=== PATIENT | female | born 1955 | race Caucasian/White ===

== ENCOUNTER 2023-07-03 07:40 | Outpatient (OUT) | payer MEDICARE, OTHER, SELFPAY ==
[2023-07-03 07:53] LABS: Basophils Absolute Auto 0.1 10^3/uL (0.0-0.1); Basophils Percent Auto 1.6 % (0.2-2.0); Eosinophils Absolute Auto 0.2 10^3/uL (0.0-0.7); Eosinophils Percent Auto 4.7 % (0.9-7.0); Hemoglobin 14.2 g/dL (12.0-16.0); Lymphocytes Absolute Auto 1.2 10^3/uL (1.2-3.8); Lymphocytes Percent Auto 31.1 % (20.5-60.0); Mean Corpuscular Hemoglobin 30.9 pg (26.7-34.0); Mean Corpuscular Volume 93.7 fL (81.0-99.0); Mean Platelet Volume 8.7 fL (9.5-13.5); Monocytes Absolute Auto 0.4 10^3/uL (0.3-0.8); Neutrophils Percent Auto 52.6 % (43.0-75.0); Platelet Count 210 10^3/uL (150-450); Red Blood Count 4.59 10^6/uL (4.20-5.40); Red Cell Distribution Width 12.7 % (11.0-15.0); White Blood Count 3.8 10^3/uL (4.0-11.0)
--- NOTE | 2023-07-03 07:57 | MM_ITS ---
Patient: POLO ALANIS Exam Date: 07/03/2023 : 1955 Gender:F Ordering : DR Doris Adam M.D. Admission #: [id number] Family : Order #: [id number] CLICK HERE TO VIEW EXAM RADIOLOGY REPORT PROCEDURE: MM TOMOSYNTHESIS SCREENING BI COMPARISON: MG MAMM SCREEN DANIELA W CAD, 08/13/2019. MG MAMM DANIELA SCRN W CAD DIG, 08/25/2016. INDICATIONS: Screening Calculator Name NCI Breast Cancer Risk Assessment Tool 5 Year Breast Cancer Risk 1.20% Lifetime Breast Cancer Risk 3.90% Personal Breast Cancer No Personal Ovarian Cancer No Treatments None Family Cancers Father with lung cancer at age ~60. LOCATION: [facility] BREAST COMPOSITION: Scattered areas fibroglandular density. FINDINGS: DIAGNOSTIC CATEGORY 2--BENIGN FINDING: RIGHT BREAST: No significant suspicious finding. Scattered benign-appearing calcifications are present. No significant change has occurred. LEFT BREAST: No significant suspicious finding. Scattered benign-appearing calcifications are present. No significant change has occurred. RECOMMENDATIONS: ROUTINE MAMMOGRAM AND CLINICAL EVALUATION IN 12 MONTHS. PLEASE NOTE: A NORMAL MAMMOGRAM DOES NOT EXCLUDE THE POSSIBILITY OF BREAST CANCER. A CLINICALLY SUSPICIOUS PALPABLE LUMP SHOULD BE BIOPSIED. Dictated by: Frantz Melchor M.D. on 07/03/2023 at 15:03 Approved by: Frantz Melchor M.D. on 07/03/2023 at 15:05
[2023-07-03 08:39] LABS: Free T4 1.11 ng/dL (0.76-1.46)
[2023-07-03 08:41] LABS: Alanine Aminotransferase 36 U/L (14-59); Albumin Globulin Ratio 1.3; Albumin Level 3.8 g/dL (3.4-5.0); Alkaline Phosphatase 61 U/L (46-116); Anion Gap 9.7; Aspartate Amino Transferase 19 U/L (15-37); BUN Creatinine Ratio 17.3; Bilirubin Total 0.6 mg/dL (0.2-1.0); Calcium 8.8 mg/dL (8.5-10.1); Chloride 105 mmol/L (98-107); Chol HDL Ratio 2.2; Cholesterol 140 mg/dL (<=200); Estimated GFR (African America >60 (>=60); Estimated GFR (Non-African Ame >60 (>=60); Glucose 89 mg/dL (74-106); HDL Cholesterol 63 mg/dL (40-60); Potassium 4.7 mmol/L (3.5-5.1); Sodium 141 mmol/L (136-145); Thyroid Stimulating Hormone 0.329 uIU/mL (0.358-3.740); Total Protein 6.8 g/dL (6.4-8.2); Triglycerides 86 mg/dL (<=150); VLDL CHOLESTEROL 17.2 mg/dL
== END 2023-07-03 07:41 | disposition home or self-care (01) ==
LOC: MAMMO 07:40
PROVIDERS: PCP Family Medicine; Visit Provider Family Medicine
DX: Z12.31 Encounter for screening mammogram for malignant neoplasm of breast (principal); E03.9 Hypothyroidism, unspecified; E78.5 Hyperlipidemia, unspecified; Z80.1 Family history of malignant neoplasm of trachea, bronchus and lung
CPT/HCPCS: 36415; 77063; 77067; 80053; 80061; 84439; 84443; 85025

== ENCOUNTER 2023-11-24 06:40 | Outpatient (OUT) | payer MEDICARE, OTHER, SELFPAY ==
[2023-11-24 07:45] LABS: Thyroid Stimulating Hormone 0.111 uIU/mL (0.358-3.740)
[2023-11-24 08:04] LABS: Free T4 1.24 ng/dL (0.76-1.46)
== END 2023-11-24 06:41 | disposition home or self-care (01) ==
LOC: LAB 06:40
PROVIDERS: PCP Family Medicine; Visit Provider Family Medicine
DX: L65.9 Nonscarring hair loss, unspecified (principal); E03.9 Hypothyroidism, unspecified
CPT/HCPCS: 36415; 84439; 84443

== ENCOUNTER 2024-01-05 06:52 | Outpatient (OUT) | payer MEDICARE, OTHER, SELFPAY ==
--- OUTSIDE RECORDS SUMMARY | 2024-01-05 06:56 | XMS_ITS | CCD ---
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 Name Role Phone DORIS WILLIS Primary Care Physician [phone] Doris Willis MISC, DR CABRAL Primary Care Unavailable MISC, DR CABRAL Consulting Unavailable MISC, DR CABRAL Attending Unavailable MISC, DR CABRAL Admitting Unavailable WILLIS, DR DORIS Clements Admitting Unavailable WILLIS, DR DORIS Clements Primary Care Unavailable WILLIS, DR DORIS Clements Consulting Unavailable WILLIS, DR DORIS Clements Attending Unavailable WILLIS, DR DORIS Clements Admitting Unavailable WILLIS, DR DORIS Clements Primary Care Unavailable ZIEBKEITH, DR STEPHANY Woodard Consulting Unavailable WILLIS, DR DORIS Clements Attending Unavailable WILLIS, DR DORIS Clements Consulting Unavailable WILLIS, DR DORIS Clements Primary Care Unavailable HAY ., DR SCHMIDT Consulting Unavailable HAY ., DR SCHMIDT Attending Unavailable HAY ., DR SCHMIDT Admitting Unavailable MISC, DR CABRAL Primary Care Unavailable MISC, DR CABRAL Attending Unavailable MISC, DR CABRAL Admitting Unavailable WILLIS, DR DORIS Clements Attending Unavailable WILLIS, DR DORIS Clements Admitting Unavailable WILLIS, DR DORIS Clements Primary Care Unavailable WILLIS, DR DORIS Clements Consulting Unavailable Kia, MD Doris Clements Primary Care Provider YARIEL Briones Emergency Provider Nehemias Briones Attending Unavailable Nehemias Briones Admitting Unavailable Kia, Doris Clements Primary Care Unavailable Allergies Allergy Classification Reported Allergen(s) Allergy Type Date of Onset Reaction(s) Facility (4 sources) Amoxicillin / Clavulanate Drug Allergy Unknown [facility] Other (6 sources) cefdinir Drug Allergy Unknown [facility] Other (6 sources) gabapentin Drug Allergy Unknown [facility] Other (6 sources) Latex Drug allergy rash [facility] Other (3 sources) Phentermine Drug Allergy Unknown [facility] Other (9 sources) Propranolol Drug Allergy Unknown [facility] Other (6 sources) Simvastatin Drug Allergy Unknown [facility] Other (2 sources) natural latex rubber Drug allergy (disorder) [facility] Repository (3 sources) Adipex-P *ADHD/ANTI-NARC OLEPSY/ANTI-OBE SITY/ANOREX Propensity to adverse reactions Unknown [facility] Other (2 sources) Amoxicillin / Clavulanate Drug Allergy Unknown [facility] Other Medications Current Medications Medication Drug Class(es) Dates Sig (Normalized) Sig (Original) aspirin 81 mg oral tablet (9 sources) Platelet Aggregation Inhibitor, Nonsteroidal Anti-inflammatory Drug Start: 07-13-2016 take 81 mg by mouth once daily Aspirin Active 81 MG PO Daily April 23, 2023 12:00am betamethasone 0.5 mg/ml topical cream (7 sources) Corticosteroid Start: 11-27-2023 Betamethasone Dipropionate Active 1 APPLIC TOPICAL Twice daily November 27, 2023 12:00am FreeTextSi application Externally Twice a day; Note: Source Status: Taking; Provider: Kia George ( ) Betamethasone Di propionate 0.05 % 1 application Externally Twice a day Active cetirizine hydrochloride 10 mg oral tablet (8 sources) Histamine-1 Receptor Antagonist Start: 11-27-2023 take 1 tablet by mouth once daily Cetirizine (Zyrtec) 10 mg tablet Active 1 TAB PO Daily November 27, 2023 12:00am FreeTextSi tablet Orally Once a day; Note: Source Status: Taking; Provider: Kia George ( ) Start: 07-13-2016 take 10 mg by mouth once daily Zyrtec 10 mg, Oral, Daily, Refills(s) 0, Allergy symptoms Start Date: 07/13/16 Status: Ordered ciprofloxacin 250 mg oral tablet (1 source) Quinolone Antimicrobial Start: 12-26-2022 take 1 tablet by mouth every twelve hours Ciprofloxacin HCl 250 MG 1 tablet Orally every 12 hrs for 5 day(s) Dec, Active DULoxetine 30 mg delayed release oral capsule (7 sources) Serotonin and Norepinephrine Reuptake Inhibitor Start: 11-27-2023 take 1 capsule by mouth once daily Duloxetine Active 30 MG PO Daily November 27, 2023 12:00am FreeTextSig: TAKE 1 CAPSULE BY MOUTH EVERY DAY; Note: Source Status: Start; Refills: 3; Qty: 90 Capsule; Provider: Kia George ( ) take 1 capsule by mo [facility] every twenty-four hours Cymbalta 30 MG 1 capsule Orally Once a day Active DULoxetine 60 mg Cap-EC (1 source) Start: 01-11-2022 take 1 capsule by mouth once daily DULoxetine 60 mg Cap-EC 60 mg = 1 cap(s), Oral, Daily, (do not crush or chew), # 90 caplet(s), Refills(s) 3, Pharmacy: [facility]/pharmacy #[id number], 160, cm, 01/11/22 16:30:00 EDT, Height/Length Dosing, 87.1, kg, 01/11/22 16:30:00 EDT, Weight Dosing Start Date: 01/11/22 Status: Ordered Flonase 0.05 mg/inh [place] (1 source) Start: 01-11-2022 take 1 spray(s) nasal route twice daily Flonase 0.05 mg/inh [place] 1 spray(s), Nasal, BID, 16 gram, Refill(s) 0, each nostril Start Date: 01/11/22 Status: Ordered krill oil (6 sources) Krill Oil 350 MG as directed Orally Active levothyroxine sodium 0.1 mg oral tablet (10 sources) l-Thyroxi ne Start: 11-27-2023 take 100 ug by mouth once daily Levothyroxine Active 100 MCG PO Daily November 27, 2023 12:00am Start: 04-23-2023 End: 11-27-2023 take 112 ug by mouth once daily in the morning Levothyroxine Discontinued 112 MCG PO Every morning April 23, 2023 12:00am November 27, 2023 10:03am Start: 11-10-2022 take 1 tablet by [facility] once daily in the morning Synthroid 100 MCG 1 tablet in the morning on an empty stomach Orally Once a day for 90 days Nov, Active Start: 11-10-2022 take 1 tablet by anibal th once daily in the morning Synthroid 112 MCG 1 tablet in the morning on an empty stomach Orally Once a day for 90 days Nov, Active Start: 01-11-2022 levothyroxine 100 mcg (0.1 mg) Tab See Instructions, 1 tab(s) Oral Daily monday-monday, take 1/2 tab on monday, # 30 tab(s), Refills(s) 5, Pharmacy: [facility]/pharmacy #[id number], 160, cm, 01/11/22 16:30:00 EDT, Height/Length Dosing, 87.1, kg, 01/11/22 16:30:00 EDT, Weight Dosing Start Date: 01/11/22 Status: Ordered methylPREDNISolone 4 mg oral tablet (1 source) Corticosteroid Start: 05-04-2023 methylPREDNISolone 4 MG as directed Orally for 6 days Apr, Active MiraLax 17 GM/SCOOP (4 sources) MiraLax 17 GM/SC OOP as directed Orally Active Multivitamins and Minerals (1 source) Start: 07-14-2016 Multivitamins and Minerals See Instructions, Refill(s) 0, Prophylaxis Start Date: 07/14/16 Status: Ordered pantoprazole 40 mg delayed release oral tablet (9 sources) Proton Pump Inhibitor Start: 04-23-2023 take 40 mg by mouth once daily Pantoprazole Active 40 MG PO Daily April 23, 2023 12:00am Start: 07-13-2016 take 40 mg by mouth once daily pantoprazole 40 mg, Oral, Daily, Refills(s) 0, Control of stomach acid Start Date: 07/13/16 Status: Ordered polyethylene glycol 3350 42796 mg powder for oral solution (3 sources) Osmotic Laxative Start: 09-14-2021 MiraLax oral powder for reconstitution 17 gram, Oral, Daily, 527 gram, Refill(s) 0, dissolve in water before taking, [facility]/pharmacy #[id number], 160, cm, 09/14/21 16:09:00 EST, Height/Length Dosing, 85.1, kg, 09/14/21 16:09:00 EST, Weight Dosing Start Date: 09/14/21 Status: Ordered MiraLax 17 GM/SC OOP as directed Orally Active rizatriptan 10 mg oral tablet (11 sources) Serotonin-1b and Serotonin-1d Receptor Agonist Start: 11-27-2023 take 1 tablet by mouth every two hours as needed, then take 2 tablets by mouth once daily as needed Rizatriptan Active 10 MG PO EVERY 2-4 HOURS November 27, 2023 12:00am FreeTextSig: TAKE 1 TABLET BY MOUTH EVERY 2 HOURS NEEDED, MAX 2 TABS PER DAY; Note: Source Status: Taking; Refills: 5; Qty: 10 Tablet; Provider: Kia George ( ) Start: 11-22-2023 End: 11-27-2023 Rizatriptan Discontinued 0 . ROUTE .COMPLEX November 22, 2023 1:52pm November 27, 2023 9:54am TAKE 1 TABLET EVERY 2 HOURS NEEDED. MAX 2 TABLETS PER DAY Start: 07-14-2016 End: 11-22-2023 Rizatriptan Discontinued 10 MG PO As Directed April 23, 2023 12:00am November 22, 2023 1:52pm rosuvastatin calcium 20 mg oral tablet (9 sources) HMG-CoA Reductase Inhibitor Start: 09-14-2021 take 20 mg by mouth once daily Rosuvastatin Active 20 MG PO Daily April 23, 2023 12:00am sulfamethoxazole 800 mg / trimethoprim 160 mg oral tablet (1 source) Dihydrofolate Reductase Inhibitor Antibacterial, Sulfonamide Antimicrobial Start: 03-02-2023 take 1 tablet by mouth every twelve hours Bactrim DS 800-160 MG 1 tablet Orally Twice a day for 10 day(s) Feb, Active Completed/Discontinued Medications Medication Drug Class(es) Dates Sig (Normalized) Sig (Original) docusate sodium 100 mg oral capsule (7 sources) Start: 11-27-2023 End: 11-27-2023 take 1 capsule by mouth once daily as needed Docusate Sodium Discontinued 1 CAP PO Daily November 27, 2023 12:00am November 27, 2023 9:52am FreeTextSi capsule as needed Orally Once a day; Note: Source Status: [id number] MG; Provider: Kia George ( ) take 1 capsule by [facility] every twenty-four hours Colace 100 MG 1 capsule as needed Orally Once a day 50 MG Active doxycycline hyclate 100 mg oral capsule (7 sources) Tetracycline-class Drug Start: 11-27-2023 End: 11-27-2023 take 1 capsule by mouth twice daily Doxycycline Hyclate Discontinued 1 CAP PO Twice daily November 27, 2023 12:00am November 27, 2023 9:52am FreeTextSi capsule Orally Twice a day; Note: Source Status: Not-Taking\PRN; Refills: 0; Provider: Avery Ross Start: 05-29-2019 take 1 capsule by [facility] every twelve hours Doxycycline Hyclate 100 MG 1 capsule Orally Twice a day for 10 day(s) May, Not-Taking [id number] (1 source) Start: 11-27-2023 End: 11-27-2023 Sadgg-[id number]-[id number] Discontinued CAP PO November 27, 2023 12:00am November 27, 2023 9:52am omeprazole 20 mg delayed release oral capsule (7 sources) Proton Pump Inhibitor Start: 11-27-2023 End: 11-27-2023 take 20 mg by mouth once daily Omeprazole Discontinued 20 MG PO Daily November 27, 2023 12:00am November 27, 2023 9:53am Medication Name: Omeprazole; Note: Source Status: Not-Taking\PRN; Provider: Kia George ( ) Omeprazole Not-T aking triamcinolone acetonide 40 mg/ml injectable suspension (5 sources) Corticosteroid Start: 03-02-2023 Kenalog-40 Jun, 60 mg Problems Active Problems Problem Classification Problem Date Documented Date Episodic/Chronic Abdominal pain (5 sources) Lower abdominal pain, unspecified; Translations: [LOWER ABDOMINAL PAIN UNSPECIFIED] Onset: 11-09-2022 Episodic Allergic reactions (12 sources) Eczema; Translations: [Dermatitis, unspecified] Episodic Anxiety disorders (2 sources) Anxiety disorder; Translations: [Anxiety disorder, unspecified] Onset: 01-07-2022 Chronic Diabetes mellitus without complication (7 sources) Hyperglycemia; Translations: [Other abnormal glucose] Onset: 06-28-2022 Episodic Diseases of mouth; excluding dental (6 sources) Sialoadenitis; Translations: [Sialoadenitis, unspecified] Episodic Diseases of white blood cells (11 sources) Decreased blood leukocyte number; Translations: [Other decreased white blood cell count] Onset: 12-21-2022 Chronic Disorders of lipid metabolism (4 sources) Hyperlipidemia; Translations: [Hyperlipidemia, unspecified] Onset: 12-29-2021 09-14-2021 Chronic E Codes: Natural/environment (1 source) Bitten or stung by nonvenomous insect and other nonvenomous arthropods, initial encounter Episodic Esophageal disorders (8 sources) Gastroesophageal reflux disease; Translations: [Gastroesophageal reflux disease without esophagitis] Onset: 12-29-2021 09-14-2021 Chronic Fracture of upper limb (18 sources) Open fracture of middle AND/OR proximal phalanx of finger; Translations: [Displaced fracture of proximal phalanx of other finger, initial encounter for open fracture] Episodic Headache; including migraine (8 sources) Migraine; Translations: [Migraine, unspecified, not intractable, without status migrainosus] Onset: 12-29-2021 09-14-2021 Chronic Inflammation; infection of eye (except that caused by tuberculosis or sexually transmitteddisease) (2 sources) Acute conjunctivitis due to chemical; Translations: [Acute toxic conjunctivitis, unspecified eye] 04-23-2023 Episodic Lymphadenitis (6 sources) Cervical lymphadenopathy; Translations: [Localized enlarged lymph nodes] Episodic Mood disorders (2 sources) Mild recurrent major depression; 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, recurrent, mild] Onset: 01-07-2022 Chronic Other ear and sense organ disorders (6 sources) Bilateral tinnitus; Translations: [Tinnitus, bilateral] Episodic Other inflammatory condition of skin (6 sources) Pruritus of skin; Translations: [Pruritus, unspecified] Episodic Other nervous system disorders (6 sources) Carpal tunnel syndrome of right wrist; Translations: [Carpal tunnel syndrome, right upper limb] Chronic Other non-traumatic joint disorders (6 sources) Shoulder joint pain; Translations: [Pain in right shoulder] Episodic Other nutritional; endocrine; and metabolic disorders (1 source) Obese class I; Translations: [Body mass index (BMI) 34.0-34.9, adult] Onset: 01-11-2022 Chronic Other nutritional; endocrine; and metabolic disorders (1 source) Body mass index 30+ - obesity 01-11-2022 Chronic Other skin disorders (1 source) Loss of hair; Translations: [Nonscarring hair loss, unspecified] 11-23-2023 Episodic Other upper respiratory disease (2 sources) Allergic rhinitis; Translations: [Allergic rhinitis, unspecified] Onset: 01-11-2022 Chronic Other upper respiratory disease (6 sources) Seasonal allergy; Translations: [Other seasonal allergic rhinitis] Chronic Other upper respiratory infections (1 source) Chronic sinusitis, unspecified; Translations: [CHRONIC SINUSITIS UNSPECIFIED] Onset: 08-30-2022 Chronic Other upper respiratory infections (6 sources) Acute pharyngitis; Translations: [Acute pharyngitis, unspecified] Episodic Residual codes; unclassified (6 sources) Tobacco user; Translations: [Tobacco use] Episodic Superficial injury; contusion (1 source) Insect bite (nonvenomous) of right elbow, initial encounter Episodic Thyroid disorders (20 sources) Hypothyroidism; Translations: [Hypothyroidism, unspecified] Onset: 01-07-2022 Chronic Unclassified (1 source) Ocular pain, right eye; Translations: [Ocular pain, right eye] Onset: 04-23-2023 Past or Other Problems Problem Classification Problem Date Documented Da te Episodic/Chronic Menopausal disorders (1 source) Hormone replacement therapy; Translations: [HORMONE REPLACEMENT THERAPY] Onset: 08-30-2022 Episodic Other aftercare (1 source) Other retirement (current) drug therapy; Translations: [OTH SHELTER CURRENT DRUG THERAPY] Onset: 08-30-2022 Episodic Other aftercare (1 source) termite helper (current) use of aspirin; Translations: [FORKLIFT SUPERVISOR CURRENT USE OF ASPIRIN] Onset: 08-30-2022 Episodic Other upper respiratory disease (3 sources) Nasal congestion; Translations: [NASAL CONGESTION] Onset: 08-29-2022 Episodic Results Test Name Value Interpretation Reference Range Facility Laboratory - Chemistry and C hemistry - challengeon 11-24-2023 Free T4 [Mass/Vol] 1.24 ng/dL 0.76-1.46 [facility] TSH Qn 0.111 m[IU]/L 0.358-3.740 [facility] CBC AUTO DIFFon 12-21-2022 BASO # 0.0 103/ul Normal 0.0-0.1 [facility] Comment on above: Performed By: #### C #### [facility] [address] [place] [address] Dr. Aida Monae Basophils/100 WBC (Bld) 0.8 % Normal 0.2-2.0 [facility] Comment on above: Performed By: #### C BC #### [facility] [address] [place] [address] Dr. Aida Monae EO # 0.2 103/ul Normal 0.0-0.7 [facility] Comment on above: Performed By: #### C BC #### [facility] [address] [place] [address] Dr. Aida Monae Eosinophils/100 WBC (Bld) 4.1 % Normal 0.9-7.0 [facility] Comment on above: Performed By: #### C BC #### [facility] [address] [place] [address] Dr. Aida Monae Erythrocyte distribution width (RBC) [Ratio] 13.2 % Normal 11.0-15.0 [facility] Comment on above: Performed By: #### C BC #### [facility] [address] [place] [address] Dr. Aida Monae Hematocrit (Bld) [Volume fraction] 43.5 % Normal 36.0-48.0 [facility] Comment on above: Performed By: #### C BC #### [facility] [address] [place] [address] Dr. Aida Monae Hemoglobin (Bld) [Mass/Vol] 14.7 g/dL Normal 12.0-16.0 [facility] Comment on above: Performed By: #### C BC #### [facility] [address] [place] [address] Dr. Aida Monae IG # 0.02 10e3/ul Normal 0.00-0.03 [facility] Comment on above: Performed By: #### C BC #### [facility] [address] [place] [address] Dr. Aida Monae IG % 0.4 % Normal 0.0-0.5 [facility] Comment on above: Performed By: #### C BC #### [facility] [address] [address] [address] Aida Monae LYMPH # 1.2 103/ul Normal 1.2-3.8 [facility] Comment on above: Performed By: #### C BC #### [facility] [address] [place] [address] Dr. Aida Monae Lymphocytes/100 WBC (Bld) 24.3 % Normal 20.5-60.0 [facility] Comment on above: Performed By: #### C BC #### [facility] [address] [place] [address] Dr. Aida Monae MANUAL DIFF REQ NO Normal [facility] Comment on above: Performed By: #### C BC #### [facility] [address] [place] [address] Dr. Aida Monae MCH (RBC) [Entitic mass] 30.8 pg Normal 26.7-34.0 [facility] Comment on above: Performed By: #### C BC #### [facility] [address] [place] [address] Dr. Aida Monae MCHC (RBC) [Mass/Vol] 33.8 g/dL Normal 29.9-35.2 [facility] Comment on above: Performed By: #### C BC #### [facility] [address] [place] [address] Dr. Aida Monae MCV (RBC) [Entitic vol] 91.2 fL Normal 81.0-99.0 [facility] Comment on above: Performed By: #### C BC #### [facility] [address] [place] [address] Dr. Aida Monae MONO # 0.5 103/ul Normal 0.3-0.8 [facility] Comment on above: Performed By: #### C BC #### [facility] [address] [place] [address] Dr. Aida Monae Monocytes/100 WBC (Bld) 9.2 % Normal 1.7-12.0 [facility] Comment on above: Performed By: #### C BC #### [facility] [address] [address] [address] Aida Monae NEUT # 3.0 103/ul Normal 1.4-6.5 [facility] Comment on above: Performed By: #### C BC #### [facility] [address] [place] [address] Dr. Aida Monae Neutrophils/100 WBC (Bld) 61.2 % Normal 43.0-75.0 [facility] Comment on above: Performed By: #### C BC #### [facility] [address] [place] [address] Dr. Aida Monae Platelet mean volume (Bld) [Entitic vol] 8.9 fL Critically low 9.5-13.5 [facility] Comment on above: Performed By: #### C BC #### [facility] [address] [place] [address] Dr. Aida Monae PLT 259 103/ul Normal 150-450 [facility] Comment on above: Performed By: #### C BC #### [facility] [address] [place] [address] Dr. Aida Monae RBC 4.77 106/ul Normal 4.20-5.40 [facility] Comment on above: Performed By: #### C BC #### [facility] [address] [place] [address] Dr. Aida Monae WBC 4.9 103/ul Normal 4.0-11.0 [facility] Comment on above: Performed By: #### C BC #### [facility] [address] [place] [address] Dr. Aida Monae CBC AUTO DIFFon 11-09-2022 BASO # 0.0 103/ul Normal 0.0-0.1 [facility] Comment on above: Performed By: #### C BC #### [facility] [address] [place] [address] Dr. Aida Monae Basophils/100 WBC (Bld) 0.9 % Normal 0.2-2.0 [facility] Comment on above: Performed By: #### C BC #### [facility] [address] [place] [address] Dr. Aida Monae EO # 0.1 103/ul Normal 0.0-0.7 [facility] Comment on above: Performed By: #### C BC #### [facility] [address] [place] [address] Dr. Aida Monae Eosinophils/100 WBC (Bld) 3.6 % Normal 0.9-7.0 [facility] Comment on above: Performed By: #### C BC #### [facility] [address] [place] [address] Dr. Aida Monae Erythrocyte distribution width (RBC) [Ratio] 13.6 % Normal 11.0-15.0 [facility] Comment on above: Performed By: #### C BC #### [facility] [address] [place] [address] Dr. Aida Monae Hematocrit (Bld) [Volume fraction] 42.6 % Normal 36.0-48.0 [facility] Comment on above: Performed By: #### C BC #### [facility] [address] [place] [address] Dr. Aida Monae Hemoglobin (Bld) [Mass/Vol] 14.5 g/dL Normal 12.0-16.0 [facility] Comment on above: Performed By: #### C BC #### [facility] [address] [place] [address] Dr. Aida Monae IG # 0.01 10e3/ul Normal 0.00-0.03 [facility] Comment on above: Performed By: #### C BC #### [facility] [address] [place] [address] Dr. Aida Monae IG % 0.3 % Normal 0.0-0.5 [facility] Comment on above: Performed By: #### C BC #### [facility] [address] [place] [address] Dr. Aida Monae LYMPH # 1.0 103/ul Critically low 1.2-3.8 [facility] Comment on above: Performed By: #### C BC #### [facility] [address] [place] [address] Dr. Aida Monae Lymphocytes/100 WBC (Bld) 28.6 % Normal 20.5-60.0 [facility] Comment on above: Performed By: #### C BC #### [facility] [address] [place] [address] Dr. Aida Monae MANUAL DIFF REQ NO Normal [facility] Comment on above: Performed By: #### C BC #### [facility] [address] [place] [address] Dr. Aida Monae MCH (RBC) [Entitic mass] 30.2 pg Normal 26.7-34.0 [facility] Comment on above: Performed By: #### C BC #### [facility] [address] [place] [address] Dr. Aida Monae MCHC (RBC) [Mass/Vol] 34.0 g/dL Normal 29.9-35.2 [facility] Comment on above: Performed By: #### C BC #### [facility] [address] [place] [address] Dr. Aida Monae MCV (RBC) [Entitic vol] 88.8 fL Normal 81.0-99.0 [facility] Comment on above: Performed By: #### C BC #### [facility] [address] [place] [address] Dr. Aida Monae MONO # 0.4 103/ul Normal 0.3-0.8 [facility] Comment on above: Performed By: #### C BC #### [facility] [address] [place] [address] Dr. Aida Monae Monocytes/100 WBC (Bld) 11.9 % Normal 1.7-12.0 [facility] Comment on above: Performed By: #### C BC #### [facility] [address] [place] [address] Dr. Aida Monae NEUT # 1.8 103/ul Normal 1.4-6.5 [facility] Comment on above: Performed By: #### C BC #### [facility] [address] [place] [address] Dr. Aida Monae Neutrophils/100 WBC (Bld) 54.7 % Normal 43.0-75.0 [facility] Comment on above: Performed By: #### C BC #### [facility] [address] [place] [address] Dr. Aida Monae Platelet mean volume (Bld) [Entitic vol] 8.6 fL Critically low 9.5-13.5 [facility] Comment on above: Performed By: #### C BC #### [facility] [address] [place] [address] Dr. Aida Monae PLT 167 103/ul Normal 150-450 [facility] Comment on above: Performed By: #### C BC #### [facility] [address] [place] [address] Dr. Aida Monae RBC 4.80 106/ul Normal 4.20-5.40 [facility] Comment on above: Performed By: #### C BC #### [facility] [address] [place] [address] Dr. Aida Monae WBC 3.4 103/ul Critically low 4.0-11.0 [facility] Comment on above: Performed By: #### C BC #### [facility] [address] [place] [address] ABD/PELV W CONon 11-10-19 CT ABD/PELV W CON EXAMINATION: CT ABD/PELV W CON HISTORY: Lower abdominal pain , cramping; symptoms for several months and increasing in severity. COMPARISON: No relevant comparison available. TECHNIQUE: Axial, Coronal, and Sagittal images were obtained without and/or with IV contrast as indicated by examination type. Dose reduction techniques were achieved by using automated exposure control and/or adjustment of mA and/or kV according to patient size and/or use of iterative reconstruction technique. FINDINGS: LUNG BASES: No visible pulmonary or pleural disease. LIVER: No enlargement, atrophy, suspicious density, or significant focal lesion. BILIARY: No dilatation or calcification. PANCREAS: No lesion, fluid collection, or abnormal duct dilatation. SPLEEN: No enlargement or focal lesion. ADRENALS: No mass or enlargement. KIDNEYS: No mass, obstruction, or calcification. BOWEL/MESENTERY: Mild diverticulosis of sigmoid colon without acute inflammatory changes. No visible mass, obstruction, or bowel wall thickening. Normal appendix. AORTA/VASCULAR: No aneurysm or dissection. RETROPERITONEUM: No mass or adenopathy. LYMPH NODES: No adenopathy. URINARY BLADDER: No visible focal wall thickening, lesion, or calculus. PELVIC ORGANS: Hysterectomy. ABDOMINAL WALL: No mass or hernia. BONES: Prominent degenerative endplate sclerosis T10-T11. Grade 1 anterior listhesis of L3 on 4 with prominent posterior disc bulging. Moderate disc height reduction L4-L5 and L5-S1. OTHER: Negative. IMPRESSION: 1.Mild distal colonic diverticulosis, which may contribute to patient's symptoms. No acute diverticulitis. 2.Degenerative disc disease of lumbar spine. Electronically authenticated by: STEPHANY MANZANO Date: 2022-11-09 10:59 Normal [facility] FREE T4on 11-09-2022 Free T4 [Mass/Vol] 1.34 ng/dL Normal 0.76-1.46 [facility] Comment on above: Performed By: #### F T4 #### [facility] [address] [place] [address] Dr. Aida Monae PROF 14(COMP METB)on 023 Albumin [Mass/Vol] 4.0 g/dL Normal 3.4-5.0 [facility] Comment on above: Performed By: #### C BC #### [facility] [address] [place] [address] Dr. Aida Monae Albumin/Globulin [Mass ratio] 1.3 {ratio} Normal [facility] Comment on above: Performed By: #### C BC #### [facility] [address] [place] [address] Dr. Aida Monae ALP [Catalytic activity/Vol] 66 U/L Normal 46-116 [facility] Comment on above: Performed By: #### C BC #### [facility] [address] [place] [address] Dr. Aida Monae ALT [Catalytic activity/Vol] 45 U/L Normal 14-59 [facility] Comment on above: Performed By: #### C BC #### [facility] [address] [place] [address] Dr. Aida Monae Anion gap [Moles/Vol] 10.8 mmol/L Normal Th [facility] Comment on above: Performed By: #### C BC #### [facility] [address] [place] [address] Dr. Aida Monae AST [Catalytic activity/Vol] 30 U/L Normal 15-37 [facility] Comment on above: Performed By: #### C BC #### [facility] [address] [place] [address] Dr. Aida Monae Bilirubin [Mass/Vol] 0.4 mg/dL Normal 0.2-1.0 [facility] Comment on above: Performed By: #### C BC #### [facility] [address] [place] [address] Dr. Aida Monae Calcium [Mass/Vol] 9.4 mg/dL Normal 8.5-10.1 [facility] Comment on above: Performed By: #### C BC #### [facility] [address] [place] [address] Dr. Aida Monae Chloride [Moles/Vol] 108 mmol/L Critically high 98-107 [facility] Comment on above: Performed By: #### C BC #### [facility] [address] [place] [address] Dr. Aida Monae CO2 [Moles/Vol] 31.5 mmol/L Normal 21.0-32.0 [facility] Comment on above: Performed By: #### C BC #### [facility] [address] [place] [address] Dr. Aida Monae Creatinine [Mass/Vol] 0.75 mg/dL Normal 0.55-1.02 [facility] Comment on above: Performed By: #### C BC #### [facility] [address] [place] [address] Dr. Aida Monae EGFR-AF TAIWANESE >60 Normal >=60 [facility] Comment on above: Performed By: #### C BC #### [facility] [address] [place] [address] Dr. Aida Monae EGFR-NON AF TAIWANESE >60 Normal >=60 [facility] Comment on above: Performed By: #### C BC #### [facility] [address] [address] [address] Aida Monae Globulin (S) [Mass/Vol] 3.0 g/dL Normal [facility] Comment on above: Performed By: #### C BC #### [facility] [address] [address] [address] Aida Monae Glucose [Mass/Vol] 108 mg/dL Critically high 74-106 [facility] Comment on above: Performed By: #### C BC #### [facility] [address] [address] [address] Aida Monae Potassium [Moles/Vol] 4.3 mmol/L Normal 3.5-5.1 [facility] Comment on above: Performed By: #### C BC #### [facility] [address] [place] [address] Dr. Aida Monae Protein [Mass/Vol] 7.0 g/dL Normal 6.4-8.2 [facility] Comment on above: Performed By: #### C BC #### [facility] [address] [place] [address] Dr. Aida Monae Sodium [Moles/Vol] 146 mmol/L Critically high 136-145 [facility] Comment on above: Performed By: #### C BC #### [facility] [address] [place] [address] Dr. Aida Monae Urea nitrogen [Mass/Vol] 10.0 mg/dL Normal 7.0-18.0 [facility] Comment on above: Performed By: #### C BC #### [facility] [address] [place] [address] Dr. Aida Monae Urea nitrogen/Creatinine [Mass ratio] 13.3 mg/mg Normal [facility] Comment on above: Performed By: #### C BC #### [facility] [address] [place] [address] Dr. Aida Monae TSHon 11-09-2022 TSH 0.243 uIU/mL Critically low 0.358-3.740 [facility] Comment on above: Performed By: #### T SH #### [facility] [address] [address] [address] Aida Monae FREE T4on 06-23-2022 Free T4 [Mass/Vol] 1.11 ng/dL Normal 0.76-1.46 [facility] Comment on above: Performed By: #### F T4 #### [facility] [address] [address] [address] Aida Monae GLYCOHEMOGLOBIN A1Con 2021 ADA RECOMMENDATION SEE BELOW Normal [facility] Comment on above: Result Comment: ADA RECOMMENDED LIMIT 4.0 - 6.0 ADA THERAPEUTIC TARGET < 7.0 ACTION SUGGESTED > 7.0 Performed By: #### A 1C #### [facility] [address] [address] [address] Aida Monae Glucose [Mass/Vol] 117 mg/dL Normal [facility] Comment on above: Performed By: #### A 1C #### [facility] [address] [address] [address] Aida Monae HbA1c (Bld) [Mass fraction] 5.7 % Normal 4.5-6.2 [facility] Comment on above: Performed By: #### A 1C #### [facility] [address] [address] [address] Aida Monae TSHon 06-23-2022 TSH 9.653 uIU/mL Critically high 0.358-3.740 [facility] Comment on above: Performed By: #### C BC #### [facility] [address] [address] [address] Aida Monae Ambulatory Visit Summaryon 0 01-11-2022 Ambulatory Visit Summary ANISHA ALANIS :1955 Visit Date:01/11/2022 Ambulatory Visit Instructions Your Diagnosis Hypothyroidism Mild recurrent major depression Anxiety Allergic rhinitis Adult BMI 34.0-34.9 kg/sq m Depression Your Care Team Attending Physician - Markos Cruz DO Primary Care Physician - DORIS WILLIS MD This Is Your Medications List duloxetine (DULoxetine 60 mg Cap-EC) fluticasone nasal (Flonase 0.05 mg/inh [place]) levothyroxine (levothyroxine 100 mcg (0.1 mg) Tab) Contact prescribing physician if questions or concerns aspirin cetirizine (Zyrtec) multivitamin with minerals (Multivitamins and Minerals) pantoprazole polyethylene glycol 3350 (MiraLax oral powder for reconstitution) rizatriptan (Maxalt) rosuvastatin (rosuvastatin 20 mg Tab) Procedures Performed Ankle fusion, Colonoscopy, Hysterectomy, Tubal ligation. Discharge Vitals Temperature (Oral) 37.1 ?C Heart Rate (Peripheral) 65 Blood Pressure 140/90 Height 160.0 cm Height 160 cm Weight 87.1 kg Weight 87.1 kg BMI 34.02 What to do next Scheduled Follow-Up Appointments Monday 4:40 PM EDT With: Markos Cruz DO Where: [facility] Primary Care Normal [facility] Family Medicine Office/Clini c Noteon 01-11-2022 Family Medicine Office/Clinic Note Chief Complaint here to check on thyroid level, also having allergies History of Present Illness 66 y/o female here to discuss hypothyroidism and MDD/anxiety CC confirmed with the patient with no changes HYPOTHYROID recent labs reveal TSH is 9.8 (outside labs - done at [facility]) Free T4 was WNL previously on 100mcg but with associated weight loss attributed to that dose being too high, we decreased to 88mcg in Sep weight has increased 4 pounds in the last few months attributes this to being less busy at work reports energy is a little lower MDD/ ANXIETY increased duloxetine from 30mg to 60mg anxiety has improved significantly SEASONAL ALLERGIES worse in recent weeks only using flonase 1 time a day occasional use of sudafed - OTC for congestion Review of Systems 13 point ROS negative except for HPI Physical Exam Vitals & Measurements T: 37.1 ?C(Oral) HR: 65(Peripheral) BP: 140/90 SpO2: 97% HT: 160.0 cm HT: 160 cm WT: 87.1 kg WT: 87.1 kg BMI: 34.02 Constitutional: Vital signs reviewed; Alert and oriented, well nourished, no acute distress Eye: EOMI, normal conjunctiva HENT: Normocephalic, moist oral mucosa, no scleral icterus Bilateral turbinate hypertrophy with purplish discoloration Lungs: Clear to auscultation, non-labored respiration Heart: Normal rate, regular rhythm Musculoskeletal: Normal gait and station; no edema Skin: warm, dry Neurologic: Awake, alert and oriented, speech is normal, dysarthria, no focal deficits Psychiatric: Cooperative, appropriate mood and affect - improved Assessment/Plan 1. Hypothyroidism (E03.9: Hypothyroidism, unspecified) Chronic Sub-optimal control 100mcg seemed to be too much 88mcg is not enough will increase to 100mcg 6 days a week and 50mcg on the day encourage activity to help with weight f/u 2 months Ordered: levothyroxine, See Instructions, 1 tab(s) Oral Daily monday-monday, take 1/2 tab on monday, # 30 tab(s), Refills(s) 5, Pharmacy: [facility]/pharmacy #[id number], 160, cm, 01/11/22 16:30:00 EDT, Height/Length Dosing, 87.1, kg, 01/11/22 16:30:00 EDT, Weight Dosing TSH With T4fr Reflex 2. Mild recurrent major depression (F33.0: Major depressive disorder, recurrent, mild) Chronic Improved on increased dose of duloxetine No changes F/u PRN 3. Anxiety (F41.9: Anxiety disorder, unspecified) Chronic Improved on increased dose of duloxetine No changes F/u PRN Ordered: duloxetine, 60 mg = 1 cap(s), Oral, Daily, (do not crush or chew), # 90 caplet(s), Refills(s) 3, Pharmacy: [facility]/pharmacy #[id number], 160, cm, 01/11/22 16:30:00 EDT, Height/Length Dosing, 87.1, kg, 01/11/22 16:30:00 EDT, Weight Dosing 4. Allergic rhinitis (J30.9: Allergic rhinitis, unspecified) Acute on chronic Symptoms are mild Discussed how this is generally treated with oral antibiotics in the past but that is no longer recommended Discussed how to manage allergies in general Consider PO med like zyrtec, allegry or claritin Consider intranasal flonase For acute symptoms, pseudoephedrine 30mg BID NSAIDs (if appropriate) and tylenol Nasal saline spray can help If no better in 1 week, ok to call for antibiotics Discussed the rationale for ENT referral At this point, we will defer referral F/u PRN Adult BMI 34.0-34.9 kg/sq m (Z68.34: Body mass index [BMI] 34.0-34.9, adult) Depression (F32.A: Depression, unspecified) Ordered: duloxetine, 60 mg = 1 cap(s), Oral, Daily, (do not crush or chew), # 90 caplet(s), Refills(s) 3, Pharmacy: [facility]/pharmacy #[id number], 160, cm, 01/11/22 16:30:00 EDT, Height/Length Dosing, 87.1, kg, 01/11/22 16:30:00 EDT, Weight Dosing duloxetine, 60 mg = 1 cap(s), Oral, Daily, (do not crush or chew), # 30 cap(s), Refills(s) 2, Pharmacy: [facility]/pharmacy #[id number], 160, cm, 10/15/21 15:41:00 EST, Height/Length Dosing, 85, kg, 10/15/21 15:41:00 EST, Weight Dosing if labs look good in 6 weeks and she's doing well, ok to cancel appt and reschedule in 3-6 months if she is struggling with weight loss, I have encouraged her to f/u her sooner Follow-up With When Contact Information Anthony VALENCIA, Markos Alcantar, KAYLA, PED Within 3 months [address], [place] [address] [phone] Additional Instructions: 2 month follow - ok to cancel if no issues and labs look good Patient Education Hypothyroidism Problem List/Past Medical History Ongoing Adult BMI 34.0-34.9 kg/sq m Allergic rhinitis Anxiety Chronic GERD Hyperlipidemia Hypothyroidism Migraines Mild recurrent major depression Historical No qualifying data Procedure/Surgical History Ankle fusion, Colonoscopy, Hysterectomy, Tubal ligation. Medications aspirin, 81 mg, Oral, Daily DULoxetine 60 mg Cap-EC, 60 mg= 1 cap(s), Oral, Daily, 3 refills Flonase 0.05 mg/inh [place], 1 spray(s), Nasal, BID levothyroxine 100 mcg (0.1 mg) Tab, See Instructions, 5 refills Maxalt, 10 mg, Oral, PRN MiraLax oral powder for reconstitution, 17 gm, Oral, Daily Multivitamin (more content not included)... Normal [facility] Comment on above: Result Comment: Elec troerickally Signed By: Markos Cruz DO\Date and Time Signed: 01/11/22 19:08 EDT Patient Educationon 01-12-20 Patient Education Endocrinology Hypothyroidism Hypothyroidism is when the thyroid gland does not make enough of certain hormones (it is underactive). The thyroid gland is a small gland located in the lower front part of the neck, just in front of the windpipe (trachea). This gland makes hormones that help control how the body uses food for energy (metabolism) as well as how the heart and brain function. These hormones also play a role in keeping your bones strong. When the thyroid is underactive, it produces too little of the hormones thyroxine (T4) and triiodothyronine (T3). What are the causes? This condition may be caused by: ? Brooks's disease. This is a disease in which the body's disease-fighting system (immune system) attacks the thyroid gland. This is the most common cause. ? Viral infections. ? . ? Certain medicines. ? defects. ? Past radiation treatments to the head or neck for cancer. ? Past treatment with radioactive iodine. ? Past exposure to radiation in the environment. ? Past surgical removal of part or all of the thyroid. ? Problems with a gland in the center of the brain (pituitary gland). ? Lack of enough iodine in the diet. What increases the risk? You are more likely to develop this condition if: ? You are female. ? You have a family history of thyroid conditions. ? You use a medicine called lithium. ? You take medicines that affect the immune system (immunosuppressants) . What are the signs or symptoms? Symptoms of this condition include: ? Feeling as though you have no energy (lethargy). ? Not being able to tolerate cold. ? Weight gain that is not explained by a change in diet or exercise habits. ? Lack of appetite. ? Dry skin. ? Coarse hair. ? Menstrual irregularity. ? Slowing of thought processes. ? Constipation. ? Sadness or depression. How is this diagnosed? This condition may be diagnosed based on: ? Your symptoms, your medical history, and a physical exam. ? Blood tests. You may also have imaging tests, such as an ultrasound or MRI. How is this treated? This condition is treated with medicine that replaces the thyroid hormones that your body does not make. After you begin treatment, it may take several weeks for symptoms to go away. Follow these instructions at home: ? Take caxp-kdu-odpnmta and prescription medicines only as told by your health care provider. ? If you start taking any new medicines, tell your health care provider. ? Keep all follow-up visits as told by your health care provider. This is important. ? As your condition improves, your dosage of thyroid hormone medicine may change. ? You will need to have blood tests regularly so that your health care provider can monitor your condition. Contact a health care provider if: ? Your symptoms do not get better with treatment. ? You are taking thyroid replacement medicine and you: ? Sweat a lot. ? Have tremors. ? Feel anxious. ? Lose weight rapidly. ? Cannot tolerate heat. ? Have emotional swings. ? Have diarrhea. ? Feel weak. Get help right away if you have: ? Chest pain. ? An irregular heartbeat. ? A rapid heartbeat. ? Difficulty breathing. Summary ? Hypothyroidism is when the thyroid gland does not make enough of certain hormones (it is underactive). ? When the thyroid is underactive, it produces too little of the hormones thyroxine (T4) and triiodothyronine (T3). ? The most common cause is Brooks's disease, a disease in which the body's disease-fighting system (immune system) attacks the thyroid gland. The condition can also be caused by viral infections, medicine, , or past radiation treatment to the head or neck. ? Symptoms may include weight gain, dry skin, constipation, feeling as though you do not have energy, and not being able to tolerate cold. ? This condition is treated with medicine to replace the thyroid hormones that your body does not make. This information is not intended to replace advice given to you by your health care provider. Make sure you discuss any questions you have with your health care provider. Document Released: 08/21/2006 Document Revised: 08/03/2018 Document Reviewed: 08/01/2018 [employer] Patient Education ? 2019 [employer]. [facility] Lab Reportson 01-04-2022 Lab Reports [id number] Normal [facility] CBC AUTO DIFFon 12-28-2021 BASO # 0.1 103/ul Normal 0.0-0.1 [facility] Comment on above: Performed By: #### C BC #### [facility] [address] [place] [address] Dr. Aida Monae Basophils/100 WBC (Bld) 1.0 % Normal 0.2-2.0 [facility] Comment on above: Performed By: #### C BC #### [facility] [address] [place] [address] Dr. Aida Monae EO # 0.3 103/ul Normal 0.0-0.7 [facility] Comment on above: Performed By: #### C BC #### [facility] [address] [place] [address] Dr. Aida Monae Eosinophils/100 WBC (Bld) 6.9 % Normal 0.9-7.0 [facility] Comment on above: Performed By: #### C BC #### [facility] [address] [place] [address] Dr. Aida Monae Erythrocyte distribution width (RBC) [Ratio] 12.8 % Normal 11.0-15.0 [facility] Comment on above: Performed By: #### C BC #### [facility] [address] [place] [address] Dr. Aida Monae Hematocrit (Bld) [Volume fraction] 44.2 % Normal 36.0-48.0 [facility] Comment on above: Performed By: #### C BC #### [facility] [address] [place] [address] Dr. Aida Monae Hemoglobin (Bld) [Mass/Vol] 14.7 g/dL Normal 12.0-16.0 [facility] Comment on above: Performed By: #### C BC #### [facility] [address] [place] [address] Dr. Aida Monae IG # 0.01 10e3/ul Normal 0.00-0.03 [facility] Comment on above: Performed By: #### C BC #### [facility] [address] [place] [address] Dr. Aida Monae IG % 0.2 % Normal 0.0-0.5 [facility] Comment on above: Performed By: #### C BC #### [facility] [address] [place] [address] Dr. Aida Monae LYMPH # 1.3 103/ul Normal 1.2-3.8 [facility] Comment on above: Performed By: #### C BC #### [facility] [address] [place] [address] Dr. Aida Monae Lymphocytes/100 WBC (Bld) 27.0 % Normal 20.5-60.0 [facility] Comment on above: Performed By: #### C BC #### [facility] [address] [place] [address] Dr. Aida Monae MANUAL DIFF REQ NO Normal [facility] Comment on above: Performed By: #### C BC #### [facility] [address] [place] [address] Dr. Aida Monae MCH (RBC) [Entitic mass] 30.7 pg Normal 26.7-34.0 [facility] Comment on above: Performed By: #### C BC #### [facility] [address] [place] [address] Dr. Aida Monae MCHC (RBC) [Mass/Vol] 33.3 g/dL Normal 29.9-35.2 [facility] Comment on above: Performed By: #### C BC #### [facility] [address] [place] [address] Dr. Aida Monae MCV (RBC) [Entitic vol] 92.3 fL Normal 81.0-99.0 [facility] Comment on above: Performed By: #### C BC #### [facility] [address] [place] [address] Dr. Aida Monae MONO # 0.4 103/ul Normal 0.3-0.8 [facility] Comment on above: Performed By: #### C BC #### [facility] [address] [place] [address] Dr. Aida Monae Monocytes/100 WBC (Bld) 9.2 % Normal 1.7-12.0 [facility] Comment on above: Performed By: #### C BC #### [facility] [address] [place] [address] Dr. Aida Monae NEUT # 2.7 103/ul Normal 1.4-6.5 [facility] Comment on above: Performed By: #### C BC #### [facility] [address] [place] [address] Dr. Adia Monae Neutrophils/100 WBC (Bld) 55.7 % Normal 43.0-75.0 [facility] Comment on above: Performed By: #### C BC #### [facility] [address] [place] [address] Dr. Aida Monae Platelet mean volume (Bld) [Entitic vol] 8.8 fL Critically low 9.5-13.5 [facility] Comment on above: Performed By: #### C BC #### [facility] [address] [place] [address] Dr. Aida Monae PLT 247 103/ul Normal 150-450 [facility] Comment on above: Performed By: #### C BC #### [facility] [address] [place] [address] Dr. Aida Monae RBC 4.79 106/ul Normal 4.20-5.40 [facility] Comment on above: Performed By: #### C BC #### [facility] [address] [place] [address] Dr. Aida Monae WBC 4.8 103/ul Normal 4.0-11.0 [facility] Comment on above: Performed By: #### C BC #### [facility] Laboratory [address] [place] [address] Dr. Aida Monae FREE T4on 12-28-2021 Free T4 [Mass/Vol] 1.04 ng/dL Normal 0.76-1.46 [facility] Comment on above: Performed By: #### C BC #### [facility] [address] [place] [address] Dr. Aida Monae LIPID PROFILEon 12-28-2021 CHOL-HDL RATIO NORM SEE BELOW Normal [facility] Comment on above: Result Comment: 3.3 - 4.4 LOW RISK 4.4 - 7.1 AVERAGE RISK 7.1 - 11.0 MODERATE RISK >11.0 HIGH RISK Performed By: #### C MP, TSH, LIPID #### [facility] [address] [address] [address] Aida Monae Cholesterol [Mass/Vol] 126 mg/dL Normal <=200 [facility] Comment on above: Performed By: #### C MP, TSH, LIPID #### [facility] [address] [address] [address] Aida Monae Cholesterol in HDL [Mass/Vol] 47 mg/dL Normal 40-60 [facility] Comment on above: Performed By: #### C MP, TSH, LIPID #### [facility] [address] [place] [address] Dr. Aida Monae Cholesterol in LDL [Mass/Vol] 46.8 mg/dL Normal [facility] Comment on above: Performed By: #### C MP, TSH, LIPID #### [facility] [address] [address] [address] Aida Monae Cholesterol.total/Clari sterol in HDL [Mass ratio] 2.7 {ratio} Normal [facility] Comment on above: Performed By: #### C MP, TSH, LIPID #### [facility] [address] [place] [address] Dr. Aida Monae HDL NORMAL > or = 60 mg/dl - LOW CARDIOVASCULAR RISK <40 mg/dl - HIGH CARDIOVASCULAR RISK Normal [facility] Comment on above: Performed By: #### C MP, TSH, LIPID #### [facility] [address] [place] [address] Dr. Aida Monae LDL CALC NORMAL SEE BELOW Normal [facility] Comment on above: Result Comment: <100 mg/dl OPTIMAL 100 - 129 mg/dl NEAR OR ABOVE OPTIMAL 130 - 159 mg/dl BORDERLINE HIGH 160 - 189 mg/dl HIGH >190 mg/dl VERY HIGH Performed By: #### C MP, TSH, LIPID #### [facility] [address] [address] [address] Aida Monae Triglyceride [Mass/Vol] 161 mg/dL Critically high <=150 [facility] Comment on above: Performed By: #### C MP, TSH, LIPID #### [facility] [address] [address] [address] Aida Monae VLDL CALC 32.2 mg/dL Normal [facility] Comment on above: Performed By: #### C MP, TSH, LIPID #### [facility] [address] [address] [address] Aida Monae PROF 14(COMP METB)on 022 Albumin [Mass/Vol] 3.8 g/dL Normal 3.4-5.0 [facility] Comment on above: Performed By: #### C MP, TSH, LIPID #### [facility] [address] [place] [address] Dr. Aida Monae Albumin/Globulin [Mass ratio] 1.3 {ratio} Normal [facility] Comment on above: Performed By: #### C MP, TSH, LIPID #### [facility] [address] [place] [address] Dr. Aida Monae ALP [Catalytic activity/Vol] 63 U/L Normal 46-116 [facility] Comment on above: Performed By: #### C MP, TSH, LIPID #### [facility] [address] [place] [address] Dr. Aida Monae ALT [Catalytic activity/Vol] 26 U/L Normal 14-59 [facility] Comment on above: Performed By: #### C MP, TSH, LIPID #### [facility] [address] [address] [address] Aida Monae Anion gap [Moles/Vol] 12.9 mmol/L Normal [facility] Comment on above: Performed By: #### C MP, TSH, LIPID #### [facility] [address] [place] [address] Dr. Aida Monae AST [Catalytic activity/Vol] 18 U/L Normal 15-37 [facility] Comment on above: Performed By: #### C MP, TSH, LIPID #### [facility] [address] [address] [address] Aida Monae Bilirubin [Mass/Vol] 0.3 mg/dL Normal 0.2-1.0 [facility] Comment on above: Performed By: #### C MP, TSH, LIPID #### [facility] [address] [place] [address] Dr. Aida Monae Calcium [Mass/Vol] 8.4 mg/dL Critically low 8.5-10.1 Th [facility] Comment on above: Performed By: #### C MP, TSH, LIPID #### [facility] [address] [place] [address] Dr. Aida Monae Chloride [Moles/Vol] 104 mmol/L Normal 98-107 [facility] Comment on above: Performed By: #### C MP, TSH, LIPID #### [facility] [address] [place] [address] Dr. Aida Monae CO2 [Moles/Vol] 29.4 mmol/L Normal 21.0-32.0 [facility] Comment on above: Performed By: #### C MP, TSH, LIPID #### [facility] [address] [place] [address] Dr. Aida Monae Creatinine [Mass/Vol] 0.81 mg/dL Normal 0.55-1.02 [facility] Comment on above: Performed By: #### C MP, TSH, LIPID #### [facility] [address] [place] [address] Dr. Aida Monae EGFR-AF TAIWANESE >60 Normal >=60 [facility] Comment on above: Performed By: #### C MP, TSH, LIPID #### [facility] [address] [place] [address] Dr. Aida Monae EGFR-NON AF TAIWANESE >60 Normal >=60 [facility] Comment on above: Performed By: #### C MP, TSH, LIPID #### [facility] [address] [place] [address] Dr. Aida Monae Globulin (S) [Mass/Vol] 3.0 g/dL [facility] Comment on above: Performed By: #### C MP, TSH, LIPID #### [facility] [address] [address] [address] Aida Monae Glucose [Mass/Vol] 124 mg/dL Critically high 74-106 [facility] Comment on above: Performed By: #### C MP, TSH, LIPID #### [facility] [address] [place] [address] Dr. Aida Monae Potassium [Moles/Vol] 4.3 mmol/L Normal 3.5-5.1 [facility] Comment on above: Performed By: #### C MP, TSH, LIPID #### [facility] [address] [place] [address] Dr. Aida Monae Protein [Mass/Vol] 6.8 g/dL Normal 6.1-8.2 [facility] Comment on above: Performed By: #### C MP, TSH, LIPID #### [facility] [address] [place] [address] Dr. Aida Monae Sodium [Moles/Vol] 142 mmol/L Normal 136-145 [facility] Comment on above: Performed By: #### C MP, TSH, LIPID #### [facility] [address] [place] [address] Dr. Aida Monae Urea nitrogen [Mass/Vol] 11.0 mg/dL Normal 7.0-18.0 [facility] Comment on above: Performed By: #### C MP, TSH, LIPID #### [facility] [address] [place] [address] Dr. Aida Monae Urea nitrogen/Creatinine [Mass ratio] 13.6 mg/mg Normal [facility] Comment on above: Performed By: #### C MP, TSH, LIPID #### [facility] [address] [place] [address] Dr. Aida Monae TSHon 12-28-2021 TSH 9.863 uIU/mL Critically high 0.470-4.680 [facility] Comment on above: Performed By: #### C MP, TSH, LIPID #### [facility] [address] [place], [place] [address] Dr. Aida Monae TSH RANGE SEE BELOW Normal [facility] Comment on above: Result Comment: <0.3 4 UIU/ml HYPERTHYROID 0.34-5.60 UIU/ml EUTHYROID >5.60 UIU/ml HYPOTHYROID Performed By: #### C MP, TSH, LIPID #### [facility] [address] [place], [place] [address] Dr. Aida Monae Ambulatory Visit Summaryon 0 10-15-2021 Ambulatory Visit Summary ANISHA ALANIS :1955 Visit Date:10/15/2021 Ambulatory Visit Instructions Your Diagnosis Anxiety Migraines Allergic rhinitis Adult BMI 33.0-33.9 kg/sq m Depression Your Care Team Attending Physician - Markos Cruz DO Primary Care Physician - DORIS WILLIS MD This Is Your Medications List duloxetine (DULoxetine 60 mg Cap-EC) Contact prescribing physician if questions or concerns aspirin cetirizine (Zyrtec) levothyroxine (levothyroxine 88 mcg (0.088 mg) oral capsule) multivitamin with minerals (Multivitamins and Minerals) pantoprazole polyethylene glycol 3350 (MiraLax oral powder for reconstitution) rizatriptan (Maxalt) rosuvastatin (rosuvastatin 20 mg Tab) Procedures Performed Ankle fusion, Colonoscopy, Hysterectomy, Tubal ligation. Discharge Vitals Temperature (Oral) 37.1 ?C Heart Rate (Peripheral) 66 Blood Pressure 130/90 Height 160 cm Height 160.0 cm Weight 85 kg Weight 85.0 kg BMI 33.2 What to do next Scheduled Follow-Up Appointments Monday 3:40 PM EDT With: Markos Cruz DO Where: [facility] Primary Care Normal [facility] Family Medicine Office/Clini c Noteon 10-15-2021 Family Medicine Office/Clinic Note Chief Complaint 1 month F/U stomach and bowel issues History of Present Illness 1 month f/u since her last appt, we adjusted her levothyroxine from 100mcg to 88mcg I always feel like I have no energy CONSTIPATION - was taking miralax everyday previously has decreased to every other day and that's helped HAIRLOSS - since her last appt, has started taking collagen and she perceives a benefit ECZEMA - uses betamethasone on her skin has an area on her scalp on zyrtec everyday ANXIETY - we discussed increasing her duloxetine after her last appt MIGRAINES - ran out of her migraine medication (she's had at least 12 migraines) Hospital Anxiety and Depression Score 14 questions 7 for anxiety ? max score of 21 7 for depression ? max score of 21 0-7 = ?normal? 8-10 = ?borderline? 11+ = significant Total for A = 9; 1 + 1 + 1 + 2 + 1 + 3 + 0 Total for D = 7; 1 + 0 + 0 + 2 + 2 + 1 + 1 1. (A) I feel tense or wound up ? score: 1 a. Most of the time - 3 b. A lot of the time - 2 c. Time to time - 1 d. Not at all - 0 2. (D) I still enjoy the things I used to enjoy? score: 1 a. Definitely as much - 0 b. Not quite so much - 1 c. Only a little - 2 d. Not at all - 3 3. (A) I get sort of frightened feeling like something awful is about to happen? score: 1 a. Very definitely and quite badly ? 3 b. Yes, but not too badly - 2 c. A little, but it doesn?t worry me - 1 d. Not at all ? 0 4. (D) I can laugh and see the funny side of things? score: 0 a. As much as I always could - 0 b. Not quite so much now - 1 c. Definitely not so much now - 2 d. Not at all - 3 5. (A) Worrying thoughts go through my mind? score: 1 a. A great deal of time - 3 b. A lot of the time - 2 c. From time to time but not too often - 1 d. Only occasionally - 0 6. (D) I feel cheerful? score: 0 a. Not at all - 3 b. Not often - 2 c. Sometimes - 1 d. Most of the time - 0 7. (A) I can sit at ease and feel relaxed? score: 2 a. Definitely - 0 b. Usually - 1 c. Not often - 2 d. Not at all - 3 8. (D) I feel as though I am slowed down? score: 2 a. Nearly all of the time - 3 b. Very often - 2 c. Sometimes - 1 d. Not at all - 0 9. (A) I get a sort of frightened feeling like ?butterflies in the stomach? ? score: 1 a. Not at all - 0 b. Occasionally - 1 c. Quite often - 2 d. Very often - 3 10. (D) I have lost interest in my appearance? score: 2 a. Definitely - 3 b. I don?t take as much care as I should - 2 c. I may not take quite as much care - 1 d. I take just as much care as ever - 0 11. (A) I feel restless as if I have to be on the move? score: 3 a. Very much indeed - 3 b. Quite a lot - 2 c. Not very much - 1 d. Not at all - 0 12. (D) I look forward with enjoyment to things? score: 1 a. As much as I ever did - 0 b. Rather less than I used to - 1 c. Definitely less than I used to - 2 d. Hardly at all - 3 13. (A) I get sudden feelings of panic? score: 0 a. Very often indeed - 3 b. Quite often - 2 c. Not very often - 1 d. Not at all ? 0 14. (D) I can enjoy a good book or radio or TV program? score: 1 a. Often ? 0 b. Sometimes - 1 c. Not often - 2 d. Very seldom - 3 Review of Systems PHQ Score Initial Depression Screen Score: 0 13 point ROS negative except for HPI Physical Exam Vitals & Measurements T: 37.1 ?C(Oral) HR: 66(Peripheral) BP: 130/90 SpO2: 97% HT: 160 cm HT: 160.0 cm WT: 85 kg WT: 85.0 kg BMI: 33.2 Constitutional: Vital signs reviewed; Alert and oriented, well nourished, no acute distress Eye: EOMI, normal conjunctiva HENT: Normocephalic, moist oral mucosa, no scleral icterus Lungs: Clear to auscultation, non-labored respiration Heart: Normal rate, regular rhythm Musculoskeletal: Normal gait and station; no cyanosis, clubbing or edema Skin: warm, dry Neurologic: Awake, alert and oriented, speech is normal, dysarthria, no focal deficits Psychiatric: Cooperative, appropriate mood and affect - slightly reserved, pleasant Assessment/Plan 1. Anxiety (F41.9: Anxiety disorder, unspecified) Perhaps a little improved on the lower dose of levothyroxine room for improvement HADS reveals more lean towards anxiety However, given her chronic intermittent neck pain and associated migraines, I feel that increasing duloxetine from 30mg to 60mg is a good option Discussed that rationale in depth If she doesn't tolerate, ok to resume 30mg If there's still room for improvement at 1-2 weeks, ok to call to request hydroxyzine as discussed f/u 1 month 2. Migraines (G43.909: Migraine, unspecified, not intractable, without status migrainosus) Chronic Sub-optimal control Given the above, will manage with duloxetine Goal is to be down to 1-2 headaches per week by her next appt f/u 1 month 3. Allergic rhinitis (J30.9: Allergic rhinitis, unspecified) chronic sub-optimal control with PO med only discussed how flonase helps with the sym (more content not included)... Normal [facility] Comment on above: Result Comment: Elec tronically Signed By: Markos Cruz DO\.dorothy\Date and Time Signed: 10/15/21 17:00 EST Patient Educationon 10-15-19 Patient Education Mental and Behavioral Health Generalized Anxiety Disorder, Pediatric Generalized anxiety disorder (SHERRON) is a mental health disorder. Children with this condition constantly worry about everyday events. Unlike normal anxiety, worry related to SHERRON is not triggered by a specific event. These worries also do not fade or get better with time. The condition can affect the child's school performance and his or her ability to participate in some activities. Children with SHERRON may take studying or practicing to an extreme. SHERRON can vary from mild to severe. Children with severe SHERRON can have intense waves of anxiety with physical symptoms (panic attacks). SHERRON affects children and teens, and it often begins in childhood. What are the causes? The exact cause of SHERRON is not known. What increases the risk? This condition is more likely to develop in: ? Girls. ? Children who have a family history of anxiety disorders. ? Children who are shy. ? Children who experience very stressful life events, such as the of a parent. ? Children who have a very stressful family environment. What are the signs or symptoms? Children with SHERRON often worry excessively about many things in their lives, such as their health and family. They may also be overly concerned about: ? Academic performance. ? Doing well in sports. ? Being on time. ? Natural disasters. ? Friendships. Physical symptoms of SHERRON include: ? Fatigue. ? Muscle tension or having muscle twitches. ? Trembling or feeling shaky. ? Being easily startled. ? Heart pounding or racing. ? Feeling out of breath or not being able to take a deep breath. ? Having trouble falling asleep or staying asleep. ? Sweating. ? Nausea, diarrhea, or irritable bowel syndrome (IBS). ? Headaches. ? Trouble concentrating or remembering facts. ? Restlessness. ? Irritability. How is this diagnosed? Your child's health care provider can diagnose SHERRON based on your child's symptoms and medical history. Your child will also have a physical exam. The health care provider will ask specific questions about your child's symptoms, including how severe they are, when they started, and if they come and go. Your child?s health care provider may refer your child to a mental health specialist for further evaluation. To be diagnosed with SHERRON, children must have anxiety that: ? Is out of their control. ? Affects several different aspects of their life, such as school, sports, and relationships. ? Causes distress that makes them unable to take part in normal activities. ? Includes at least one physical symptom of SHERRON, such as fatigue, trouble concentrating, restlessness, irritability, muscle tension, or sleep problems. Before your child's health care provider can confirm a diagnosis of SHERRON, these symptoms must be present in your child more days than they are not, and they must last for six months or longer. How is this treated? Treatment may include: ? Medicine. Antidepressant medicine is usually prescribed for long-term daily control. Antianxiety medicines may be added in severe cases, especially when panic attacks occur. ? Talk therapy (psychotherapy). Certain types of talk therapy can be helpful in treating SHERRON by providing support, education, and guidance. Options include: ? Cognitive behavioral therapy (CBT). Children learn coping skills and techniques to ease their anxiety. Children learn to identify unrealistic or negative thoughts and behaviors and to replace them with positive ones. ? Acceptance and commitment therapy (ACT). This treatment teaches children how to be mindful as a way to cope with unwanted thoughts and feelings. ? Biofeedback. This process trains children to manage their body's response (physiological response) through breathing techniques and relaxation methods. Children work with a therapist while machines are used to monitor their physical symptoms. ? Stress management techniques. These include yoga, meditation, and exercise. A mental health specialist can help determine which treatment is best for your child. Some children see improvement with one type of therapy. However, other children require a combination of therapies. Follow these instructions at home: Stress management ? Have your child practice any stress management or self-calming techniques as taught by your child?s health care provider. ? Anticipate stressful situations and allow extra time to manage them. ? Try to maintain a normal routine. ? Stay calm when your child becomes anxious. General instructions ? Listen to your child?s feelings and acknowledge his or her anxiety. ? Try to be a role model for coping with anxiety in a healthy way. This can help your child learn to do the same. ? Recognize your child?s accomplishments, even if they are small. ? Do not punish your child for setbacks or for not making progress. ? Keep all follow-up visits as told by your child?s health (more content not included)... Normal [facility] Lab Reportson 09-28-2021 Lab Reports [id number] #1.00CD:127 Normal [facility] Formson 09-15-2021 Forms [id number] #1.00CD:127 Normal [facility] Family Medicine Office/Clini c Noteon 09-14-2021 Family Medicine Office/Clinic Note Chief Complaint hair loss, bowel issues, wants thyroid checked History of Present Illness 66 y/o female here to establish care last pcp was Dr. Willis in [place] daughter in law is Tiana Piedra; recommended me CHRONIC CONSTIPATION/ VARIABLE BMs miralax daily has had constipation forever bladder suspension included the bowel - I don't know why he did that If I don't take the miralax, I get constipated has lost weight as a result - 16 pounds reports that everytime I eat, I have to make a bowel movement this has gotten worse over the last 6 months depends on what she eats nuts are a no-no strawberries corn ANXIETY duloxetine 30mg for more than 5 years it's effective HYPOTHYROIDISM on levothyroxine 100mcg dose has fluctuated over the years has been on 75 to 100 to 125 has lost 16 pounds in the last few months most she weighed in the last year was 200 187 pounds today GERD on pantoprazole 40mg for the last year was on an OTC med prior to that HLD on rosuvastatin 20mg previously on zocor MIGRAINES Rizatriptan for abortive takes triptan - it's effective in her worst month, might have 16 days with migraines in her best month, might have 7 days with migraines more than 5 years has not seen a neurologist for migraines worse with weather changes ALLERGIES zyrtec 10mg everyday of the year itchy eyes and nose - better when she takes this medication BLADDER ISSUES Dr Yeager in [place] performed a bladder suspension approx 2 years ago in [place] BRITTLE NAILS have always been brittle lately they've been worse HAIR LOSS my beautician reports significant hairloss and the texture has changed last TSH was at least a couple of years no hx of CA last mammogram 2 years ago - [facility] [place] [facility] no hx of NE no hx of CVA no hx of DM Review of Systems PHQ Score Initial Depression Screen Score: 0 negative aside from what's stated above Physical Exam Vitals & Measurements T: 36.9 ?C(Oral) HR: 68(Peripheral) BP: 130/100 SpO2: 99% HT: 160.0 cm HT: 160 cm WT: 85.1 kg WT: 85.1 kg BMI: 33.24 General: alert, no acute distress Skin: warm, dry Head: no trauma, normocephalic Neck: Trachea midline, no adenopathy Eye: normal conjunctiva, sclera clear ENMT: oral mucosa moist, yes Cardiovascular: regular rate and rhythm, normal Respiratory: respirations non labored Chest wall: no deformity. Gastrointestinal: soft, non distended, no tenderness Back: No tenderness Extremities: no edema, no wound Neurological: awake, alert, oriented, speechnormal Psychiatric: cooperative, affect appropriate for age Assessment/Plan 1. Hyperlipidemia (E78.5: Hyperlipidemia, unspecified) Chronic Asymptomatic on rosuvastatin Would like to review labs F/u 1 month Ordered: CBC w/ Auto Diff Comprehensive Metabolic Panel Lipid Panel TSH With T4fr Reflex 2. Hypothyroidism (E03.9: Hypothyroidism, unspecified) Chronic Unknown control Given weight, hairloss and nail concerns, will order TSH today Discussed the rationale for changing medication dose vs re-checking TSH prior to next appt F/u 1 month Ordered: CBC w/ Auto Diff Comprehensive Metabolic Panel Lipid Panel TSH With T4fr Reflex 3. Migraines (G43.909: Migraine, unspecified, not intractable, without status migrainosus) Chronic Sub-optimal control with her best month having 7 episodes Consider preventive medication at f/u Discussed how that pertains to her bowel situation Ordered: CBC w/ Auto Diff Comprehensive Metabolic Panel Lipid Panel TSH With T4fr Reflex 4. Anxiety (F41.9: Anxiety disorder, unspecified) Chronic Stable on duloxetine On a lower dose Given her above symptoms, may benefit from a dose change F/u 1 month 5. Chronic GERD (K21.9: Gastro-esophageal reflux disease without esophagitis) Chronic Asymptomatic - controlled on pantoprazole No plan to stop PPI I do wonder if chronic miralax is causing problems with excessive BMs Differential is IBS Consider amitriptyline which would help with migraines and IBS like symptoms Will discuss at f/u Ordered: CBC w/ Auto Diff 6. Allergic rhinitis (J30.9: Allergic rhinitis, unspecified) Chronic Sub-optimal control of symptoms with daily zyrtec No prior benefit from flonase Consider other intra-nasal sprays at f/u F/u 1 month Orders: polyethylene glycol 3350, 17 gram, Oral, Daily, 527 gram, Refill(s) 0, dissolve in water before taking, [facility]/pharmacy #[id number], 160, cm, 09/14/21 16:09:00 EST, Height/Length Dosing, 85.1, kg, 09/14/21 16:09:00 EST, Weight Dosing rosuvastatin, 20 mg = 1 tab(s), Oral, Daily, # 90 tab(s), Refills(s) 3, Pharmacy: [facility]/pharmacy #[id number], 160, cm, 09/14/21 16:09:00 EST, Height/Length Dosing, 85.1, kg, 09/14/21 16:09:00 EST, Weight Dosing 7. Chronic constipation Chronic Sub-optimal control It seems like she's having more BMs than she should be; perhaps related (more content not included)... Normal [facility] Comment on above: Result Comment: Elec tronically Signed By: Markos Cruz DO.dorothy\Date and Time Signed: 09/14/21 17:08 EST Patient Educationon 09-14-19 Patient Education Endocrinology Hypothyroidism Hypothyroidism is when the thyroid gland does not make enough of certain hormones (it is underactive). The thyroid gland is a small gland located in the lower front part of the neck, just in front of the windpipe (trachea). This gland makes hormones that help control how the body uses food for energy (metabolism) as well as how the heart and brain function. These hormones also play a role in keeping your bones strong. When the thyroid is underactive, it produces too little of the hormones thyroxine (T4) and triiodothyronine (T3). What are the causes? This condition may be caused by: ? Brooks's disease. This is a disease in which the body's disease-fighting system (immune system) attacks the thyroid gland. This is the most common cause. ? Viral infections. ? . ? Certain medicines. ? defects. ? Past radiation treatments to the head or neck for cancer. ? Past treatment with radioactive iodine. ? Past exposure to radiation in the environment. ? Past surgical removal of part or all of the thyroid. ? Problems with a gland in the center of the brain (pituitary gland). ? Lack of enough iodine in the diet. What increases the risk? You are more likely to develop this condition if: ? You are female. ? You have a family history of thyroid conditions. ? You use a medicine called lithium. ? You take medicines that affect the immune system (immunosuppressants) . What are the signs or symptoms? Symptoms of this condition include: ? Feeling as though you have no energy (lethargy). ? Not being able to tolerate cold. ? Weight gain that is not explained by a change in diet or exercise habits. ? Lack of appetite. ? Dry skin. ? Coarse hair. ? Menstrual irregularity. ? Slowing of thought processes. ? Constipation. ? Sadness or depression. How is this diagnosed? This condition may be diagnosed based on: ? Your symptoms, your medical history, and a physical exam. ? Blood tests. You may also have imaging tests, such as an ultrasound or MRI. How is this treated? This condition is treated with medicine that replaces the thyroid hormones that your body does not make. After you begin treatment, it may take several weeks for symptoms to go away. Follow these instructions at home: ? Take iuhd-dzc-cjywpjt and prescription medicines only as told by your health care provider. ? If you start taking any new medicines, tell your health care provider. ? Keep all follow-up visits as told by your health care provider. This is important. ? As your condition improves, your dosage of thyroid hormone medicine may change. ? You will need to have blood tests regularly so that your health care provider can monitor your condition. Contact a health care provider if: ? Your symptoms do not get better with treatment. ? You are taking thyroid replacement medicine and you: ? Sweat a lot. ? Have tremors. ? Feel anxious. ? Lose weight rapidly. ? Cannot tolerate heat. ? Have emotional swings. ? Have diarrhea. ? Feel weak. Get help right away if you have: ? Chest pain. ? An irregular heartbeat. ? A rapid heartbeat. ? Difficulty breathing. Summary ? Hypothyroidism is when the thyroid gland does not make enough of certain hormones (it is underactive). ? When the thyroid is underactive, it produces too little of the hormones thyroxine (T4) and triiodothyronine (T3). ? The most common cause is Brooks's disease, a disease in which the body's disease-fighting system (immune system) attacks the thyroid gland. The condition can also be caused by viral infections, medicine, , or past radiation treatment to the head or neck. ? Symptoms may include weight gain, dry skin, constipation, feeling as though you do not have energy, and not being able to tolerate cold. ? This condition is treated with medicine to replace the thyroid hormones that your body does not make. This information is not intended to replace advice given to you by your health care provider. Make sure you discuss any questions you have with your health care provider. Document Released: 08/21/2006 Document Revised: 08/03/2018 Document Reviewed: 08/01/2018 Elsevier Patient Education ? 2019 [employer] Normal [facility] Dermatopathologyon 0 Dermatopathology [facility] Dermatopathology Laboratory [address] [place] [id number] DERMATOPATHOLOGY REPORT Name:ANISHA ALANIS. Rec #. [id number] Location: [facility] Date of Procedure: 01/28/2020 Race: Date Received: 01/30/2020 /Sex: 1955 (Age: 64) / F Date Reported: 02/04/2020 Other: Submitting Physician:KRISSY PRESTON MD FINAL DIAGNOSIS SKIN, R ARM, 4MM PUNCH BIOPSY: FOCAL SPONGIOSIS, SEE NOTE. Note: Microscopic examination reveals a specimen that extends into the subcutaneous fat. There is focal spongiosis with a mild superficial perivascular lymphocytic infiltrate. Multiple step sections were performed. These findings could be seen in an eczematous dermatitis. The differential diagnosis includes atopic dermatitis, nummular dermatitis, allergic contact dermatitis, id reaction, and eczematous drug reaction. Electronically Signed Out by AXEL OSBORNE M.D. Electronically Signed Out By AXEL OSBORNE MD/[facility] By the signature on this report, the individual or group listed as making the Final Interpretation/Diagn osis certifies that they have reviewed this case. Clinical History: Drug eruption, Hypersensitivity Reaction, Papular Eczema. Punch Biopsy. 4 mm. Specimens Submitted As: A: SKIN, R ARM Gross Description: Received in formalin is a merritt, cylindrical piece of skin measuring [id number]. The specimen is inked and embedded in toto. dcp/01/30/2020 Normal [facility] Comment on above: Performed By: #### D #### Dermatopathology Vital Signs Date Time Vital Sign Value Performing Clinician Facility 11-27-2023 09:45-0400 Body height 157.48 cm [facility] 11-27-2023 09:45-0400 Body mass index (BMI) [Ratio] 32.3 kg/m2 [facility] 11-27-2023 09:45-0400 Body weight 80.28 kg [facility] 11-27-2023 09:45-0400 Diastolic blood pressure 92 mm[Hg] [facility] 11-27-2023 09:45-0400 Heart rate 69 /min [facility] 11-27-2023 09:45-0400 Systolic blood pressure 148 mm[Hg] [facility] 05-04-2023 14:15-0400 Body height 157.48 cm Doris Willis Other [facility] Other 05-04-2023 14:15-0400 Body mass index (BMI) [Ratio] 32.59 kg/m2 Doris Willis Other [facility] Other 05-04-2023 14:15-0400 Body weight 80.83 kg Doris Willis Other [facility] Other 05-04-2023 14:15-0400 Diastolic blood pressure 84 mm[Hg] Doris Willis Other [facility] Other 05-04-2023 14:15-0400 Systolic blood pressure 141 mm[Hg] Doris Willis Other [facility] Other 04-23-2023 14:01-0400 Body height 157.48 cm MD Doris Willis Work Phone: [facility] 04-23-2023 14:01-0400 Body temperature 99.2 [degF] MD Doris Willis Work Phone: [facility] 04-23-2023 14:01-0400 Body weight 79.3 kg MD Doris Willis Work Phone: [facility] 04-23-2023 14:01-0400 Diastolic blood pressure 96 mm[Hg] MD Doris Willis Work Phone: [facility] 04-23-2023 14:01-0400 Heart rate 85 /min MD Doris Willis Work Phone: [facility] 04-23-2023 14:01-0400 Respiratory rate 18 /min MD Doris Willis Work Phone: [facility] 04-23-2023 14:01-0400 SaO2% (BldA) [Mass fraction] 97 % MD Doris Willis Work Phone: [facility] 04-23-2023 14:01-0400 Systolic blood pressure 153 mm[Hg] MD Doris Willis Work Phone: [facility] 11-03-2022 15:00-0500 Body height 160.02 cm Doris Willis Other [facility] Other 11-03-2022 15:00-0500 Body mass index (BMI) [Ratio] 31.7 kg/m2 Doris Willis Other [facility] Other 11-03-2022 15:00-0500 Body weight 81.19 kg Doris Willis Other [facility] Other 11-03-2022 15:00-0500 Diastolic blood pressure 84 mm[Hg] Doris Willis Other [facility] Other 11-03-2022 15:00-0500 SaO2% (BldA) [Mass fraction] 97 % Doris Willis Other [facility] Other 11-03-2022 15:00-0500 Systolic blood pressure 142 mm[Hg] Doris Willis Other [facility] Other 01-11-2022 16:24-0400 Blood Pressure [facility] 01-11-2022 16:24-0400 Body temperature 98.78 [degF] [facility] 01-11-2022 16:24-0400 Diastolic blood pressure 90 mm[Hg] [facility] 01-11-2022 16:24-0400 Heart rate 65 /min [facility] 01-11-2022 16:24-0400 SaO2% (BldA) [Mass fraction] 97 % [facility] 01-11-2022 16:24-0400 Systolic blood pressure 140 mm[Hg] [facility] Encounters Encounter Date Encounter Type Care Provider Facility Start: 11-27-2023 End: 11-27-2023 ambulatory [facility] Work Phone: Start: 11-27-2023 End: 11-27-2023 Patient encounter procedure [facility] Physician [facility] Work Phone: Start: 11-24-2023 Non-patient / Non-visit [facility] Work Phone: Start: 07-10-2023 End: 07-10-2023 ambulatory Doris Willis Other [facility] Other Start: 07-10-2023 Telephone encounter Doris Willis [facility] Start: 07-03-2023 End: 07-03-2023 ambulatory Doris Willis Other [facility] Other Start: 07-03-2023 Telephone encounter Doris Willis [facility] Start: 05-04-2023 End: 05-04-2023 ambulatory Doris Willis Other [facility] Other Start: 05-04-2023 Office outpatient vi sit 15 minutes Doris Willis [facility] Start: 04-23-2023 End: 04-23-2023 Emergency department patient visit Nehemias Briones Facility:[facility] Start: 04-23-2023 End: 04-23-2023 Emergency department patient visit MD Doris Willis Work Phone: [facility] Work Phone: Start: 01-03-2023 End: 01-03-2023 ambulatory Doris Willis Other [facility] Other Start: 01-03-2023 Telephone encounter Doris Willis [facility] Start: 12-21-2022 End: 12-22-[address] DORIS WILLIS Facility:[facility] Start: 11-10-2022 End: 11-10-2022 ambulatory Doris Willis Other [facility] Other Start: 11-10-2022 Telephone encounter Doris Willis [facility] Start: 11-09-2022 End: 11-10-[address] DORIS WILLIS Facility:[facility] Start: 11-03-2022 End: 11-03-2022 ambulatory Doris Willis Other [facility] Other Start: 11-03-2022 Office outpatient vi sit 15 minutes Doris Willis [facility] Start: 08-29-2022 End: 08-29-[address] DORIS WILLIS Facility:[facility] Start: 06-23-2022 End: 06-24-[address] DORIS WILLIS Facility:[facility] Start: 04-04-[address] DOCTOR CHRISTIANSON Facility :[facility] Start: 01-11-2022 End: 01-11-2022 Patient encounter procedure Markos Cruz [facility] Start: 12-28-2021 End: 12-29-[address] DOCTOR CHRISTIANSON Facility:[facility] Procedures Date Procedure Procedure Detail Performing Clinician Arthrodesis of ankle Markos Cruz Colonoscopy Markos Cruz Hysterectomy Markos Cruz Ligation of fallopian tube R lexidaniel Cruz Plan of Treatment Date Care Activity Detail Author Patient Education Conjunctivitis (Noninfectious Pinkeye) (DC) [facility] Work Phone: Patient referral [facility] Work Phone: [facility] Immunizations Immunization Date Immunization Notes Care Provider Fa cility 06-21-2023 influenza virus vaccine, unspecified formulation [facility] 06-21-2023 influenza, high dose seasonal, preservative-free Doris Willis Other [facility] Other 07-03-2022 influenza virus vaccine, split virus (incl. purified surface antigen) Doris Willis Other [facility] Other 07-03-2022 influenza virus vaccine, unspecified formulation [facility] 11-28-[address] [facility] 11-28-2021 zoster vaccine, live Doris Willis Other [facility] 08-29-[address] [facility] 08-29-[address] [facility] 08-29-2021 zoster vaccine, live Doris Willis Other [facility] 06-26-2021 influenza virus vaccine, split virus (incl. purified surface antigen) Doris Willis Other [facility] Other 06-26-2021 influenza virus vaccine, unspecified formulation [facility] 06-26-2021 SARS-CoV-2 (COVID-19 ) mRNA BNT-162b2 vax [facility] 12-22-2020 SARS-CoV-2 (COVID-19 ) mRNA BNT-162b2 vax [facility] 11-29-2020 SARS-CoV-2 (COVID-19 ) mRNA BNT-162b2 vax [facility] 06-09-2020 influenza virus vaccine, split virus (incl. purified surface antigen) Doris Willis Other [facility] Other 06-09-2020 influenza virus vaccine, unspecified formulation [facility] 06-04-2020 influenza virus vaccine, unspecified formulation [facility] 06-20-2019 influenza virus vaccine, unspecified formulation [facility] 06-18-2013 diphtheria, tetanus toxoids and acellular pertussis vaccine, unspecified formulation Doris Willis Other [facility] Payers Date Payer Category Payer Medicare [id number] [id number] [id number] 1961 Self-pay 1961 Unknown [id number] 1955 Unknown [id number] [id number] 1955 Unknown [id number] 2.16.84 [id number] 1955 Unknown [id number] 2.16.84 [id number] 1955 Unknown [id number] 2.16.84 [id number] 1955 Unknown [id number] 2.16.84 [id number] 1955 Unknown [id number] 2.16.84 [id number] Unknown [id number] 2.16.8 [id number] Social History Date Type Detail Facility Start: 01-11-2022 End: 08-01-2023 Tobacco smoking status Ex-smoker (finding) [facility] Tobacco smoking status Never [facility] Sex Assigned At Female [facility] Start: 1955 Sex Assigned At Female [facility] Clinical Notes 01-11-2022 to 07-10-2023 Note Date & Type Note Facility 07-10-2023 Evaluation note Encounter Date Diagnosis Assessment Notes Jul, Hypothyroidism (ICD-10 - E03.9) [facility] Other 10-30-2023 Evaluation note* Encounter Date Diagnosis Assessment Notes Treatment Notes Treatment Clinical Notes Jun, Hypothyroidism (ICD-10 - E03.9) [facility] Other 08-31-2023 Evaluation note* Encounter Date Diagnosis Assessment Notes Treatment Notes Treatment Clinical Notes Apr, Insect bite (nonvenomous) of right elbow, initial encounter (ICD-10 - S50.361A) Prominent reaction to insect bite. No s/s infection. Very hot and red. Try cold compresses and ibuprofen for discomfort. Apr, Bitten or stung by nonvenomous insect and other nonvenomous arthropods, initial encounter (ICD-10 - W57.XXXA) [facility] Other 05-02-2023 Evaluation note* Encounter Date Diagnosis Assessment Notes Treatment Notes Treatment Clinical Notes January, Acquired hypothyroidism (ICD-10 - E03.9) [facility] Other 03-09-2023 Evaluation note* Encounter Date Diagnosis Assessment Notes Treatment Notes Treatment Clinical Notes Nov, Acquired hypothyroidism (ICD-10 - E03.9) Nov, Other decreased whit e blood cell (WBC) count (ICD-10 - D72.818) [facility] Other 03-02-2023 Evaluation note* Encounter Date Diagnosis Assessment Notes Treatment Notes Treatment Clinical Notes Nov, Lower abdominal pain (ICD-10 - R10.30) Prior to referral, etc, will start w labs and imaging. 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 Will recheck labs to ensure she is on the right dose. [facility] Other 05-10-2022 Hospital Discharge instructions Patient Education 01/11/2022 17:28:20 Hypothyroidism Hypothyroidism Hypothyroidism is when the thyroid gland does not make enough of certain hormones (it is underactive). The thyroid gland is a small gland located in the lower front part of the neck, just in front ofthe windpipe (trachea). This gland makes hormones that help control how the body uses food for energy (metabolism) as well as how the heart and brain function. These hormones also play a role in keeping your bones strong. When the thyroid is underactive, it produces too little of the hormones thyroxine (T4) and triiodothyronine (T3). What are the causes? This condition may be caused by: Brooks's disease. This is a disease in which the body's disease-fighting system (immune system) attacks the thyroid gland. This is the most common cause. Viral infections. . Certain medicines. defects. Past radiation treatments to the head or neck for cancer. Past treatment with radioactive iodine. Past exposure to radiation in the environment. Past surgical removal of part or all of the thyroid. Problems with a gland in the center of the brain (pituitary gland). Lack of enough iodine in the diet. What increases the risk? You are more likely to develop this condition if: You are female. You have a family history of thyroid conditions. You use a medicine called lithium. You take medicines that affect the immune system (immunosuppressants). What are the signs or symptoms? Symptoms of this condition include: Feeling as though you have no energy (lethargy). Not being able to tolerate cold. Weight gain that is not explained by a change in diet or exercise habits. Lack of appetite. Dry skin. Coarse hair. Menstrual irregularity. Slowing of thought processes. Constipation. Sadness or depression. How is this diagnosed? This condition may be diagnosed based on: Your symptoms, your medical history, and a physical exam. Blood tests. You may also have imaging tests, such as an ultrasound or MRI. How is this treated? This condition is treated with medicine that replaces the thyroid hormones that your body does not make. After you begin treatment, it may take several weeks for symptoms to go away. Follow these instructions at home: Take ebkw-xfi-jdsxmxt and prescription medicines only as told by your health care provider. If you start taking any new medicines, tell your health care provider. Keep all follow-up visits as told by your health care provider. This is important. ?As your condition improves, your dosage of thyroid hormone medicine may change. ?You will need to have blood tests regularly so that your health care provider can monitor your condition. Contact a health care provider if: Your symptoms do not get better with treatment. You are taking thyroid replacement medicine and you: ?Sweat a lot. ?Have tremors. ?Feel anxious. ?Lose weight rapidly. ?Cannot tolerate heat. ?Have emotional swings. ?Have diarrhea. ?Feel weak. Get help right away if you have: Chest pain. An irregular heartbeat. A rapid heartbeat. Difficulty breathing. Summary Hypothyroidism is when the thyroid gland does not make enough of certain hormones (it is underactive). When the thyroid is underactive, it produces too little of the hormones thyroxine (T4) and triiodothyronine (T3). The most common cause is Brooks's disease, a disease in which the body's disease-fighting system(immune system) attacks the thyroid gland. The condition can also be caused by viral infections, medicine, , or past radiation treatment to the head or neck. Symptoms may include weight gain, dry skin, constipation, feeling as though you do not have energy,and not being able to tolerate cold. This condition is treated with medicine to replace the thyroid hormones that your body does not make. This information is not intended to replace advice given to you by your health care provider. Make sure you discuss any questions you have with your health care provider. Document Released: 08/21/2006 Document Revised: 08/03/2018 Document Reviewed: 08/01/2018 [employer] Patient Education 2020 [employer] Follow Up Care 01/05/2022 08:53:39 With:Markos Cruz DO, FAM, PED Address: [address], [place] [address] [phone] When:3 months Comments:2 month follow - ok to cancel if no issues and labs look good [facility] Primary [facility] Evaluation + Plan note Future Appointments Appointment Date:04/05/2022 04:40:00 PM Scheduled Provider:Markos Cruz DO Location:[facility] Appointment Type:FM Open Diagnostic Tests Pending * TSH With T4fr Reflex 01/11/22 Future Scheduled Tests Laboratory* TSH With T4fr Reflex 09/14/21 * CBC w/ Auto Diff 09/14/21 * Comprehensive Metabolic Panel 09/14/21 * Lipid Panel 09/14/21 [facility] Evaluation noteNo assessment information available [facility] Work Phone: History general Narrative - Reported* Type Description Date Medical History Tobacco use Medical History Acquired autoimmune hypothyroidi sm Medical History Urticaria, acute Medical History Migraine syndrome Medical History Acute pharyngitis, unspecified Medical History Acute pain of right shoulder Medical History Elevated glucose Medical History Displaced fracture o f proximal phalanx of other finger, initial encounter for closed fracture Medical History Displaced fracture o f proximal phalanx of other finger, initial encounter for open fracture Medical History Displaced fracture o f proximal phalanx of unspecified finger, initial encounter for closed fracture Medical History Hypothyroidism Medical History Tinnitus, bilateral Medical History Pruritus due to inflammation Medical History Cervical lymphadenopathy Medical History Seasonal allergies Medical History Eczema Medical History Parotiditis Medical History Gastro-esophageal reflux disease without esophagitis Surgical History C section Surgical History hysterectomy 1995 Surgical History ankle surgery Surgical History VAGINAL VAULT PROLAP SE REPAIR, BLADDER SLING- DR. YEAGER 02/2020 Surgical History LEFT FOOT SURGERY Surgical History RIGHT HAND SURGERY- DR. JESUS 0 12/2020 Hospitalization History see above [facility] Other Hospital course Narrative No data available for this section [facility] Summary Purpose Family History Relationship Condition Age at Onset Recorded Date/T rebecca father Heart disease Unknown Unknown Hypertension Unknown Diabetes mellitus Unknown family member Unknown Not Specified Unknown Malignant neoplasm Unknown Heart disease Unknown Advance Directives Advance Directive Response Recorded Date/ Time Advance Directives No April 23, 2023 1:14pm Chief Complaint and Reason for Visit Chief Complaint r eye blurry Chief Complaint REVIEW RESULTS Additional Source Comments INFORMATION SOURCE (unrecogn ized section and content) DATE CREATED AUTHOR 02/04/2020 [facility] DATE CREATED AUTHOR AUTHOR'S ORGANIZ ATION 04/02/2022 [facility] DATE CREATED AUTHOR AUTHOR'S ORGANIZ ATION 12/25/2022 [facility] DATE CREATED AUTHOR AUTHOR'S ORGANIZ ATION 05/04/2023 [facility] REASON FOR VISIT (unrecogniz ed section and content) STILL HAVING STOMACH ISSUESt est resultsmessageBug [employer] Care Teams (unrecognized sec tion and content) Team Status: Active Member Role Status Dates Doris Willis MD Primary Care Provider Active Team Status: Active Member Role Status Dates Doris Willis MD Primary Care Provide r, Attending Provider Active Start: November 24, 2023 Team Status: Inactive Member Role Status Dates Doris Willis MD Primary Care Provide r, Attending Provider Active Start: November 27, 2023 End: November 27, 2023 Team Status: Active Member Role Status Dates Doris Willis MD Primary Care Provider Active Team Status: Inactive Member Role Status Dates Doris Willis MD Primary Care Provider Active Nehemias Briones APRN Emergency Provider Active Team Status: Active Member Role Status Dates Doris Willis MD Primary Care Provide r, Attending Provider Active Start: November 24, 2023 Team Status: Inactive Member Role Status Dates Doris Willis MD Primary Care Provide r, Attending Provider Active Start: November 27, 2023 End: November 27, 2023 Goals (unrecognized section and content) Goals may be documented in a n alternate section FOR RECORDS PERTAINING TO PATIENTS WHO ARE OR HAVE BEEN ENROLLED IN A CHEMICAL DEPENDENCY/SUBSTANCEABUSE PROGRAM, SOME INFORMATION MAY BE OMITTED. This clinical summary was aggregated from multiple sources. Caution should be exercised in using it in the provision of clinical care. This summary normalizes information from multiple sources, and as a consequence, information in this document may materially change the coding, format and clinical context of patient data. In addition, data may be omitted in some cases. CLINICAL DECISIONS SHOULD BE BASED ON THE PRIMARY CLINICAL RECORDS. [facility] [employer] [facility] provides no warranty or guarantee of the accuracy or completeness of information in this document.
[2024-01-05 07:45] LABS: Thyroid Stimulating Hormone 1.488 uIU/mL (0.358-3.740)
[2024-01-05 08:30] LABS: Free T4 0.98 ng/dL (0.76-1.46)
== END 2024-01-05 06:53 | disposition home or self-care (01) ==
LOC: LAB 06:53
PROVIDERS: PCP Family Medicine; Visit Provider Family Medicine
DX: E03.9 Hypothyroidism, unspecified (principal)
CPT/HCPCS: 36415; 84439; 84443

== ENCOUNTER 2024-05-24 06:45 | Outpatient (OUT) | payer MEDICARE, OTHER, SELFPAY ==
--- OUTSIDE RECORDS SUMMARY | 2024-05-24 06:48 | XMS_ITS | CCD ---
Author Organization [facility] Care Team Providers Care Manager Estate Name Role Phone DORIS WILLIS Primary Care Physician Doris Willis MISC, DR CABRAL Primary Care Unavailable MISC, DR CABRAL Consulting Unavailable MISC, DR CABRAL Attending Unavailable MISC, DR CABRAL Admitting Unavailable WILLIS, DR DORIS Clements Admitting Unavailable WILLIS, DR DORIS Clements Primary Care Unavailable WILLIS, DR DORIS Clements Consulting Unavailable WILLIS, DR DORIS Clements Attending Unavailable WILLIS, DR DORIS Clements Admitting Unavailable WILLIS, DR DORIS Clements Primary Care Unavailable ZIEBER, DR STEPHANY Woodard Consulting Unavailable WILLIS, DR [...] Primary Care Provider YARIEL Briones Emergency Provider [phone] Nehemias Briones Attending Unavailable Nehemias Briones Admitting Unavailable Kia, Doris Clements Primary Care Unavailable Allergies Allergy Classification Reported Allergen(s) Allergy Type Date of Onset Reaction(s) Facility (4 sources) Amoxicillin / Clavulanate Drug Allergy Unknown [facility] Other (6 sources) cefdinir Drug Allergy Unknown [facility] Other (6 sources) gabapentin Drug Allergy Unknown [facility] Other (6 sources) Latex Drug allergy rash [facility] Other (3 sources) Phentermine Drug Allergy Unknown [facility] Other (9 sources) Propranolol Drug Allergy Unknown [facility] Other (6 sources) Simvastatin Drug Allergy Unknown [facility] Other (2 sources) natural latex rubber Drug allergy (disorder) [facility] Repository (3 sources) Adipex-P *ADHD/ANTI-NARC OLEPSY/ANTI-OBE SITY/ANOREX Propensity to adverse reactions Unknown [facility] Other (2 sources) Amoxicillin / Clavulanate Drug Allergy Unknown [facility] Other Medications Current Medications Medication Drug Class(es) Dates Sig (Normalized) Sig (Original) aspirin 81 mg oral tablet (10 sources) Platelet Aggregation Inhibitor, Nonsteroidal Anti-inflammatory Drug Start: 07-13-2016 take 81 mg by mouth once daily Aspirin Active 81 MG PO Daily April 23, 2023 12:00am betamethasone 0.5 mg/ml topical cream (8 sources) Corticosteroid Start: 11-27-2023 Betamethasone Dipropionate Active 1 APPLIC TOPICAL Twice daily November 27, 2023 12:00am [employer] application Externally Twice a day; Note: Source Status: Taking; Provider: Kia George ( ) Betamethasone Di propionate 0.05 % 1 application Externally Twice a day Active cetirizine hydrochloride 10 mg oral tablet (9 sources) Histamine-1 Receptor Antagonist Start: 11-27-2023 take [...] DULoxetine 30 mg delayed release oral capsule (8 sources) Serotonin and Norepinephrine Reuptake Inhibitor Start: 11-27-2023 take 1 capsule by mouth once daily Duloxetine Active 30 MG PO Daily November 27, 2023 12:00am FreeTextSig: TAKE 1 CAPSULE BY MOUTH EVERY DAY; Note: Source Status: Start; Refills: 3; Qty: 90 Capsule; Provider: Kia George ( ) take 1 capsule by mo [facility] every twenty-four hours Cymbalta 30 MG 1 capsule Orally Once a day Active DULoxetine 60 mg Cap-EC (1 source) Start: 01-11-2022 take 1 capsule by mouth once daily DULoxetine 60 mg Cap-EC 60 mg = 1 cap(s), Oral, Daily, (do not crush or chew), # 90 caplet(s), Refills(s) 3, Pharmacy: [facility]/pharmacy #[id number], 160, cm, 01/11/22 16:30:00 EDT, Height/Length Dosing, 87.1, kg, 01/11/22 16:30:00 EDT, Weight Dosing Start Date: 01/11/22 Status: Ordered Flonase 0.05 mg/inh Gordon (1 source) Start: 01-11-2022 take 1 spray(s) nasal route twice daily Flonase 0.05 mg/inh Gordon 1 spray(s), Nasal, BID, 16 gram, Refill(s) 0, each nostril Start Date: 01/11/22 Status: Ordered krill oil (6 sources) Krill Oil 350 MG as directed Orally Active levothyroxine sodium 0.125 mg oral tablet (13 sources) l-Thyroxi ne Start: 02-23-2024 take 1 tablet by mouth once daily Levothyroxine Active 0 .ROUTE .COMPLEX 90 February 23, 2024 8:30am TAKE 1 TABLET BY MOUTH EVERY DAY Start: 11-27-2023 End: 02-23-2024 take 100 ug by mouth once daily Levothyroxine Disconti nued 100 MCG PO Daily November 27, 2023 12:00am February 23, 2024 8:30am Start: 04-23-2023 End: 11-27-2023 take 112 ug by mouth once daily in the morning Levothyroxine Discontinued 112 MCG PO Every morning April 23, 2023 12:00am November 27, 2023 10:03am Start: 11-10-2022 take 1 tablet by anibal th once daily in the morning Synthroid 100 [...] monday, # 30 tab(s), Refills(s) 5, Pharmacy: [facility]/pharmacy #[id number], 160, cm, 01/11/22 16:30:00 EDT, Height/Length [...] pantoprazole 40 mg delayed release oral tablet (10 sources) Proton Pump Inhibitor Start: 04-23-2023 take 40 mg by mouth once daily Pantoprazole Active 40 MG PO Daily April 23, 2023 12:00am Start: 07-13-2016 take 40 mg by mouth once daily pantoprazole 40 mg, Oral, Daily, Refills(s) 0, Control of stomach acid Start Date: 07/13/16 Status: Ordered polyethylene glycol 3350 58233 mg powder for oral solution (3 sources) Osmotic Laxative Start: 09-14-2021 MiraLax oral powder for reconstitution 17 gram, Oral, Daily, 527 gram, Refill(s) 0, dissolve in water before taking, [facility]/pharmacy #[id number], 160, cm, 09/14/21 16:09:00 EST, Height/Length Dosing, 85.1, kg, 09/14/21 16:09:00 EST, Weight Dosing Start Date: 09/14/21 Status: Ordered MiraLax 17 GM/SC OOP as directed Orally Active rizatriptan 10 mg oral tablet (15 sources) Serotonin-1b and Serotonin-1d Receptor Agonist Start: 02-23-2024 take 1 tablet by mouth every two hours as needed, then take 2 tablets by mouth once daily as needed Rizatriptan Active 0 .ROUTE .COMPLEX February 23, 2024 8:30am TAKE 1 TABLET BY MOUTH EVERY 2 HOURS NEEDED *MAX 2 TABLETS PER DAY* Start: 11-27-2023 End: 02-23-2024 take 1 tablet by mouth every two hours as needed, then take 2 tablets by mouth once daily as needed Rizatriptan Discontinued 10 MG PO EVERY 2-4 HOURS November 27, 2023 12:00am February 23, 2024 8:30am FreeTextSig: TAKE 1 TABLET BY MOUTH EVERY [...] 1:52pm rosuvastatin calcium 20 mg oral tablet (10 sources) HMG-CoA Reductase Inhibitor Start: 09-14-2021 take 20 mg by mouth once daily Rosuvastatin Active 20 MG PO Daily April 23, 2023 12:00am sulfamethoxazole 800 mg / trimethoprim 160 mg oral tablet (1 source) Dihydrofolate Reductase Inhibitor Antibacterial, Sulfonamide Antimicrobial Start: 03-02-2023 take 1 tablet by mouth every twelve hours Bactrim DS 800-160 MG 1 tablet Orally Twice a day for 10 day(s) 29 Jona, 2023 Active Completed/Discontinued Medications Medication Drug Class(es) Dates Sig (Normalized) Sig (Original) docusate sodium 100 mg oral capsule (8 sources) Start: 11-27-2023 End: 11-27-2023 take 1 capsule by mouth once daily as needed Docusate Sodium Discontinued 1 CAP PO Daily November 27, 2023 12:00am November 27, 2023 9:52am FreeTextSi capsule as needed Orally Once a day; Note: Source Status: [id number] MG; Provider: Kia George ( ) take 1 capsule by [facility] every twenty-four hours Colace 100 MG 1 capsule as needed Orally Once a day 50 MG Active doxycycline hyclate 100 mg oral capsule (8 sources) Tetracycline-class Drug Start: 11-27-2023 End: 11-27-2023 take 1 capsule by mouth twice daily Doxycycline Hyclate Discontinued 1 CAP PO Twice daily November 27, 2023 12:00am November 27, 2023 9:52am FreeTextSi capsule Orally Twice a day; Note: Source Status: Not-Taking\PRN; Refills: 0; Provider: Avery Ross Start: 05-29-2019 take 1 capsule by [facility] every twelve hours Doxycycline Hyclate 100 MG 1 capsule Orally Twice a day for 10 day(s) May, Not-Taking Ggqfm-Sxfmz-0-Iaw-Ggb-Kiqpkz (2 sources) Start: 11-27-2023 End: 11-27-2023 Qaeik-Sasap-0-Cpn-Hox-Fdrweg Discontinued CAP PO November 27, 2023 12:00am November 27, 2023 9:52am omeprazole 20 mg delayed release oral capsule (8 sources) Proton Pump Inhibitor Start: 11-27-2023 End: [...] Problem Date Documented Date Episodic/Chronic Abdominal pain (7 sources) Lower abdominal pain, unspecified; Translations: [Right upper quadrant pain] Onset: 11-09-2022 Episodic Allergic reactions (12 sources) [...] nonvenomous arthropods, initial encounter Episodic Esophageal disorders (10 sources) Gastroesophageal reflux disease; Translations: [Gastroesophageal reflux [...] that caused by tuberculosis or sexually transmitteddisease) (3 sources) Acute conjunctivitis due to chemical; Translations: [...] - obesity 01-11-2022 Chronic Other skin disorders (2 sources) Loss of hair; Translations: [Nonscarring hair loss, [...] 08-30-2022 Episodic Other aftercare (1 source) Other termite helper (current) drug therapy; Translations: [OTH TAR AND AMMONIA PUMP OPERATOR CURRENT DRUG THERAPY] Onset: 08-30-2022 Episodic Other aftercare (1 source) long-term (current) use of aspirin; Translations: [CORRECTION CURRENT USE OF ASPIRIN] Onset: 08-30-2022 Episodic Other upper respiratory disease (3 sources) Nasal congestion; Translations: [NASAL CONGESTION] Onset: 08-29-2022 Episodic Results Test Name Value Interpretation Reference Range Facility Laboratory - Chemistry and C hemistry - challengeon 11-24-2023 Free T4 [Mass/Vol] 1.24 ng/dL 0.76-1.46 [facility] TSH Qn 0.111 m[IU]/L 0.358-3.740 [facility] CBC AUTO DIFFon 12-21-2022 BASO # 0.0 103/ul Normal 0.0-0.1 [facility] Comment on above: Performed By: #### C BC #### [facility] [address] [address] [address] Aida Monae Basophils/100 WBC (Bld) 0.8 % Normal 0.2-2.0 [facility] Comment on above: Performed By: #### C BC #### [facility] [address] [address] [address] Aida Monae EO # 0.2 103/ul Normal 0.0-0.7 [facility] Comment on above: Performed By: #### C BC #### [facility] [address] [address] [address] Aida Monae Eosinophils/100 WBC (Bld) 4.1 % Normal 0.9-7.0 [facility] Comment on above: Performed By: #### C BC #### [facility] [address] [address] [address] Aida Monae Erythrocyte distribution width (RBC) [Ratio] 13.2 % Normal 11.0-15.0 [facility] Comment on above: Performed By: #### C BC #### [facility] [address] [address] [address] Aida Monae Hematocrit (Bld) [Volume fraction] 43.5 % Normal 36.0-48.0 [facility] Comment on above: Performed By: #### C BC #### [facility] [address] [place] [address] Dr. Aida Monae Hemoglobin (Bld) [Mass/Vol] 14.7 g/dL Normal 12.0-16.0 [facility] Comment on above: Performed By: #### C BC #### [facility] [address] [place] [address] Dr. Aida Monae IG # 0.02 10e3/ul Normal 0.00-0.03 [facility] Comment on above: Performed By: #### C BC #### [facility] [address] [place] [address] Dr. Aida Monae IG % 0.4 % Normal 0.0-0.5 [facility] Comment on above: Performed By: #### C BC #### [facility] [address] [place] [address] Dr. Aida Monae LYMPH # 1.2 103/ul Normal 1.2-3.8 [facility] Comment on above: Performed By: #### C BC #### [facility] [address] [place] [address] Dr. Aida Monae Lymphocytes/100 WBC (Bld) 24.3 % Normal 20.5-60.0 [facility] Comment on above: Performed By: #### C BC #### [facility] [address] [place] [address] Dr. Aida Monae MANUAL DIFF REQ NO Normal [facility] Comment on above: Performed By: #### C BC #### [facility] [address] [place] [address] Dr. Aida Monae MCH (RBC) [Entitic mass] 30.8 pg Normal 26.7-34.0 [facility] Comment on above: Performed By: #### C BC #### [facility] [address] [place] [address] Dr. Aida Monae MCHC (RBC) [Mass/Vol] 33.8 g/dL Normal 29.9-35.2 [facility] Comment on above: Performed By: #### C BC #### [facility] [address] [place] [address] Dr. Aida Monae MCV (RBC) [Entitic vol] 91.2 fL Normal 81.0-99.0 [facility] Comment on above: Performed By: #### C BC #### [facility] [address] [place] [address] Dr. Aida Monae MONO # 0.5 103/ul Normal 0.3-0.8 [facility] Comment on above: Performed By: #### C BC #### [facility] [address] [place] [address] Dr. Aida Monae Monocytes/100 WBC (Bld) 9.2 % Normal 1.7-12.0 [facility] Comment on above: Performed By: #### C BC #### [facility] [address] [place] [address] Dr. Aida Monae NEUT # 3.0 103/ul Normal 1.4-6.5 [facility] Comment on above: Performed By: #### C BC #### [facility] [address] [place] [address] Dr. Aida Monae Neutrophils/100 WBC (Bld) 61.2 % Normal 43.0-75.0 [facility] Comment on above: Performed By: #### C BC #### [facility] [address] [place] [address] Dr. Aida Monae Platelet mean volume (Bld) [Entitic vol] 8.9 fL Critically low 9.5-13.5 [facility] Comment on above: Performed By: #### C BC #### [facility] [address] [place] [address] Dr. Aida Monae PLT 259 103/ul Normal 150-450 [facility] Comment on above: Performed By: #### C BC #### [facility] [address] [place] [address] Dr. Aida Monae RBC 4.77 106/ul Normal 4.20-5.40 [facility] Comment on above: Performed By: #### C BC #### [facility] [address] [place] [address] Dr. Aida Monae WBC 4.9 103/ul Normal 4.0-11.0 [facility] Comment on above: Performed By: #### C BC #### [facility] [address] [place] [address] Dr. Aida Monae CBC AUTO DIFFon 11-09-2022 BASO # 0.0 103/ul Normal 0.0-0.1 [facility] Comment on above: Performed By: #### C BC #### [facility] [address] [address] [address] Aida Monae Basophils/100 WBC (Bld) 0.9 % Normal 0.2-2.0 [facility] Comment on above: Performed By: #### C BC #### [facility] [address] [address] [address] Aida Monae EO # 0.1 103/ul Normal 0.0-0.7 [facility] Comment on above: Performed By: #### C BC #### [facility] [address] [address] [address] Aida Monae Eosinophils/100 WBC (Bld) 3.6 % Normal 0.9-7.0 [facility] Comment on above: Performed By: #### C BC #### [facility] [address] [place] [address] Dr. Aida Monae Erythrocyte distribution width (RBC) [Ratio] 13.6 % Normal 11.0-15.0 [facility] Comment on above: Performed By: #### C BC #### [facility] [address] [place] [address] Dr. Aida Monae Hematocrit (Bld) [Volume fraction] 42.6 % Normal 36.0-48.0 [facility] Comment on above: Performed By: #### C BC #### [facility] [address] [place] [address] Dr. Aida Monae Hemoglobin (Bld) [Mass/Vol] 14.5 g/dL Normal 12.0-16.0 [facility] Comment on above: Performed By: #### C BC #### [facility] [address] [address] [address] Aida Monae IG # 0.01 10e3/ul Normal 0.00-0.03 [facility] Comment on above: Performed By: #### C BC #### [facility] [address] [place] [address] Dr. Aida Monae IG % 0.3 % Normal 0.0-0.5 [facility] Comment on above: Performed By: #### C BC #### [facility] [address] [place] [address] Dr. Aida Monae LYMPH # 1.0 103/ul Critically low 1.2-3.8 [facility] Comment on above: Performed By: #### C BC #### [facility] [address] [place] [address] Dr. Aida Monae Lymphocytes/100 WBC (Bld) 28.6 % Normal 20.5-60.0 [facility] Comment on above: Performed By: #### C BC #### [facility] [address] [place] [address] Dr. Aida Monae MANUAL DIFF REQ NO Normal [facility] Comment on above: Performed By: #### C BC #### [facility] [address] [place] [address] Dr. Aida Monae MCH (RBC) [Entitic mass] 30.2 pg Normal 26.7-34.0 [facility] Comment on above: Performed By: #### C BC #### [facility] [address] [place] [address] Dr. Aida Monae MCHC (RBC) [Mass/Vol] 34.0 g/dL Normal 29.9-35.2 [facility] Comment on above: Performed By: #### C BC #### [facility] [address] [place] [address] Dr. Aida Monae MCV (RBC) [Entitic vol] 88.8 fL Normal 81.0-99.0 [facility] Comment on above: Performed By: #### C BC #### [facility] [address] [place] [address] Dr. Aida Monae MONO # 0.4 103/ul Normal 0.3-0.8 [facility] Comment on above: Performed By: #### C BC #### [facility] [address] [place] [address] Dr. Aida Monae Monocytes/100 WBC (Bld) 11.9 % Normal 1.7-12.0 [facility] Comment on above: Performed By: #### C BC #### [facility] [address] [place] [address] Dr. Aida Monae NEUT # 1.8 103/ul Normal 1.4-6.5 [facility] Comment on above: Performed By: #### C BC #### [facility] [address] [place] [address] Dr. Aida Monae Neutrophils/100 WBC (Bld) 54.7 % Normal 43.0-75.0 [facility] Comment on above: Performed By: #### C BC #### [facility] [address] [place] [address] Dr. Aida Monae Platelet mean volume (Bld) [Entitic vol] 8.6 fL Critically low 9.5-13.5 [facility] Comment on above: Performed By: #### C BC #### [facility] [address] [place] [address] Dr. Aida Monae PLT 167 103/ul Normal 150-450 [facility] Comment on above: Performed By: #### C BC #### [facility] [address] [place] [address] Dr. Aida Monae RBC 4.80 106/ul Normal 4.20-5.40 [facility] Comment on above: Performed By: #### C BC #### [facility] [address] [place] [address] Dr. Aida Monae WBC 3.4 103/ul Critically low 4.0-11.0 [facility] Comment on above: Performed By: #### C BC #### [facility] [address] [place] [address] ABD/PELV W CONon [...] STEPHANY MANZANO Date: 2022-11-09 10:59 Normal [facility] FREE T4on 11-09-2022 Free T4 [Mass/Vol] 1.34 ng/dL Normal 0.76-1.46 [facility] Comment on above: Performed By: #### F T4 #### [facility] [address] [address] [address] Aida Monae PROF 14(COMP METB)on 023 Albumin [Mass/Vol] 4.0 g/dL Normal 3.4-5.0 [facility] Comment on above: Performed By: #### C BC #### [facility] [address] [place], [place] [address] Dr. Aida Monae Albumin/Globulin [Mass ratio] 1.3 {ratio} Normal [facility] Comment on above: Performed By: #### C BC #### [facility] [address] [address] [address] Aida Monae ALP [Catalytic activity/Vol] 66 U/L Normal 46-116 [facility] Comment on above: Performed By: #### C BC #### [facility] [address] [place] [address] Dr. Aida Monae ALT [Catalytic activity/Vol] 45 U/L Normal 14-59 [facility] Comment on above: Performed By: #### C BC #### [facility] [address] [place] [address] Dr. Aida Monae Anion gap [Moles/Vol] 10.8 mmol/L Normal [facility] Comment on above: Performed By: #### C BC #### [facility] [address] [place] [address] Dr. Aida Monae AST [Catalytic activity/Vol] 30 U/L Normal 15-37 [facility] Comment on above: Performed By: #### C BC #### [facility] [address] [place] [address] Dr. Aida Monae Bilirubin [Mass/Vol] 0.4 mg/dL Normal 0.2-1.0 [facility] Comment on above: Performed By: #### C BC #### [facility] [address] [place] [address] Dr. Aida Monae Calcium [Mass/Vol] 9.4 mg/dL Normal 8.5-10.1 [facility] Comment on above: Performed By: #### C BC #### [facility] [address] [place] [address] Dr. Aida Monae Chloride [Moles/Vol] 108 mmol/L Critically high 98-107 [facility] Comment on above: Performed By: #### C BC #### [facility] [address] [place] [address] Dr. Aida Monae CO2 [Moles/Vol] 31.5 mmol/L Normal 21.0-32.0 [facility] Comment on above: Performed By: #### C BC #### [facility] [address] [place] [address] Dr. Aida Monae Creatinine [Mass/Vol] 0.75 mg/dL Normal 0.55-1.02 [facility] Comment on above: Performed By: #### C BC #### [facility] [address] [address] [address] Aida Monae EGFR-AF FAROESE >60 Normal >=60 [facility] Comment on above: Performed By: #### C BC #### [facility] [address] [address] [address] Aida Monae EGFR-NON AF FAROESE >60 Normal >=60 [facility] Comment on above: Performed By: #### C BC #### [facility] [address] [address] [address] Aida Monae Globulin (S) [Mass/Vol] 3.0 g/dL Normal [facility] Comment on above: Performed By: #### C BC #### [facility] [address] [address] [address] Aida Monae Glucose [Mass/Vol] 108 mg/dL Critically high 74-106 [facility] Comment on above: Performed By: #### C BC #### [facility] [address] [address] [address] Aida Monae Potassium [Moles/Vol] 4.3 mmol/L Normal 3.5-5.1 [facility] Comment on above: Performed By: #### C BC #### [facility] [address] [address] [address] Aida Monae Protein [Mass/Vol] 7.0 g/dL Normal 6.4-8.2 [facility] Comment on above: Performed By: #### C BC #### [facility] [address] [address] [address] Aida Monae Sodium [Moles/Vol] 146 mmol/L Critically high 136-145 [facility] Comment on above: Performed By: #### C BC #### [facility] [address] [address] [address] Aida Monae Urea nitrogen [Mass/Vol] 10.0 mg/dL Normal 7.0-18.0 [facility] Comment on above: Performed By: #### C BC #### [facility] [address] [place] [address] Dr. Aida Monae Urea nitrogen/Creatinine [Mass ratio] 13.3 mg/mg Normal [facility] Comment on above: Performed By: #### C BC #### [facility] [address] [place] [address] Dr. iAda Monae TSHon 11-09-2022 TSH 0.243 uIU/mL Critically low 0.358-3.740 [facility] Comment on above: Performed By: #### T SH #### [facility] Laboratory [address] [place] [address] Dr. Aida Monae FREE T4on 06-23-2022 Free T4 [Mass/Vol] 1.11 ng/dL Normal 0.76-1.46 [facility] Comment on above: Performed By: #### F T4 #### [facility] [address] [place] [address] Dr. Aida Monae GLYCOHEMOGLOBIN A1Con 2021 ADA RECOMMENDATION SEE BELOW Normal [facility] Comment on above: Result Comment: ADA RECOMMENDED LIMIT 4.0 - 6.0 ADA THERAPEUTIC TARGET < 7.0 ACTION SUGGESTED > 7.0 Performed By: #### A 1C #### [facility] [address] [place] [address] Dr. Aida Monae Glucose [Mass/Vol] 117 mg/dL Normal [facility] Comment on above: Performed By: #### A 1C #### [facility] [address] [place] [address] Dr. Aida Monae HbA1c (Bld) [Mass fraction] 5.7 % Normal 4.5-6.2 [facility] Comment on above: Performed By: #### A 1C #### [facility] [address] [place] [address] Dr. Aida Monae TSHon 06-23-2022 TSH 9.653 uIU/mL Critically high 0.358-3.740 [facility] Comment on above: Performed By: #### C BC #### [facility] [address] [address] [address] Aida Monae Ambulatory Visit Summaryon 0 [...] mg Cap-EC) fluticasone nasal (Flonase 0.05 mg/inh Gordon) levothyroxine (levothyroxine 100 mcg (0.1 mg) Tab) [...] PM EDT With: Markos Cruz DO Where: [facility] Normal [facility] Family Medicine Office/Clini c Noteon 01-11-2022 Family Medicine Office/Clinic Note Chief Complaint here to check on thyroid level, also having allergies History of Present Illness 66 y/o female here to discuss hypothyroidism and MDD/anxiety CC confirmed with the patient with no changes HYPOTHYROID recent labs reveal TSH is 9.8 (outside labs - done at [place]) Free T4 was WNL previously on 100mcg [...] days a week and 50mcg on the encourage activity to help with weight f/u 2 months Ordered: levothyroxine, See Instructions, 1 tab(s) Oral Daily monday-monday, take 1/2 tab on monday, # 30 tab(s), Refills(s) 5, Pharmacy: [id number], 160, cm, 01/11/22 16:30:00 EDT, Height/Length [...] chew), # 90 caplet(s), Refills(s) 3, [facility]acy: [id number], 160, cm, 01/11/22 16:30:00 EDT, Height/Length [...] chew), # 90 caplet(s), Refills(s) 3, Pharmacy: [facility]/pharmacy #[id number], 160, cm, 01/11/22 16:30:00 EDT, Height/Length Dosing, 87.1, kg, 01/11/22 16:30:00 EDT, Weight Dosing duloxetine, 60 mg = 1 cap(s), Oral, Daily, (do not crush or chew), # 30 cap(s), Refills(s) 2, Pharmacy: [facility]/pharmacy #[id number], 160, cm, 10/15/21 15:41:00 EST, Height/Length [...] Alcantar, KAYLA, PED Within 3 months [address], [place] [address] [phone] Additional Instructions: 2 month follow - ok [...] Oral, Daily, 3 refills Flonase 0.05 mg/inh Gordon, 1 spray(s), Nasal, BID levothyroxine 100 mcg (0.1 mg) Tab, See Instructions, 5 refills Maxalt, 10 mg, Oral, PRN MiraLax oral powder for reconstitution, 17 gm, Oral, Daily Multivitamin (more content not included)... Normal [facility] Comment on above: Result Comment: Elec tronically Signed By: Markos Cruz DO.dorothy\Date and Time Signed: 01/11/22 19:08 EDT Patient Educationon 01-12-20 22 Patient Education Endocrinology Hypothyroidism Hypothyroidism is when [...] Follow these instructions at home: ? Take qhny-nav-sjqsvcq and prescription medicines only as told by [...] 08/21/2006 Document Revised: 08/03/2018 Document Reviewed: 08/01/2018 [employer] Patient Education ? 2019 [employer] Normal [facility] Lab Reportson 01-04-2022 Lab Reports [id number] #1.00CD:127 Normal [facility] CBC AUTO DIFFon 12-28-2021 BASO # 0.1 103/ul Normal 0.0-0.1 [facility] Comment on above: Performed By: #### C BC #### [facility] [address] [place] [address] Dr. Aida Monae Basophils/100 WBC (Bld) 1.0 % Normal 0.2-2.0 [facility] Comment on above: Performed By: #### C BC #### [facility] [address] [place] [address] Dr. Aida Monae EO # 0.3 103/ul Normal 0.0-0.7 [facility] Comment on above: Performed By: #### C BC #### [facility] [address] [place] [address] Dr. Aida Monae Eosinophils/100 WBC (Bld) 6.9 % Normal 0.9-7.0 [facility] Comment on above: Performed By: #### C BC #### [facility] [address] [place] [address] Dr. Aida Monae Erythrocyte distribution width (RBC) [Ratio] 12.8 % Normal 11.0-15.0 [facility] Comment on above: Performed By: #### C BC #### [facility] [address] [place] [address] Dr. Aida Monae Hematocrit (Bld) [Volume fraction] 44.2 % Normal 36.0-48.0 [facility] Comment on above: Performed By: #### C BC #### [facility] [address] [place] [address] Dr. Aida Monae Hemoglobin (Bld) [Mass/Vol] 14.7 g/dL Normal 12.0-16.0 [facility] Comment on above: Performed By: #### C BC #### [facility] [address] [place] [address] Dr. Aida Monae IG # 0.01 10e3/ul Normal 0.00-0.03 [facility] Comment on above: Performed By: #### C BC #### [facility] [address] [place] [address] Dr. Aida Monae IG % 0.2 % Normal 0.0-0.5 [facility] Comment on above: Performed By: #### C BC #### [facility] [address] [place] [address] Dr. Aida Monae LYMPH # 1.3 103/ul Normal 1.2-3.8 [facility] Comment on above: Performed By: #### C BC #### [facility] [address] [place] [address] Dr. Aida Monae Lymphocytes/100 WBC (Bld) 27.0 % Normal 20.5-60.0 [facility] Comment on above: Performed By: #### C BC #### [facility] [address] [place] [address] Dr. Aida Monae MANUAL DIFF REQ NO Normal [facility] Comment on above: Performed By: #### C BC #### [facility] [address] [place] [address] Dr. Aida Monae MCH (RBC) [Entitic mass] 30.7 pg Normal 26.7-34.0 [facility] Comment on above: Performed By: #### C BC #### [facility] [address] [place] [address] Dr. Aida Monae MCHC (RBC) [Mass/Vol] 33.3 g/dL Normal 29.9-35.2 [facility] Comment on above: Performed By: #### C BC #### [facility] [address] [address] [address] Aida Monae MCV (RBC) [Entitic vol] 92.3 fL Normal 81.0-99.0 [facility] Comment on above: Performed By: #### C BC #### [facility] [address] [address] [address] Aida Monae MONO # 0.4 103/ul Normal 0.3-0.8 [facility] Comment on above: Performed By: #### C BC #### [facility] [address] [place] [address] Dr. Aida Monae Monocytes/100 WBC (Bld) 9.2 % Normal 1.7-12.0 [facility] Comment on above: Performed By: #### C BC #### [facility] [address] [place] [address] Dr. Aida Monae NEUT # 2.7 103/ul Normal 1.4-6.5 [facility] Comment on above: Performed By: #### C BC #### [facility] [address] [place] [address] Dr. Aida Monae Neutrophils/100 WBC (Bld) 55.7 % Normal 43.0-75.0 [facility] Comment on above: Performed By: #### C BC #### [facility] [address] [place] [address] Dr. Aida Monae Platelet mean volume (Bld) [Entitic vol] 8.8 fL Critically low 9.5-13.5 [facility] Comment on above: Performed By: #### C BC #### [facility] [address] [place] [address] Dr. Aida Monae PLT 247 103/ul Normal 150-450 [facility] Comment on above: Performed By: #### C BC #### [facility] [address] [place] [address] Dr. Aida Monae RBC 4.79 106/ul Normal 4.20-5.40 [facility] Comment on above: Performed By: #### C BC #### [facility] [address] [address] [address] Aida Monae WBC 4.8 103/ul Normal 4.0-11.0 [facility] Comment on above: Performed By: #### C BC #### [facility] [address] [place] [address] Dr. Aida Monae FREE T4on 12-28-2021 Free T4 [Mass/Vol] 1.04 ng/dL Normal 0.76-1.46 [facility] Comment on above: Performed By: #### C BC #### [facility] [address] [place] [address] Dr. Aida Monae LIPID PROFILEon 12-28-2021 CHOL-HDL RATIO NORM SEE BELOW Normal [facility] Comment on above: Result Comment: 3.3 - 4.4 LOW RISK 4.4 - 7.1 AVERAGE RISK 7.1 - 11.0 MODERATE RISK >11.0 HIGH RISK Performed By: #### C MP, TSH, LIPID #### [facility] [address] [place] [address] Dr. Aida Monae Cholesterol [Mass/Vol] 126 mg/dL Normal <=200 [facility] Comment on above: Performed By: #### C MP, TSH, LIPID #### [facility] [address] [place] [address] Dr. Aida Monae Cholesterol in HDL [Mass/Vol] 47 mg/dL Normal 40-60 [facility] Comment on above: Performed By: #### C MP, TSH, LIPID #### [facility] [address] [place] [address] Dr. Aida Monae Cholesterol in LDL [Mass/Vol] 46.8 mg/dL Normal [facility] Comment on above: Performed By: #### C MP, TSH, LIPID #### [facility] [address] [place] [address] Dr. Aida Monae Cholesterol.total/Clari sterol in HDL [Mass ratio] 2.7 {ratio} Normal [facility] Comment on above: Performed By: #### C MP, TSH, LIPID #### [facility] [address] [place] [address] Dr. Aida Monae HDL NORMAL > or = 60 mg/dl - LOW CARDIOVASCULAR RISK <40 mg/dl - HIGH CARDIOVASCULAR RISK Normal [facility] Comment on above: Performed By: #### C MP, TSH, LIPID #### [facility] [address] [address] [address] Aida Monae LDL CALC NORMAL SEE BELOW Normal [facility] Comment on above: Result Comment: <100 mg/dl OPTIMAL 100 - 129 mg/dl NEAR OR ABOVE OPTIMAL 130 - 159 mg/dl BORDERLINE HIGH 160 - 189 mg/dl HIGH >190 mg/dl VERY HIGH Performed By: #### C MP, TSH, LIPID #### [facility] [address] [address] [address] Aida Monae Triglyceride [Mass/Vol] 161 mg/dL Critically high <=150 [facility] Comment on above: Performed By: #### C MP, TSH, LIPID #### [facility] [address] [address] [address] Aida Monae VLDL CALC 32.2 mg/dL Normal [facility] Comment on above: Performed By: #### C MP, TSH, LIPID #### [facility] [address] [address] [address] Aida Monae PROF 14(COMP METB)on 022 Albumin [Mass/Vol] 3.8 g/dL Normal 3.4-5.0 [facility] Comment on above: Performed By: #### C MP, TSH, LIPID #### [facility] [address] [address] [address] Aida Monae Albumin/Globulin [Mass ratio] 1.3 {ratio} Normal [facility] Comment on above: Performed By: #### C MP, TSH, LIPID #### [facility] [address] [address] [address] Aida Monae ALP [Catalytic activity/Vol] 63 U/L Normal 46-116 [facility] Comment on above: Performed By: #### C MP, TSH, LIPID #### [facility] [address] [address] [address] Aida Monae ALT [Catalytic activity/Vol] 26 U/L Normal 14-59 [facility] Comment on above: Performed By: #### C MP, TSH, LIPID #### [facility] [address] [place] [address] Dr. Aida Monae Anion gap [Moles/Vol] 12.9 mmol/L Normal [facility] Comment on above: Performed By: #### C MP, TSH, LIPID #### [facility] [address] [place] [address] Dr. Aida Monae AST [Catalytic activity/Vol] 18 U/L Normal 15-37 [facility] Comment on above: Performed By: #### C MP, TSH, LIPID #### [facility] [address] [place] [address] Dr. Aida Monae Bilirubin [Mass/Vol] 0.3 mg/dL Normal 0.2-1.0 [facility] Comment on above: Performed By: #### C MP, TSH, LIPID #### [facility] [address] [place] [address] Dr. Aida Monae Calcium [Mass/Vol] 8.4 mg/dL Critically low 8.5-10.1 [facility] Comment on above: Performed By: #### C MP, TSH, LIPID #### [facility] [address] [place] [address] Dr. Aida Monae Chloride [Moles/Vol] 104 mmol/L Normal 98-107 [facility] Comment on above: Performed By: #### C MP, TSH, LIPID #### [facility] [address] [place] [address] Dr. Aida Monae CO2 [Moles/Vol] 29.4 mmol/L Normal 21.0-32.0 [facility] Comment on above: Performed By: #### C MP, TSH, LIPID #### [facility] [address] [place] [address] Dr. Aida Monae Creatinine [Mass/Vol] 0.81 mg/dL Normal 0.55-1.02 [facility] Comment on above: Performed By: #### C MP, TSH, LIPID #### [facility] [address] [place] [address] Dr. Aida Monae EGFR-AF FAROESE >60 Normal >=60 [facility] Comment on above: Performed By: #### C MP, TSH, LIPID #### [facility] [address] [address] [address] Aida Monae EGFR-NON AF FAROESE >60 Normal >=60 [facility] Comment on above: Performed By: #### C MP, TSH, LIPID #### [facility] [address] [address] [address] Aida Monae Globulin (S) [Mass/Vol] 3.0 g/dL Normal [facility] Comment on above: Performed By: #### C MP, TSH, LIPID #### [facility] [address] [address] [address] Aida Monae Glucose [Mass/Vol] 124 mg/dL Critically high 74-106 [facility] Comment on above: Performed By: #### C MP, TSH, LIPID #### [facility] [address] [address] [address] Aida Monae Potassium [Moles/Vol] 4.3 mmol/L Normal 3.5-5.1 [facility] Comment on above: Performed By: #### C MP, TSH, LIPID #### [facility] [address] [place] [address] Dr. Aida Monae Protein [Mass/Vol] 6.8 g/dL Normal 6.1-8.2 [facility] Comment on above: Performed By: #### C MP, TSH, LIPID #### [facility] [address] [place] [address] Dr. Aida Monae Sodium [Moles/Vol] 142 mmol/L Normal 136-145 [facility] Comment on above: Performed By: #### C MP, TSH, LIPID #### [facility] [address] [place] [address] Dr. Aida Monae Urea nitrogen [Mass/Vol] 11.0 mg/dL Normal 7.0-18.0 [facility] Comment on above: Performed By: #### C MP, TSH, LIPID #### [facility] [address] [address] [address] Aida Monae Urea nitrogen/Creatinine [Mass ratio] 13.6 mg/mg Normal [facility] Comment on above: Performed By: #### C MP, TSH, LIPID #### [facility] [address] [address] [address] Aida Monae TSHon 12-28-2021 TSH 9.863 uIU/mL Critically high 0.470-4.680 [facility] Comment on above: Performed By: #### C MP, TSH, LIPID #### [facility] [address] [address] [address] Aida Monae TSH RANGE SEE BELOW Normal [facility] Comment on above: Result Comment: <0.3 4 UIU/ml HYPERTHYROID 0.34-5.60 UIU/ml EUTHYROID >5.60 UIU/ml HYPOTHYROID Performed By: #### C MP, TSH, LIPID #### [facility] [address] [address] [address] Aida Monae Ambulatory Visit Summaryon 0 [...] PM EDT With: Markos Cruz DO Where: [facility] Normal [facility] Family Medicine Office/Clini c Noteon [...] the sym (more content not included)... Normal [facility] Comment on above: Result Comment: Elec tronically Signed By: Markos Cruz DO.dorothy\Date and Time Signed: 10/15/21 17:00 EST Patient [...] child?s health (more content not included)... Normal [facility] Lab Reportson 09-28-2021 Lab Reports [id number] #1.00CD:127 Normal [facility] Formson 09-15-2021 Forms [id number] #1.00CD:127 Normal [facility] Family Medicine Office/Clini c Noteon 09-14-2021 Family Medicine Office/Clinic Note Chief Complaint hair loss, bowel issues, wants thyroid checked History of Present Illness 66 y/o female here to establish care last pcp was Dr. Willis in [place] daughter in law is Tiana Piedra; recommended [...] this medication BLADDER ISSUES Dr Yeager in [place] performed a bladder suspension approx 2 years ago in [place] BRITTLE NAILS have always been brittle lately they've been worse HAIR LOSS my beautician reports significant hairloss and the texture has changed last TSH was at least a couple of years no hx of CA last mammogram 2 years ago - [facility] no hx of [place] no hx of CVA no hx of [...] Refill(s) 0, dissolve in water before taking, [facility]/pharmacy #[id number], 160, cm, 09/14/21 16:09:00 EST, Height/Length Dosing, 85.1, kg, 09/14/21 16:09:00 EST, Weight Dosing rosuvastatin, 20 mg = 1 tab(s), Oral, Daily, # 90 tab(s), Refills(s) 3, Pharmacy: [facility]/pharmacy #[id number], 160, cm, 09/14/21 16:09:00 EST, Height/Length Dosing, 85.1, kg, 09/14/21 16:09:00 EST, Weight Dosing 7. Chronic constipation Chronic Sub-optimal control It seems like she's having more BMs than she should be; perhaps related (more content not included)... Normal [facility] Comment on above: Result Comment: Elec tronically Signed By: Markos Cruz DO.br\Date and Time Signed: 09/14/21 17:08 EST Patient [...] Follow these instructions at home: ? Take svcq-ypg-etzouzb and prescription medicines only as told by [...] 08/21/2006 Document Revised: 08/03/2018 Document Reviewed: 08/01/2018 [employer] Patient Education ? 2019 [employer] [facility] Dermatopathologyon 01-27-202 0 Dermatopathology [facility] [address] [place] [id number] DERMATOPATHOLOGY REPORT Name:ANISHA ALANIS [facility]. Rec #. [id number] Location: [facility] Date of Procedure: 01/28/2020 Race: Date Received: [...] M.D. Electronically Signed Out By AXEL OSBORNE MD/[facility] By the signature on this report, the individual or group listed as making the Final Interpretation/Diagn osis certifies that they have reviewed this case. Clinical History: Drug eruption, Hypersensitivity Reaction, Papular Eczema. Punch Biopsy. 4 mm. Specimens Submitted As: A: SKIN, R ARM Gross Description: Received in formalin is a merritt, cylindrical piece of skin measuring [id number]. The specimen is inked and embedded in toto. dcp/01/30/2020 Normal [facility] Comment on above: Performed By: #### D #### Dermatopathology Vital Signs Date Time Vital Sign Value Performing Clinician Facility 05-20-2024 09:39-0400 Body height 157.48 cm [facility] 05-20-2024 09:39-0400 Body mass index (BMI) [Ratio] 32 kg/m2 [facility] 05-20-2024 09:39-0400 Body weight 79.37 kg [facility] 05-20-2024 09:39-0400 Diastolic blood pressure 84 mm[Hg] [facility] 05-20-2024 09:39-0400 Heart rate 61 /min [facility] 05-20-2024 09:39-0400 Systolic blood pressure 164 mm[Hg] [facility] 11-27-2023 09:45-0400 Body height 157.48 cm [facility] 11-27-2023 09:45-0400 Body mass index (BMI) [Ratio] 32.3 kg/m2 [facility] 11-27-2023 09:45-0400 Body weight 80.28 kg [facility] 11-27-2023 09:45-0400 Diastolic blood pressure 92 mm[Hg] [facility] 11-27-2023 09:45-0400 Heart rate 69 /min [facility] 11-27-2023 09:45-0400 Systolic blood pressure 148 mm[Hg] [facility] 05-04-2023 14:15-0400 Body height 157.48 cm Doris Willis Other [employer] Other 05-04-2023 14:15-0400 Body mass index (BMI) [Ratio] 32.59 kg/m2 Doris Willis Other [employer] Other 05-04-2023 14:15-0400 Body weight 80.83 kg Doris Willis Other [employer] Other 05-04-2023 14:15-0400 Diastolic blood pressure 84 mm[Hg] Doris Willis Other [facility] Other 05-04-2023 14:15-0400 Systolic blood pressure 141 mm[Hg] Doris Willis Other [facility] Other 04-23-2023 14:01-0400 Body height 157.48 cm MD Doris Willis Work Phone: [facility] 04-23-2023 14:01-0400 Body temperature 99.2 [degF] MD Doris Willis Work Phone: [facility] 04-23-2023 14:01-0400 Body weight 79.3 kg MD Doris Willis Work Phone: [facility] 04-23-2023 14:01-0400 Diastolic blood pressure 96 mm[Hg] MD Doris Willis Work Phone: [facility] 04-23-2023 14:01-0400 Heart rate 85 /min MD Doris Willis Work Phone: [facility] 04-23-2023 14:01-0400 Respiratory rate 18 /min MD Doris Willis Work Phone: [facility] 04-23-2023 14:01-0400 SaO2% (BldA) [Mass fraction] 97 % MD Doris Willis Work Phone: [facility] 04-23-2023 14:01-0400 Systolic blood pressure 153 mm[Hg] MD Doris Willis Work Phone: [facility] 11-03-2022 15:00-0500 Body height 160.02 cm Doris Willis Other [facility] Other 11-03-2022 15:00-0500 Body mass index (BMI) [Ratio] 31.7 kg/m2 Doris Willis Other [employer] Other 11-03-2022 15:00-0500 Body weight 81.19 kg Doris Willis Other [employer] Other 11-03-2022 15:00-0500 Diastolic blood pressure 84 mm[Hg] Doris Willis Other [employer] Other 11-03-2022 15:00-0500 SaO2% (BldA) [Mass fraction] 97 % Doris Willis Other [employer] Other 11-03-2022 15:00-0500 Systolic blood pressure 142 mm[Hg] Drois Willis Other [employer] Other 01-11-2022 16:24-0400 Blood Pressure Location [facility] 01-11-2022 16:24-0400 Body temperature 98.78 [degF] [facility] 01-11-2022 16:24-0400 Diastolic blood pressure 90 mm[Hg] [facility] 01-11-2022 16:24-0400 Heart rate 65 /min [facility] 01-11-2022 16:24-0400 SaO2% (BldA) [Mass fraction] 97 % [facility] 01-11-2022 16:24-0400 Systolic blood pressure 140 mm[Hg] [facility] Encounters Encounter Date Encounter Type Care Provider Facility Start: 05-20-2024 End: 05-20-2024 [facility] Work Phone: Start: 05-20-2024 End: 05-20-2024 Patient encounter procedure [facility] Work Phone: Start: 11-27-2023 End: 11-27-2023 ambulatory [facility] Work Phone: Start: 11-27-2023 End: 11-27-2023 [facility] [facility] Work Phone: Start: 11-24-2023 Non-patient / Non-visit [facility] Work Phone: Start: 07-10-2023 End: 07-10-2023 ambulatory Doris Willis Other [employer] Other Start: 07-10-2023 Telephone encounter Doris Willis [facility] Start: 07-03-2023 End: 07-03-2023 ambulatory Doris Willis Other [employer] Other Start: 07-03-2023 Telephone encounter Doris Willis [facility] Start: 05-04-2023 End: 05-04-2023 ambulatory Doris Willis Other [employer] Other Start: 05-04-2023 Office outpatient vi sit 15 minutes Doris Willis [facility] Start: 04-23-2023 End: 04-23-2023 Emergency department patient visit Nehemias Briones Facility:[facility] Start: 04-23-2023 End: 04-23-2023 Emergency department patient visit MD Doris Willis Work Phone: [facility] Work Phone: Start: 01-03-2023 End: 01-03-2023 ambulatory Doris Willis Other [employer] Other Start: 01-03-2023 Telephone encounter Doris Willis [facility] Start: 12-21-2022 End: 12-22-[address] DORIS WILLIS Facility:[facility] Start: 11-10-2022 End: 11-10-2022 ambulatory Doris Willis Other [employer] Other Start: 11-10-2022 Telephone encounter Doris Wilils [facility] Start: 11-09-2022 End: 11-10-[address] DORIS WILLIS Facility:[facility] Start: 11-03-2022 End: 11-03-2022 ambulatory Doris Willis Other [employer] Other Start: 11-03-2022 Office outpatient vi sit 15 minutes Doris Willis [facility] Start: 08-29-2022 End: 08-29-[address] DORIS WILLIS Facility:[facility] Start: 06-23-2022 End: 06-24-[address] DORIS WILLIS Facility:[facility] Start: 04-04-[address] DOCTOR CHRISTIANSON Facility :[facility] Start: 01-11-2022 End: 01-11-2022 Patient encounter procedure Markos Cruz [facility] Start: 12-28-2021 End: 12-29-[address] DOCTOR CHRISTIANSON Facility:[facility] Procedures Date Procedure Procedure Detail Performing Clinician Arthrodesis of ankle Markos Cruz Colonoscopy Markos Cruz Hysterectomy Markos Cruz Ligation of fallopian tube R lexi Anthony Plan of Treatment Date Care Activity Detail Author Comprehensive metabo lic 2000 panel - Serum or Plasma [facility] Patient Education Conjunctivitis (Noninfectious Pinkeye) (DC) [facility] Work Phone: Patient referral [facility] Work Phone: [place] Gallbladder [facility] Immunizations Immunization Date Immunization Notes Care Provider Fa cility 06-21-2023 influenza virus vaccine, unspecified formulation [facility] 06-21-2023 influenza, high dose seasonal, preservative-free Doris Willis Other [employer] Other 07-03-2022 influenza virus vaccine, split virus (incl. purified surface antigen) Doris Willis Other [facility] Other 07-03-2022 influenza virus vaccine, unspecified formulation [facility] 11-28-2021 zoster vaccine recombinant [facility] 11-28-2021 zoster vaccine, live Doris Willis Other [facility] 08-29-2021 varicella virus vaccine [facility] 08-29-2021 zoster vaccine recombinant [facility] 08-29-2021 zoster vaccine, live Doris Kia Other [facility] 06-26-2021 influenza virus vaccine, split virus (incl. purified surface antigen) Doris Willis Other [facility] Other 06-26-2021 influenza virus vaccine, unspecified formulation [facility] 06-26-2021 SARS-CoV-2 (COVID-19 ) mRNA BNT-162b2 vax [facility] 12-22-2020 SARS-CoV-2 (COVID-19 ) mRNA BNT-162b2 max [facility] 11-29-2020 SARS-CoV-2 (COVID-19 ) mRNA BNT-162b2 max [facility] 06-09-2020 influenza virus vaccine, split virus (incl. purified surface antigen) Doris Willis Other [facility] Other 06-09-2020 influenza virus vaccine, unspecified formulation Markos Cruz [facility] 06-04-2020 influenza virus vaccine, unspecified formulation Markos Cruz [facility] 06-20-2019 influenza virus vaccine, unspecified [facility] 06-18-2013 diphtheria, tetanus toxoids and acellular pertussis vaccine, unspecified formulation Doris Kia Other [facility] Payers Date Payer Category Payer Medicare [id number] 2.1 [id number] 1961 Self-pay 1961 Unknown [id number] 1953 Unknown [id number] 2.16.84 [id number] 1955 Unknown [id number] 2.16.84 [id number] 1953 Unknown [id number] 2.16.84 [id number] 1953 Unknown [id number] 2.16.84 [id number] 1953 Unknown [id number] 2.16.84 [id number] 1953 Unknown [id number] 2.16.84 [id number] Unknown [id number] 2.16.8 [id number] Social History Date Type Detail Facility Start: 01-11-2022 End: 08-01-2023 Tobacco smoking status Ex-smoker ([facility]resa [facility] Tobacco smoking status Never [facility] Sex Assigned At Female [facility] Start: 1955 Sex Assigned At Female F [facility] Clinical Notes 01-11-2022 to 07-10-2023 Note Date & Type Note Facility 07-10-2023 Evaluation note Encounter Date Diagnosis Assessment Notes Jul, Hypothyroidism (ICD-10 - E03.9) [employer] Other 10-30-2023 Evaluation note* Encounter Date Diagnosis Assessment Notes Treatment Notes Treatment Clinical Notes Jun, Hypothyroidism (ICD-10 - E03.9) [facility] Other 08-31-2023 Evaluation note* Encounter Date Diagnosis Assessment Notes Treatment Notes Treatment Clinical Notes Apr, Insect bite (nonvenomous) of right elbow, initial encounter (ICD-10 - S50.361A) Prominent reaction to insect bite. No s/s infection. Very hot and red. Try cold compresses and ibuprofen for discomfort. Apr, Bitten or stung by nonvenomous insect and other nonvenomous arthropods, initial encounter (ICD-10 - W57.XXXA) [facility] Other 05-02-2023 Evaluation note* Encounter Date Diagnosis Assessment Notes Treatment Notes Treatment Clinical Notes January, Acquired hypothyroidism (ICD-10 - E03.9) [employer] Other 03-09-2023 Evaluation note* Encounter Date Diagnosis Assessment Notes Treatment Notes Treatment Clinical Notes Nov, Acquired hypothyroidism (ICD-10 - E03.9) Nov, Other decreased whit e blood cell (WBC) count (ICD-10 - D72.818) [employer] Other 03-02-2023 Evaluation note* Encounter Date Diagnosis [...] ensure she is on the right dose. [employer] Other 05-10-2022 Hospital Discharge instructions Patient Education [...] away. Follow these instructions at home: Take [id number] and prescription medicines only as told by [...] 08/21/2006 Document Revised: 08/03/2018 Document Reviewed: 08/01/2018 [employer] Patient Education 2020 [employer]. Follow Up Care 01/05/2022 08:53:39 With:Anthony VALENCIA, KAYLA Wang, PED Address: [address], [place] [phone] When:3 months Comments:2 month follow - ok to cancel if no issues and labs look good [facility] Evaluation + Plan note Future Appointments Appointment Date:04/05/2022 04:40:00 PM Scheduled Provider:Markos Cruz DO Location:[facility] Appointment Type:FM Open Diagnostic Tests Pending * TSH With T4fr Reflex 01/11/22 Future Scheduled Tests Laboratory* TSH With T4fr Reflex 09/14/21 * CBC w/ Auto Diff 09/14/21 * Comprehensive Metabolic Panel 09/14/21 * Lipid Panel 09/14/21 [facility] Evaluation noteNo assessment information available [facility] Work Phone: Evaluation note* Diagnosis Onset Date Resolution Status Gastro-esophageal reflux disease without esophagitis acute RUQ abdominal pain acute [facility] Work Phone: History general Narrative [...] JESUS 0 12/2020 Hospitalization History see above [employer] Other Hospital course Narrative No data available for this section [facility] Summary Purpose Family History Relationship Condition Age at Onset Recorded Date/T rebecca father Heart disease Unknown Unknown Hypertension Unknown Diabetes mellitus Unknown family member Unknown Not Specified Unknown Malignant neoplasm Unknown Heart disease Unknown Relationship Condition Age at Onset Recorded Date/T rebecca father Heart disease Unknown Unknown Hypertension Unknown Diabetes mellitus Unknown family member Unknown mother Unknown Malignant neoplasm Unknown Heart disease Unknown Advance Directives Advance Directive Response Recorded Date/ Time Advance Directives No April 23, 2023 1:14pm Chief Complaint and Reason for Visit Chief Complaint r eye blurry Chief Complaint REVIEW RESULTS Chief Complaint Stomach Issues Reason for Visit Gastro-esophageal re flux disease without esophagitis RUQ abdominal pain Additional Source Comments INFORMATION SOURCE (unrecogn ized section and content) DATE CREATED AUTHOR 02/04/2020 [facility] DATE CREATED AUTHOR AUTHOR'S ORGANIZ ATION 04/02/2022 Zack Jeter [facility] DATE CREATED AUTHOR AUTHOR'S ORGANIZ ATION 12/25/2022 [facility] DATE CREATED AUTHOR AUTHOR'S ORGANIZ ATION 05/04/2023 [facility] REASON FOR VISIT (unrecogniz ed section and content) STILL HAVING STOMACH ISSUESt est resultsmessageBug [employer] Care Teams (unrecognized sec tion and content) Team Status: Active Member Role Status Dates Doris Willis MD Primary Care Provider Active Team Status: Inactive Member Role Status Dates Doris Willis MD Primary Care Provide r, Attending Provider Active Start: May 20, 2024 End: May 20, 2024 Team Status: Active Member Role Status Dates Doris Willis MD Primary Care Provider Active Team Status: Active Member Role Status Shraddha Willis MD Primary Care Provide r, Attending Provider Active Start: November 24, 2023 Team Status: Inactive Member Role Status Shraddha Willis MD Primary Care Provide r, Attending Provider Active Start: November 27, 2023 End: November 27, 2023 Team Status: Inactive Member Role Status Shraddha Willis MD Primary Care Provider Active Nehemias Briones APRN Emergency Provider Active Team Status: Inactive Member Role Status Shraddha Willis MD Primary Care Provide r, Attending Provider Active Start: May 20, 2024 End: May 20, 2024 Goals (unrecognized section and content) Goals may [...] BE BASED ON THE PRIMARY CLINICAL RECORDS. [facility] [employer] [facility]. provides no warranty or guarantee of the accuracy or completeness of information in this document.
--- NOTE | 2024-05-24 06:55 | US_ITS ---
The [address] [address] Patient Name: POLO ALANIS MRN: [id number] date: 1955 Sex: F Assigned Patient Location: [place] Current Patient Location: Accession/Order Number: [id number] Exam Date: 05/24/2024 07:01 Report Date: 05/27/2024 10:30 At the request of: SAM WILLIS Procedure: US right upper quadrant EXAM: US right upper quadrant HISTORY: right upper quadrant abdominal pain R10.11 COMPARISON: None. TECHNIQUE: Grayscale, color and Doppler FINDINGS: The liver is normal in size and contour measuring 14.0 cm in length. No focal hepatic mass. Hepatopedal flow in the main portal vein with velocity of 39 cm/s. The gallbladder is normal in size. The wall measures 1.2 mm per the common bile duct measures 2.5 mm. Negative sonographic Ramírez sign The visualized pancreas is normal The right kidney is normal measuring 9.6 x 5.3 x 6.2 cm. The kidney is poorly visualized due to bowel gas US/US right upper quadrant IMPRESSION: Increased hepatic echotexture, consider hepatic steatosis Electronically authenticated by: TYLER CHOUDHARY Date: 05/27/2024 10:30
[2024-05-24 08:11] LABS: Basophils Absolute Auto 0.1 10^3/uL (0.0-0.1); Basophils Percent Auto 1.6 % (0.2-2.0); Eosinophils Absolute Auto 0.3 10^3/uL (0.0-0.7); Hematocrit 42.5 % (36.0-48.0); Hemoglobin 14.4 g/dL (12.0-16.0); Immature Granulocytes Abs Auto 0.01 10^3/uL (0.00-0.03); Immature Granulocytes Pct Auto 0.2 % (0.0-0.5); Lymphocytes Percent Auto 24.4 % (20.5-60.0); Mean Corpuscular HGB Conc 33.9 g/dL (29.9-35.2); Mean Corpuscular Hemoglobin 30.6 pg (26.7-34.0); Mean Corpuscular Volume 90.2 fL (81.0-99.0); Mean Platelet Volume 8.9 fL (9.5-13.5); Monocytes Absolute Auto 0.5 10^3/uL (0.3-0.8); Monocytes Percent Auto 10.5 % (1.7-12.0); Neutrophils Absolute Auto 2.4 10^3/uL (1.4-6.5); Neutrophils Percent Auto 56.3 % (43.0-75.0); Platelet Count 247 10^3/uL (150-450); Red Blood Count 4.71 10^6/uL (4.20-5.40); White Blood Count 4.3 10^3/uL (4.0-11.0)
[2024-05-24 09:18] LABS: Alanine Aminotransferase 24 U/L (14-59); Albumin Globulin Ratio 1.2; Albumin Level 3.6 g/dL (3.4-5.0); Alkaline Phosphatase 71 U/L (46-116); Anion Gap 8.5; Aspartate Amino Transferase 23 U/L (15-37); BUN Creatinine Ratio 9.5; Bilirubin Total 0.4 mg/dL (0.2-1.0); Calcium 9.2 mg/dL (8.5-10.1); Carbon Dioxide 31.5 mmol/L (21.0-32.0); Chloride 106 mmol/L (98-107); Estimated GFR (African America >60 (>=60); Estimated GFR (Non-African Ame >60 (>=60); Globulin 2.9 g/dL; Glucose 110 mg/dL (74-106); Sodium 142 mmol/L (136-145); Total Protein 6.5 g/dL (6.4-8.2)
== END 2024-05-24 06:46 | disposition home or self-care (01) ==
LOC: US 06:45
PROVIDERS: PCP Family Medicine; Visit Provider Family Medicine
DX: R10.11 Right upper quadrant pain (principal); K21.9 Gastro-esophageal reflux disease without esophagitis
CPT/HCPCS: 36415; 76705; 80053; 83690; 85025

== ENCOUNTER 2025-05-06 11:54 | Outpatient (OUT) | payer MEDICARE, OTHER, SELFPAY ==
--- OUTSIDE RECORDS SUMMARY | 2025-05-06 11:59 | XMS_ITS | Clinical Summary ---
Author Organization [facility] Address [address] [place] [address] Care Team Providers Care Monotyper Name Role Phone Unavailable Primary Care Provider Unavailabl e Social History Tobacco Use Types Packs/Day Years Used Date Smoking Tobacco: Never Assessed Comments Unknown Sex and Gender Information Value Date Recorded Sex Assigned at Not on file Legal Sex Female 9:18 AM EST Gender Identity Not on file Sexual Orientation Not on file Plan of Treatment Not on file
--- OUTSIDE RECORDS SUMMARY | 2025-05-06 11:59 | XMS_ITS | Clinical Summary ---
Author Organization [facility] Address [address] [place] [address] Care Team Providers Care Product Marketing Coordinator Name Role Phone oDris Adam MD Primary Care Provider [phone] Allergies Active Allergy Reactions Criticality Noted Date Comments Amoxicillin-Pot Clavulanate Hives 10/07/19 Cefdinir Hives 10/07/2024 Clavulanic Acid Hives 10/07/2024 Gabapentin Hives 10/07/2024 Latex 10/07/2024 Phentermine Hives 10/07/2024 Propranolol Hives 10/07/2024 Simvastatin Hives 10/07/2024 Medications cetirizine (ZyrTEC) 10 MG tablet 10 mg Daily Active DULoxetine (Cymbalta) [address] capsule Take 30 mg by mouth Daily Active pantoprazole (ProtoNix) 40 MG EC tablet Take 40 mg by mouth in the morning. Take before meals. Active rizatriptan (Maxalt) 10 MG tablet Take 10 mg by mouth Active rosuvastatin (Crestor) 20 MG tablet Take 20 mg by mouth Daily Active aspirin 81 MG EC tablet Take 81 mg by mouth Daily Active biotin 1 MG capsule Take 1 capsule by mouth 1 (one) time each day Active docusate sodium (Colace) 100 MG capsule Take 100 mg by mouth Daily Active magnesium 200 MG tablet Take 200 mg by mouth Daily Active polyethylene glycol, PEG, 3350 (Miralax) 17 g packet Take 17 g by mouth if needed Active liothyronine (Cytomel) 5 MCG tabletIndications: Acquired hypothyroidism Take 2 tablets (10 mcg) by mouth Daily 180 tablet 1 5 07/14/20 25 Active levothyroxine (Synthroid, Levoxyl) 100 MCG tabletIndications: Acquired hypothyroidism Take 1 tablet (100 mcg) by mouth in the morning. Take before meals. 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 and body mass index (BMI) of 30.0 to 30.9 in adult 04/16/2025 Bamboo flowsheet [facility] [address] [place] [address] Tonia Noble MD from Last 3 Months Family History Medical History Relation Name Comments Diabetes Father Heart disease Father Hypertension Father Cancer Mother Diabetes Mother Heart disease Mother Relation Name Status Comments Brother Father Mother Sister Social History Tobacco Use Types Packs/Day Years Used Date Smoking Tobacco: Never Assessed Comments Unknown Sex and Gender Information Value Date Recorded Sex Assigned at Not on file Legal Sex Female 6:52 PM EDT Gender Identity Not on file Sexual Orientation Not on file Last Filed Vital Signs Vital Sign Reading Time Taken Comments Blood Pressure 148/92 01/15/2025 10:19 AM EDT Pulse 70 04/16/2025 10:24 AM EDT Temperature - - Respiratory Rate 16 04/16/2025 10:24 AM EDT Oxygen Saturation 98% 04/16/2025 10:24 AM EDT Inhaled Oxygen Concentration - - Weight 75.3 kg (166 lb) 04/16/2025 10:24 AM EDT Height 157.5 cm (5' 2 ) 04/16/2025 10:24 AM EDT Body Mass Index 30.36 04/16/2025 10:24 AM EDT Plan of Treatment Upcoming Encounters Date Type Department Care Team (Late st Contact Info) Description 10/15/2025 10:10 AM EST Office Visit [facility] [address] [place] [address] Tonia Noble MD [address] [place] [address] Health Maintenance Due Date Last Done Comments CT Colonography 1955 Colonoscopy 1955 Colorectal Cancer Screening 1955 FIT-DNA 1955 FIT 1955 FOBT 1955 Sigmoidoscopy 1955 Mammogram 1993 Influenza Vaccine (#1) 2025 4, 07/03/2022, 06/26/2021, Additional history exists Pneumococcal Vaccine: 65+ Years Completed 4 Procedures Procedure Name Priority Date/Time Associated Diagnosis Comments TSH Routine 04/14/2025 8:43 AM EDT Acquired hypothyroidism T4, FREE Routine 04/14/2025 8:43 AM EDT Acquired hypothyroidism T3, FREE Routine 04/14/2025 8:43 AM EDT Acquired hypothyroidism from Last 3 Months Results * (ABNORMAL) T3, free (04/14/2025 8:43 AM EDT) T3, FREE 5.1(H) 2.0 - 4.4 pg/mL [facility] Blood Venous blood specimen / Unknown 04/14/2025 8:43 AM EDT 04/14/2025 Narrative [facility] - 04/15/2025 8:35 AM EDT Performed at: [address] [place] [id number] Therapeutic Specialist: Darinel Adkins PhD, Phone: [phone] Specimen Comment: A courtesy copy of this report has been sent to [phone] Tonia Noble MD LAB BLOOD ORDERABLES Final Re sult Performing Organization Address [facility] de Phone Number [facility] * (ABNORMAL) TSH (04/14/2025 8:43 AM EDT) TSH 0.061(L) 0.450 - 4.500 uIU/mL [facility] Blood Venous blood specimen / Unknown 04/14/2025 8:43 AM EDT 04/14/2025 Narrative [facility] - 04/15/2025 8:35 AM EDT Performed at: [facility] [employer] [address], [place] [id number] Therapeutic Specialist: Alejandro Virk MD, Phone: [phone] Specimen Comment: A courtesy copy of this report has been sent to [phone] Tonia Noble MD LAB BLOOD ORDERABLES Final Re sult Performing Organization Address [facility] de Phone Number [facility] * T4, free (04/14/2025 8:43 AM EDT) T4Free(Direct) 1.50 0.82 - 1.77 ng/dL [facility] Blood Venous blood specimen / Unknown 04/14/2025 8:43 AM EDT 04/14/2025 Narrative [facility] - 04/15/2025 8:35 AM EDT Performed at: [facility] [address], [place] [id number] Therapeutic Specialist: Alejandro Virk MD, Phone: [phone] Specimen Comment: A courtesy copy of this report has been sent to [phone] Tonia Noble MD LAB BLOOD ORDERABLES Final Re sult [facility] from Last 3 Months Insurance MEDICARE [facility] Care Teams Product Marketing Coordinator Relationship Specialty Start Date End Date Doris Adam MD PCP - General Family Medicine 09/25/24
--- OUTSIDE RECORDS SUMMARY | 2025-05-06 11:59 | XMS_ITS | Clinical Summary ---
Author Organization [facility] Address [address] [place] [address] Phone Care Team Providers Care Optical Laboratory Technician Name Role Phone Unavailable Primary Care Provider Unavailabl e Social History Tobacco Use Types Packs/Day Years Used Date Smoking Tobacco: Never Assessed Comments Unknown Sex and Gender Information Value Date Recorded Sex Assigned at Not on file Legal Sex Female 10:36 AM EST Gender Identity Not on file Sexual Orientation Not on file Plan of Treatment Not on file
--- OUTSIDE RECORDS SUMMARY | 2025-05-06 12:05 | XMS_ITS | CCD ---
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 Name Role Phone DORIS WILLIS Primary [...] Unavailable WILLIS, DR DORIS [employer] Unavailable MD Doris Willis Primary Care Provider [phone] YARIEL Briones Emergency Provider Doris Willis MD Primary Care Provider Dayana Worley MD Attending Provider Doris Willis MD Primary Care Provider Doris Willis MD Primary Care Provider Dayana Worley MD Attending Provider Doris Willis MD Primary Care Provider TONIA MORGAN Attending Unavailable DAYANA WORLEY Referring Unavailable TONIA MORGAN Referring Unavailable EDDIE, AHMAD F Attending Unavailable TONIA MORGAN F Attending Unavailable Doris Willis MD Primary Care Provider [phone] Doris Willis MD Attending Provider Doris Willis Admitting Unavailable Doris Willis Attending Unavailable Doris Willis Primary Care Unavailable Asaad, Imad Attending Unavailable Asaad, Imad Admitting Unavailable Doris Willis Primary Care Unavailable Asaad, Imad Attending Unavailable Asaad, Imad Admitting Unavailable Doris Willis Primary Care Unavailable Asaad, Imad Attending Unavailable Asaad, Imad Admitting Unavailable Doris Willis Primary Care Unavailable Allergies Allergy Classification Reported Allergen(s) Allergy Type Date of Onset Reaction(s) Facility (4 sources) Amoxicillin / [facility]ulanate Drug Allergy [facility] Other (11 sources) cefdinir Drug Allergy 4 Unknown, [facility] (20 sources) gabapentin Drug Allergy 4 [facility] (11 sources) Latex Drug allergy 4 [facility] (13 sources) Phentermine Drug Allergy 5 [facility] Other (20 sources) Propranolol Drug Allergy 4 [facility] (11 sources) Simvastatin Drug Allergy 4 Unknown, [facility] (2 sources) natural latex rubber Drug allergy (disorder) [facility] (3 sources) Adipex-P *ADHD/ANTI-NARC OLEPSY/ANTI-OBE SITY/ANOREX Propensity to adverse reactions Unknown [facility] Other (2 sources) Amoxicillin / Clavulanate Drug Allergy Unknown [facility] Other (5 sources) Amoxicillin Drug Allergy 4 [facility] (15 sources) Clavulanate Drug Allergy 4 [facility] (5 sources) Adipex-P *ADHD/ANTI-NARC OLEPSY Allergy to substance 4 [facility] Comment on above: Free Text Allergy: A dipex-P *ADHD/ANTI-NARCOLEPSY/ANTI-OBESITY/ANOREX (10 sources) cefdinir Drug Allergy 5 [facility] (10 sources) Latex Propensity to adverse reactions 5 [facility] (10 sources) Simvastatin Allergy to substance 5 [facility] (10 sources) Amoxicillin-Pot Clavulanate Drug Allergy 5 [facility] Medications Current Medications Medication Drug Class(es) Dates Sig (Normalized) Sig (Original) aspirin 81 mg oral tablet (20 sources) Platelet Aggregation Inhibitor, Nonsteroidal Anti-inflammatory Drug Start: 07-13-2016 take 81 mg by mouth once daily Aspirin Active 81 MG PO Daily April 23, 2023 12:00am take 1 tablet by mouth once josi y aspirin 81 MG EC tablet Take 81 mg by mouth Daily Active Aspirin 81 mg Capsule,Delaye d Release(Dr/Ec) (7 sources) Start: 04-23-2023 take 1 capsule by mo uth once daily Start: 04-23-2023 take 1 capsule by mo uth once daily Aspirin 81 mg Capsule,Delayed Release(Dr/Ec) Active 81 MG PO Daily April 23, 2023 12:00am Start: 04-23-2023 take 1 capsule by mo uth once daily Aspirin 81 mg Capsule,Delayed Release(Dr/Ec) Active 81 MG PO Daily April 22, 2023 11:00pm biotin 5 mg chewable tablet (17 sources) Start: 09-03-2024 take 1 tablet by mouth once da tammy Start: 09-03-2024 take 1 tablet by anibal once daily Biotin 5,000 mcg tablet,chewable Active 5000 MCG PO Daily September 03, 2024 1:00am Start: 09-03-2024 take 1 tablet by anibal th once daily Biotin 5,000 mcg tablet,chewable Active 5000 MCG PO Daily September 03, 2024 12:00am Start: 09-03-2024 Biotin 5,000 m cg tablet,chewable Active MCG PO September 03, 2024 12:00am take 1 capsule by mo uth once daily biotin 1 MG capsule Take 1 capsule by mouth 1 (one) time each day Active cetirizine hydrochloride 10 mg oral tablet (20 sources) Histamine-1 Receptor Antagonist Start: 07-13-2016 take 1 tablet by mouth once daily ciprofloxacin 250 mg oral tablet (1 source) Quinolone Antimicrobial Start: 12-26-2022 take 1 tablet by mouth every twelve hours Ciprofloxacin HCl 250 MG 1 tablet Orally every 12 hrs for 5 day(s) Dec, Active docusate sodium 100 mg oral capsule (20 sources) Start: 09-03-2024 take 1 capsule by mouth once daily Start: 11-27-2023 End: 11-27-2023 take 1 capsule by mouth once daily as needed Docusate Sodium 100 mg capsule Discontinued 1 CAP PO Daily November 27, 2023 12:00am November 27, 2023 9:52am Free[employer] capsule as needed Orally Once a day; Note: Source Status: Otgomk91 MG; Provider: Kia George ( ) Start: 11-27-2023 End: 11-27-2023 take 1 capsule by mouth once daily as needed Docusate Sodium Discontinued 1 CAP PO Daily November 27, 2023 12:00am November 27, 2023 9:52am [employer] capsule as needed Orally Once a day; Note: Source Status: Ampiyp74 MG; Provider: Kia George ( ) DULoxetine 30 mg delayed release oral capsule (20 sources) Serotonin and Norepinephrine Reuptake Inhibitor Start: 11-27-2023 End: 08-19-2024 take 1 capsule by mouth once daily DULoxetine 60 mg Cap-EC (1 source) Start: 01-11-2022 take 1 capsule by mouth once daily DULoxetine 60 mg Cap-EC 60 mg = 1 cap(s), Oral, Daily, (do not crush or chew), # 90 caplet(s), Refills(s) 3, Pharmacy: [facility]/pharmacy #[id number], 160, cm, 01/11/22 16:30:00 EDT, Height/Length Dosing, 87.1, kg, 01/11/22 16:30:00 EDT, Weight Dosing Start Date: 01/11/22 Status: Ordered Flonase 0.05 mg/inh [place] (1 source) Start: 01-11-2022 take 1 spray(s) nasal route twice daily Flonase 0.05 mg/inh [place] 1 spray(s), Nasal, BID, 16 gram, Refill(s) 0, each nostril Start Date: 01/11/22 Status: Ordered krill oil (6 sources) Krill Oil 350 MG as directed Orally Active levothyroxine sodium 0.1 mg oral tablet (20 sources) l-Thyroxine Start: 04-16-2025 End: 10-13-2025 take 1 tablet by mouth before mealtime levothyroxine (Synthroid, Levoxyl) 100 MCG tablet Indications: Acquired hypothyroidism Take 1 tablet (100 mcg) by mouth in the morning. Take before meals. 90 tablet 1 04/16/2025 10/13/2025 Active Start: 10-16-2024 End: 04-16-2025 Start: 06-17-2024 End: 11-07-2024 take 1 tablet by mouth once daily in the morning Levothyroxine 100 mcg tablet Discontinued 0 .ROUTE .COMPLEX June 17, 2024 10:37pm November 07, 2024 10:12am TAKE 1 TABLET BY MOUTH EVERY DAY IN THE MORNING ON EMPTY STOMACH FOR 90 DAYS Start: 02-23-2024 End: 06-17-2024 take 1 tablet by mouth once daily Levothyroxine 125 mcg tablet Discontinued 0 .ROUTE .COMPLEX February 23, 2024 8:30am June 17, 2024 10:37pm TAKE 1 TABLET BY MOUTH EVERY DAY Start: 11-27-2023 End: 10-16-2024 take 1 tablet by mouth once daily Levothyroxine 100 mcg tablet Discontinued 100 MCG PO Daily November 27, 2023 12:00am February 23, 2024 8:30am Start: 04-23-2023 End: 11-27-2023 take 1 tablet by mouth once daily in the morning Levothyroxine 112 mcg tablet Discontinued 112 MCG PO Every morning April [...] monday, # 30 tab(s), Refills(s) 5, Pharmacy: [facility]/pharmacy #[id number], 160, cm, 01/11/22 16:30:00 EDT, Height/Length Dosing, 87.1, kg, 01/11/22 16:30:00 EDT, Weight Dosing Start Date: 01/11/22 Status: Ordered liothyronine sodium 0.005 mg oral tablet (14 sources) l-Triiodothyronine Start: 11-07-2024 take 1 tablet by mouth twice daily Start: 11-07-2024 take 1 tablet by anibal th twice daily Liothyronine 5 mcg tablet Active 5 MCG PO Twice daily November 07, 2024 1:00am Start: 10-16-2024 End: 07-14-2025 take 2 tablets by mouth once daily liothyronine (Cytomel) 5 MCG tablet Indications: Acquired hypothyroidism Take 2 tablets (10 mcg) by mouth Daily 180 tablet 1 01/15/2025 07/14/2025 Active Magnesium (17 sources) Start: 09-03-2024 take 1 tablet by mouth once da tammy Start: 09-03-2024 take 1 tablet by anibal th once daily Magnesium 200 mg tablet Active 200 MG PO Daily September 03, 2024 1:00am Start: 09-03-2024 take 1 tablet by anibal th once daily Magnesium 200 mg tablet Active 200 MG PO Daily September 03, 2024 12:00am take 1 tablet by anibal th once daily magnesium 200 MG tablet Take 200 mg by mouth Daily Active methylPREDNISolone 4 mg oral tablet (1 source) Corticosteroid Start: 05-04-2023 methylPREDNISolone 4 MG as directed Orally for 6 days Apr, Active MiraLax 17 GM/SCOOP (4 sources) MiraLax 17 GM/SC OOP as directed Orally Active Multivitamins and Minerals (1 source) Start: 07-14-2016 Multivitamins and Minerals See Instructions, Refill(s) 0, Prophylaxis Start Date: 07/14/16 Status: Ordered pantoprazole 40 mg delayed release oral tablet (20 sources) Proton Pump Inhibitor Start: 11-07-2024 End: 11-07-2024 Start: 09-03-2024 End: 11-07-2024 Pantoprazole 40 mg tablet,de layed release (DR/EC) Discontinued 40 MG .ROUTE Twice daily 60 September 03, 2024 3:37pm November 07, 2024 10:37am 40 mg twice daily; Start: 08-29-2024 End: 09-03-2024 take 1 tablet by mouth once daily Pantoprazole 40 mg tablet,delayed release (DR/EC) Discontinued 0 .ROUTE .COMPLEX August 29, 2024 9:34am September 03, 2024 3:38pm TAKE 1 TABLET BY MOUTH EVERY DAY Start: 04-23-2023 End: 08-29-2024 take 1 tablet by mouth once daily Pantoprazole 40 mg tablet,delayed release (DR/EC) Discontinued 40 MG PO Daily April 23, 2023 12:00am August 29, 2024 9:34am Start: 07-13-2016 take 40 mg by mouth once daily pantoprazole 40 mg, Oral, Daily, Refills(s) 0, Control of stomach acid Start Date: 07/13/16 Status: Ordered rosuvastatin calcium 20 mg oral tablet (20 sources) HMG-CoA Reductase Inhibitor Start: 11-11-2024 take 1 tablet by mouth once daily Start: 09-14-2021 End: 11-11-2024 take 1 tablet by mouth once daily Rosuvastatin 20 mg tablet Discontinued 20 MG PO Daily April 23, 2023 12:00am November 11, 2024 11:52am sulfamethoxazole 800 mg / trimethoprim 160 mg oral tablet (1 source) Dihydrofolate Reductase Inhibitor Antibacterial, Sulfonamide Antimicrobial Start: 03-02-2023 take 1 tablet by mouth every twelve hours Bactrim DS 800-160 MG 1 tablet Orally Twice a day for 10 day(s) Feb, Active Completed/Discontinued Medications Medication Drug Class(es) Dates Sig (Normalized) Sig (Original) azithromycin 250 mg oral tablet (13 sources) Macrolide Antimicrobial Start: 10-15-2024 End: 11-07-2024 Azithromycin 250 mg tablet Discontinued 0 PO .COMPLEX October 15, 2024 1:00am November 07, 2024 10:11am For 250 mg dose pack: take 500 mg today (day 1), then 250 mg for 4 days (days 2-5) PO Start: 06-18-2024 End: 06-28-2024 Azithromycin 250 mg tablet D iscontinued 0 PO .COMPLEX June 18, 2024 12:00am June 28, 2024 9:40am For 250 mg dose pack: take 500 mg today (day 1), then 250 mg for 4 days (days 2-5) PO Start: 06-18-2024 End: 06-28-2024 Azithromycin Discontinued 0 PO .COMPLEX June 18, 2024 12:00am June 28, 2024 9:40am For 250 mg dose pack: take 500 mg today (day 1), then 250 mg for 4 days (days 2-5) PO Start: 06-18-2024 Azithromycin A ctive 0 PO .COMPLEX June 18, 2024 12:00am For 250 mg dose pack: take 500 mg today (day 1), then 250 mg for 4 days (days 2-5) PO betamethasone 0.5 mg/ml topical cream (17 sources) Corticosteroid Start: 11-27-2023 End: 06-28-2024 Betamethasone Dipropionate 0.05 % cream Discontinued 1 APPLIC TOPICAL Twice daily November 27, 2023 12:00am June 28, 2024 10:05am FreeText[employer] application Externally Twice a day; Note: Source Status: Taking; Provider: Kia George ( ) Betamethasone Di propionate 0.05 % 1 application Externally Twice a day Active doxycycline hyclate 100 mg oral capsule (17 sources) Tetracycline-class Drug Start: 11-27-2023 End: 11-27-2023 take 1 capsule by mouth twice daily Doxycycline Hyclate 100 mg capsule Discontinued 1 CAP PO Twice daily November 27, 2023 12:00am November 27, 2023 9:52am FreeText[employer] capsule Orally Twice a day; Note: Source Status: Not-TakingundefinedPRN; Refills: 0; Provider: Avery Ross Start: 05-29-2019 take 1 capsule by [facility] every twelve hours Doxycycline Hyclate 100 MG 1 capsule Orally Twice a day for 10 day(s) May, Not-Taking Ceeoz-Jkeyx-2-Feh-Skx-Kyhecn (4 sources) Start: 11-27-2023 End: 11-27-2023 Jnbnv-Zhlul-4-Wdw-Shw-Hueiyu Discontinued CAP PO November 27, 2023 12:00am November 27, 2023 9:52am Gqyrj-Zwrew-8-Qzz-Oxa-Coebkc 984-18-33-50 mg capsule (7 sources) Start: 11-27-2023 End: 11-27-2023 Vzqcm-Myzdf-4-Cjc-Qrv-Gbswck 913-09-66-50 mg capsule Discontinued CAP PO November 27, 2023 12:00am November 27, 2023 9:52am Start: 11-27-2023 End: 11-27-2023 Oognw-Iygch-3-Hmv-Vua-Djeehu 062-10-49-50 mg capsule Discontinued CAP PO November 26, 2023 11:00pm November 27, 2023 8:52am omeprazole 20 mg delayed release oral capsule (17 sources) Proton Pump Inhibitor Start: 11-27-2023 End: 11-27-2023 take 1 capsule by mouth once daily Omeprazole 20 mg capsule,delayed release(DR/EC) Discontinued 20 MG PO Daily November 27, 2023 12:00am November 27, 2023 9:53am Medication Name: Omeprazole; Note: Source Status: Not-TakingundefinedPRN; Provider: Kia George ( ) Omeprazole Not-T aking polyethylene glycol 3350 56906 mg powder for oral solution (20 sources) Osmotic Laxative Start: 09-03-2024 End: 09-26-2024 Polyethylene Glycol 3350 (Miralax) 17 gram/dose powder Discontinued GM PO As Directed September 03, 2024 1:00am September 26, 2024 12:51pm FreeTextSig: as directed Orally; Note: Source Status: Taking; Provider: Kia George ( ) Start: 09-14-2021 MiraLax oral p owder for reconstitution 17 gram, Oral, Daily, 527 gram, Refill(s) 0, dissolve in water before taking, [facility]/pharmacy #[id number], 160, cm, 09/14/21 16:09:00 EST, Height/Length Dosing, 85.1, kg, 09/14/21 16:09:00 EST, Weight Dosing Start Date: 09/14/21 Status: Ordered polyethylene gly col, PEG, 3350 (Miralax) 17 g packet Take 17 g by mouth if needed Active predniSONE 10 mg oral tablet (9 sources) Start: 06-18-2024 End: 06-28-2024 take 4 tablets by mouth once daily, then take 3 tablets by mouth once daily, then take 2 tablets by mouth once daily, then take 1 tablet by mouth once daily Prednisone 10 mg tablet Discontinued 10 MG PO As Directed June 18, 2024 12:00am June 28, 2024 10:05am 4 daily x 2 days, 3 daily x 2 days, 2 daily x 2 days, 1 daily x 6 days rizatriptan 10 mg oral tablet (20 sources) Serotonin-1b and Serotonin-1d Receptor Agonist Start: 02-23-2024 End: 04-21-2025 take 1 tablet by mouth every two hours as needed, then take 2 tablets by mouth once daily as needed Rizatriptan 10 mg tablet Discontinued 0 .ROUTE .COMPLEX October 06, 2024 8:24am April 21, 2025 8:55am TAKE 1 TABLET BY MOUTH EVERY 2 HOURS NEEDED *MAX 2 TABLETS PER DAY* Start: 11-27-2023 End: 02-23-2024 take 1 tablet by mouth every two hours as needed, then take 2 tablets by mouth once daily as needed Rizatriptan 10 mg tablet Discontinued 10 MG PO EVERY 2-4 HOURS November 27, 2023 12:00am February 23, 2024 8:30am FreeTextSig: TAKE 1 TABLET BY MOUTH EVERY 2 HOURS NEEDED, MAX 2 TABS PER DAY; Note: Source Status: Taking; Refills: 5; Qty: 10 Tablet; Provider: Kia George ( ) Start: 11-22-2023 End: 11-27-2023 Rizatriptan 10 mg tablet Discontinued 0 .ROUTE .COMPLEX November 22, 2023 1:52pm November 27, 2023 9:54am TAKE 1 TABLET EVERY 2 HOURS NEEDED. MAX 2 TABLETS PER DAY Start: 07-14-2016 End: 11-22-2023 Rizatriptan 10 mg tablet Discontinued 10 MG PO As Directed as needed for Migraine Headache April 23, 2023 12:00am November 22, 2023 1:52pm triamcinolone acetonide 40 mg/ml injectable suspension (5 sources) Corticosteroid Start: 03-02-2023 Kenalog-40 Jun, 60 mg Problems Active Problems Problem Classification Problem Date Documented Da te Episodic/Chronic Abdominal pain (18 sources) Lower abdominal pain, unspecified; Translations: [Right upper quadrant pain] Onset: 3 Episodic Allergic reactions (20 sources) Eczema; Translations: [Dermatitis, unspecified] 06-18-2024 Episodic Anxiety disorders (2 sources) Anxiety disorder; Translations: [Anxiety disorder, unspecified] Onset: 2 Chronic Diabetes mellitus without complication (7 sources) Hyperglycemia; Translations: [Other abnormal glucose] Onset: 2 Episodic Diseases of mouth; excluding dental (6 sources) Sialoadenitis; Translations: [Sialoadenitis, unspecified] Episodic Diseases of white blood cells (11 sources) Decreased blood leukocyte number; Translations: [Other decreased white blood cell count] Onset: 3 Chronic Disorders of lipid metabolism (14 sources) Hyperlipidemia; Translations: [Hyperlipidemia, unspecified] Onset: 2 09-14-2021 Chronic Comment on above: Problem List clean-u p per request of Phys. EHR Cmte E Codes: Natural/environment (1 source) Bitten or stung by nonvenomous insect and other nonvenomous arthropods, initial encounter Episodic Esophageal disorders (20 sources) Gastroesophageal reflux disease; Translations: [Gastroesophageal reflux disease without esophagitis] Onset: 2 09-14-2021 Chronic Fracture of upper limb (18 sources) Open fracture of middle AND/OR proximal phalanx of finger; Translations: [Displaced fracture of proximal phalanx of other finger, initial encounter for open fracture] Episodic Headache; including migraine (18 sources) Migraine; Translations: [Migraine, unspecified, not intractable, without status migrainosus] Onset: 2 09-14-2021 Chronic Comment on above: Problem List clean-u p per request of Phys. EHR Cmte Inflammation; infection of eye (except that caused by tuberculosis or sexually transmitteddisease) (12 sources) Acute conjunctivitis due to chemical; Translations: [Acute toxic conjunctivitis, unspecified eye] 04-23-2023 Episodic Lymphadenitis (6 sources) Cervical lymphadenopathy; Translations: [Localized enlarged lymph nodes] Episodic Mood disorders (2 sources) Mild recurrent major depression; 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, recurrent, mild] Onset: 2 Chronic Nonspecific chest pain (7 sources) Retrosternal pain ; Translations: [Precordial pain] Onset: 5 05-02-2025 Episodic Nutritional deficiencies (6 sources) Vitamin D deficiency; Translations: [Vitamin D deficiency, unspecified] 10-16-2024 Chronic Other and unspecified benign neoplasm (12 sources) History of polyp of colon; Translations: [History of colonic polyps] 09-03-2024 Episodic Other ear and sense organ disorders (6 sources) Bilateral tinnitus; Translations: [Tinnitus, bilateral] Episodic Other gastrointestinal disorders (7 sources) Constipation; Translations: [Constipation, unspecified] 09-03-2024 Episodic Other inflammatory condition of skin (6 sources) Pruritus of skin; Translations: [Pruritus, unspecified] Episodic Other liver diseases (9 sources) Steatosis of liver; Translations: [Fatty (change of) liver, not elsewhere classified] 06-06-2024 Chronic Other liver diseases (10 sources) Fatty (change of) liver, not elsewhere classified; Translations: [Other chronic nonalcoholic liver disease] Onset: 5 06-28-2024 Chronic Other nervous system disorders (6 sources) Carpal tunnel syndrome of right wrist; Translations: [Carpal tunnel syndrome, right upper limb] Chronic Other non-traumatic joint disorders (6 sources) Shoulder joint pain; Translations: [Pain in right shoulder] Episodic Other nutritional; endocrine; and metabolic disorders (1 source) Obese class I; Translations: [Body mass index (BMI) 34.0-34.9, adult] Onset: 2 Chronic Other nutritional; endocrine; and metabolic disorders (1 source) Body mass index 30+ - obesity 01-11-2022 Chronic Other nutritional; endocrine; and metabolic disorders (6 sources) Obesity caused by energy imbalance; Translations: [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out serious comorbidity with body mass index (BMI) of 31.0 to 31.9 in adult] 10-16-2024 Chronic Other nutritional; endocrine; and metabolic disorders (2 sources) Weight increased; Translations: [Abnormal weight gain] 10-16-2024 Episodic Other screening for suspected conditions (not mental disorders or infectious disease) (2 sources) Electrocardiogram abnormal; Translations: [Abnormal electrocardiogram [ECG] [EKG]] 05-02-2025 Episodic Other skin disorders (11 sources) Loss of hair; Translations: [Nonscarring hair loss, unspecified] 11-23-2023 Episodic Other upper respiratory disease (2 sources) Allergic rhinitis; Translations: [Allergic rhinitis, unspecified] Onset: 2 Chronic Other upper respiratory disease (6 sources) Seasonal allergy; Translations: [Other seasonal allergic rhinitis] Chronic Other upper respiratory infections (1 source) Chronic sinusitis, unspecified; Translations: [CHRONIC SINUSITIS UNSPECIFIED] Onset: 2 Chronic Other upper respiratory infections (10 sources) Acute pharyngitis; Translations: [Acute pharyngitis, unspecified] 10-15-2024 Episodic Residual codes; unclassified (6 sources) Tobacco user; Translations: [Tobacco use] Episodic Superficial injury; contusion (5 sources) Insect bite (nonvenomous) of right elbow, initial encounter; Translations: [Contusion of toe] Episodic Thyroid disorders (20 sources) Hypothyroidism; Translations: [Hypothyroidism, unspecified] Onset: 2 Chronic Comment on above: Problem List clean-u p per request of Phys. 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 COMPARISON: None. TECHNIQUE: Longitudinal and transverse grayscale, and color Doppler images of the thyroid gland obtained. FINDINGS: The thyroid lobes are lower limits of normal for size, diffusely heterogeneous, without discrete nodule. The isthmus is not thickened. Measurements: Right Lobe: 3.7 x 1.4 x 1.5 cm Left Lobe: 3.1 x 0.8 x 1.1 cm Isthmus: 0.32 cm IMPRESSION: Diminutive, heterogeneous thyroid gland without focal nodule. This report is generated using voice recognition reporting (IKOTECH). On occasion, [employer] erroneously drops words from the report or replaces the spoken word with a similar sounding word. Please call with any questions/concerns regarding the report. Dictated and transcribed 10/25/2024/marita This report has been electronically signed and approved by the interpreting radiologist. Normal Not Available Harley 09-26-2024 L -- ---- Specimen: [id number] Received: 09/26/24 Status: RAS [facility] Num: [id number] Spec Type: Surgical Subm Dr: Dayana Worley MD Tissues: A Gastric Biopsy (GASTRIC BX) B Colon Biopsy (ASCENDING COLON POLYP) C Colon Biopsy (SIGMOID POLYP) Procedures: HE/6, Gross/Micro L4/3, H PYLORI ---- Age/ Patient Sex Location Account Attending Physician ---- Anisha Alanis 69/F [id number] Dayana Worley MD ---- SPEC NUM: [id number] RECD: 09/26/24 STATUS: RAS [facility] NUM: [id number] [place]JUA[place]: 09/26/[address] [facility] [address]: Dayana Worley MD ENTERED: 09/26/[address] [facility] [address]: SADIA TYPE: Surgical DEPT: S ENTERED BY: [id number] RECV BY: [id number] ORDERED: HE/6, Gross/Micro L4/3, H PYLORI ORDERED: HE/6, Gross/Micro L4/3, H PYLORI Pathological Diagnosis A. Gastric biopsy: - Benign gastric mucosa showing moderate chronic inflammation and reactive chemical gastropathy. - H. pylori immunostain (with satisfactory control) is negative. B. Ascending colon polyp: Tubular adenoma. C. Sigmoid colon polyp: Tubular adenoma. Clinical Information GERD, history of polyps, Part A rule out H. pylori Gross Description Part A is received in formalin labeled with the patients name, date of , and gastric BX are 4 merritt-gutiérrez, focally erythematous, friable, 0.2 to 0.4 cm in greatest dimension tissue bits. The specimen is entirely submitted in a single cassette. (1, ns, [id number] A) J Part B is received in formalin labeled with the patients name, date of , and ascending polyp is a merritt-gutiérrez, focally erythematous, friable, 0.4 cm in greatest dimension polypoid ---- Specimen: [id number] Received: 09/26/24 Status: RAS Blackwell Num: [id number] Spec Type: Surgical Subm Dr: Dayana Worley MD Tissues: A Gastric Biopsy (GASTRIC BX) B Colon Biopsy (ASCENDING COLON POLYP) C Colon Biopsy (SIGMOID POLYP) Procedures: HE/6, Gross/Micro L4/3, H PYLORI ---- Patient: Anisha Alanis [id number] (Continued) ---- Specimen: [id number] Received: 09/26/24 (Continued) Gross Description (Continued) Signed (signature on file) Andreina Roy MD 09/30/24 1250 ---- Specimen: [id number] Received: 09/26/24 Status: RAS Blackwell Num: [id number] Spec Type: Surgical Subm Dr: aDyana Worley MD Tissues: A Gastric Biopsy (GASTRIC BX) B Colon Biopsy (ASCENDING COLON POLYP) C Colon Biopsy (SIGMOID POLYP) Procedures: HE/6, Gross/Micro L4/3, H PYLORI ---- Patient: Anisha Alanis [id number] (Continued) ---- Specimen: [id number] Received: 09/26/24 (Continued) Gross Description (Continued) fragment. The specimen is entirely submitted in a single cassette. (1, ns, [id number] B) Part C is received in formalin labeled with the patients name, date of , and sigmoid polyp is a merritt-gutiérrez, focally erythematous, friable, 0.4 cm in greatest dimension polypoid fragment. The specimen is entirely submitted in a single cassette. (1, ns, [id number] C) CPT Codes 05510r9,24799 ---- ---- Specimen: [id number] Received: 09/26/24 Status: RAS Blackwell Num: [id number] Spec Type: Surgical Subm Dr: Dayana Worley MD Tissues: A Gastric Biopsy (GASTRIC BX) B Colon Biopsy (ASCENDING COLON POLYP) C Colon Biopsy (SIGMOID POLYP) Procedures: HE/6, Gross/Micro L4/3, H PYLORI ---- Patient: Anisha Alanis [id number] (Continued) ---- Signed (signature on file) Andreina Roy MD 09/30/24 1250 Normal [facility] C reactive protein [Mass/vol ume] in Serum or PlasmaOrdered By: Dayana Worley on 09-19-2024 CRP [Mass/Vol] C reactive protein [Mass/volume] in Serum or Plasma 0.0-0.5 [facility] C-Reactive Proteinon 025 CRP [Mass/Vol] mg/L Normal 0.0-0.5 [facility] Comment on above: Performed By: #### H AABT, HBSAG, HBSAB, HBCAB, HCV RX PCR #### [facility] , #### TSH3, CRP #### [facility] [address] Hep C Ab wRfx to Qnt PCRon 0 09-19-2024 Hepatitis C Virus Antibody Non-Reactive Normal Non Reactive [facility] Comment on above: Performed By: #### H AABT, HBSAG, HBSAB, HBCAB, HCV RX PCR #### [facility] , #### TSH3, CRP #### [address] Interpretation Hepatitis C Comment Normal . [facility] Comment on above: Result Comment: Not infected with HCV unless early or acute infection is suspected (which may be delayed in an immunocompromised individual), or other evidence exists to indicate HCV infection. Performed By: #### H AABT, HBSAG, HBSAB, HBCAB, HCV RX PCR #### [facility] , #### TSH3, CRP #### [address] Hepatitis A Antibody Totalon 09-19-2024 Hepatitis A Antibody Total Negative Normal Negative [facility] Comment on above: Result Comment: Comm ent: The HAV total antibody assay detects both IgG and IgM but does not differentiate between them. A negative result suggests susceptibility to infection. A positive result could be due to vaccination, previously resolved infection or active infection. Testing for HAV IgM should be performed if active HAV infection is suspected. [facility] offers profiles that will automatically reflex positive HAV total antibody results to IgM (e.g., panel #[id number] HAV Antibody w/ Rfx). Performed at: [address] [id number] [employer] Consultant: Darinel Adkins PhD, Phone: [phone] Performed By: #### H AABT, HBSAG, HBSAB, HBCAB, HCV RX PCR #### [facility] , #### TSH3, CRP #### [facility] [address] [place] [address] Hepatitis B Core Antibodyon 09-19-2024 Hepatitis B Core Antibody Negative Normal Negative [facility] Comment on above: Performed By: #### H AABT, HBSAG, HBSAB, HBCAB, HCV RX PCR #### [facility] , #### TSH3, CRP #### [address] Hepatitis B Surface Antibody on 09-19-2024 Hepatitis B Surface Antibody Non-Reactive Normal . [facility] Comment on above: Result Comment: Non Reactive: Not immune to HBV infection. Equivocal: Unable to determine if anti-HBs is present at levels consistent with immunity. Reactive: Anti-HBs concentration detected at greater than 10 mIU/mL. Individual is considered to be immune to infection with HBV. Performed By: #### H AABT, HBSAG, HBSAB, HBCAB, HCV RX PCR #### [facility] , #### TSH3, CRP #### [address] Hepatitis B Surface Antigeno n 09-19-2024 HBsAg Screen Negative Normal Negative [facility] Comment on above: Result Comment: PERF ORMED BY: [place] [address] PATHOLOGIST GLUE MOUNTER OPERATOR LIVIA GARCIA M.D. Performed By: #### H AABT, HBSAG, HBSAB, HBCAB, HCV RX PCR #### [facility] , #### TSH3, CRP #### [address] Thyroid Stimulating Hormoneo n 09-19-2024 TSH Qn 102.44 m[IU]/L High 0.45-5.33 [facility] Comment on above: Result Comment: PERF ORMED BY: [place] [address] PATHOLOGIST GLUE MOUNTER OPERATOR LIVIA GARCIA M.D. Performed By: #### H AABT, HBSAG, HBSAB, HBCAB, HCV RX PCR #### [facility] , #### TSH3, CRP #### [facility] [place] [id number] [facility] Calprotectin [Mass/mass] in StoolOrdered By: Dayana Worley on 09-11-2024 Calprotectin (Stl) [Mass/Mass] Calprotectin [Mass/mass] in Stool High 0-120 [facility] Comment on above: Concentration Interp retation Follow-Up< 5 - 50 ug/g Normal None>50 -120 ug/g Borderline Re-evaluate in 4-6 weeks >120 ug/g Abnormal Repeat as clinically indicatedPerformed at: [facility] [address] [place], [place] [id number] Director: Linsey Arce MD, Phone: [phone] Calprotectin, Fecalon 2024 Calprotectin, Fecal 127 High 0-120 [facility] Comment on above: Result Comment: Conc entration Interpretation Follow-Up < 5 - 50 ug/g Normal None >50 -120 ug/g Borderline Re-evaluate in 4-6 weeks >120 ug/g Abnormal Repeat as clinically indicated Performed at: [place] [facility] [place] [address] [place], [place] [id number] [employer] Consultant: Linsey Arce MD, Phone: [phone] PERFORMED BY: [place] [address] PATHOLOGIST GLUE MOUNTER OPERATOR LIVIA GARCIA M.D. Performed By: #### C ALPROTECT #### [facility] , Basophils Auto (Bld) [#/Vol] on 05-24-2024 Basophils (Bld) [#/Vol] 0.1 10 3/uL 0.0-0.1 [facility] Basophils/100 WBC Auto (Bld) on 05-24-2024 Basophils/100 WBC (Bld) 1.6 % 0.2-2.0 [facility] Eosinophils/100 WBC Auto (Bl d)on 05-24-2024 Eosinophils/100 WBC (Bld) 7.0 % 0.9-7.0 [facility] Erythrocyte distribution wid th Auto (RBC) [Ratio]on 05-24-2024 Erythrocyte distribution width (RBC) [Ratio] 13.0 % 11.0-15.0 [facility] Estimated glomerular filtrat ion rate (GFR) non- Americanon 05-24-2024 GFR/1.73 sq M.predicted among non-blacks MDRD (S/P/Bld) [Vol rate/Area] mL/min/{1.73_m2} >=60 [facility] Globulin Calc (S) [Mass/Vol] on 05-24-2024 Globulin (S) [Mass/Vol] 2.9 g/dL [facility] Hematocrit Auto (Bld) [Volum e fraction]on 05-24-2024 Hematocrit (Bld) [Volume fraction] 42.5 % 36.0-48.0 [facility] Hemoglobin [Mass/volume] in Bloodon 05-24-2024 Hemoglobin (Bld) [Mass/Vol] 14.4 g/dL 12.0-16.0 [facility] Laboratory - Chemistry and C hemistry - challengeon 05-24-2024 Albumin [Mass/Vol] 3.6 g/dL 3.4-5.0 [facility] ALP [Catalytic activity/Vol] 71 U/L 46-116 [facility] ALT [Catalytic activity/Vol] 24 U/L 14-59 [facility] AST [Catalytic activity/Vol] 23 U/L 15-37 [facility] Bilirubin [Mass/Vol] 0.4 mg/dL 0.2-1.0 [facility] Calcium [Mass/Vol] 9.2 mg/dL 8.5-10.1 [facility] Chloride [Moles/Vol] 106 mmol/L 98-107 [facility] CO2 [Moles/Vol] 31.5 mmol/L 21.0-32.0 [facility] Creatinine [Mass/Vol] 0.84 mg/dL 0.55-1.02 [facility] GFR/1.73 sq M.predicted MDRD (S/P/Bld) [Vol rate/Area] mL/min/{1.73_m2} >=60 [facility] Glucose [Mass/Vol] 110 mg/dL High 74-106 [facility] Lipase [Catalytic activity/Vol] 47.0 U/L 16.0-77.0 [facility] Potassium [Moles/Vol] 4.0 mmol/L 3.5-5.1 [facility] Protein [Mass/Vol] 6.5 g/dL 6.4-8.2 [facility] Sodium [Moles/Vol] 142 mmol/L 136-145 [facility] Urea nitrogen [Mass/Vol] 8.0 mg/dL 7.0-18.0 [facility] Urea nitrogen/Creatinine [Mass ratio] 9.5 mg/mg [facility] Laboratory - Hematology and Cell countson 05-24-2024 Immature granulocytes/100 WBC (Bld) 0.2 % 0.0-0.5 [facility] Leukocytes [#/volume] correc yovanny for nucleated erythrocytes in Blood by Automated counon 05-24-2024 WBC corrected for nucl RBC Auto (Bld) [#/Vol] 4.3 10 3/uL 4.0-11.0 [facility] Lymphocytes Auto (Bld) [#/Vo l]on 05-24-2024 Lymphocytes (Bld) [#/Vol] 1.0 10 3/uL Low 1.2-3.8 [facility] Lymphocytes/100 WBC Auto (Bl d)on 05-24-2024 Lymphocytes/100 WBC (Bld) 24.4 % 20.5-60.0 [facility] MCH Auto (RBC) [Entitic mass ]on 05-24-2024 MCH (RBC) [Entitic mass] 30.6 pg 26.7-34.0 [facility] MCHC Auto (RBC) [Mass/Vol]on 05-24-2024 MCHC (RBC) [Mass/Vol] 33.9 g/dL 29.9-35.2 [facility] MCV Auto (RBC) [Entitic vol] on 05-24-2024 MCV (RBC) [Entitic vol] 90.2 fL 81.0-99.0 [facility] Monocytes Auto (Bld) [#/Vol] on 05-24-2024 Monocytes (Bld) [#/Vol] 0.5 10 3/uL 0.3-0.8 [facility] Monocytes/100 WBC Auto (Bld) on 05-24-2024 Monocytes/100 WBC (Bld) 10.5 % 1.7-12.0 [facility] Neutrophils Auto (Bld) [#/Vo l]on 05-24-2024 Neutrophils (Bld) [#/Vol] 2.4 10 3/uL 1.4-6.5 [facility] Neutrophils/100 WBC Auto (Bl d)on 05-24-2024 Neutrophils/100 WBC (Bld) 56.3 % 43.0-75.0 [facility] No Panel Informationon 05-24 Eosinophils # (Auto) 0.3 10 3/uL 0.0-0.7 [facility] Immature Granulocyte # (Auto) 0.01 10 3/uL 0.00-0.03 [facility] Platelet mean volume Auto (B ld) [Entitic vol]on 05-24-2024 Platelet mean volume (Bld) [Entitic vol] 8.9 fL Low 9.5-13.5 [facility] Platelets Auto (Bld) [#/Vol] on 05-24-2024 Platelets (Bld) [#/Vol] 247 10 3/uL 150-450 [facility] RBC Auto (Bld) [#/Vol]on RBC (Bld) [#/Vol] 4.71 10 6/uL 4.20-5.40 [facility] Serum or plasma albumin/glob ulin mass ratioon 05-24-2024 Albumin/Globulin [Mass ratio] 1.2 {ratio} [facility] Serum or plasma anion gap de terminationon 05-24-2024 Anion gap [Moles/Vol] 8.5 mmol/L [facility] Laboratory - Chemistry and C hemistry - challengeon 11-24-2023 Free T4 [Mass/Vol] 1.24 ng/dL 0.76-1.46 [facility] TSH Qn 0.111 m[IU]/L 0.358-3.740 [facility] CBC AUTO DIFFon 12-21-2022 BASO # 0.0 103/ul Normal 0.0-0.1 [facility] Comment on above: Performed By: #### C BC #### [facility] [address] [address] [address] Aida Monae Basophils/100 WBC (Bld) 0.8 % Normal 0.2-2.0 [facility] Comment on above: Performed By: #### C BC #### [facility] [address] [address] [address] Aida Monae EO # 0.2 103/ul Normal 0.0-0.7 [facility] Comment on above: Performed By: #### C BC #### [facility] [address] [place] [address] Dr. Aida Monae Eosinophils/100 WBC (Bld) 4.1 % Normal 0.9-7.0 [facility] Comment on above: Performed By: #### C BC #### [facility] [address] [place] [address] Dr. Aida Monae Erythrocyte distribution width (RBC) [Ratio] 13.2 % Normal 11.0-15.0 [facility] Comment on above: Performed By: #### C BC #### [facility] [address] [place] [address] Dr. Aida Monae Hematocrit (Bld) [Volume fraction] 43.5 % Normal 36.0-48.0 [facility] Comment on above: Performed By: #### C BC #### [facility] [address] [place] [address] Dr. Aida Monae Hemoglobin (Bld) [Mass/Vol] 14.7 g/dL Normal 12.0-16.0 [facility] Comment on above: Performed By: #### C BC #### [facility] [address] [place] [address] Dr. Aida Monae IG # 0.02 10e3/ul Normal 0.00-0.03 [facility] Comment on above: Performed By: #### C BC #### [facility] [address] [place] [address] Dr. Aida Monae IG % 0.4 % Normal 0.0-0.5 [facility] Comment on above: Performed By: #### C BC #### [facility] [address] [place] [address] Dr. Aida Monae LYMPH # 1.2 103/ul Normal 1.2-3.8 [facility] Comment on above: Performed By: #### C BC #### [facility] [address] [place] [address] Dr. Aida Monae Lymphocytes/100 WBC (Bld) 24.3 % Normal 20.5-60.0 [facility] Comment on above: Performed By: #### C BC #### [facility] [address] [place] [address] Dr. Aida Monae MANUAL DIFF REQ NO Normal [facility] Comment on above: Performed By: #### C BC #### [facility] [address] [place] [address] Dr. Aida Monae MCH (RBC) [Entitic mass] 30.8 pg Normal 26.7-34.0 [facility] Comment on above: Performed By: #### C BC #### [facility] [address] [place] [address] Dr. Aida Monae MCHC (RBC) [Mass/Vol] 33.8 g/dL Normal 29.9-35.2 [facility] Comment on above: Performed By: #### C BC #### [facility] [address] [place] [address] Dr. Aida Monae MCV (RBC) [Entitic vol] 91.2 fL Normal 81.0-99.0 [facility] Comment on above: Performed By: #### C BC #### [facility] [address] [place] [address] Dr. Aida Monae MONO # 0.5 103/ul Normal 0.3-0.8 [facility] Comment on above: Performed By: #### C BC #### [facility] [address] [place] [address] Dr. Aida Monae Monocytes/100 WBC (Bld) 9.2 % Normal 1.7-12.0 [facility] Comment on above: Performed By: #### C BC #### [facility] [address] [place] [address] Dr. Aida Monae NEUT # 3.0 103/ul Normal 1.4-6.5 [facility] Comment on above: Performed By: #### C BC #### [facility] [address] [address] [address] Aida Monae Neutrophils/100 WBC (Bld) 61.2 % Normal 43.0-75.0 [facility] Comment on above: Performed By: #### C BC #### [facility] [address] [place] [address] Dr. Aida Monae Platelet mean volume (Bld) [Entitic vol] 8.9 fL Critically low 9.5-13.5 [facility] Comment on above: Performed By: #### C BC #### [facility] [address] [place] [address] Dr. Aida Monae PLT 259 103/ul Normal 150-450 [facility] Comment on above: Performed By: #### C BC #### [facility] [address] [place] [address] Dr. Aida Monae RBC 4.77 106/ul Normal 4.20-5.40 [facility] Comment on above: Performed By: #### C BC #### [facility] [address] [place] [address] Dr. Aida Monae WBC 4.9 103/ul Normal 4.0-11.0 [facility] Comment on above: Performed By: #### C BC #### [facility] [address] [place] [address] Dr. Aida Monae CBC AUTO DIFFon 11-09-2022 BASO # 0.0 103/ul Normal 0.0-0.1 [facility] Comment on above: Performed By: #### C BC #### [facility] [address] [place] [address] Dr. Aida Monae Basophils/100 WBC (Bld) 0.9 % Normal 0.2-2.0 [facility] Comment on above: Performed By: #### C BC #### [facility] [address] [place] [address] Dr. Aida Monae EO # 0.1 103/ul Normal 0.0-0.7 [facility] Comment on above: Performed By: #### C BC #### [facility] [address] [place] [address] Dr. Aida Monae Eosinophils/100 WBC (Bld) 3.6 % Normal 0.9-7.0 [facility] Comment on above: Performed By: #### C BC #### [facility] [address] [place] [address] Dr. Aida Monae Erythrocyte distribution width (RBC) [Ratio] 13.6 % Normal 11.0-15.0 [facility] Comment on above: Performed By: #### C BC #### [facility] [address] [place] [address] Dr. Aida Monae Hematocrit (Bld) [Volume fraction] 42.6 % Normal 36.0-48.0 [facility] Comment on above: Performed By: #### C BC #### [facility] [address] [place] [address] Dr. Aida Monae Hemoglobin (Bld) [Mass/Vol] 14.5 g/dL Normal 12.0-16.0 [facility] Comment on above: Performed By: #### C BC #### [facility] [address] [place] [address] Dr. Aida Monae IG # 0.01 10e3/ul Normal 0.00-0.03 [facility] Comment on above: Performed By: #### C BC #### [facility] [address] [place] [address] Dr. Aida Monae IG % 0.3 % Normal 0.0-0.5 [facility] Comment on above: Performed By: #### C BC #### [facility] [address] [place] [address] Dr. Aida Monae LYMPH # 1.0 103/ul Critically low 1.2-3.8 [facility] Comment on above: Performed By: #### C BC #### [facility] [address] [place] [address] Dr. Aida Monae Lymphocytes/100 WBC (Bld) 28.6 % Normal 20.5-60.0 [facility] Comment on above: Performed By: #### C BC #### [facility] [address] [place] [address] Dr. Aida Monae MANUAL DIFF REQ NO Normal [facility] Comment on above: Performed By: #### C BC #### [facility] [address] [place] [address] Dr. Aida Monae MCH (RBC) [Entitic mass] 30.2 pg Normal 26.7-34.0 [facility] Comment on above: Performed By: #### C BC #### [facility] [address] [place] [address] Dr. Aida Monae MCHC (RBC) [Mass/Vol] 34.0 g/dL Normal 29.9-35.2 [facility] Comment on above: Performed By: #### C BC #### [facility] [address] [place] [address] Dr. Aida Monae MCV (RBC) [Entitic vol] 88.8 fL Normal 81.0-99.0 [facility] Comment on above: Performed By: #### C BC #### [facility] [address] [place] [address] Dr. Aida Monae MONO # 0.4 103/ul Normal 0.3-0.8 [facility] Comment on above: Performed By: #### C BC #### [facility] [address] [place] [address] Dr. Aida Monae Monocytes/100 WBC (Bld) 11.9 % Normal 1.7-12.0 [facility] Comment on above: Performed By: #### C BC #### [facility] [address] [place] [address] Dr. Aida Monae NEUT # 1.8 103/ul Normal 1.4-6.5 [facility] Comment on above: Performed By: #### C BC #### [facility] [address] [place] [address] Dr. Aida Monae Neutrophils/100 WBC (Bld) 54.7 % Normal 43.0-75.0 [facility] Comment on above: Performed By: #### C BC #### [facility] [address] [place] [address] Dr. Aida Monae Platelet mean volume (Bld) [Entitic vol] 8.6 fL Critically low 9.5-13.5 [facility] Comment on above: Performed By: #### C BC #### [facility] [address] [place] [address] Dr. Aida Monae PLT 167 103/ul Normal 150-450 [facility] Comment on above: Performed By: #### C BC #### [facility] [address] [place] [address] Dr. Aida Monae RBC 4.80 106/ul Normal 4.20-5.40 [facility] Comment on above: Performed By: #### C BC #### [facility] [address] [place] [address] Dr. Aida Monae WBC 3.4 103/ul Critically low 4.0-11.0 [facility] Comment on above: Performed By: #### C BC #### [facility] [address] [place] [address] ABD/PELV W CONon [...] STEPHANY MANZANO Date: 2022-11-09 10:59 Normal [facility] FREE T4on 11-09-2022 Free T4 [Mass/Vol] 1.34 ng/dL Normal 0.76-1.46 [facility] Comment on above: Performed By: #### F T4 #### [facility] [address] [place] [address] Dr. Aida Monae PROF 14(COMP METB)on 023 Albumin [Mass/Vol] 4.0 g/dL Normal 3.4-5.0 [facility] Comment on above: Performed By: #### C BC #### [facility] [address] [place] [address] Dr. Aida Monae Albumin/Globulin [Mass ratio] 1.3 {ratio} Normal [facility] Comment on above: Performed By: #### C BC #### [facility] [address] [place] [address] Dr. Aida Monae ALP [Catalytic activity/Vol] 66 U/L Normal 46-116 [facility] Comment on above: Performed By: #### C BC #### [facility] [address] [place] [address] Dr. Aida Monae ALT [Catalytic activity/Vol] 45 U/L Normal 14-59 [facility] Comment on above: Performed By: #### C BC #### [facility] [address] [place] [address] Dr. Aida Monae Anion gap [Moles/Vol] 10.8 mmol/L Normal [facility] Comment on above: Performed By: #### C BC #### [facility] [address] [place] [address] Dr. Aida Monae AST [Catalytic activity/Vol] 30 U/L Normal 15-37 [facility] Comment on above: Performed By: #### C BC #### [facility] [address] [place] [address] Dr. Aida Monae Bilirubin [Mass/Vol] 0.4 mg/dL Normal 0.2-1.0 [facility] Comment on above: Performed By: #### C BC #### [facility] [address] [place] [address] Dr. Aida Monae Calcium [Mass/Vol] 9.4 mg/dL Normal 8.5-10.1 [facility] Comment on above: Performed By: #### C BC #### [facility] [address] [place] [address] Dr. Aida Monae Chloride [Moles/Vol] 108 mmol/L Critically high 98-107 [facility] Comment on above: Performed By: #### C BC #### [facility] [address] [place] [address] Dr. Aida Monae CO2 [Moles/Vol] 31.5 mmol/L Normal 21.0-32.0 [facility] Comment on above: Performed By: #### C BC #### [facility] [address] [place] [address] Dr. Aida Monae Creatinine [Mass/Vol] 0.75 mg/dL Normal 0.55-1.02 [facility] Comment on above: Performed By: #### C BC #### [facility] [address] [place] [address] Dr. Aida Monae EGFR-AF VIETNAMESE >60 Normal >=60 [facility] Comment on above: Performed By: #### C BC #### [facility] [address] [place] [address] Dr. Aida Monae EGFR-NON AF VIETNAMESE >60 Normal >=60 [facility] Comment on above: Performed By: #### C BC #### [facility] [address] [address] [address] Aida Monae Globulin (S) [Mass/Vol] 3.0 g/dL Normal [facility] Comment on above: Performed By: #### C BC #### [facility] [address] [address] [address] Aida Monae Glucose [Mass/Vol] 108 mg/dL Critically high 74-106 [facility] Comment on above: Performed By: #### C BC #### [facility] [address] [address] [address] Aida Monae Potassium [Moles/Vol] 4.3 mmol/L Normal 3.5-5.1 [facility] Comment on above: Performed By: #### C BC #### [facility] [address] [address] [address] Aida Monae Protein [Mass/Vol] 7.0 g/dL Normal 6.4-8.2 [facility] Comment on above: Performed By: #### C BC #### [facility] [address] [address] [address] Aida Monae Sodium [Moles/Vol] 146 mmol/L Critically high 136-145 [facility] Comment on above: Performed By: #### C BC #### [facility] [address] [address] [address] Aida Monae Urea nitrogen [Mass/Vol] 10.0 mg/dL Normal 7.0-18.0 [facility] Comment on above: Performed By: #### C BC #### [facility] [address] [address] [address] Aida Monae Urea nitrogen/Creatinine [Mass ratio] 13.3 mg/mg Normal [facility] Comment on above: Performed By: #### C BC #### [facility] [address] [address] [address] Aida Monae TSHon 11-09-2022 TSH 0.243 uIU/mL Critically low 0.358-3.740 [facility] Comment on above: Performed By: #### T SH #### [facility] [address] [address] [address] Aida Monae FREE T4on 06-23-2022 Free T4 [Mass/Vol] 1.11 ng/dL Normal 0.76-1.46 [facility] Comment on above: Performed By: #### F T4 #### [facility] [address] [address] [address] Aida Monae GLYCOHEMOGLOBIN A1Con 2021 ADA RECOMMENDATION SEE BELOW Normal [facility] Comment on above: Result Comment: ADA RECOMMENDED LIMIT 4.0 - 6.0 ADA THERAPEUTIC TARGET < 7.0 ACTION SUGGESTED > 7.0 Performed By: #### A 1C #### [facility] [address] [address] [address] iAda Monae Glucose [Mass/Vol] 117 mg/dL Normal [facility] Comment on above: Performed By: #### A 1C #### [facility] [address] [address] [address] Aida Monae HbA1c (Bld) [Mass fraction] 5.7 % Normal 4.5-6.2 [facility] Comment on above: Performed By: #### A 1C #### [facility] [address] [address] [address] Aida Monae TSHon 06-23-2022 TSH 9.653 uIU/mL Critically high 0.358-3.740 [facility] Comment on above: Performed By: #### C BC #### [facility] [address] [address] [address] Aida Monae Ambulatory Visit Summaryon 0 [...] mg Cap-EC) fluticasone nasal (Flonase 0.05 mg/inh [place]) levothyroxine (levothyroxine 100 mcg (0.1 mg) Tab) [...] PM EDT With: Markos Cruz DO Where: [facility] Normal [facility] Family Medicine Office/Clini c Noteon 01-11-2022 Family Medicine Office/Clinic Note Chief Complaint here to check on thyroid level, also having allergies History of Present Illness 66 y/o female here to discuss hypothyroidism and MDD/anxiety CC confirmed with the patient with no changes HYPOTHYROID recent labs reveal TSH is 9.8 (outside labs - done at [place]) Free T4 was WNL previously on 100mcg but with associated weight loss attributed to that dose being too high, we decreased to 88mcg in [place] weight has increased 4 pounds in the [...] monday, # 30 tab(s), Refills(s) 5, Pharmacy: [facility]/pharmacy #[id number], 160, cm, 01/11/22 16:30:00 EDT, [...] chew), # 90 caplet(s), Refills(s) 3, Pharmacy: [facility]/pharmacy #[id number], 160, cm, 01/11/22 16:30:00 EDT, [...] chew), # 90 caplet(s), Refills(s) 3, Pharmacy: [facility]/pharmacy #[id number], 160, cm, 01/11/22 16:30:00 EDT, Height/Length Dosing, 87.1, kg, 01/11/22 16:30:00 EDT, Weight Dosing duloxetine, 60 mg = 1 cap(s), Oral, Daily, (do not crush or chew), # 30 cap(s), Refills(s) 2, [id number] 160, cm, 10/15/21 15:41:00 EST, Height/Length Dosing, 85, kg, 10/15/21 15:41:00 EST, Weight Dosing if labs look good in 6 weeks and she's doing well, ok to cancel appt and reschedule in 3-6 months if she is struggling with weight loss, I have encouraged her to f/u her sooner Follow-up With When Contact Information Markos Cruz DO, KAYLA, PED Within 3 months [address], [place] [address] [phone] Additional Instructions: 2 month follow - ok [...] Oral, Daily, 3 refills Flonase 0.05 mg/inh [place], 1 spray(s), Nasal, BID levothyroxine 100 mcg (0.1 mg) Tab, See Instructions, 5 refills Maxalt, 10 mg, Oral, PRN MiraLax oral powder for reconstitution, 17 gm, Oral, Daily Multivitamin (more content not included)... Normal [facility] Comment on above: Result Comment: Elec tronically Signed By: Markos Cruz DO\Date and Time [...] Follow these instructions at home: ? Take uotw-mxh-yoxsara and prescription medicines only as told by [...] 08/21/2006 Document Revised: 08/03/2018 Document Reviewed: 08/01/2018 [facility] Patient Education ? 2019 [employer] [facility] Lab Reportson 01-04-2022 Lab Reports [id number] 0CD:127 Normal [facility] CBC AUTO DIFFon 12-28-2021 BASO # 0.1 103/ul Normal 0.0-0.1 [facility] Comment on above: Performed By: #### C BC #### [facility] [address] [place] [address] Dr. Aida Monae Basophils/100 WBC (Bld) 1.0 % Normal 0.2-2.0 [facility] Comment on above: Performed By: #### C BC #### [facility] [address] [place] [address] Dr. Aida Monae EO # 0.3 103/ul Normal 0.0-0.7 [facility] Comment on above: Performed By: #### C BC #### [facility] [address] [place] [address] Dr. Aida Monae Eosinophils/100 WBC (Bld) 6.9 % Normal 0.9-7.0 [facility] Comment on above: Performed By: #### C BC #### [facility] [address] [place] [address] Dr. Aida Monae Erythrocyte distribution width (RBC) [Ratio] 12.8 % Normal 11.0-15.0 [facility] Comment on above: Performed By: #### C BC #### [facility] [address] [place] [address] Dr. Aida Monae Hematocrit (Bld) [Volume fraction] 44.2 % Normal 36.0-48.0 [facility] Comment on above: Performed By: #### C BC #### [facility] [address] [place] [address] Dr. Aida Monae Hemoglobin (Bld) [Mass/Vol] 14.7 g/dL Normal 12.0-16.0 [facility] Comment on above: Performed By: #### C BC #### [facility] [address] [place] [address] Dr. Aida Monae IG # 0.01 10e3/ul Normal 0.00-0.03 [facility] Comment on above: Performed By: #### C BC #### [facility] [address] [place] [address] Dr. Aida Monae IG % 0.2 % Normal 0.0-0.5 [facility] Comment on above: Performed By: #### C BC #### [facility] [address] [place] [address] Dr. Aida Monae LYMPH # 1.3 103/ul Normal 1.2-3.8 [facility] Comment on above: Performed By: #### C BC #### [facility] [address] [place] [address] Dr. Aida Monae Lymphocytes/100 WBC (Bld) 27.0 % Normal 20.5-60.0 [facility] Comment on above: Performed By: #### C BC #### [facility] [address] [place] [address] Dr. Aida Monae MANUAL DIFF REQ NO Normal [facility] Comment on above: Performed By: #### C BC #### [facility] [address] [place] [address] Dr. Aida Monae MCH (RBC) [Entitic mass] 30.7 pg Normal 26.7-34.0 [facility] Comment on above: Performed By: #### C BC #### [facility] [address] [place] [address] Dr. Aida Monae MCHC (RBC) [Mass/Vol] 33.3 g/dL Normal 29.9-35.2 [facility] Comment on above: Performed By: #### C BC #### [facility] [address] [place] [address] Dr. Aida Monae MCV (RBC) [Entitic vol] 92.3 fL Normal 81.0-99.0 [facility] Comment on above: Performed By: #### C BC #### [facility] [address] [place] [address] Dr. Aida Monae MONO # 0.4 103/ul Normal 0.3-0.8 [facility] Comment on above: Performed By: #### C BC #### [facility] [address] [place] [address] Dr. Aida Monae Monocytes/100 WBC (Bld) 9.2 % Normal 1.7-12.0 [facility] Comment on above: Performed By: #### C BC #### [facility] [address] [place] [address] Dr. Aida Monae NEUT # 2.7 103/ul Normal 1.4-6.5 [facility] Comment on above: Performed By: #### C BC #### [facility] [address] [place] [address] Dr. Aida Monae Neutrophils/100 WBC (Bld) 55.7 % Normal 43.0-75.0 [facility] Comment on above: Performed By: #### C BC #### [facility] [address] [place] [address] Dr. Aida Monae Platelet mean volume (Bld) [Entitic vol] 8.8 fL Critically low 9.5-13.5 [facility] Comment on above: Performed By: #### C BC #### [facility] [address] [place] [address] Dr. Aida Monae PLT 247 103/ul Normal 150-450 [facility] Comment on above: Performed By: #### C BC #### [facility] [address] [place] [address] Dr. Aida Monae RBC 4.79 106/ul Normal 4.20-5.40 [facility] Comment on above: Performed By: #### C BC #### [facility] [address] [place] [address] Dr. Aida Monae WBC 4.8 103/ul Normal 4.0-11.0 [facility] Comment on above: Performed By: #### C BC #### [facility] [address] [place] [address] Dr. Aida Monae FREE T4on 12-28-2021 Free T4 [Mass/Vol] 1.04 ng/dL Normal 0.76-1.46 [facility] Comment on above: Performed By: #### C BC #### [facility] [address] [place] [address] Dr. Aida Monae LIPID PROFILEon 12-28-2021 CHOL-HDL RATIO NORM SEE BELOW Normal [facility] Comment on above: Result Comment: 3.3 - 4.4 LOW RISK 4.4 - 7.1 AVERAGE RISK 7.1 - 11.0 MODERATE RISK >11.0 HIGH RISK Performed By: #### C MP, TSH, LIPID #### [facility] [address] [place] [address] Dr. Aida Monae Cholesterol [Mass/Vol] 126 mg/dL Normal <=200 [facility] Comment on above: Performed By: #### C MP, TSH, LIPID #### [facility] [address] [place] [address] Dr. Aida Monae Cholesterol in HDL [Mass/Vol] 47 mg/dL Normal 40-60 [facility] Comment on above: Performed By: #### C MP, TSH, LIPID #### [facility] [address] [place] [address] Dr. Aida Monae Cholesterol in LDL [Mass/Vol] 46.8 mg/dL Normal [facility] Comment on above: Performed By: #### C MP, TSH, LIPID #### [facility] [address] [place] [address] Dr. Aida Monae Cholesterol.total/Chol esterol in HDL [Mass ratio] 2.7 {ratio} Normal [facility] Comment on above: Performed By: #### C MP, TSH, LIPID #### [facility] [address] [place] [address] Dr. Aida Monae HDL NORMAL > or = 60 mg/dl - LO W CARDIOVASCULAR RISK <40 mg/dl - HIGH CARDIOVASCULAR RISK Normal [facility] Comment on above: Performed By: #### C MP, TSH, LIPID #### [facility] [address] [place] [address] Dr. Aida Monae LDL CALC NORMAL SEE BELOW Normal [facility] Comment on above: Result Comment: <100 mg/dl OPTIMAL 100 - 129 mg/dl NEAR OR ABOVE OPTIMAL 130 - 159 mg/dl BORDERLINE HIGH 160 - 189 mg/dl HIGH >190 mg/dl VERY HIGH Performed By: #### C MP, TSH, LIPID #### [facility] [address] [address] [address] Aida Monae Triglyceride [Mass/Vol] 161 mg/dL Critically high <=150 [facility] Comment on above: Performed By: #### C MP, TSH, LIPID #### [facility] [address] [address] [address] Aida Monae VLDL CALC 32.2 mg/dL Normal [facility] Comment on above: Performed By: #### C MP, TSH, LIPID #### [facility] [address] [address] [address] Aida Monae PROF 14(COMP METB)on 022 Albumin [Mass/Vol] 3.8 g/dL Normal 3.4-5.0 [facility] Comment on above: Performed By: #### C MP, TSH, LIPID #### [facility] [address] [place] [address] Dr. Aida Monae Albumin/Globulin [Mass ratio] 1.3 {ratio} Normal [facility] Comment on above: Performed By: #### C MP, TSH, LIPID #### [facility] [address] [place] [address] Dr. Aida Monae ALP [Catalytic activity/Vol] 63 U/L Normal 46-116 [facility] Comment on above: Performed By: #### C MP, TSH, LIPID #### [facility] [address] [place] [address] Dr. Aida Monae ALT [Catalytic activity/Vol] 26 U/L Normal 14-59 [facility] Comment on above: Performed By: #### C MP, TSH, LIPID #### [facility] [address] [address] [address] Aida Monae Anion gap [Moles/Vol] 12.9 mmol/L Normal [facility] Comment on above: Performed By: #### C MP, TSH, LIPID #### [facility] [address] [place] [address] Dr. Aida Monae AST [Catalytic activity/Vol] 18 U/L Normal 15-37 [facility] Comment on above: Performed By: #### C MP, TSH, LIPID #### [facility] [address] [address] [address] Aida Monae Bilirubin [Mass/Vol] 0.3 mg/dL Normal 0.2-1.0 [facility] Comment on above: Performed By: #### C MP, TSH, LIPID #### [facility] [address] [address] [address] Aida Monae Calcium [Mass/Vol] 8.4 mg/dL Critically low 8.5-10.1 Th e [facility] Comment on above: Performed By: #### C MP, TSH, LIPID #### [facility] [address] [place] [address] Dr. Aida Monae Chloride [Moles/Vol] 104 mmol/L Normal 98-107 [facility] Comment on above: Performed By: #### C MP, TSH, LIPID #### [facility] [address] [place] [address] Dr. Aida Monae CO2 [Moles/Vol] 29.4 mmol/L Normal 21.0-32.0 [facility] Comment on above: Performed By: #### C MP, TSH, LIPID #### [facility] [address] [place] [address] Dr. Aida Monae Creatinine [Mass/Vol] 0.81 mg/dL Normal 0.55-1.02 [facility] Comment on above: Performed By: #### C MP, TSH, LIPID #### [facility] [address] [place] [address] Dr. Aida Monae EGFR-AF VIET[place]ESE >60 Normal >=60 [facility] Comment on above: Performed By: #### C MP, TSH, LIPID #### [facility] [address] [place] [address] Dr. Aida Monae EGFR-NON AF VIET[place]ESE >60 Normal >=60 [facility] Comment on above: Performed By: #### C MP, TSH, LIPID #### [facility] [address] [place] [address] Dr. Aida Monae Globulin (S) [Mass/Vol] 3.0 g/dL Normal [facility] Comment on above: Performed By: #### C MP, TSH, LIPID #### [facility] [address] [place] [address] Dr. Aida Monae Glucose [Mass/Vol] 124 mg/dL Critically high 74-[address] [facility] Comment on above: Performed By: #### C MP, TSH, LIPID #### [facility] [address] [place] [address] Dr. Aida Monae Potassium [Moles/Vol] 4.3 mmol/L Normal 3.5-5.1 [facility] Comment on above: Performed By: #### C MP, TSH, LIPID #### [facility] [address] [place] [address] Dr. Aida Monae Protein [Mass/Vol] 6.8 g/dL Normal 6.1-8.2 [facility] Comment on above: Performed By: #### C MP, TSH, LIPID #### [facility] [address] [place] [address] Dr. Aida Monae Sodium [Moles/Vol] 142 mmol/L Normal 136-145 [facility] Comment on above: Performed By: #### C MP, TSH, LIPID #### [facility] [address] [place] [address] Dr. Aida Monae Urea nitrogen [Mass/Vol] 11.0 mg/dL Normal 7.0-18.0 [facility] Comment on above: Performed By: #### C MP, TSH, LIPID #### [facility] [address] [place] [address] Dr. Aida Monae Urea nitrogen/Creatinine [Mass ratio] 13.6 mg/mg Normal [facility] Comment on above: Performed By: #### C MP, TSH, LIPID #### [facility] [address] [place] [address] Dr. Aida Monae TSHon 12-28-2021 TSH 9.863 uIU/mL Critically high 0.470-4.680 [facility] Comment on above: Performed By: #### C MP, TSH, LIPID #### [facility] [address] [place], [place] [address] Dr. Aida Monae TSH RANGE SEE BELOW Normal [facility] Comment on above: Result Comment: <0.3 4 UIU/ml HYPERTHYROID 0.34-5.60 UIU/ml EUTHYROID >5.60 UIU/ml HYPOTHYROID Performed By: #### C MP, TSH, LIPID #### [facility] [address] [place], [place] [address] Dr. Aida Monae Ambulatory Visit Summaryon 0 [...] PM EDT With: Markos Cruz DO Where: [facility] Normal [facility] Family Medicine Office/Clini c Noteon [...] the sym (more content not included)... Normal [facility] Comment on above: Result Comment: Elec tronically Signed By: Markos Cruz DO.dorothy\Date and Time Signed: 10/15/21 17:00 EST Patient Educationon 10-15-19 Patient Education Mental and Behaviora Health Generalized Anxiety Disorder, Pediatric Generalized anxiety [...] child?s health (more content not included)... Normal [facility] Lab Reportson 09-28-2021 Lab Reports [id number] 0CD:127 Normal [facility] Formson 09-15-2021 Forms [id number] 0CD:127 Normal [facility] Family Medicine Office/Clini c Noteon 09-14-2021 Family Medicine Office/Clinic Note Chief Complaint hair loss, bowel issues, wants thyroid checked History of Present Illness 66 y/o female here to establish care last pcp was Dr. Willis in [place] daughter in law is Tiana Piedra; recommended [...] this medication BLADDER ISSUES Dr Yeager in [place] performed a bladder suspension approx 2 years ago in [place] BRITTLE NAILS have always been brittle lately they've been worse HAIR LOSS my beautician reports significant hairloss and the texture has changed last TSH was at least a couple of years no hx of CA last mammogram 2 years ago - [facility] no hx of [place] no hx of CVA no hx of [...] Refill(s) 0, dissolve in water before taking, [facility]/pharmacy #[id number], 160, cm, 09/14/21 16:09:00 EST, Height/Length Dosing, 85.1, kg, 09/14/21 16:09:00 EST, Weight Dosing rosuvastatin, 20 mg = 1 tab(s), Oral, Daily, # 90 tab(s), Refills(s) 3, Pharmacy: [facility]/pharmacy #[id number], 160, cm, 09/14/21 16:09:00 EST, Height/Length Dosing, 85.1, kg, 09/14/21 16:09:00 EST, Weight Dosing 7. Chronic constipation Chronic Sub-optimal control It seems like she's having more BMs than she should be; perhaps related (more content not included)... Normal [facility] Comment on above: Result Comment: Elec tronically Signed By: Markos Cruz DO\Date and Time Signed: 09/14/21 17:08 EST Patient [...] This condition may be caused by: ? Broosk's disease. This is a disease in which [...] Follow these instructions at home: ? Take dxgv-szs-zhewgkd and prescription medicines only as told by [...] 08/21/2006 Document Revised: 08/03/2018 Document Reviewed: 08/01/2018 [facility] Patient Education ? 2019 [facility] [employer] Normal [facility] Dermatopathologyon 0 Dermatopathology [facility] D[facility]atopathology Laboratory [address] [place] [id number] DERMATOPATHOLOGY REPORT Name:ANISHA ALANIS. Rec #. [id number] Location: [facility] Date of Procedure: 01/28/2020 Race: Date Received: [...] M.D. Electronically Signed Out By AXEL OSBORNE MD/[facility] By the signature on this report, the individual or group listed as making the Final Interpretation/Diagnos is certifies that they have reviewed this case. Clinical History: Drug eruption, Hypersensitivity Reaction, Papular Eczema. Punch Biopsy. 4 mm. Specimens Submitted As: A: SKIN, R ARM Gross Description: Received in formalin is a merritt, cylindrical piece of skin measuring [id number]. The specimen is inked and embedded in toto. dcp/01/30/2020 Normal [facility] Comment on above: Performed By: #### D #### Dermatopathology Vital Signs Date Time Vital Sign Value Performing Clinician Facility 05-02-2025 10:36-0400 Body height 157.48 cm Doris Willis MD Work Phone: [facility] 05-02-2025 10:36-0400 Body mass index (BMI) [Ratio] 29.9 kg/m2 Doris Willis MD Work Phone: [facility] 05-02-2025 10:36-0400 Body weight 74.38 kg Doris Willis MD Work Phone: [facility] 05-02-2025 10:36-0400 Diastolic blood pressure 80 mm[Hg] Doris Willis MD Work Phone: [facility] 05-02-2025 10:36-0400 Heart rate 62 /min Doris Willis MD Work Phone: [facility] 05-02-2025 10:36-0400 Respiratory rate 12 /min Doris Willis MD Work Phone: [facility] 05-02-2025 10:36-0400 SaO2% (BldA) [Mass fraction] 97 % Doris Willis MD Work Phone: [facility] 05-02-2025 10:36-0400 Systolic blood pressure 123 mm[Hg] Doris Willis MD Work Phone: [facility] 04-16-2025 10:24-0400 Body height 157.5 cm Tonia Morgan MD Work Phone: [facility] 04-16-2025 10:24-0400 Body mass index (BMI) [Ratio] 30.36 kg/m2 Tonia Morgan MD Work Phone: [facility] 04-16-2025 10:24-0400 Body weight 75.3 kg Tonia Morgan MD Work Phone: [facility] 04-16-2025 10:24-0400 Heart rate 70 /min Tonia Morgan MD Work Phone: [facility] 04-16-2025 10:24-0400 Respiratory rate 16 /min Tonia Morgan MD Work Phone: [facility] 04-16-2025 10:24-0400 SaO2% (BldA) [Mass fraction] 98 % Tonia Morgan MD Work Phone: [facility] 01-15-2025 10:19-0400 Body height 157.5 cm Tonia Morgan MD Work Phone: [facility] 01-15-2025 10:19-0400 Body mass index (BMI) [Ratio] 32.19 kg/m2 Tonia Morgan MD Work Phone: [facility] 01-15-2025 10:190400 Body weight 79.83 kg Tonia Morgan MD Work Phone: [facility] 01-15-2025 10:19-0400 Diastolic blood pressure 92 mm[Hg] Tonia Morgan MD Work Phone: [facility] 01-15-2025 10:19-0400 Heart rate 70 /min Tonia Morgan MD Work Phone: [facility] 01-15-2025 10:19-0400 Respiratory rate 16 /min Tonia Morgan MD Work Phone: [facility] 01-15-2025 10:19-0400 SaO2% (BldA) [Mass fraction] 95 % Tonia Morgan MD Work Phone: [facility] 01-15-2025 10:19-0400 Systolic blood pressure 148 mm[Hg] Tonia Morgan MD Work Phone: [facility] 11-07-2024 09:10-0500 Body height 157.48 cm Doris Willis MD Work Phone: [facility] 11-07-2024 09:10-0500 Body mass index (BMI) [Ratio] 31.2 kg/m2 Doris Willis MD Work Phone: [facility] 11-07-2024 09:10-0500 Body weight 77.56 kg Doris Willis MD Work Phone: [facility] 10-16-2024 10:13-0500 Body height 157.5 cm Tonia Morgan MD Work Phone: [facility] 10-16-2024 10:13-0500 Body mass index (BMI) [Ratio] 31.83 kg/m2 Tnoia Morgan MD Work Phone: [facility] 10-16-2024 10:13-0500 Body weight 78.93 kg Tonia Morgan MD Work Phone: [facility] 10-16-2024 10:13-0500 Diastolic blood pressure 84 mm[Hg] Tonia Morgan MD Work Phone: [facility] 10-16-2024 10:13-0500 Heart rate 84 /min Tonia Morgan MD Work Phone: [facility] 10-16-2024 10:13-0500 Respiratory rate 18 /min Tonia Morgan MD Work Phone: [facility] 10-16-2024 10:13-0500 SaO2% (BldA) [Mass fraction] 97 % Tonia Morgan MD Work Phone: [facility] 10-16-2024 10:13-0500 Systolic blood pressure 134 mm[Hg] Tonia Morgan MD Work Phone: [facility] 10-15-2024 09:29-0500 Body height 157.48 cm Doris Willis MD Work Phone: [facility] 10-15-2024 09:29-0500 Body mass index (BMI) [Ratio] 31.4 kg/m2 Doris Willis MD Work Phone: [facility] 10-15-2024 09:29-0500 Body temperature 98.5 [degF] Doris Willis MD Work Phone: [facility] 10-15-2024 09:29-0500 Body weight 78.01 kg Doris Willis MD Work Phone: [facility] 10-15-2024 09:29-0500 Diastolic blood pressure 86 mm[Hg] Doris Willis MD Work Phone: [facility] 10-15-2024 09:29-0500 Heart rate 85 /min Doris Willis MD Work Phone: [facility] 10-15-2024 09:29-0500 Systolic blood pressure 137 mm[Hg] Doris Willis MD Work Phone: [facility] 09-26-2024 13:56-0500 Diastolic blood pressure 68 mm[Hg] Doris Willis MD Work Phone: [facility] 09-26-2024 13:56-0500 Heart rate 60 /min Doris Willis MD Work Phone: [facility] 09-26-2024 13:56-0500 Respiratory rate 18 /min Doris Willis MD Work Phone: [facility] 09-26-2024 13:56-0500 SaO2% (BldA) [Mass fraction] 100 % Doris Willis MD Work Phone: [facility] 09-26-2024 13:56-0500 Systolic blood pressure 122 mm[Hg] Doris Willis MD Work Phone: [facility] 09-26-2024 11:54-0500 Body height 157.48 cm Doris Willis MD Work Phone: [facility] 09-26-2024 11:54-0500 Body weight 72.57 kg Doris Willis MD Work Phone: [facility] 09-03-2024 14:13-0500 Body height 157.48 cm Doris Willis MD Work Phone: [facility] 09-03-2024 14:13-0500 Body mass index (BMI) [Ratio] 29.8 kg/m2 Doris Willis MD Work Phone: [facility] 09-03-2024 14:13-0500 Body weight 73.93 kg Doris Willis MD Work Phone: [facility] 06-28-2024 09:35-0400 Body height 157.48 cm [facility] 06-28-2024 09:35-0400 Body mass index (BMI) [Ratio] 30.7 kg/m2 [facility] 06-28-2024 09:35-0400 Body weight 76.2 kg [facility] 06-28-2024 09:35-0400 Diastolic blood pressure 85 mm[Hg] [facility] 06-28-2024 09:35-0400 Heart rate 69 /min [facility] 06-28-2024 09:35-0400 Systolic blood pressure 123 mm[Hg] [facility] 06-18-2024 08:12-0400 Body height 157.48 cm [facility] 06-18-2024 08:12-0400 Body mass index (BMI) [Ratio] 31.1 kg/m2 [facility] 06-18-2024 08:12-0400 Body weight 77.11 kg [facility] 06-18-2024 08:12-0400 Diastolic blood pressure 90 mm[Hg] [facility] 06-18-2024 08:12-0400 Heart rate 63 /min [facility] 06-18-2024 08:12-0400 Respiratory rate 16 /min [facility] 06-18-2024 08:12-0400 SaO2% (BldA) [Mass fraction] 97 % [facility] 06-18-2024 08:12-0400 Systolic blood pressure 140 mm[Hg] [facility] 05-20-2024 09:39-0400 Body height 157.48 cm [facility] 05-20-2024 09:39-0400 Body mass index (BMI) [Ratio] 32 kg/m2 [facility] 05-20-2024 09:39-0400 Body weight 79.37 kg [facility] 05-20-2024 09:39-0400 Diastolic blood pressure 84 mm[Hg] [facility] 05-20-2024 09:39-0400 Heart rate 61 /min [facility] 05-20-2024 09:39-0400 Systolic blood pressure 164 mm[Hg] [facility] 11-27-2023 09:45-0400 Body height 157.48 cm [facility] 11-27-2023 09:45-0400 Body mass index (BMI) [Ratio] 32.3 kg/m2 [facility] 11-27-2023 09:45-0400 Body weight 80.28 kg [facility] 11-27-2023 09:45-0400 Diastolic blood pressure 92 mm[Hg] [facility] 11-27-2023 09:45-0400 Heart rate 69 /min [facility] 11-27-2023 09:45-0400 Systolic blood pressure 148 mm[Hg] [facility] 05-04-2023 14:15-0400 Body height 157.48 cm Doris Willis Other [facility] Other 05-04-2023 14:15-0400 Body mass index (BMI) [Ratio] 32.59 kg/m2 Doris Willis Other [facility] Other 05-04-2023 14:15-0400 Body weight 80.83 kg Doris Willis Other [facility] Other 05-04-2023 14:15-0400 Diastolic blood pressure 84 mm[Hg] Doris Willis Other [facility] Other 05-04-2023 14:15-0400 Systolic blood pressure 141 mm[Hg] Doris Willis Other [facility] Other 04-23-2023 14:01-0400 Body height 157.48 cm MD Doris Willis Work Phone: [facility] 04-23-2023 14:01-0400 Body temperature 99.2 [degF] MD Doris Willis Work Phone: [facility] 04-23-2023 14:01-0400 Body weight 79.3 kg MD Doris Willis Work Phone: [facility] 04-23-2023 14:01-0400 Diastolic blood pressure 96 mm[Hg] MD Doris Willis Work Phone: [facility] 04-23-2023 14:01-0400 Heart rate 85 /min MD Doris Willis Work Phone: [facility] 04-23-2023 14:01-0400 Respiratory rate 18 /min MD Doris Willis Work Phone: [facility] 04-23-2023 14:01-0400 SaO2% (BldA) [Mass fraction] 97 % MD Doris Willis Work Phone: [facility] 04-23-2023 14:01-0400 Systolic blood pressure 153 mm[Hg] MD Doris Willis Work Phone: [facility] 11-03-2022 15:00-0500 Body height 160.02 cm Doris Willis Other [facility] Other 11-03-2022 15:00-0500 Body mass index (BMI) [Ratio] 31.7 kg/m2 Doris Willis Other [facility] Other 11-03-2022 15:00-0500 Body weight 81.19 kg Doris Willis Other [facility] Other 11-03-2022 15:00-0500 Diastolic blood pressure 84 mm[Hg] Doris Willis Other [facility] Other 11-03-2022 15:00-0500 SaO2% (BldA) [Mass fraction] 97 % Doris Willis Other [facility] Other 11-03-2022 15:00-0500 Systolic blood pressure 142 mm[Hg] Doris Willis Other [facility] Other 01-11-2022 16:24-0400 Blood Pressure Location [facility] 01-11-2022 16:24-0400 Body temperature 98.78 [degF] Markos Cruz [facility] 01-11-2022 16:24-0400 Diastolic blood pressure 90 mm[Hg] [place] [facility] 01-11-2022 16:24-0400 Heart rate 65 /min Markos Anthony [facility] 01-11-2022 16:24-0400 SaO2% (BldA) [Mass fraction] 97 % [facility] 01-11-2022 16:24-0400 Systolic blood pressure 140 mm[Hg] [facility] Encounters Encounter Date Encounter Type Care Provider Facility Start: 05-02-2025 End: 05-02-2025 ambulatory Doris Willis MD Work Phone: [facility] Work Phone: Start: 05-02-2025 End: 05-02-2025 Patient encounter procedure Doris Willis MD -[facility] Work Phone: Start: 04-16-2025 End: 04-16-2025 Bamboo flowsheet Tonia Morgan MD Work Phone: [facility] Start: 04-16-2025 End: 04-16-2025 Bamboo flowsheet Tonia Morgan MD Work Phone: [facility] Start: 04-16-2025 End: 04-16-2025 Office outpatient visit 25 minutes [facility] Comment on above: Acquired hypothyroid ism (Primary Dx); Vitamin D deficiency; Brooks's disease ; 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 and body mass index (BMI) of 30.0 to 30.9 in adult Start: 04-16-2025 End: 04-16-2025 ambulatory TONIA MORGAN Not Available Start: 01-15-2025 End: 01-15-2025 Maria E Morgan MD Work Phone: [facility] Start: 01-15-2025 End: 01-15-2025 Bamboo dede Morgan MD Work Phone: [facility] Start: 01-15-2025 End: 01-15-2025 Office outpatient visit 25 minutes Tonia Morgan MD Work Phone: [facility] Comment on above: Brooks's disease (CMS/HCC) (Primary Dx); Acquired hypothyroidism (CMS/HCC); Vitamin D deficiency; 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out serious comorbidity with body mass index (BMI) of 32.0 to 32.9 in adult Start: 01-15-2025 End: 01-15-2025 ambulatory TONIA MORGAN Not Available Start: 11-07-2024 End: 11-07-2024 ambulatory Doris Willis MD Work Phone: [facility] Work Phone: Start: 11-07-2024 End: 11-07-2024 Patient encounter procedure [facility] Willis [facility] Work [facility]: Start: 10-31-2024 End: 10-31-2024 Telephone encounter Tonia Morgan MD Work Phone: [facility] Comment on above: Results Start: 10-24-2024 End: 10-24-2024 ambulatory TONIA MORGAN Not Available Start: 10-16-2024 End: 10-16-2024 Manpreetboarian Morgan MD Work Phone: [facility] Start: 10-16-2024 End: 10-16-2024 Bamboo flowsheet Tonia Morgan MD Work Phone: [facility] Start: 10-16-2024 End: 10-16-2024 Office outpatient new 45 minutes Tonia Morgan MD Work Phone: [facility] Comment on above: Acquired hypothyroid ism (CMS/HCC) (Primary Dx); Vitamin D deficiency; 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out serious comorbidity with body mass index (BMI) of 31.0 to 31.9 in adult; Weight gain Start: 10-16-2024 End: 10-16-2024 ambulatory TONIA MORGAN Not Available Start: 10-15-2024 End: 10-15-2024 ambulatory Doris Wlilis MD Work Phone: [facility] Work Phone: Start: 10-15-2024 End: 10-15-2024 Patient encounter procedure Doris Willis MD Work Phone: [facility] Work Phone: Start: 10-08-2024 Non-patient / Non-visit Doris Willis MD Work Phone: [facility] Work Phone: Start: 09-26-2024 Non-patient / Non-visit Doris Wlilis MD Work Phone: [facility] Work Phone: Start: 09-26-2024 End: 09-26-2024 Admission to same day surgery center Doris Willis MD Work Phone: [facility] Work Phone: Start: 09-26-2024 End: 09-26-2024 ambulatory Doris Willis MD Work Phone: [facility] Work Phone: Start: 09-19-2024 End: 09-19-2024 Patient encounter procedure Doris Willis MD Work Phone: [facility] Work Phone: Start: 09-19-2024 End: 09-19-2024 ambulatory Doris Willis MD Work Phone: [facility] Work Phone: Start: 09-19-2024 Non-patient / Non-visit Doris Willis MD Work Phone: [facility] Work Phone: Start: 09-11-2024 End: 09-11-2024 Patient encounter procedure Doris Willis MD Work Phone: [facility] [place] Work Phone: Start: 09-11-2024 End: 09-11-2024 ambulatory Doris Willis MD Work Phone: [facility] Work Phone: Start: 09-03-2024 End: 09-03-2024 Patient encounter procedure Doris Willis MD Work Phone: [facility] Work Phone: Start: 06-29-2024 Patient encounter procedure Doris Willis MD Work Phone: [facility] Start: 06-28-2024 End: 06-28-2024 ambulatory [facility] Work Phone: Start: 06-28-2024 End: 06-28-2024 Patient encounter procedure [facility] Work Phone: Start: 06-27-2024 Non-patient / Non-visit [facility] Work Phone: Start: 06-18-2024 End: 06-18-2024 ambulatory [facility] Work Phone: Start: 06-18-2024 End: 06-18-2024 Patient encounter procedure [facility] Work Phone: Start: 05-24-2024 Non-patient / Non-visit [facility] Work Phone: Start: 05-20-2024 End: 05-20-2024 ambulatory [facility] Work Phone: Start: 05-20-2024 End: 05-20-2024 Patient encounter procedure [facility] Work Phone: Start: 11-27-2023 End: 11-27-2023 ambulatory [facility] Work Phone: Start: 11-27-2023 End: 11-27-2023 Patient encounter procedure [facility] Work Phone: Start: 11-24-2023 Non-patient / Non-visit [facility] Work Phone: Start: 07-10-2023 End: 07-10-2023 ambulatory Doris Willis Other [facility] Other Start: 07-10-2023 Telephone encounter Doris Willis [facility] Start: 07-03-2023 End: 07-03-2023 ambulatory Doris Willis Other [facility] Other Start: 07-03-2023 Telephone encounter Doris Willis [facility] Start: 05-04-2023 End: 05-04-2023 ambulatory Doris Willis Other [employer] Other Start: 05-04-2023 Office outpatient vi sit 15 minutes Doris Willis [facility] Start: 04-23-2023 End: 04-23-2023 Emergency department patient visit MD Doris Willis Work Phone: [facility] Work Phone: Start: 01-03-2023 End: 01-03-2023 ambulatory Doris Willis Other [employer] Other Start: 01-03-2023 Telephone encounter Doris Willis [facility] Start: 12-21-2022 End: 12-22-[address] DORIS WILLIS Facility:[facility] Start: 11-10-2022 End: 11-10-2022 ambulatory Doris Willis Other [employer] Other Start: 11-10-2022 Telephone encounter Doris Willis [facility] Start: 11-09-2022 End: 11-10-[address] DORIS WILLIS Facility:[facility] Start: 11-03-2022 End: 11-03-2022 ambulatory Doris Willis Other [employer] Other Start: 11-03-2022 Office outpatient vi sit 15 minutes Doris Willis [facility] Start: 08-29-2022 End: 08-29-[address] DORIS WILLIS Facility:[facility] Start: 06-23-2022 End: 06-24-[address] DORIS WILLIS Facility:[facility] Start: 04-04-[address] DOCTOR CHRISTIANSON Facility :[facility] Start: 01-11-2022 End: 01-11-2022 Patient encounter procedure [facility] Start: 12-28-2021 End: 12-29-[address] DOCTOR CHRISTIANSON Facility:[facility] Procedures Date Procedure Procedure Detail Performing Clinician Start: 09-26-2024 Esophagogastroduodenoscopy Doris Willis MD Work Phone: Start: 09-19-2024 Ultrasound elastography of liver Doris Willis MD Work Phone: Arthrodesis of ankle [facility] Cruz Colonoscopy Markos Cruz Hysterectomy Markos Cruz Ligation of fallopian tube R lexi Anthony Plan of Treatment Date Care Activity Detail Author Start: 10-15-2025 End: 10-15-2025 Patient encounter procedure 10/15/2025 10:10 AM EST Office Visit [facility] [address] [place] [id number] Tonia Morgan MD [address] [place] [address] [facility] Start: 05-05-2025 Influenza vaccination Influenza Vaccine (#1) [facility] Start: 05-02-2025 [facility] Start: 04-16-2025 End: 04-16-2026 Thyrotropin [Units/volume] in Serum or Plasma TSH Lab Routine Acquired hypothyroidism Expected: 04/16/2025 (Approximate), Expires: 04/16/2026 [facility] Comment on above: Expected: 04/16/2025 (Approximate), Expi res: 04/16/2026 Start: 04-16-2025 End: 04-16-2026 Thyroxine (T4) free [Mass/volume] in Serum or Plasma T4, free Lab Routine Acquired hypothyroidism Expected: 04/16/2025 (Approximate), Expires: 04/16/2026 [facility] Comment on above: Expected: 04/16/2025 (Approximate), Expi res: 04/16/2026 Start: 04-16-2025 End: 04-16-2026 Triiodothyronine (T3) Free [Mass/volume] in Serum or Plasma T3, free Lab Routine Acquired hypothyroidism Expected: 04/16/2025 (Approximate), Expires: 04/16/2026 [facility] Work Phone: Comment on above: Expected: 04/16/2025 (Approximate), Expi res: 04/16/2026 Start: 04-16-2025 End: 04-16-2025 Patient encounter procedure [facility] Comment on above: Arrived Start: 01-15-2025 End: 01-15-2026 Thyrotropin [Units/volume] in Serum or Plasma TSH Lab Routine Acquired hypothyroidism (CMS/HCC) Expected: 01/15/2025 (Approximate), Expires: 01/15/2026 [facility] Comment on above: Expected: 01/15/2025 (Approximate), Expi res: 01/15/2026 Start: 01-15-2025 End: 01-15-2026 Thyroxine (T4) free [Mass/volume] in Serum or Plasma T4, free Lab Routine Acquired hypothyroidism (CMS/HCC) Expected: 01/15/2025 (Approximate), Expires: 01/15/2026 [facility] Comment on above: Expected: 01/15/2025 (Approximate), Expi res: 01/15/2026 Start: 01-15-2025 End: 01-15-2026 Triiodothyronine (T3) Free [Mass/volume] in Serum or Plasma T3, free Lab Routine Acquired hypothyroidism (CMS/HCC) Expected: 01/15/2025 (Approximate), Expires: 01/15/2026 [facility] Work Phone: Comment on above: Expected: 01/15/2025 (Approximate), Expi res: 01/15/2026 Start: 01-15-2025 End: 01-15-2025 Patient encounter procedure [facility] Comment on above: Arrived Start: 10-16-2024 End: 10-16-2025 Thyroglobulin Antibody Thyroglobulin Antibody Lab Routine Acquired hypothyroidism (CMS/HCC) Expected: 10/16/2024 (Approximate), Expires: 10/16/2025 [facility] Work Phone: Comment on above: Expected: 10/16/2024 (Approximate), Expi res: 10/16/2025 Start: 10-16-2024 End: 10-16-2025 Thyroid peroxidase antibody Thyroid peroxidase antibody Lab Routine Acquired hypothyroidism (CMS/HCC) Expected: 10/16/2024 (Approximate), Expires: 10/16/2025 [facility] Comment on above: Expected: 10/16/2024 (Approximate), Expi res: 10/16/2025 Start: 10-16-2024 End: 10-16-2025 Thyrotropin [Units/volume] in Serum or Plasma TSH Lab Routine Acquired hypothyroidism (CMS/HCC) Expected: 10/16/2024 (Approximate), Expires: 10/16/2025 [facility] Comment on above: Expected: 10/16/2024 (Approximate), Expi res: 10/16/2025 Start: 10-16-2024 End: 10-16-2025 Thyroxine (T4) free [Mass/volume] in Serum or Plasma T4, free Lab Routine Acquired hypothyroidism (CMS/HCC) Expected: 10/16/2024 (Approximate), Expires: 10/16/2025 [facility] Comment on above: Expected: 10/16/2024 (Approximate), Expi res: 10/16/2025 Start: 10-16-2024 End: 10-16-2025 Triiodothyronine (T3) Free [Mass/volume] in Serum or Plasma T3, free Lab Routine Acquired hypothyroidism (CMS/HCC) Expected: 10/16/2024 (Approximate), Expires: 10/16/2025 [facility] Comment on above: Expected: 10/16/2024 (Approximate), Expi res: 10/16/2025 Start: 10-16-2024 End: 10-16-2025 US Thyroid gland US thyroid Imaging Routine Acquired hypothyroidism (CMS/HCC) Expected: 10/16/2024, Expires: 10/16/2025 [facility] Comment on above: Expected: 10/16/2024, Expires: Start: 10-16-2024 End: 10-16-2024 Patient encounter procedure 10/16/2024 10:10 AM EST Office Visit [facility] [address] [place] [address] Tonia Morgan MD [address] [place] [address] Arrived [facility] Comment on above: Arrived Start: 09-26-2024 [facility] Start: 09-19-2024 Hepatitis A virus Ab [Presence] in Serum by Immunoassay [facility] Start: 09-19-2024 Hepatitis B core antibody measurement [facility] Start: 09-19-2024 Hepatitis B virus surface Ab [Presence] in Serum [facility] Start: 09-19-2024 [facility] Start: 09-11-2024 [facility] Start: 1993 Screening for malignant neoplasm of breast Mammogram [facility] Start: 1953 Screening for malignant neoplasm of colon [facility] Comprehensive metabo lic 2000 panel - Serum or Plasma [facility] Hepatitis A virus Ab [Presence] in Serum by Immunoassay [facility] Hepatitis B core ant ibody measurement [facility] Hepatitis B virus chino rface Ab [Presence] in Serum [facility] Hepatitis B virus chino rface Ag [Presence] in Serum or Plasma by Immunoassay [facility] Hepatitis C virus Ig G Ab [Presence] in Serum or Plasma by Immunoassay [facility] Patient Education [facility] Work Phone: Patient referral [facility] Work Phone: [place] Gallbladder [facility] [place] Immunizations Immunization Date Immunization Notes Care Provider Fa cility 06-05-2024 influenza virus vaccine, unspecified formulation Tonia Morgan MD Work Phone: [facility] 06-21-2023 influenza virus vaccine, unspecified formulation [facility] 06-21-2023 influenza, high dose seasonal, preservative-free Doris Willis Other [employer] Other 07-03-2022 influenza virus vaccine, split virus (incl. purified surface antigen) Doris Willis Other [employer] Other 07-03-2022 influenza virus vaccine, unspecified formulation [facility] 11-28-2021 zoster vaccine recombinant [facility] 11-28-2021 zoster vaccine, live Doris Willis Other [facility] 08-29-2021 varicella virus vaccine [facility] 08-29-2021 zoster vaccine recombinant [facility] 08-29-2021 zoster vaccine, live Doris Willis Other [facility] 06-26-2021 influenza virus vaccine, split virus (incl. purified surface antigen) Doris Willis Other [employer] Other 06-26-2021 influenza virus vaccine, unspecified formulation [facility] 06-26-2021 SARS-CoV-2 (COVID-19 ) mRNA BNT-162b2 vax [facility] 12-22-2020 SARS-CoV-2 (COVID-19 ) mRNA BNT-162b2 vax [facility] 11-29-2020 SARS-CoV-2 (COVID-19 ) mRNA BNT-162b2 vax [facility] 06-09-2020 influenza virus vaccine, split virus (incl. purified surface antigen) Doris Willis Other [facility] Other 06-09-2020 influenza virus vaccine, unspecified formulation [facility] 06-04-2020 influenza virus vaccine, unspecified formulation [facility] 06-20-2019 influenza virus vaccine, unspecified formulation [facility] 06-18-2013 diphtheria, tetanus toxoids and acellular pertussis vaccine, unspecified formulation Doris Willis Other [facility] Payers Date Payer Category Payer Private Health Insurance [facility] [employer] [id number] 5 2020 Medicare MEDICARE [id number] 5 1959 Medicare [id number] 1959 Self-pay 1959 Unknown [id number] 1955 Unknown [id number] [id number] .2.593 1953 Unknown [id number] 2.16.840.1.136016.3.579 .2.593 1953 Unknown [id number] 2.16.840.1.322306.3.579 .2.593 1953 Unknown [id number] 2.16.840.1.400875.3.579 .2.593 1953 Unknown [id number] 2.16.840.1.135839.3.579 .2.593 1953 Unknown [id number] 2.16.840.1.261086.3.579 .2.593 1953 Unknown [id number] 2.16.840.1.727739.3.579 .2.1259 1953 Unknown [id number] 2.16.840.1.134314.3.579 .2.1259 1953 Unknown [id number] 2.16.840.1.048472.3.579 .2.1259 1953 Unknown [id number] [id number] .2.1259 Social History Date Type Detail Facility Start: 01-11-2022 End: 09-26-2024 Tobacco smoking status Ex-smoker (finding) [facility] Tobacco smoking status Never [facility] Sex Assigned At Female [facility] Start: 1955 Sex Assigned At Female F [facility] Start: 09-12-2024 End: 11-07-2024 Sex Female (finding) [facility] Tobacco smoking status PRIS Tobacco smoking consumption unknown [facility] Healthcare Start: 1955 Sex assigned at Not on file [facility] Healthcare Goals Date Patient Goal Desired Activity /State Clinical Notes 01-11-2022 to 05-02-2025 Note Date & Type Note Facility 05-02-2025 Evaluation note Diagnosis Onset Date Resolution Abnormal EKG acute May 02, 2025 10:35am Chest pain acute May 02, 2 025 10:35am Substernal chest pain acute Aug ust 2024 10:35am [facility] Work Phone: 1(264) 993-200208-13-2025 History of Present illness Narrative* Tonia Morgan MD - 04/16/2025 10:20 AM EDT Images from the original note were not included. Anisha Alanis is a 69 y.o. female No ref. provider found presents with chief complaint of Thyroid Problem and Follow-up (LAB) HPI: IM : 04/2025 Follow-up visit 04/16/2025 for lab overcorrected TSH 0.061, free T4 1.5 ( 0.82- 1.77), free T3 5.1 (2-4.4), currently on levothyroxine 125 mcg daily, and Cytomel 5 mcg 2 tablets in the morning. 01/2025 History of Present Illness The patient is a 69-year-old female who presents for a follow-up on her thyroid condition. 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 Her current treatment regimen includes levothyroxine 125 mcg and Cytomel 10 mcg, both administered in the morning. Recent laboratory results show her TSH levels have returned to normal, with values of 0.312. Free T4 is 1.27 (reference range 0.82-1.77), Free T3 is 3.4 (reference range 2-4.4), TPO antibody is 110 (reference range 0-34), and TG antibody is 4.3, confirming the presence of Brooks's disease. HPI: 10/2024 New patient Sent from her GI due to uncontrolled hypothyroidism, TSH 102 on 09/2024, currently on levothyroxine 100 mcg daily, she takes it rubber washer empty stomach, denies thyroid surgery, deniesablation, no family history of thyroid cancer, she has fatty liver. SUBJECTIVE: MEDICATIONS: Current Outpatient Medications Medication Instructions aspirin 81 mg, Daily biotin 1 MG capsule 1 capsule, Daily cetirizine (ZYRTEC) 10 mg, Daily docusate sodium (COLACE) 100 mg, Daily DULoxetine (CYMBALTA) 30 mg, Daily levothyroxine (SYNTHROID, LEVOXYL) 125 mcg, Oral, Daily liothyronine (CYTOMEL) 10 mcg, Oral, Daily magnesium 200 mg, Daily pantoprazole (PROTONIX) 40 mg, Daily before breakfast polyethylene glycol (PEG) 3350 (MIRALAX) 17 g, As needed rizatriptan (MAXALT) 10 mg rosuvastatin (CRESTOR) 20 mg, Daily ALLERGIES: Allergies Allergen Reactions Amoxicillin-Pot Clavulanate Hives Cefdinir Hives Clavulanic Acid Hives Gabapentin Hives Latex Phentermine Hives Propranolol Hives Simvastatin Hives Past Medical History: Diagnosis Date Acquired hypothyroidism Constipation Fallen bladder Fatty liver GERD (gastroesophageal reflux disease) Hepatic steatosis History of colon polyps Hypercholesteremia Hypothyroidism Migraine Right carpal tunnel syndrome Seasonal allergies Tobacco use Past Surgical History: Procedure Laterality Date ANKLE SURGERY SECTION, CLASSIC SECTION, CLASSIC FOOT SURGERY HAND SURGERY HYSTERECTOMY TUBAL LIGATION REVIEW OF SYMPTOMS: 14 POINT OF SYSTEM REVIEWED AND NEGATIVE OBJECTIVE: 12/23/2020 12:00 PM 10/16/2024 10:13 AM 01/15/2025 10:19 AM 04/16/2025 10:24 AM Vitals BMI 35.48 kg/m2 31.83 kg/m2 32.19 kg/m2 30.36 kg/m2 BSA (m2) 1.96 m2 1.86 m2 1.87 m2 1.81 m2 Systolic 167 134 148 Diastolic 91 84 92 Heart Rate 84 70 70 SpO2 97 % 95 % 98 % Resp 18 16 16 Height (in) 5' 2 5' 2 5' 2 5' 2 Weight (lb) 194 174 176 166 Visit Report Report Report Report Physical Exam Constitutional: Appearance: Normal appearance. She is normal weight. HENT: Head: Normocephalic and atraumatic. Right Ear: External ear normal. Nose: Nose normal. Mouth/Throat: Pharynx: Oropharynx is clear. Eyes: Extraocular Movements: Extraocular movements intact. Pupils: Pupils are equal, round, and reactive to light. Cardiovascular: Rate and Rhythm: Normal rate and regular rhythm. Pulmonary: Effort: Pulmonary effort is normal. Abdominal: General: Abdomen is flat. Palpations: Abdomen is soft. Musculoskeletal: General: Normal range of motion. Skin: General: Skin is warm. Neurological: General: No focal deficit present. Mental Status: She is alert. Psychiatric: Mood and Affect: Mood normal. Behavior: Behavior normal. ASSESSMENT AND PLAN: Assessment/Plan Diagnoses and all orders for this visit: Acquired hypothyroidism - levothyroxine (Synthroid, Levoxyl) 100 MCG tablet; Take 1 tablet (100 mcg) by mouth in the morning. Take before meals. - T3, free; Future - T4, free; Future - TSH; Future We will decrease her levothyroxine to 100 mcg daily, decrease Cytomel to 5 mcg once in the morning we will check lab before next 6 months and adjust. Vitamin D deficiency Brooks's disease 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 and body mass index (BMI) of 30.0 to 30.9 in adult Diet and exercise reviewed with the patient Follow-up 6 months documented in this [facility] [id number] History of Present illness Narrative* Tonia Morgan MD - 01/15/2025 10:20 AM EDT Images from the original note were not included. Anisha Alanis is a 69 y.o. female No ref. provider found presents with chief complaint of Follow-upand Thyroid Problem (LAB) HPI: History of Present Illness The patient is a 69-year-old female who presents for a follow-up on her thyroid condition. 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 Her current treatment regimen includes levothyroxine 125 mcg and Cytomel 10 mcg, both administered in the morning. Recent laboratory results show her TSH levels have returned to normal, with values of 0.312. Free T4 is 1.27 (reference range 0.82-1.77), Free T3 is 3.4 (reference range 2-4.4), TPO antibody is 110 (reference range 0-34), and TG antibody is 4.3, confirming the presence of Brooks's disease. HPI: 10/2024 New patient Sent from her GI due to uncontrolled hypothyroidism, TSH 102 on 09/2024, currently on levothyroxine 100 mcg daily, she takes it rubber washer empty stomach, denies thyroid surgery, deniesablation, no family history of thyroid cancer, she has fatty liver. SUBJECTIVE: MEDICATIONS: Current Outpatient Medications Medication Instructions aspirin 81 mg, Daily biotin 1 MG capsule 1 capsule, Daily cetirizine (ZYRTEC) 10 mg, Daily docusate sodium (COLACE) 100 mg, Daily DULoxetine (CYMBALTA) 30 mg, Daily levothyroxine (SYNTHROID, LEVOXYL) 125 mcg, Oral, Daily liothyronine (CYTOMEL) 10 mcg, Oral, Daily magnesium 200 mg, Daily pantoprazole (PROTONIX) 40 mg, Daily before breakfast polyethylene glycol (PEG) 3350 (MIRALAX) 17 g, As needed rizatriptan (MAXALT) 10 mg rosuvastatin (CRESTOR) 20 mg, Daily ALLERGIES: Allergies Allergen Reactions Amoxicillin-Pot Clavulanate Hives Cefdinir Hives Clavulanic Acid Hives Gabapentin Hives Latex Phentermine Hives Propranolol Hives Simvastatin Hives Past Medical History: Diagnosis Date Acquired hypothyroidism (CMS/HCC) Constipation Fallen bladder Fatty liver GERD (gastroesophageal reflux disease) Hepatic steatosis History of colon polyps Hypercholesteremia (CMS/HCC) Hypothyroidism (CMS/HCC) Migraine (CMS/HCC) Right carpal tunnel syndrome Seasonal allergies Tobacco use Past Surgical History: Procedure Laterality Date ANKLE SURGERY SECTION, CLASSIC SECTION, CLASSIC FOOT SURGERY HAND SURGERY HYSTERECTOMY TUBAL LIGATION REVIEW OF SYMPTOMS: 14 POINT OF SYSTEM REVIEWED AND NEGATIVE OBJECTIVE: 12/23/2020 12:00 PM 10/16/2024 10:13 AM 01/15/2025 10:19 AM Vitals BMI 35.48 kg/m2 31.83 kg/m2 32.19 kg/m2 BSA (m2) 1.96 m2 1.86 m2 1.87 m2 Systolic 167 134 148 Diastolic 91 84 92 Heart Rate 84 70 SpO2 97 % 95 % Resp 18 16 Height (in) 5' 2 5' 2 5' 2 Weight (lb) 194 174 176 Visit Report Report Report Physical Exam Constitutional: Appearance: Normal appearance. She is normal weight. HENT: Head: Normocephalic and atraumatic. Right Ear: External ear normal. Nose: Nose normal. Mouth/Throat: Pharynx: Oropharynx is clear. Eyes: Extraocular Movements: Extraocular movements intact. Pupils: Pupils are equal, round, and reactive to light. Cardiovascular: Rate and Rhythm: Normal rate and regular rhythm. Pulmonary: Effort: Pulmonary effort is normal. Abdominal: General: Abdomen is flat. Palpations: Abdomen is soft. Musculoskeletal: General: Normal range of motion. Skin: General: Skin is warm. Neurological: General: No focal deficit present. Mental Status: She is alert. Psychiatric: Mood and Affect: Mood normal. Behavior: Behavior normal. ASSESSMENT AND PLAN: Assessment/Plan Diagnoses and all orders for this visit: Brooks's disease (CMS/HCC) Acquired hypothyroidism ([facility]/HCC) - liothyronine (Cytomel) 5 MCG tablet; Take 2 tablets (10 mcg) by mouth Daily - T3, free; Future - T4, free; Future - TSH; Future Vitamin D deficiency 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out serious comorbidity with body mass index (BMI) of 32.0 to 32.9 in adult Diet and exercise reviewed with the patient Assessment & Plan 1. Brooks's disease: - Significant improvement in laboratory results, with TSH levels returning to the normal range at 0.3. - Free T4 is 1.27 (0.82-1.77), and Free T3 is 3.4 (2-4.4). TPO antibodies are elevated at 110 (0-34), and TG antibody is 4.3. Thyroid antibody test is positive for Brooks's disease. - Continued discussion on the autoimmune nature of the disease and the necessity of thyroid medication. - Continue current medication regimen of levothyroxine 125 mcg and Cytomel 10 mcg (5 mcg twice daily). Prescription for Cytomel will be sent to the pharmacy. Laboratory tests will be conducted in 3 months to monitor thyroid levels. Potential adjustment of Cytomel dosage based on lab results. Follow-up: The patient will follow up in 3 months. documented in this [facility]02-27-2025 Telephone encounter Note* Telephone Encounter - Glenn Olguin - 10/31/2024 10:12 AM EST Pt would like US read please and thank you! [facility] [id number] Miscellaneous Notes* Telephone Encounter - Glenn Olguin - 10/31/2024 10:12 AM EST Pt would like US read please and thank you! documented in this [facility]02-12-2025 History of Present illness Narrative* Tonia Morgan MD - 10/16/2024 10:10 AM EST Anisha Alanis is a 69 y.o. female Dayana Worley MD presents with chief complaint of Thyroid Problem (NEW REF/LAB) HPI: HPI: 10/2024 New patient Sent from her GI due to uncontrolled hypothyroidism, TSH 102 on 09/2024, currently on levothyroxine 100 mcg daily, she takes it rubber washer empty stomach, denies thyroid surgery, deniesablation, no family history of thyroid cancer, she has fatty liver. SUBJECTIVE: MEDICATIONS: Current Outpatient Medications Medication Instructions aspirin 81 mg, Daily biotin 1 MG capsule 1 capsule, Daily cetirizine (ZYRTEC) 10 mg, Daily docusate sodium (COLACE) 100 mg, Daily DULoxetine (CYMBALTA) 30 mg, Daily levothyroxine (SYNTHROID, LEVOXYL) 125 mcg, Oral, Daily liothyronine (CYTOMEL) 10 mcg, Oral, Daily magnesium 200 mg, Daily pantoprazole (PROTONIX) 40 mg, Daily before breakfast polyethylene glycol (PEG) 3350 (MIRALAX) 17 g, As needed rizatriptan (MAXALT) 10 mg rosuvastatin (CRESTOR) 20 mg, Daily ALLERGIES: Allergies Allergen Reactions Amoxicillin-Pot Clavulanate Hives Cefdinir Hives Clavulanic Acid Hives Gabapentin Hives Latex Phentermine Hives Propranolol Hives Simvastatin Hives Past Medical History: Diagnosis Date Acquired hypothyroidism (CMS/HCC) Constipation Fallen bladder Fatty liver GERD (gastroesophageal reflux disease) Hepatic steatosis History of colon polyps Hypercholesteremia (CMS/HCC) Hypothyroidism (CMS/HCC) Migraine (CMS/HCC) Right carpal tunnel syndrome Seasonal allergies Tobacco use Past Surgical History: Procedure Laterality Date ANKLE SURGERY SECTION, CLASSIC SECTION, CLASSIC FOOT SURGERY HAND SURGERY HYSTERECTOMY TUBAL LIGATION REVIEW OF SYMPTOMS: 14 POINT OF SYSTEM REVIEWED AND NEGATIVE OBJECTIVE: Visit Vitals BP 134/84 Pulse 84 Resp 18 Ht 5' 2 Wt 174 lb SpO2 97% BMI 31.83 kg/m BSA 1.86 m Physical Exam Constitutional: Appearance: Normal appearance. She is normal weight. HENT: Head: Normocephalic and atraumatic. Right Ear: External ear normal. Nose: Nose normal. Mouth/Throat: Pharynx: Oropharynx is clear. Eyes: Extraocular Movements: Extraocular movements intact. Pupils: Pupils are equal, round, and reactive to light. Cardiovascular: Rate and Rhythm: Normal rate and regular rhythm. Pulmonary: Effort: Pulmonary effort is normal. Abdominal: General: Abdomen is flat. Palpations: Abdomen is soft. Musculoskeletal: General: Normal range of motion. Skin: General: Skin is warm. Neurological: General: No focal deficit present. Mental Status: She is alert. Psychiatric: Mood and Affect: Mood normal. Behavior: Behavior normal. ASSESSMENT AND PLAN: Assessment/Plan Diagnoses and all orders for this visit: Acquired hypothyroidism (CMS/HCC) - levothyroxine (Synthroid, Levoxyl) 125 MCG tablet; Take 1 tablet (125 mcg) by mouth Daily - liothyronine (Cytomel) 5 MCG tablet; Take 2 tablets (10 mcg) by mouth Daily - Thyroglobulin Antibody; Future - Thyroid peroxidase antibody; Future - T3, free; Future - T4, free; Future - TSH; Future - US thyroid; Future TSH 102 in September/2024, I will increase her levothyroxine to 125 mcg daily, I will add Cytomel 10 mcg in the morning, we will check lab in 3 months including antibodies and adjust, check also ultrasound for complete surveillance Vitamin D deficiency 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out serious comorbidity with body mass index (BMI) of 31.0 to 31.9 in adult Diet and exercise reviewed with the patient Weight gain Most likely due to uncontrolled hypothyroidism Follow up in about 3 months (around 01/13/2025). documented in this encounterN[facility] [id number] [place] [address] EGD/Colonoscopy Procedure Signed Patient: Anisha Alanis MR#: [id number] : 1955 Acct:[id number] Age/Sex: 69 / F Adm Date: 5 Loc: Room: Type: [facility] Attending Dr: Dayana Worley MD Copies to: MD Doris Sierra MD~ EGD & Colonoscopy Date/Provider 09/26/2024 Dayana Worley MD Colonoscopy Findings: Procedure: Colonoscopy with polypectomy Indication: 69-year-old female with history of colonic polyps here for colonoscopy for evaluation of constipation Pre-operative diagnosis: History of colon polyps, constipation. Post-operative diagnosis: Tortuous colon, colonic polyps, diverticulosis, internal hemorrhoids. Sedation: propofol per anesthesia dept O2 oximetry, hemodynamic monitoring was performed pre, during, and post procedure. Patient was identified, H&P completed, patient was given full explanation of the procedure as well as associatedrisks and written consent wasobtained prior to procedure. Patient expressed complete understanding of the procedure as well as alternatives to the procedure and to anesthesia and agreed to proceed with the procedure as indicated. Patient was immediately reassessed prior to IV sedation. Under IV sedation, patient was placed in the left lateral decubitus position. Digital rectal exam was performed and normal. Colonoscope was inserted and passed proximally to the cecum, which was identified by the ileocecal valve, appendiceal orifice and cecal floor. Colonoscope was slowly withdrawnwith the findings as below. [place] bowel prep score was good. Findings: Few diverticula noted throughout the colon. Tortuous colon. Otherwise findings are as below Cecum: Normal. Ascending colon: A 1 mm polyp removed using cold forceps Hepatic flexure: Normal. Transverse colon: Normal. Splenic flexure: Normal. Descending colon: Normal. Sigmoid colon: A 1 mm polyp removed using cold forceps Rectum: Normal. Retroflexed views: Rectum did show internal hemorrhoids. Biopsy taken: No Complications: None EBL: None Recommendations: -Repeat colonoscopy in 5 years -Follow up pathology -Follow up in the office Following a period of recovery, patient was seen and given full explanation of the procedure. Patient tolerated the procedure well and will be discharged in satisfactory, stable condition. Dayana Worley M.D. Documented By: Dayana Worley MD 09/26/24 1302 Signed By: 09/26/24 1325 [facility]01-23-2025 [place] [address] EGD/Colonoscopy Procedure Signed Patient: Anisha Alanis MR#: [id number] : 1955 Acct:[id number] Age/Sex: 69 / F Adm Date: 5 Loc: Room: Type: [facility] Attending Dr: Dayana Worley MD Copies to: MD Doris Sierra MD~ EGD & Colonoscopy Date/Provider 09/26/2024 Dayana Worley MD EGD Findings: Procedure: EGD with biopsy Indication: 69-year-old female with chronic heartburn and history of colonic polyps here for EGD toassess for Farah's and colonoscopy for surveillance andfor evaluation of constipation Pre-operative diagnosis: Chronic heartburn Post-operative diagnosis: Gastritis Sedation: propofol per anesthesia dept O2 oximetry, hemodynamic monitoring was performed pre, during, and post procedure. Patient was identified, H&P completed, patient was given full explanation of the procedure as well as associatedrisks and written consent wasobtained prior to procedure. Patient expressed complete understanding of the procedure as well as alternatives to the procedure and to anesthesia and agreed to proceed with the procedure as indicated. Patient was immediately reassessed prior to IV sedation. Following IV sedation, patient was placed in the left lateral decubitus position. Bite block was inserted. Endoscope was passed through the mouth, into the esophagus. Endoscope was advanced into the stomach through the pyloricchannel and into the 2nd portion of duodenum by direct visualization. Endoscopewas withdrawn into the stomach and retroflexion was performed. The endoscope was straightened,the stomach was decompressed. Endoscope was withdrawn into the esophagus then completely removed with the findings as below. Findings: DUODENUM: bulb and descending portion appeared normal. STOMACH: Erythematous mucosa noted in the antrum and body otherwise pyloric channel, antrum, body, fundus and cardia, including retroflexed views appear normal. Gastric biopsies without any biopsy forceps to assess for H. pylori ESOPHAGUS: Diaphragmatic hiatus was 40 cm from incisors and GE junction (upper margin of gastric folds) was at 40 cm from incisors. Squamocolumnar junction was at 40 cm from incisors. Mucosa appearednormal. Biopsy taken: Yes Complications: None EBL: Minimal Recommendations: -Continue pantoprazole 40 mg twice daily for 8 weeks then decrease to 40 mg daily -Follow up pathology. If gastric biopsies are positive for H. pylori we will treat using quadruple therapy -Resume normal diet -Follow up in the office Following a period of recovery, patient was seen and given full explanation of the procedure. Patient tolerated the procedure well and will be discharged in satisfactory, stable condition. Dayana Worley M.D. Documented By: Dayana Worley MD 09/26/24 1259 Signed By: 09/26/24 1302 [facility]12-31-2024 Evaluation note* Author Dayana Worley [facility] Authored September 03, 2024 3:28pm 69-year-old female referred to the liver clinic for evaluation of fatty liver. Liver enzymes are normal +chronic constipation which is responsive to MiraLAX once a day. +history of colonic polyps, last colonoscopy was 5 years ago. +chronic heartburn which is not adequately controlled with pantoprazole 40 mg daily Will arrange for EGD to assess for Farah's. Will increase pantoprazole to 40 mg twice daily for 8 weeks then decrease to 40 mg daily. Will check TSH, CRP and fecal calprotectin. Will arrange for colonoscopy. Will arrange for FibroScan and check viral hepatitis serologies Author [facility] Authored November 07, 2024 10:4 4am 69-year-old female referred to the liver clinic for evaluation of fatty liver. Liver enzymes are normal. Fibroscan on 09/20/24 showed LSM: 4.8 and CAP: 303, viral hepatitis serologies were unremarkable. Patient was counseled about weight loss Mediterranean diet and exercise. Heartburn has resolved after increasing pantoprazole to 40 mg twice daily. I recommended the patient to try to decrease pantoprazole to 40 mg daily and I counseled the patient about antireflux precautions. EGD on 09/26/2024 showed gastritis, gastric biopsies negative for H. pylori Regarding chronic constipation patient was found to have significantly elevated TSH consistent with hypothyroidism. Patient is currently following with endocrinology to optimize hypothyroidism treatment. Colonoscopy in 09/26/2024 showed tubular adenomas, tortuous colon, diverticulosis and internal hemorrhoids. [facility] Work Phone: 1(987) 451-564612-31-2024 Evaluation note* Author [facility] Authored September 03, 2024 2:28pm 69-year-old female referred to the liver clinic for evaluation of fatty liver. Liver enzymes are normal +chronic constipation which is responsive to MiraLAX once a day. +history of colonic polyps, last colonoscopy was 5 years ago. +chronic heartburn which is not adequately controlled with pantoprazole 40 mg daily Will arrange for EGD to assess for Fraah's. Will increase pantoprazole to 40 mg twice daily for 8 weeks then decrease to 40 mg daily. Will check TSH, CRP and fecal calprotectin. Will arrange for colonoscopy. Will arrange for FibroScan and check viral hepatitis serologies [facility] Work Phone: [phone]) 683-508711-06-2023 Evaluation note* Encounter Date Diagnosis Assessment Notes Treatment Notes Treatment Clinical Notes Jul, Hypothyroidism (ICD-10 - E03.9) [facility] Other 10-30-2023 Evaluation note* Encounter Date Diagnosis Assessment Notes Treatment Notes Treatment Clinical Notes Jun, Hypothyroidism (ICD-10 - E03.9) [facility] Other 08-31-2023 Evaluation note* Encounter Date Diagnosis Assessment Notes Treatment Notes Treatment Clinical Notes Apr, Insect bite (nonvenomous) of right elbow, initial encounter (ICD-10 - S50.361A) Prominent reaction to insect bite. No s/s infection. Very hot and red. Try cold compresses and ibuprofen for discomfort. Apr, Bitten or stung by nonvenomous insect and other nonvenomous arthropods, initial encounter (ICD-10 - W57.XXXA) [facility] Other 05-02-2023 Evaluation note* Encounter Date Diagnosis Assessment Notes Treatment Notes Treatment Clinical Notes January, Acquired hypothyroidism (ICD-10 - E03.9) [facility] Other 03-09-2023 Evaluation note* Encounter Date Diagnosis Assessment Notes Treatment Notes Treatment Clinical Notes Nov, Acquired hypothyroidism (ICD-10 - E03.9) Nov, Other decreased whit e blood cell (WBC) count (ICD-10 - D72.818) [facility] Other 03-02-2023 Evaluation note* Encounter Date Diagnosis [...] ensure she is on the right dose. [facility] Other 05-10-2022 Hospital Discharge instructions Patient Education [...] away. Follow these instructions at home: Take dxey-zes-vtepwob and prescription medicines only as told by [...] 08/21/2006 Document Revised: 08/03/2018 Document Reviewed: 08/01/2018 [facility] Patient Education Fabl[employer]. Follow Up Care 01/05/2022 08:53:39 With:Markos Cruz DO, KAYLA, PED Address: [address] [place] [address] [place] [address] [phone] When:3 months Comments:2 month follow - ok to cancel if no issues and labs look good [facility] evaluation + Plan note Future Appointments Appointment Date:04/05/2022 04:40:00 PM Scheduled Provider:Markos Cruz DO Location:[facility] Appointment Type: Open Diagnostic Tests Pending * TSH With T4fr Reflex 01/11/22 Future Scheduled Tests Laboratory* TSH With T4fr Reflex 09/14/21 * CBC w/ Auto Diff 09/14/21 * Comprehensive Metabolic Panel 09/14/21 * Lipid Panel 09/14/21 [facility] evaluugczx noteNo assessment information available [facility] Work Phone: evaluation note* Diagnosis Onset Date Resolution Status Gastro-esophageal reflux disease without esophagitis acute RUQ abdominal pain acute [facility] Work Phone: Evaluation note* Diagnosis Onset Date Resolution Status Gastro-esophageal reflux disease without esophagitis acute RUQ abdominal pain acute Poison harriet dermatitis acute [facility] Work Phone: Evaluation note* Diagnosis Acquired hypothyroidism (CMS/HCC)- Primary Unspecified hypothyroidism Vitamin D deficiency 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out serious comorbidity with body mass index (BMI) of 31.0 to 31.9 in adult Weight gain Other symptoms concerning nutrition, metabolism, and development documented in this encounter [facility] HealthcareEvaluation note* Diagnosis Brooks's disease (CMS/HCC)- Primary Chronic lymphocytic thyroiditis Acquired hypothyroidism (CMS/HCC) Unspecified hypothyroidism Vitamin D deficiency 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out serious comorbidity with body mass index (BMI) of 32.0 to 32.9 in adult documented in this encounter [facility] HealthcareEvaluation note* Diagnosis Acquired hypothyroidism- Primary Unspecified hypothyroidism Vitamin D deficiency Brooks's disease Chronic lymphocytic thyroiditis 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 and body mass index (BMI) of 30.0 to 30.9 in adult documented in this encounter [facility] HealthcareEvaluation note* Diagnosis Onset Date Resolution Status Admit Date Substernal chest pain acute Aug ust 2024 10:35am [facility] Work Phone: History general Narrative - Reported* [...] JESUS 0 12/2020 Hospitalization History see above [facility] Other Hospital course Narrative No data available for this section [facility] Reason for referral (narrative)No reason for referral [facility] Work [facility]: Summary Purpose Family History No Family History Records Found Relationship Condition Age at Onset Recorded Date/T rebecca father Heart disease Unknown Unknown Hypertension Unknown Diabetes mellitus Unknown family member Unknown Not Specified Unknown Malignant neoplasm Unknown Heart disease Unknown Relationship Condition Age at Onset Recorded Date/T rebecca father Heart disease Unknown Unknown Hypertension Unknown Diabetes mellitus Unknown family member Unknown mother Unknown Malignant neoplasm Unknown Heart disease Unknown Advance Directives No Advanced Directives Records Found Advance Directive Response Recorded Date/ Time Advance Directives No April 23, 2023 1:14pm Advance Directive Response Recorded Date/ Time Advance Directives No April 23, 2023 12:14pm Chief Complaint and Reason for Visit Chief Complaint r eye blurry Chief Complaint REVIEW RESULTS Chief Complaint Stomach Issues Reason for Visit Gastro-esophageal re flux disease without esophagitis RUQ abdominal pain Chief Complaint Stomach Issues poison harriet on R arm and stomach Reason for Visit Gastro-esophageal re flux disease without esophagitis RUQ abdominal pain Chief Complaint Stomach Issues poison harriet on R arm and stomach CC Adult Risk Stratification Wellness Reason for Visit Gastro-esophageal re flux disease without esophagitis RUQ abdominal pain Poison harriet dermatitis Chief Complaint Admit Date poison harriet on R arm and stomach June 18, 2024 10:13am CC Adult Risk Stratification June 2:42pm Wellness June 28, 2024 9 :31am Referred by Dr Vargas Willis: fatty liver Dece mber 2023 2:08pm [email or web address] September 11, 2024 10 :06am Reason for Visit Admit Date Poison harriet dermatitis June 18, 2024 10:13am Hepatic steatosis June 28, 2024 9 :31am Hypercholesteremia June 28, 2024 9 :31am Hypothyroid June 28, 2024 9 :31am Medicare annual wellness visit, subseque nt June 28, 2024 9:31am Migraine June 28, 2024 9 :31am Constipation September 03, 2024 2:08pm Gastro-esophageal reflux disease without esophagitis September 03, 2024 2:08pm Hepatic steatosis September 03, 2024 2:08pm History of colon polyps September 03, 2 024 2:08pm Chief Complaint Admit Date CC Adult Risk Stratification June 2:42pm Wellness June 28, 2024 9 :31am Referred by Dr Vargas Willis: fatty liver Dece [facility] 2023 2:08pm [email or web address] September 11, 2024 10 :06am fatty liver September 19, 2024 1 1:43am Reason for Visit Admit Date Hepatic steatosis June 28, 2024 9 :31am Hypercholesteremia June 28, 2024 9 :31am Hypothyroid June 28, 2024 9 :31am Medicare annual wellness visit, subseque nt June 28, 2024 9:31am Migraine June 28, 2024 9 :31am Constipation September 03, 2024 2:08pm Gastro-esophageal reflux disease without esophagitis September 03, 2024 2:08pm Hepatic steatosis September 03, 2024 2:08pm History of colon polyps September 03, 2 024 2:08pm Chief Complaint Admit Date Wellness June 28, 2024 9 :31am Referred by Dr aVrgas Willis: fatty liver Dece [facility] 2023 2:08pm [email or web address] September 11, 2024 10 :06am fatty liver September 19, 2024 1 1:43am gerd/hx of colon polyps September 26 11:16am gerd/hx of colon polyps September 26 1:02pm Chief Complaint Admit Date Referred by Dr Vargas Willis: fatty liver Dece [facility] 2023 2:08pm [email or web address] September 11, 2024 10 :06am fatty liver September 19, 2024 1 1:43am gerd/hx of colon polyps September 26 11:16am gerd/hx of colon polyps September 26 1:02pm Amb Documentation October 08, 2024 9 :26am cough October 15, 2024 9:26am Reason for Visit Admit Date Constipation September 03, 2024 2:08pm Gastro-esophageal reflux disease without esophagitis September 03, 2024 2:08pm Hepatic steatosis September 03, 2024 2:08pm History of colon polyps September 03, 2 024 2:08pm Chief Complaint Admit Date Referred by Dr Vargas Willis: fatty liver Dece [facility] 2023 2:08pm [email or web address] September 11, 2024 10 :06am fatty liver September 19, 2024 1 1:43am gerd/hx of colon polyps September 26 11:16am gerd/hx of colon polyps September 26 1:02pm Amb Documentation October 08, 2024 9 :26am cough October 15, 2024 9:26am follow up scope November 07, 2024 9:06 am Reason for Visit Admit Date Constipation September 03, 2024 2:08pm Gastro-esophageal reflux disease without esophagitis September 03, 2024 2:08pm Hepatic steatosis September 03, 2024 2:08pm History of colon polyps September 03, 2 024 2:08pm Bruise of toe October 15, 2024 9:26am Sinusitis, acute maxillary October 9:26am Constipation November 07, 2024 9:06 am Gastro-esophageal reflux disease without esophagitis November 07, 2024 9:06am Hepatic steatosis November 07, 2024 9:06 am Chief Complaint Admit Date Sinuses May 02, 2025 10 :35am Reason for Visit Admit Date Substernal chest pain May 02, 2025 10:35am Chief Complaint Admit Date Sinuses May 02, 2025 10 :35am R07.9 R94.31 May 02, 2025 10 :59am Reason for Visit Admit Date Abnormal EKG May 02, 2025 10 :35am Chest pain May 02, 2025 10 :35am Substernal chest pain May 02, 2025 10:35am Additional Source Comments INFORMATION SOURCE (unrecogn ized section and content) DATE CREATED AUTHOR 02/04/2020 [facility] DATE CREATED AUTHOR AUTHOR'S ORGANIZ ATION 04/02/2022 [facility] DATE CREATED AUTHOR AUTHOR'S ORGANIZ ATION 12/25/2022 [facility] DATE CREATED AUTHOR AUTHOR'S ORGANIZ ATION 04/18/2025 [facility] EPIC DATE CREATED AUTHOR AUTHOR'S ORGANIZ ATION 05/04/[address] [facility] REASON FOR VISIT (unrecogniz ed section and content) Reason Comments Thyroid Problem NEW REF/LAB Specialty Diagnoses / Procedures Referred By Contac t Referred To Contact Endocrinology Diagnoses Other specified abnormal findings of blood chemistry Procedures [place] OFFICE/OUTPATIENT NEW LOW MDM 30 MINUTES Asaad, Imad, MD [address] [place] [address] Phone: tel: fax: Tnoia Morgan MD [address] [place] [address] Phone: tel: fax: Referral ID Status Reason Start Date Expiration Date V isits Requested Visits Authorized [id number] Pending Review 09/25/2024 03/24/2025 1 1 Reason Onset Date Comments Results 10/31/2024 Reason Comments Follow-up Thyroid Problem LAB Reason Comments Thyroid Problem Follow-up LAB Care Teams (unrecognized sec tion and content) Team Status: Active Member Role Status Dates Doris Willis MD Primary Care Provider Active Team Status: Inactive Member Role Status Dates Doris Willis MD Primary Care Provide r, Attending Provider Active Start: June 28, 2024 End: June 28, 2024 Team Status: Inactive Member Role Status Dates Doris Willis MD Primary Care Provider Active Start: September 03, 2024 End: September 03, 2024 Dayana Worley MD Attending Provider Active Start: September 03, 2024 End: September 03, 2024 Team Status: Inactive Member Role Status Dates Doris Willis MD Primary Care Provider Active Start: September 11, 2024 End: September 11, 2024 Dayana Worley MD Attending Provider Active Start: September 11, 2024 End: September 11, 2024 Team Status: Active Member Role Status Dates Doris Willis MD Primary Care Provider Active Start: September 19, 2024 Dayana Worley MD Attending Provider, Other Provider Active Start: September 19, 2024 Team Status: Inactive Member Role Status Dates Doris Willis MD Primary Care Provider Active Start: September 26, 2024 End: September 26, 2024 Dayana Worley MD Attending Provider Active Start: September 26, 2024 End: September 26, 2024 Team Status: Active Member Role Status Dates Doris Willis MD Primary Care Provider Active Start: September 26, 2024 Dayana Worley MD Attending Provider, Other Provider Active Start: September 26, 2024 Team Status: Active Member Role Status Dates Doris Willis MD Primary Care Provide r, Attending Provider Active Start: June 27, 2024 Team Status: Inactive Member Role Status Dates Doris Willis MD Primary Care Provider Active Start: September 19, 2024 End: September 19, 2024 Dayana Worley MD Attending Provider Active Start: September 19, 2024 End: September 19, 2024 Team Status: Inactive Member Role Status Dates [...] Provide r, Attending Provider Active Start: May 24, 2024 Team Status: Inactive Member Role Status Dates Doris Willis MD Primary Care Provide r, Attending Provider Active Start: June 18, 2024 End: June 18, 2024 Team Status: Active Member Role Status Dates Doris Willis MD Primary Care Provider Active Start: October 08, 2024 Cookie Whitfield CMA Attending Provider Active St art: October 08, 2024 Team Status: Inactive Member Role Status Dates Doris Willis MD Primary Care Provide r, Attending Provider Active Start: October 15, 2024 End: October 15, 2024 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 Relationship Specialty Start Date End Date Doris Willis MD [address] [place] [address] PCP - General Family Medicine 09/25/24 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 Relationship Specialty Start Date End Date Doris Willis MD [address] [place] [address] PCP - General Family Medicine 09/25/24 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 Relationship Specialty Start Date End Date Doris Willis MD [address] [facility] [place] [address] PCP - General Family Medicine 09/25/24 Team Status: Inactive Member Role Status Dates Doris Willis MD Primary Care Provider Active Start: November 07, 2024 End: November 07, 2024 Dayana Worley MD Attending Provider Active Start: November 07, 2024 End: November 07, 2024 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 Relationship Specialty Start Date End Date Doris Willis MD PCP - General Family Medicine 09/25/24 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 Relationship Specialty Start Date End Date Doris Willis MD PCP - General Family Medicine 09/25/24 Team Status: Inactive Member Role Status Dates Doris Willis MD Primary Care Provider Active Start: May 02, 2025 End: May 02, 2025 Doris Willis MD Attending Provider Active St art: May 02, 2025 End: May 02, 2025 Team Status: Active Member Role Status Dates Doris Willis MD Primary Care Provider Active Start: May 02, 2025 Doris Willis MD Attending Provider Active St art: May 02, 2025 Goals (unrecognized section and content) Goals may [...] BE BASED ON THE PRIMARY CLINICAL RECORDS. [facility]. provides no warranty or guarantee of the accuracy or completeness of information in this document.
[2025-05-06 12:36] LABS: Hematocrit 43.0 % (36.0-48.0); Hemoglobin 14.9 g/dL (12.0-16.0); Immature Granulocytes Abs Auto 0.01 10^3/uL (0.00-0.03); Immature Granulocytes Pct Auto 0.2 % (0.0-0.5); Lymphocytes Absolute Auto 1.0 10^3/uL (1.2-3.8); Mean Corpuscular HGB Conc 34.7 g/dL (29.9-35.2); Mean Corpuscular Hemoglobin 30.8 pg (26.7-34.0); Mean Corpuscular Volume 89.0 fL (81.0-99.0); Platelet Count 242 10^3/uL (150-450); Red Blood Count 4.83 10^6/uL (4.20-5.40); White Blood Count 4.5 10^3/uL (4.0-11.0)
[2025-05-06 13:22] LABS: Anion Gap 9.6; Blood Urea Nitrogen 14.0 mg/dL (7.0-18.0); Calcium 8.8 mg/dL (8.5-10.1); Carbon Dioxide 29.9 mmol/L (21.0-32.0); Chloride 104 mmol/L (98-107); Estimated GFR (African America >60 (>=60 mL/min/1.73m^2); Estimated GFR (Non-African Ame >60 (>=60 mL/min/1.73m^2); Glucose 87 mg/dL (74-106); Potassium 4.5 mmol/L (3.5-5.1); Sodium 139 mmol/L (136-145)
== END 2025-05-06 11:55 | disposition home or self-care (01) ==
LOC: LAB 11:57
PROVIDERS: PCP Family Medicine; Visit Provider Family Medicine
DX: R07.9 Chest pain, unspecified (principal)
CPT/HCPCS: 36415; 80048; 84484; 85025

== ENCOUNTER 2025-05-13 06:37 | Outpatient (OUT) | payer MEDICARE, OTHER, SELFPAY ==
--- OUTSIDE RECORDS SUMMARY | 2025-05-13 06:42 | XMS_ITS | CCD ---
Author Organization [facility] CliniSyma Care Team Providers Care Zoology Teacher Name Role Phone DORIS WILLIS Primary Care Physician [phone] Doris Willis MISC, DR CABRAL Primary Care [...] MISC, DR CABRAL Attending Unavailable MISC, DR CARBAL Admitting Unavailable WILLIS, DR DORIS Clements Attending Unavailable WILLIS, DR DORIS Clements Admitting Unavailable WILLIS, DR DORIS Clements Primary Care Unavailable WILLIS, DR DORIS Clements Consulting Unavailable MD Doris Willis Primary Care Provider [phone] YARIEL Briones Emergency Provider [phone] Doris Willis MD Primary Care Provider Dayana Worley MD Attending Provider Doris Willis MD Primary Care Provider Doris Willis MD Primary Care Provider [phone] Dayana Worley MD Attending Provider [phone] Doris Willis MD Primary Care Provider [phone] TONIA MORGAN Attending Unavailable DAYANA WORLEY Referring Unavailable TONIA MORGAN Referring Unavailable EDDIE, AHMAD F Attending Unavailable SHE MORGANMATor F Attending Unavailable Doris Willis MD Primary Care Provider Doris Willis MD Attending Provider Doris Willis Admitting Unavailable Doris Willis Primary Care Unavailable Doris Willis Attending Unavailable Asaad, Imad Attending Unavailable Doris Willis Primary Care Unavailable Asaad, Imad Admitting Unavailable Asaad, Imad Attending Unavailable Doris Willis Primary Care Unavailable Asaad, Imad Admitting Unavailable Doris Willis Primary Care Unavailable Asaad, Imad Admitting Unavailable Asaad, Imad Attending Unavailable Allergies Allergy Classification Reported Allergen(s) Allergy Type Date of Onset Reaction(s) Facility (4 sources) Amoxicillin / Clavulanate Drug Allergy Unknown [facility] Other (11 sources) cefdinir Drug Allergy 4 Unknown, [facility] (20 sources) gabapentin Drug Allergy 4 [facility] (11 sources) Latex Drug allergy 4 [facility] (13 sources) Phentermine Drug Allergy 5 [facility] Other (20 sources) Propranolol Drug Allergy 4 [facility] (11 sources) Simvastatin Drug Allergy 4 Unknown, [facility] (2 sources) natural latex rubber Drug allergy (disorder) [facility] (3 sources) Adipex-P *ADHD/ANTI-NARC OLEPSY/ANTI-OBE SITY/ANOREX Propensity to adverse reactions Unknown [facility] Other (2 sources) Amoxicillin / Clavulanate Drug Allergy Unknown [facility] Other (5 sources) Amoxicillin Drug Allergy 4 [facility] (15 sources) Clavulanate Drug Allergy 4 [facility] (5 sources) Adipex-P *ADHD/ANTI-NARC OLEPSY Allergy to substance 4 [facility] Comment on above: Free Text Allergy: A dipex-P *ADHD/ANTI-NARCOLEPSY/ANTI-OBESITY/ANOREX (10 sources) cefdinir Drug Allergy 5 [facility] (10 sources) Latex Propensity to adverse reactions 5 [facility] (10 sources) Simvastatin Allergy to substance 5 [facility] (10 sources) Amoxicillin-Pot Clavulanate Drug Allergy 5 [facility] Medications Current Medications Medication Drug Class(es) Dates [...] Orally Once a day; Note: Source Status: Nlvzyv73 MG; Provider: Kia George ( ) Start: 11-27-2023 End: 11-27-2023 take 1 capsule by mouth once daily as needed Docusate Sodium Discontinued 1 CAP PO Daily November 27, 2023 12:00am November 27, 2023 9:52am FreeTextSi capsule as needed Orally Once a day; Note: Source Status: Mfmjdd27 MG; Provider: Kia George ( ) DULoxetine [...] chew), # 90 caplet(s), Refills(s) 3, Pharmacy: [facility]/pharmacy #[id number], 160, cm, 01/11/22 16:30:00 EDT, Height/Length Dosing, 87.1, kg, 01/11/22 16:30:00 EDT, Weight Dosing Start Date: 01/11/22 Status: Ordered Flonase 0.05 mg/inh Devens (1 source) Start: 01-11-2022 take 1 spray(s) nasal route twice daily Flonase 0.05 mg/inh Devens 1 spray(s), Nasal, BID, 16 gram, Refill(s) [...] monday, # 30 tab(s), Refills(s) 5, Pharmacy: [facility]/pharmacy #[id number], 160, cm, 01/11/22 16:30:00 EDT, Height/Length [...] Ross Start: 05-29-2019 take 1 capsule by [facility] every twelve hours Doxycycline Hyclate 100 MG 1 capsule Orally Twice a day for 10 day(s) May, Not-Taking Vaacw-Huggf-5-Sxe-Jta-Apbfog (4 sources) Start: 11-27-2023 End: 11-27-2023 Fwueb-Rbtsy-0-Jyo-Vjj-Ngqego Discontinued CAP PO November 27, 2023 12:00am November 27, 2023 9:52am Cbxfi-Bkczq-2-Ezd-Zkw-Ehdgmy 280-12-18-50 mg capsule (7 sources) Start: 11-27-2023 End: 11-27-2023 Hltcj-Nbsod-4-Anv-Uah-Bvsqwq 247-46-04-50 mg capsule Discontinued CAP PO November 27, 2023 12:00am November 27, 2023 9:52am Start: 11-27-2023 End: 11-27-2023 Gwaue-Ahlro-5-Yyf-Hct-Cbwxik 939-50-80-50 mg capsule Discontinued CAP PO November 26, [...] ) Omeprazole Not-T aking polyethylene glycol 3350 70674 mg powder for oral solution (20 sources) [...] Refill(s) 0, dissolve in water before taking, [facility]/pharmacy #[id number], 160, cm, 09/14/21 16:09:00 EST, Height/Length [...] 08-30-2022 Episodic Other aftercare (1 source) 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; Translations: [OTH JAIL CURRENT DRUG THERAPY] Onset: 08-30-2022 Episodic Other aftercare (1 source) 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; Translations: [BARN BOSS CURRENT USE OF ASPIRIN] Onset: 08-30-2022 Episodic Other gastrointestinal disorders (7 sources) Constipation, unspecified; Translations: [Constipation, unspecified] Onset: 09-11-2024 09-03-2024 Episodic Other upper respiratory disease (3 sources) Nasal congestion; Translations: [NASAL CONGESTION] Onset: 08-29-2022 Episodic Results Test Name Value Interpretation Reference Range Facility FPG ECG *PCP OFFICE ONLY*on 05-02-2025 FPG ECG *PCP OFFICE ONLY* [facility] [address] Electrocardiograph Report Signed Patient: Anisha Alanis MR#: [id number] 3 : 1955 Acct:[id number] Age/Sex: 69 / F ADM Date: 05/02/25 Loc: [facility] Dr: Doris Willis MD Ordering Provider: Doris Willis MD Date of Service: 05/02/25 ECG/FPG ECG *PCP OFFICE ONLY*: R07.2 - Precordial pain Copies to: Test Reason : Blood Pressure : */* mmHG Vent. Rate : 66 BPM Atrial Rate : 66 BPM P-R Int : 130 ms QRS Dur : 118 ms QT Int : 436 ms P-R-T Axes : 53 2 155 degrees QTcB Int : 457 ms Normal sinus rhythm Left bundle branch block Anteroseptal infarct , age undetermined Abnormal ECG No previous ECGs available Confirmed by Norberto Pedraza ([id number]) on 05/06/2025 9:20:18 AM Referred By: Electronically Signed By: Norberto Pedraza Transcribed By: MUS Signed By Norberto Pedraza MD 05/06/25 0920 Normal [facility] US THYROIDon 10-16-2024 US THYROID EXAM: Thyroid [...] report is generated using voice recognition reporting (iGisticse). On occasion, Night Outcribe erroneously drops words from the report or replaces the spoken word with a similar sounding word. Please call with any questions/concerns regarding the report. Dictated and transcribed 10/25/2024/marita This report has been electronically signed and approved by the interpreting radiologist. Normal Not Available Harley 09-26-2024 L -- ---- Specimen: [id number] Received: 09/26/24 Status: RAS Rosalva Num: [id number] Spec Type: Surgical Subm Dr: Dayana Worley MD Tissues: A Gastric Biopsy (GASTRIC BX) B Colon Biopsy (ASCENDING COLON POLYP) C Colon Biopsy (SIGMOID POLYP) Procedures: HE/6, Gross/Micro L4/3, H PYLORI ---- Age/ Patient Sex Location Account Attending Physician ---- Anisha Alanis 69/F [id number] Dayana Worley MD ---- SPEC NUM: [id number] RECD: 09/26/24 STATUS: RAS BLACKWELL NUM: [id number] SANJUANA: 09/26/[address]: Dayana Worley MD ENTERED: 09/26/[address] [facility] DR: SPEC TYPE: Surgical DEPT: S ENTERED BY: [id number] RECV BY: [id number] ORDERED: HE/6, Gross/Micro L4/3, H PYLORI ORDERED: [...] submitted in a single cassette. (1, ns, [id number] A) Part B is received in formalin labeled with the patients name, date of , and ascending polyp is a merritt-gutiérrez, focally erythematous, friable, 0.4 cm in greatest dimension polypoid ---- Specimen: [id number] Received: 09/26/24 Status: RAS Blackwell Num: [id number] Spec Type: Surgical Subm Dr: Dayana Worley MD Tissues: A Gastric Biopsy (GASTRIC BX) B Colon Biopsy (ASCENDING COLON POLYP) C Colon Biopsy (SIGMOID POLYP) Procedures: HE/6, Gross/Micro L4/3, H PYLORI ---- Patient: Anisha Alanis [id number] (Continued) ---- Specimen: [id number] Received: 09/26/24 (Continued) Gross Description (Continued) Signed (signature on file) Andreina Roy MD 09/30/24 1250 ---- Specimen: [id number] Received: 09/26/24 Status: RAS Burtonevaristo Num: [id number] Spec Type: Surgical Subm Dr: Dayana Worley MD Tissues: A Gastric Biopsy (GASTRIC BX) B Colon Biopsy (ASCENDING COLON POLYP) C Colon Biopsy (SIGMOID POLYP) Procedures: HE/6, Gross/Micro L4/3, H PYLORI ---- Patient: Anisha Alanis [id number] (Continued) ---- Specimen: [id number] Received: 09/26/24 (Continued) Gross Description (Continued) fragment. The specimen is entirely submitted in a single cassette. (1, ns, S2 B) Part C is received in formalin labeled with the patients name, date of , and sigmoid polyp is a merritt-gutiérrez, focally erythematous, friable, 0.4 cm in greatest dimension polypoid fragment. The specimen is entirely submitted in a single cassette. (1, ns, C) CPT Codes 25396y7,17044 ---- ---- Specimen: [id number] Received: 09/26/24 Status: RAS Blackwell Num: [id number] Spec Type: Surgical Subm Dr: Dayana Worley MD Tissues: A Gastric Biopsy (GASTRIC BX) B Colon Biopsy (ASCENDING COLON POLYP) C Colon Biopsy (SIGMOID POLYP) Procedures: HE/6, Gross/Micro L4/3, H PYLORI ---- Patient: Anisha Alanis [id number] (Continued) ---- Signed (signature on file) Andreina Roy MD 09/30/24 1250 Normal [facility] C reactive protein [Mass/vol ume] in Serum or PlasmaOrdered By: Dayana Worley on 09-19-2024 CRP [Mass/Vol] C reactive protein [Mass/volume] in Serum or Plasma 0.0-0.5 [facility] C-Reactive Proteinon 025 CRP [Mass/Vol] mg/L Normal 0.0-0.5 [facility] Comment on above: Performed By: #### H AABT, HBSAG, HBSAB, HBCAB, HCV RX PCR #### [facility] , #### TSH3, CRP #### [facility] [address] Hep C Ab wRfx to Qnt PCRon 0 09-19-2024 Hepatitis C Virus Antibody Non-Reactive Normal Non Reactive [facility] Comment on above: Performed By: #### H AABT, HBSAG, HBSAB, HBCAB, HCV RX PCR #### [facility] , #### TSH3, CRP #### [facility] [address] Interpretation Hepatitis C Comment Normal . [facility] Comment on above: Result Comment: Not infected with HCV unless early or acute infection is suspected (which may be delayed in an immunocompromised individual), or other evidence exists to indicate HCV infection. Performed By: #### H AABT, HBSAG, HBSAB, HBCAB, HCV RX PCR #### [facility] , #### TSH3, CRP #### [facility] [address] [place] [address] Hepatitis A Antibody Totalon 09-19-2024 Hepatitis A Antibody Total Negative Normal Negative [facility] Comment on above: Result Comment: Comm ent: The HAV total antibody assay detects both IgG and IgM but does not differentiate between them. A negative result suggests susceptibility to infection. A positive result could be due to vaccination, previously resolved infection or active infection. Testing for HAV IgM should be performed if active HAV infection is suspected. [facility] offers profiles that will automatically reflex positive HAV total antibody results to IgM (e.g., panel #[id number] HAV Antibody w/ Rfx). Performed at: [address] [id number] Gas Flow Regulator: Darinel Adkins PhD, Phone: [phone] Performed By: #### H AABT, HBSAG, HBSAB, HBCAB, HCV RX PCR #### [facility] , #### TSH3, CRP #### [facility] [address] [place] [address] Hepatitis B Core Antibodyon 09-19-2024 Hepatitis B Core Antibody Negative Normal Negative [facility] Comment on above: Performed By: #### H AABT, HBSAG, HBSAB, HBCAB, HCV RX PCR #### [facility] , #### TSH3, CRP #### [facility] [address] [place] [address] Hepatitis B Surface Antibody on 09-19-2024 Hepatitis B Surface Antibody Non-Reactive Normal . [facility] Comment on above: Result Comment: [...] #### [facility] , #### TSH3, CRP #### [address] Hepatitis B Surface Antigeno n 09-19-2024 HBsAg Screen Negative Normal Negative [facility] Comment on above: Result Comment: PERF ORMED BY: [place] [address] PATHOLOGIST [place] LIVIA GARCIA M.D. Performed By: #### H AABT, HBSAG, HBSAB, HBCAB, HCV RX PCR #### [facility] , #### TSH3, CRP #### [facility] [address] [place] [address] Thyroid Stimulating Hormoneo n 09-19-2024 TSH Qn 102.44 m[IU]/L High 0.45-5.33 [facility] Comment on above: Result Comment: PERF ORMED BY: [place] [address] PATHOLOGIST [place] LIVIA GARCIA M.D. Performed By: #### H AABT, HBSAG, HBSAB, HBCAB, HCV RX PCR #### [facility] , #### TSH3, CRP #### [facility] [address] [place] [address] Calprotectin [Mass/mass] in StoolOrdered By: Dayana Worley on 09-11-2024 Calprotectin (Stl) [Mass/Mass] Calprotectin [Mass/mass] in Stool High 0-120 [facility] Comment on above: Concentration Interp retation Follow-Up< 5 - 50 ug/g Normal None>50 -120 ug/g Borderline Re-evaluate in 4-6 weeks >120 ug/g Abnormal Repeat as clinically indicatedPerformed at: - [facility] [address] [id number] Director: Linsey Arce MD, Phone: [phone] Calprotectin, Fecalon 2024 Calprotectin, Fecal 127 High 0-120 [facility] Comment on above: Result Comment: Conc entration Interpretation Follow-Up < 5 - 50 ug/g Normal None >50 -120 ug/g Borderline Re-evaluate in 4-6 weeks >120 ug/g Abnormal Repeat as clinically indicated Performed at: - [facility] [id number] Gas Flow Regulator: Linsey Arce MD, Phone: [phone] PERFORMED BY: [facility] [place] [address] PATHOLOGIST [place] LIVIA GARCIA M.D. Performed By: #### C ALPROTECT #### [facility] , Basophils Auto (Bld) [#/Vol] on 05-24-2024 Basophils (Bld) [#/Vol] 0.1 10 3/uL 0.0-0.1 [facility] Basophils/100 WBC Auto (Bld) on 05-24-2024 Basophils/100 WBC (Bld) 1.6 % 0.2-2.0 [facility] Eosinophils/100 WBC Auto (Bl d)on 05-24-2024 Eosinophils/100 WBC (Bld) 7.0 % 0.9-7.0 [facility] Erythrocyte distribution wid th Auto (RBC) [Ratio]on 05-24-2024 Erythrocyte distribution width (RBC) [Ratio] 13.0 % 11.0-15.0 [facility] Estimated glomerular filtrat ion rate (GFR) non- Americanon 05-24-2024 GFR/1.73 sq M.predicted among non-blacks MDRD (S/P/Bld) [Vol rate/Area] mL/min/{1.73_m2} >=60 [facility] Globulin Calc (S) [Mass/Vol] on 05-24-2024 Globulin (S) [Mass/Vol] 2.9 g/dL [facility] Hematocrit Auto (Bld) [Volum e fraction]on 05-24-2024 Hematocrit (Bld) [Volume fraction] 42.5 % 36.0-48.0 [facility] Hemoglobin [Mass/volume] in Bloodon 05-24-2024 Hemoglobin (Bld) [Mass/Vol] 14.4 g/dL 12.0-16.0 [facility] Laboratory - Chemistry and C hemistry - challengeon 05-24-2024 Albumin [Mass/Vol] 3.6 g/dL 3.4-5.0 [facility] ALP [Catalytic activity/Vol] 71 U/L 46-116 [facility] ALT [Catalytic activity/Vol] 24 U/L 14-59 [facility] AST [Catalytic activity/Vol] 23 U/L 15-37 [facility] Bilirubin [Mass/Vol] 0.4 mg/dL 0.2-1.0 [facility] Calcium [Mass/Vol] 9.2 mg/dL 8.5-10.1 [facility] Chloride [Moles/Vol] 106 mmol/L 98-107 [facility] CO2 [Moles/Vol] 31.5 mmol/L 21.0-32.0 [facility] Creatinine [Mass/Vol] 0.84 mg/dL 0.55-1.02 [facility] GFR/1.73 sq M.predicted MDRD (S/P/Bld) [Vol rate/Area] mL/min/{1.73_m2} >=60 [facility] Glucose [Mass/Vol] 110 mg/dL High 74-106 [facility] Lipase [Catalytic activity/Vol] 47.0 U/L 16.0-77.0 [facility] Potassium [Moles/Vol] 4.0 mmol/L 3.5-5.1 [facility] Protein [Mass/Vol] 6.5 g/dL 6.4-8.2 [facility] Sodium [Moles/Vol] 142 mmol/L 136-145 [facility] Urea nitrogen [Mass/Vol] 8.0 mg/dL 7.0-18.0 [facility] Urea nitrogen/Creatinine [Mass ratio] 9.5 mg/mg [facility] Laboratory - Hematology and Cell countson 05-24-2024 Immature granulocytes/100 WBC (Bld) 0.2 % 0.0-0.5 [facility] Leukocytes [#/volume] correc yovanny for nucleated erythrocytes in Blood by Automated counon 05-24-2024 WBC corrected for nucl RBC Auto (Bld) [#/Vol] 4.3 10 3/uL 4.0-11.0 [facility] Lymphocytes Auto (Bld) [#/Vo l]on 05-24-2024 Lymphocytes (Bld) [#/Vol] 1.0 10 3/uL Low 1.2-3.8 [facility] Lymphocytes/100 WBC Auto (Bl d)on 05-24-2024 Lymphocytes/100 WBC (Bld) 24.4 % 20.5-60.0 [facility] MCH Auto (RBC) [Entitic mass ]on 05-24-2024 MCH (RBC) [Entitic mass] 30.6 pg 26.7-34.0 [facility] MCHC Auto (RBC) [Mass/Vol]on 05-24-2024 MCHC (RBC) [Mass/Vol] 33.9 g/dL 29.9-35.2 [facility] MCV Auto (RBC) [Entitic vol] on 05-24-2024 MCV (RBC) [Entitic vol] 90.2 fL 81.0-99.0 [facility] Monocytes Auto (Bld) [#/Vol] on 05-24-2024 Monocytes (Bld) [#/Vol] 0.5 10 3/uL 0.3-0.8 [facility] Monocytes/100 WBC Auto (Bld) on 05-24-2024 Monocytes/100 WBC (Bld) 10.5 % 1.7-12.0 [facility] Neutrophils Auto (Bld) [#/Vo l]on 05-24-2024 Neutrophils (Bld) [#/Vol] 2.4 10 3/uL 1.4-6.5 [facility] Neutrophils/100 WBC Auto (Bl d)on 05-24-2024 Neutrophils/100 WBC (Bld) 56.3 % 43.0-75.0 [facility] No Panel Informationon 05-24 Eosinophils # (Auto) 0.3 10 3/uL 0.0-0.7 [facility] Immature Granulocyte # (Auto) 0.01 10 3/uL 0.00-0.03 [facility] Platelet mean volume Auto (B ld) [Entitic vol]on 05-24-2024 Platelet mean volume (Bld) [Entitic vol] 8.9 fL Low 9.5-13.5 [facility] Platelets Auto (Bld) [#/Vol] on 05-24-2024 Platelets (Bld) [#/Vol] 247 10 3/uL 150-450 [facility] RBC Auto (Bld) [#/Vol]on RBC (Bld) [#/Vol] 4.71 10 6/uL 4.20-5.40 [facility] Serum or plasma albumin/glob ulin mass ratioon 05-24-2024 Albumin/Globulin [Mass ratio] 1.2 {ratio} [facility] Serum or plasma anion gap de terminationon 05-24-2024 Anion gap [Moles/Vol] 8.5 mmol/L [facility] - Chemistry and C hemistry - challengeon 11-24-2023 Free T4 [Mass/Vol] 1.24 ng/dL 0.76-1.46 [facility] TSH Qn 0.111 m[IU]/L 0.358-3.740 [facility] CBC AUTO DIFFon 12-21-2022 BASO # 0.0 103/ul Normal 0.0-0.1 [facility] Comment on above: Performed By: #### C BC #### [facility] [address] [place] [address] Dr. Aida Monae Basophils/100 WBC (Bld) 0.8 % Normal 0.2-2.0 [facility] Comment on above: Performed By: #### C BC #### [facility] [address] [address] [address] Aida Monae EO # 0.2 103/ul Normal 0.0-0.7 [facility] Comment on above: Performed By: #### C BC #### [facility] [address] [place] [address] Dr. Aida Monae Eosinophils/100 WBC (Bld) 4.1 % Normal 0.9-7.0 [facility] Comment on above: Performed By: #### C BC #### [facility] [address] [place] [address] Dr. Aida Monae Erythrocyte distribution width (RBC) [Ratio] 13.2 % Normal 11.0-15.0 [facility] Comment on above: Performed By: #### C BC #### [facility] [address] [place] [address] Dr. Aida Monae Hematocrit (Bld) [Volume fraction] 43.5 % Normal 36.0-48.0 [facility] Comment on above: Performed By: #### C BC #### [facility] [address] [place] [address] Dr. Aida Monae Hemoglobin (Bld) [Mass/Vol] 14.7 g/dL Normal 12.0-16.0 [facility] Comment on above: Performed By: #### C BC #### [facility] [address] [place] [address] Dr. Aida Monae IG # 0.02 10e3/ul Normal 0.00-0.03 [facility] Comment on above: Performed By: #### C BC #### [facility] [address] [place] [address] Dr. Aida Monae IG % 0.4 % Normal 0.0-0.5 [facility] Comment on above: Performed By: #### C BC #### [facility] [address] [place] [address] Dr. Aida Monae LYMPH # 1.2 103/ul Normal 1.2-3.8 [facility] Comment on above: Performed By: #### C BC #### [facility] [address] [place] [address] Dr. Aida Monae Lymphocytes/100 WBC (Bld) 24.3 % Normal 20.5-60.0 [facility] Comment on above: Performed By: #### C BC #### [facility] [address] [place] [address] Dr. Aida Monae MANUAL DIFF REQ NO Normal [facility] Comment on above: Performed By: #### C BC #### [facility] [address] [place], [place] [id number] Dr. Aida Monae MCH (RBC) [Entitic mass] 30.8 pg Normal 26.7-34.0 [facility] Comment on above: Performed By: #### C BC #### [facility] [address] [place] [address] Dr. Aida Monae MCHC (RBC) [Mass/Vol] 33.8 g/dL Normal 29.9-35.2 [facility] Comment on above: Performed By: #### C BC #### [facility] [address] [place] [address] Dr. Aida Monae MCV (RBC) [Entitic vol] 91.2 fL Normal 81.0-99.0 [facility] Comment on above: Performed By: #### C BC #### [facility] [address] [place] [address] Dr. Aida Monae MONO # 0.5 103/ul Normal 0.3-0.8 [facility] Comment on above: Performed By: #### C BC #### [facility] [address] [place] [address] Dr. Aida Monae Monocytes/100 WBC (Bld) 9.2 % Normal 1.7-12.0 [facility] Comment on above: Performed By: #### C BC #### [facility] [address] [place] [address] Dr. Aida Monae NEUT # 3.0 103/ul Normal 1.4-6.5 [facility] Comment on above: Performed By: #### C BC #### [facility] [address] [place] [address] Dr. Aida Monae Neutrophils/100 WBC (Bld) 61.2 % Normal 43.0-75.0 [facility] Comment on above: Performed By: #### C BC #### [facility] [address] [place] [address] Dr. Aida Monae Platelet mean volume (Bld) [Entitic vol] 8.9 fL Critically low 9.5-13.5 [facility] Comment on above: Performed By: #### C BC #### [facility] [address] [place] [address] Dr. Aida Monea PLT 259 103/ul Normal 150-450 [facility] Comment on above: Performed By: #### C BC #### [facility] [address] [place] [address] Dr. Aida Monae RBC 4.77 106/ul Normal 4.20-5.40 [facility] Comment on above: Performed By: #### C BC #### [facility] [address] [place] [address] Dr. Aida Monae WBC 4.9 103/ul Normal 4.0-11.0 [facility] Comment on above: Performed By: #### C BC #### [facility] [address] [place] [address] Dr. Aida Monae CBC AUTO DIFFon 11-09-2022 BASO # 0.0 103/ul Normal 0.0-0.1 [facility] Comment on above: Performed By: #### C BC #### [facility] [address] [place] [address] Dr. Aida Monae Basophils/100 WBC (Bld) 0.9 % Normal 0.2-2.0 [facility] Comment on above: Performed By: #### C BC #### [facility] [address] [place] [address] Dr. Aida Monae EO # 0.1 103/ul Normal 0.0-0.7 [facility] Comment on above: Performed By: #### C BC #### [facility] [address] [place] [address] Dr. Aida Monae Eosinophils/100 WBC (Bld) 3.6 % Normal 0.9-7.0 [facility] Comment on above: Performed By: #### C BC #### [facility] [address] [place] [address] Dr. Aida Monae Erythrocyte distribution width (RBC) [Ratio] 13.6 % Normal 11.0-15.0 [facility] Comment on above: Performed By: #### C BC #### [facility] [address] [place] [address] Dr. Aida Monae Hematocrit (Bld) [Volume fraction] 42.6 % Normal 36.0-48.0 [facility] Comment on above: Performed By: #### C BC #### [facility] [address] [place] [address] Dr. Aida Monae Hemoglobin (Bld) [Mass/Vol] 14.5 g/dL Normal 12.0-16.0 [facility] Comment on above: Performed By: #### C BC #### [facility] [address] [place] [address] Dr. Aida Monae IG # 0.01 10e3/ul Normal 0.00-0.03 [facility] Comment on above: Performed By: #### C BC #### [facility] [address] [place] [address] Dr. Aida Monae IG % 0.3 % Normal 0.0-0.5 [facility] Comment on above: Performed By: #### C BC #### [facility] [address] [place] [address] Dr. Aida Monae LYMPH # 1.0 103/ul Critically low 1.2-3.8 [facility] Comment on above: Performed By: #### C BC #### [facility] [address] [place] [address] Dr. Aida Monae Lymphocytes/100 WBC (Bld) 28.6 % Normal 20.5-60.0 [facility] Comment on above: Performed By: #### C BC #### [facility] [address] [place] [address] Dr. Aida Monae MANUAL DIFF REQ NO Normal [facility] Comment on above: Performed By: #### C BC #### [facility] [address] [place] [address] Dr. Aida Monae MCH (RBC) [Entitic mass] 30.2 pg Normal 26.7-34.0 [facility] Comment on above: Performed By: #### C BC #### [facility] [address] [place] [address] Dr. Aida Monae MCHC (RBC) [Mass/Vol] 34.0 g/dL Normal 29.9-35.2 [facility] Comment on above: Performed By: #### C BC #### [facility] [address] [place] [address] Dr. Aida Monae MCV (RBC) [Entitic vol] 88.8 fL Normal 81.0-99.0 [facility] Comment on above: Performed By: #### C BC #### [facility] [address] [place] [address] Dr. Aida Monae MONO # 0.4 103/ul Normal 0.3-0.8 [facility] Comment on above: Performed By: #### C BC #### [facility] [address] [place] [address] Dr. Aida Monae Monocytes/100 WBC (Bld) 11.9 % Normal 1.7-12.0 [facility] Comment on above: Performed By: #### C BC #### [facility] [address] [place] [address] Dr. Aida Monae NEUT # 1.8 103/ul Normal 1.4-6.5 [facility] Comment on above: Performed By: #### C BC #### [facility] [address] [place] [address] Dr. Aida Monae Neutrophils/100 WBC (Bld) 54.7 % Normal 43.0-75.0 [facility] Comment on above: Performed By: #### C BC #### [facility] [address] [place] [address] Dr. Aida Monae Platelet mean volume (Bld) [Entitic vol] 8.6 fL Critically low 9.5-13.5 [facility] Comment on above: Performed By: #### C BC #### [facility] [address] [place] [address] Dr. Aida Monae PLT 167 103/ul Normal 150-450 [facility] Comment on above: Performed By: #### C BC #### [facility] [address] [place] [address] Dr. Aida Monae RBC 4.80 106/ul Normal 4.20-5.40 [facility] Comment on above: Performed By: #### C BC #### [facility] [address] [place], [place] [address] Dr. Aida Monae WBC 3.4 103/ul Critically low 4.0-11.0 [facility] Comment on above: Performed By: #### C BC #### [facility] [address] [place], [place] [address] ABD/PELV W CONon 11-10-[address] ABD/PELV W CON EXAMINATION: CT ABD/PELV [...] by: STEPHANY MANZANO Date: 2022-11-09 10:59 Normal [facility] FREE T4on 11-09-2022 Free T4 [Mass/Vol] 1.34 ng/dL Normal 0.76-1.46 [facility] Comment on above: Performed By: #### F T4 #### [facility] [address] [place] [address] Dr. Aida Monae PROF 14(COMP METB)on 023 Albumin [Mass/Vol] 4.0 g/dL Normal 3.4-5.0 [facility] Comment on above: Performed By: #### C BC #### [facility] [address] [place] [address] Dr. Aida Monae Albumin/Globulin [Mass ratio] 1.3 {ratio} Normal [facility] Comment on above: Performed By: #### C BC #### [facility] [address] [place] [address] Dr. Aida Monae ALP [Catalytic activity/Vol] 66 U/L Normal 46-116 [facility] Comment on above: Performed By: #### C BC #### [facility] [address] [place] [address] Dr. Aida Monae ALT [Catalytic activity/Vol] 45 U/L Normal 14-59 [facility] Comment on above: Performed By: #### C BC #### [facility] [address] [place] [address] Dr. Aida Monae Anion gap [Moles/Vol] 10.8 mmol/L Normal [facility] Comment on above: Performed By: #### C BC #### [facility] [address] [place] [address] Dr. Aida Monae AST [Catalytic activity/Vol] 30 U/L Normal 15-37 [facility] Comment on above: Performed By: #### C BC #### [facility] [address] [place] [address] Dr. Aida Monae Bilirubin [Mass/Vol] 0.4 mg/dL Normal 0.2-1.0 [facility] Comment on above: Performed By: #### C BC #### [facility] [address] [place] [address] Dr. Aida Monae Calcium [Mass/Vol] 9.4 mg/dL Normal 8.5-10.1 [facility] Comment on above: Performed By: #### C BC #### [facility] [address] [place] [address] Dr. Aida Monae Chloride [Moles/Vol] 108 mmol/L Critically high 98-107 [facility] Comment on above: Performed By: #### C BC #### [facility] [address] [place] [address] Dr. Aida Monae CO2 [Moles/Vol] 31.5 mmol/L Normal 21.0-32.0 [facility] Comment on above: Performed By: #### C BC #### [facility] [address] [place] [address] Dr. Aida Monae Creatinine [Mass/Vol] 0.75 mg/dL Normal 0.55-1.02 [facility] Comment on above: Performed By: #### C BC #### [facility] [address] [place] [address] Dr. Aida Monae EGFR-AF MAURITIAN >60 Normal >=60 [facility] Comment on above: Performed By: #### C BC #### [facility] [address] [place] [address] Dr. Aida Monae EGFR-NON AF MAURITIAN >60 Normal >=60 [facility] Comment on above: Performed By: #### C BC #### [facility] [address] [place] [address] Dr. Aida Monae Globulin (S) [Mass/Vol] 3.0 g/dL Normal [facility] Comment on above: Performed By: #### C BC #### [facility] [address] [place] [address] Dr. Aida Monae Glucose [Mass/Vol] 108 mg/dL Critically high 74-106 [facility] Comment on above: Performed By: #### C BC #### [facility] [address] [place] [address] Dr. Aida Monae Potassium [Moles/Vol] 4.3 mmol/L Normal 3.5-5.1 [facility] Comment on above: Performed By: #### C BC #### [facility] [address] [address] [address] Aida Monae Protein [Mass/Vol] 7.0 g/dL Normal 6.4-8.2 [facility] Comment on above: Performed By: #### C BC #### [facility] [address] [place] [address] [address] Aida Monae Sodium [Moles/Vol] 146 mmol/L Critically high 136-145 [facility] Comment on above: Performed By: #### C BC #### [facility] [address] [place] [address] [address] Aida Monae Urea nitrogen [Mass/Vol] 10.0 mg/dL Normal 7.0-18.0 [facility] Comment on above: Performed By: #### C BC #### [facility] [address] [place] [address] Dr. Aida Monae Urea nitrogen/Creatinine [Mass ratio] 13.3 mg/mg Normal [facility] Comment on above: Performed By: #### C BC #### [facility] [address] [place] [address] Dr. Aida Monae TSHon 11-09-2022 TSH 0.243 uIU/mL Critically low 0.358-3.740 [facility] Comment on above: Performed By: #### T SH #### [facility] [address] [place] [address] Dr. Aida Monae FREE T4on 06-23-2022 Free T4 [Mass/Vol] 1.11 ng/dL Normal 0.76-1.46 [facility] Comment on above: Performed By: #### F T4 #### [facility] [address] [place] [address] Dr. Aida Monae GLYCOHEMOGLOBIN A1Con 2021 ADA RECOMMENDATION SEE BELOW Normal [facility] Comment on above: Result Comment: ADA RECOMMENDED LIMIT 4.0 - 6.0 ADA THERAPEUTIC TARGET < 7.0 ACTION SUGGESTED > 7.0 Performed By: #### A 1C #### [facility] [address] [place] [address] Dr. Aida Monae Glucose [Mass/Vol] 117 mg/dL Normal [facility] Comment on above: Performed By: #### A 1C #### [facility] [address] [place] [address] [address] Aida Monae HbA1c (Bld) [Mass fraction] 5.7 % Normal 4.5-6.2 [facility] Comment on above: Performed By: #### A 1C #### [facility] [address] [place] [address] [address] Aida Monae TSHon 06-23-2022 TSH 9.653 uIU/mL Critically high 0.358-3.740 [facility] Comment on above: Performed By: #### C BC #### [facility] [address] [place] [address] [address] Aida Monae Ambulatory Visit Summaryon 0 [...] mg Cap-EC) fluticasone nasal (Flonase 0.05 mg/inh Devens) levothyroxine (levothyroxine 100 mcg (0.1 mg) Tab) [...] PM EDT With: Markos Cruz DO Where: [facility] Primary Care Normal [facility] Medicine Office/Clini c Noteon 01-11-2022 Family Medicine Office/Clinic Note Chief Complaint here to check on thyroid level, also having allergies History of Present Illness 66 y/o female here to discuss hypothyroidism and MDD/anxiety CC confirmed with the patient with no changes HYPOTHYROID recent labs reveal TSH is 9.8 (outside labs - done at [place]) Free T4 was WNL previously on 100mcg [...] monday, # 30 tab(s), Refills(s) 5, Pharmacy: [facility]/pharmacy #[id number], 160, cm, 01/11/22 16:30:00 EDT, Height/Length [...] chew), # 90 caplet(s), Refills(s) 3, Pharmacy: [facility]/pharmacy #[id number], 160, cm, 01/11/22 16:30:00 EDT, Height/Length [...] chew), # 90 caplet(s), Refills(s) 3, Pharmacy: [facility]/pharmacy #[id number], 160, cm, 01/11/22 16:30:00 EDT, Height/Length Dosing, 87.1, kg, 01/11/22 16:30:00 EDT, Weight Dosing duloxetine, 60 mg = 1 cap(s), Oral, Daily, (do not crush or chew), # 30 cap(s), Refills(s) 2, Pharmacy: [facility]/pharmacy #[id number], 160, cm, 10/15/21 15:41:00 EST, Height/Length Dosing, 85, kg, 10/15/21 15:41:00 EST, Weight Dosing if labs look good in 6 weeks and she's doing well, ok to cancel appt and reschedule in 3-6 months if she is struggling with weight loss, I have encouraged her to f/u her sooner Follow-up With When Contact Information Markos Cruz DO, FAM, PED Within 3 months [address], [place] [address] [phone] Additional Instructions: 2 month follow - ok [...] Oral, Daily, 3 refills Flonase 0.05 mg/inh Devens, 1 spray(s), Nasal, BID levothyroxine 100 mcg (0.1 mg) Tab, See Instructions, 5 refills Maxalt, 10 mg, Oral, PRN MiraLax oral powder for reconstitution, 17 gm, Oral, Daily Multivitamin (more content not included)... Normal [facility] Comment on above: Result Comment: Elec tronically Signed By: Markos Cruz DO\.br\Date and Time Signed: 01/11/22 19:08 EDT Patient [...] Follow these instructions at home: ? Take inln-mfs-ixmoixu and prescription medicines only as told by [...] 08/21/2006 Document Revised: 08/03/2018 Document Reviewed: 08/01/2018 [employer] Patient Education ? 2019 [employer] Normal [facility] Lab Reportson 01-04-2022 Lab Reports [id number] Normal [facility] CBC AUTO DIFFon 12-28-2021 BASO # 0.1 103/ul Normal 0.0-0.1 [facility] Comment on above: Performed By: #### C BC #### [facility] [address] [place] [address] [address] Aida Monae Basophils/100 WBC (Bld) 1.0 % Normal 0.2-2.0 [facility] Comment on above: Performed By: #### C BC #### [facility] [address] [place] [address] [address] Aida Monae EO # 0.3 103/ul Normal 0.0-0.7 [facility] Comment on above: Performed By: #### C BC #### [facility] [address] [place] [address] Dr. Aida Monae Eosinophils/100 WBC (Bld) 6.9 % Normal 0.9-7.0 [facility] Comment on above: Performed By: #### C BC #### [facility] [address] [place] [address] Dr. Aida Monae Erythrocyte distribution width (RBC) [Ratio] 12.8 % Normal 11.0-15.0 [facility] Comment on above: Performed By: #### C BC #### [facility] [address] [place] [address] Dr. Aida Monae Hematocrit (Bld) [Volume fraction] 44.2 % Normal 36.0-48.0 [facility] Comment on above: Performed By: #### C BC #### [facility] [address] [place] [address] Dr. Aida Monae Hemoglobin (Bld) [Mass/Vol] 14.7 g/dL Normal 12.0-16.0 [facility] Comment on above: Performed By: #### C BC #### [facility] [address] [place] [address] Dr. Aida Monae IG # 0.01 10e3/ul Normal 0.00-0.03 [facility] Comment on above: Performed By: #### C BC #### [facility] [address] [place] [address] Dr. Aida Monae IG % 0.2 % Normal 0.0-0.5 [facility] Comment on above: Performed By: #### C BC #### [facility] [address] [place] [address] Dr. Aida Monae LYMPH # 1.3 103/ul Normal 1.2-3.8 [facility] Comment on above: Performed By: #### C BC #### [facility] [address] [place] [address] Dr. Aida Monae Lymphocytes/100 WBC (Bld) 27.0 % Normal 20.5-60.0 [facility] Comment on above: Performed By: #### C BC #### [facility] [address] [place] [address] Dr. Aida Monae MANUAL DIFF REQ NO Normal [facility] Comment on above: Performed By: #### C BC #### [facility] [address] [place] [address] Dr. Aida Monae MCH (RBC) [Entitic mass] 30.7 pg Normal 26.7-34.0 [facility] Comment on above: Performed By: #### C BC #### [facility] [address] [place] [address] Dr. Aida Monae MCHC (RBC) [Mass/Vol] 33.3 g/dL Normal 29.9-35.2 [facility] Comment on above: Performed By: #### C BC #### [facility] [address] [place] [address] Dr. Aida Monae MCV (RBC) [Entitic vol] 92.3 fL Normal 81.0-99.0 [facility] Comment on above: Performed By: #### C BC #### [facility] [address] [place] [address] Dr. Aida Monae MONO # 0.4 103/ul Normal 0.3-0.8 [facility] Comment on above: Performed By: #### C BC #### [facility] [address] [place] [address] Dr. Aida Monae Monocytes/100 WBC (Bld) 9.2 % Normal 1.7-12.0 [facility] Comment on above: Performed By: #### C BC #### [facility] [address] [place] [address] Dr. Aida Monae NEUT # 2.7 103/ul Normal 1.4-6.5 [facility] Comment on above: Performed By: #### C BC #### [facility] [address] [place] [address] Dr. Aida Monae Neutrophils/100 WBC (Bld) 55.7 % Normal 43.0-75.0 [facility] Comment on above: Performed By: #### C BC #### [facility] [address] [place] [address] Dr. Aida Monae Platelet mean volume (Bld) [Entitic vol] 8.8 fL Critically low 9.5-13.5 [facility] Comment on above: Performed By: #### C BC #### [facility] [address] [place] [address] Dr. Aida Monae PLT 247 103/ul Normal 150-450 [facility] Comment on above: Performed By: #### C BC #### [facility] [address] [place] [address] [address] Aida Monae RBC 4.79 106/ul Normal 4.20-5.40 [facility] Comment on above: Performed By: #### C BC #### [facility] [address] [place] [address] Dr. Aida Monae WBC 4.8 103/ul Normal 4.0-11.0 [facility] Comment on above: Performed By: #### C BC #### [facility] [address] [place] [address] Dr. Aida Monae FREE T4on 12-28-2021 Free T4 [Mass/Vol] 1.04 ng/dL Normal 0.76-1.46 [facility] Comment on above: Performed By: #### C BC #### [facility] [address] [place] [address] Dr. Aida Monae LIPID PROFILEon 12-28-2021 CHOL-HDL RATIO NORM SEE BELOW Normal [facility] Comment on above: Result Comment: 3.3 - 4.4 LOW RISK 4.4 - 7.1 AVERAGE RISK 7.1 - 11.0 MODERATE RISK >11.0 HIGH RISK Performed By: #### C MP, TSH, LIPID #### [facility] [address] [place] [address] Dr. Aida Monae Cholesterol [Mass/Vol] 126 mg/dL Normal <=200 [facility] Comment on above: Performed By: #### C MP, TSH, LIPID #### [facility] [address] [place] [address] Dr. Aida Monae Cholesterol in HDL [Mass/Vol] 47 mg/dL Normal 40-60 [facility] Comment on above: Performed By: #### C MP, TSH, LIPID #### [facility] [address] [place] [address] [address] Aida Monae Cholesterol in LDL [Mass/Vol] 46.8 mg/dL Normal [facility] Comment on above: Performed By: #### C MP, TSH, LIPID #### [facility] [address] [place] [address] [address] Aida Monae Cholesterol.total/Chol esterol in HDL [Mass ratio] 2.7 {ratio} Normal [facility] Comment on above: Performed By: #### C MP, TSH, LIPID #### [facility] [address] [place] [address] [address] Aida Monae HDL NORMAL > or = 60 mg/dl - LO W CARDIOVASCULAR RISK <40 mg/dl - HIGH CARDIOVASCULAR RISK Normal [facility] Comment on above: Performed By: #### C MP, TSH, LIPID #### [facility] [address] [place] [address] [address] Aida Monae LDL CALC NORMAL SEE BELOW Normal [facility] Comment on above: Result Comment: <100 mg/dl OPTIMAL 100 - 129 mg/dl NEAR OR ABOVE OPTIMAL 130 - 159 mg/dl BORDERLINE HIGH 160 - 189 mg/dl HIGH >190 mg/dl VERY HIGH Performed By: #### C MP, TSH, LIPID #### [facility] [address] [place] [address] [address] Aida Monae Triglyceride [Mass/Vol] 161 mg/dL Critically high <=150 [facility] Comment on above: Performed By: #### C MP, TSH, LIPID #### [facility] [address] [place] [address] [address] Aida Monae VLDL CALC 32.2 mg/dL Normal [facility] Comment on above: Performed By: #### C MP, TSH, LIPID #### [facility] [address] [place] [address] [address] Aida Monae PROF 14(COMP METB)on 022 Albumin [Mass/Vol] 3.8 g/dL Normal 3.4-5.0 [facility] Comment on above: Performed By: #### C MP, TSH, LIPID #### [facility] [address] [place] [address] [address] Aida Monae Albumin/Globulin [Mass ratio] 1.3 {ratio} Normal [facility] Comment on above: Performed By: #### C MP, TSH, LIPID #### [facility] [address] [place] [address] [address] Aida Monae ALP [Catalytic activity/Vol] 63 U/L Normal 46-116 [facility] Comment on above: Performed By: #### C MP, TSH, LIPID #### [facility] [address] [place] [address] [address] Aida Monae ALT [Catalytic activity/Vol] 26 U/L Normal 14-59 [facility] Comment on above: Performed By: #### C MP, TSH, LIPID #### [facility] [address] [place] [address] [address] Aida Monae Anion gap [Moles/Vol] 12.9 mmol/L Normal [facility] Comment on above: Performed By: #### C MP, TSH, LIPID #### [facility] [address] [place] [address] [address] Aida Monae AST [Catalytic activity/Vol] 18 U/L Normal 15-37 [facility] Comment on above: Performed By: #### C MP, TSH, LIPID #### [facility] [address] [place] [address] [address] Aida Monae Bilirubin [Mass/Vol] 0.3 mg/dL Normal 0.2-1.0 [facility] Comment on above: Performed By: #### C MP, TSH, LIPID #### [facility] [address] [place] [address] [address] Aida Monae Calcium [Mass/Vol] 8.4 mg/dL Critically low 8.5-10.1 [facility] Comment on above: Performed By: #### C MP, TSH, LIPID #### [facility] [address] [place] [address] [address] Aida Monae Chloride [Moles/Vol] 104 mmol/L Normal 98-107 [facility] Comment on above: Performed By: #### C MP, TSH, LIPID #### [facility] [address] [address] [address] Aida Monae CO2 [Moles/Vol] 29.4 mmol/L Normal 21.0-32.0 [facility] Comment on above: Performed By: #### C MP, TSH, LIPID #### [facility] [address] [address] [address] Aida Monae Creatinine [Mass/Vol] 0.81 mg/dL Normal 0.55-1.02 [facility] Comment on above: Performed By: #### C MP, TSH, LIPID #### [facility] [address] [place] [address] Dr. Aida Monae EGFR-AF MAURITIAN >60 Normal >=60 [facility] Comment on above: Performed By: #### C MP, TSH, LIPID #### [facility] [address] [place] [address] [address] Aida Monae EGFR-NON AF MAURITIAN >60 Normal >=60 [facility] Comment on above: Performed By: #### C MP, TSH, LIPID #### [facility] [address] [place] [address] Dr. Aida Monae Globulin (S) [Mass/Vol] 3.0 g/dL Normal [facility] Comment on above: Performed By: #### C MP, TSH, LIPID #### [facility] [address] [address] [address] Aida Monae Glucose [Mass/Vol] 124 mg/dL Critically high 74-106 [facility] Comment on above: Performed By: #### C MP, TSH, LIPID #### [facility] [address] [address] [address] Aida Monae Potassium [Moles/Vol] 4.3 mmol/L Normal 3.5-5.1 [facility] Comment on above: Performed By: #### C MP, TSH, LIPID #### [facility] [address] [address] [address] Aida Monae Protein [Mass/Vol] 6.8 g/dL Normal 6.1-8.2 [facility] Comment on above: Performed By: #### C MP, TSH, LIPID #### [facility] [address] [address] [address] Aida Monae Sodium [Moles/Vol] 142 mmol/L Normal 136-145 [facility] Comment on above: Performed By: #### C MP, TSH, LIPID #### [facility] [address] [address] [address] Aida Monae Urea nitrogen [Mass/Vol] 11.0 mg/dL Normal 7.0-18.0 [facility] Comment on above: Performed By: #### C MP, TSH, LIPID #### [facility] [address] [address] [address] Aida Monae Urea nitrogen/Creatinine [Mass ratio] 13.6 mg/mg Normal [facility] Comment on above: Performed By: #### C MP, TSH, LIPID #### [facility] [address] [address] [address] Aida Monae TSHon 12-28-2021 TSH 9.863 uIU/mL Critically high 0.470-4.680 [facility] Comment on above: Performed By: #### C MP, TSH, LIPID #### [facility] [address] [place] [address] Dr. Aida Monae TSH RANGE SEE BELOW Normal [facility] Comment on above: Result Comment: <0.3 4 UIU/ml HYPERTHYROID 0.34-5.60 UIU/ml EUTHYROID >5.60 UIU/ml HYPOTHYROID Performed By: #### C MP, TSH, LIPID #### [facility] [address] [address] [address] Aida Monae Ambulatory Visit Summaryon 0 [...] PM EDT With: Markos Cruz DO Where: [facility] Normal [facility] Family Medicine Office/Clini c Noteon 10-15-2021 Family [...] the sym (more content not included)... Normal [facility] Comment on above: Result Comment: Elec tronically Signed By: Markos Cruz DO\Date and Time Signed: 10/15/21 17:00 EST Patient Educationon 10-15-19 Patient Education Mental and Behaviora [facility] Generalized Anxiety Disorder, Pediatric Generalized anxiety disorder [...] child?s health (more content not included)... Normal [facility] Lab Reportson 09-28-2021 Lab Reports [id number] 0CD:[id number] Normal [facility] Formson 09-15-2021 Forms [id number] 0CD:127 Normal [facility] Family Medicine Office/Clini c Noteon 09-14-2021 Family Medicine Office/Clinic Note Chief Complaint hair loss, bowel issues, wants thyroid checked History of Present Illness 66 y/o female here to establish care last pcp was Dr. Willis in [place] daughter in law is Tiana Piedra; recommended [...] this medication BLADDER ISSUES Dr Yeager in [place] performed a bladder suspension approx 2 years ago in [place] BRITTLE NAILS have always been brittle lately they've been worse HAIR LOSS my beautician reports significant hairloss and the texture has changed last TSH was at least a couple of years no hx of CA last mammogram 2 years ago - [facility] no hx of [place] no hx of CVA no hx of [...] Refill(s) 0, dissolve in water before taking, [id number], 160, cm, 09/14/21 16:09:00 EST, Height/Length Dosing, 85.1, kg, 09/14/21 16:09:00 EST, Weight Dosing rosuvastatin, 20 mg = 1 tab(s), Oral, Daily, # 90 tab(s), Refills(s) 3, Pharmacy: [id number], 160, cm, 09/14/21 16:09:00 EST, Height/Length Dosing, 85.1, kg, 09/14/21 16:09:00 EST, Weight Dosing 7. Chronic constipation Chronic Sub-optimal control It seems like she's having more BMs than she should be; perhaps related (more content not included)... Normal [facility] Comment on above: Result Comment: Elec tronically [...] Follow these instructions at home: ? Take [id number] and prescription medicines only as told by [...] 08/21/2006 Document Revised: 08/03/2018 Document Reviewed: 08/01/2018 [employer] Patient Education ? 2019 [employer] [facility] Dermatopathologyon 05-26-202 0 Dermatopathology [facility] Dermatopathology Laboratory [address] [place] [id number] DERMATOPATHOLOGY REPORT Name:ANISHA ALANIS [facility]. Rec #. [id number] Location: [facility] Date of Procedure: 01/28/2020 Race: Date [...] M.D. Electronically Signed Out By AXEL OSBORNE MD/[facility] By the signature on this report, the individual or group listed as making the Final Interpretation/Diagnos is certifies that they have reviewed this case. Clinical History: Drug eruption, Hypersensitivity Reaction, Papular Eczema. Punch Biopsy. 4 mm. Specimens Submitted As: A: SKIN, R ARM Gross Description: Received in formalin is a merritt, cylindrical piece of skin measuring [id number]. The specimen is inked and embedded in toto. mip/01/30/2020 Normal [facility] Comment on above: Performed By: #### D #### Dermatopathology Vital Signs Date Time Vital Sign Value Performing Clinician Facility 05-02-2025 10:36-0400 Body height 157.48 cm Doris Willis MD Work Phone: [facility] 05-02-2025 10:36-0400 Body mass index (BMI) [Ratio] 29.9 kg/m2 Doris Willis MD Work Phone: [facility] 05-02-2025 10:36-0400 Body weight 74.38 kg Doris Willis MD Work Phone: [facility] 05-02-2025 10:36-0400 Diastolic blood pressure 80 mm[Hg] Doris Willis MD Work Phone: [facility] 05-02-2025 10:36-0400 Heart rate 62 /min Doris Willis MD Work Phone: [facility] 05-02-2025 10:36-0400 Respiratory rate 12 /min Doris Willis MD Work Phone: [facility] 05-02-2025 10:36-0400 SaO2% (BldA) [Mass fraction] 97 % Doris Willis MD Work Phone: [facility] 05-02-2025 10:36-0400 Systolic blood pressure 123 mm[Hg] Doris Willis MD Work Phone: [facility] 04-16-2025 10:24-0400 Body height 157.5 cm Tonia Morgan MD Work Phone: [facility] 04-16-2025 10:24-0400 Body mass index (BMI) [Ratio] 30.36 kg/m2 Tonia Morgan MD Work Phone: [facility] 04-16-2025 10:24-0400 Body weight 75.3 kg Tonia Morgan MD Work Phone: [facility] 04-16-2025 10:24-0400 Heart rate 70 /min Tonia Morgan MD Work Phone: [facility] 04-16-2025 10:24-0400 Respiratory rate 16 /min Tonia Morgan MD Work Phone: [facility] 04-16-2025 10:24-0400 SaO2% (BldA) [Mass fraction] 98 % Tonia Morgan MD Work Phone: [facility] 01-15-2025 10:19-0400 Body height 157.5 cm Tonia Morgan MD Work Phone: [facility] 01-15-2025 10:19-0400 Body mass index (BMI) [Ratio] 32.19 kg/m2 Tonia Morgan MD Work Phone: [facility] 01-15-2025 10:19-0400 Body weight 79.83 kg Tonia Morgan MD Work Phone: [facility] 01-15-2025 10:19-0400 Diastolic blood pressure 92 mm[Hg] Tonia Morgan MD Work Phone: [facility] 01-15-2025 10:19-0400 Heart rate 70 /min Tonia Morgan MD Work Phone: [facility] 01-15-2025 10:190400 Respiratory rate 16 /min Tonia Morgan MD Work Phone: [facility] 01-15-2025 10:19-0400 SaO2% (BldA) [Mass fraction] 95 % Tonia Morgan MD Work Phone: [facility] 01-15-2025 10:19-0400 Systolic blood pressure 148 mm[Hg] Tonia Morgan MD Work Phone: [facility] 11-07-2024 09:10-0500 Body height 157.48 cm Doris Willis MD Work Phone: [facility] 11-07-2024 09:10-0500 Body mass index (BMI) [Ratio] 31.2 kg/m2 Doris Willis MD Work Phone: [facility] 11-07-2024 09:10-0500 Body weight 77.56 kg Doris Willis MD Work Phone: [facility] 10-16-2024 10:13-0500 Body height 157.5 cm Tonia Morgan MD Work Phone: [facility] 10-16-2024 10:13-0500 Body mass index (BMI) [Ratio] 31.83 kg/m2 Tonia Morgan MD Work Phone: [facility] 10-16-2024 10:13-0500 Body weight 78.93 kg Tonia Morgan MD Work Phone: [facility] 10-16-2024 10:13-0500 Diastolic blood pressure 84 mm[Hg] Tonia Morgan MD Work Phone: [facility] 10-16-2024 10:13-0500 Heart rate 84 /min Tonia Morgan MD Work Phone: [facility] 10-16-2024 10:13-0500 Respiratory rate 18 /min Tonia Morgan MD Work Phone: [facility] 10-16-2024 10:13-0500 SaO2% (BldA) [Mass fraction] 97 % Tonia Morgan MD Work Phone: [facility] 10-16-2024 10:13-0500 Systolic blood pressure 134 mm[Hg] Tonia Morgan MD Work Phone: [facility] 10-15-2024 09:29-0500 Body height 157.48 cm Doris Willis MD Work Phone: [facility] 10-15-2024 09:29-0500 Body mass index (BMI) [Ratio] 31.4 kg/m2 Doris Willis MD Work Phone: [facility] 10-15-2024 09:29-0500 Body temperature 98.5 [degF] Doris Willis MD Work Phone: [facility] 10-15-2024 09:29-0500 Body weight 78.01 kg Doris Willis MD Work Phone: [facility] 10-15-2024 09:29-0500 Diastolic blood pressure 86 mm[Hg] Doris Willis MD Work Phone: [facility] 10-15-2024 09:29-0500 Heart rate 85 /min Doris Willis MD Work Phone: [facility] 10-15-2024 09:29-0500 Systolic blood pressure 137 mm[Hg] Doris Willis MD Work Phone: [facility] 09-26-2024 13:56-0500 Diastolic blood pressure 68 mm[Hg] Doris Willis MD Work Phone: [facility] 09-26-2024 13:56-0500 Heart rate 60 /min Doris Willis MD Work Phone: [facility] 09-26-2024 13:56-0500 Respiratory rate 18 /min Doris Willis MD Work Phone: [facility] 09-26-2024 13:56-0500 SaO2% (BldA) [Mass fraction] 100 % Doris Willis MD Work Phone: [facility] 09-26-2024 13:56-0500 Systolic blood pressure 122 mm[Hg] Doris Willis MD Work Phone: [facility] 09-26-2024 11:54-0500 Body height 157.48 cm Doris Willis MD Work Phone: [facility] 09-26-2024 11:54-0500 Body weight 72.57 kg Doris Willis MD Work Phone: [facility] 09-03-2024 14:13-0500 Body height 157.48 cm Doris Willis MD Work Phone: [facility] 09-03-2024 14:13-0500 Body mass index (BMI) [Ratio] 29.8 kg/m2 Doris Willis MD Work Phone: [facility] 09-03-2024 14:13-0500 Body weight 73.93 kg Doris Willis MD Work Phone: [facility] 06-28-2024 09:35-0400 Body height 157.48 cm [facility] 06-28-2024 09:35-0400 Body mass index (BMI) [Ratio] 30.7 kg/m2 [facility] 06-28-2024 09:35-0400 Body weight 76.2 kg [facility] 06-28-2024 09:35-0400 Diastolic blood pressure 85 mm[Hg] [facility] 06-28-2024 09:35-0400 Heart rate 69 /min [facility] 06-28-2024 09:35-0400 Systolic blood pressure 123 mm[Hg] [facility] 06-18-2024 08:12-0400 Body height 157.48 cm [facility] 06-18-2024 08:12-0400 Body mass index (BMI) [Ratio] 31.1 kg/m2 [facility] 06-18-2024 08:12-0400 Body weight 77.11 kg [facility] 06-18-2024 08:12-0400 Diastolic blood pressure 90 mm[Hg] [facility] 06-18-2024 08:12-0400 Heart rate 63 /min [facility] 06-18-2024 08:12-0400 Respiratory rate 16 /min [facility] 06-18-2024 08:12-0400 SaO2% (BldA) [Mass fraction] 97 % [facility] 06-18-2024 08:12-0400 Systolic blood pressure 140 mm[Hg] [facility] 05-20-2024 09:39-0400 Body height 157.48 cm [facility] 05-20-2024 09:39-0400 Body mass index (BMI) [Ratio] 32 kg/m2 [facility] 05-20-2024 09:39-0400 Body weight 79.37 kg [facility] 05-20-2024 09:39-0400 Diastolic blood pressure 84 mm[Hg] [facility] 05-20-2024 09:39-0400 Heart rate 61 /min [facility] 05-20-2024 09:39-0400 Systolic blood pressure 164 mm[Hg] [facility] 11-27-2023 09:45-0400 Body height 157.48 cm [facility] 11-27-2023 09:45-0400 Body mass index (BMI) [Ratio] 32.3 kg/m2 [facility] 11-27-2023 09:45-0400 Body weight 80.28 kg [facility] 11-27-2023 09:45-0400 Diastolic blood pressure 92 mm[Hg] [facility] 11-27-2023 09:45-0400 Heart rate 69 /min [facility] 11-27-2023 09:45-0400 Systolic blood pressure 148 mm[Hg] [facility] 05-04-2023 14:15-0400 Body height 157.48 cm Doris Willis Other [facility] Other 05-04-2023 14:15-0400 Body mass index (BMI) [Ratio] 32.59 kg/m2 Doris Werner [facility] [employer] Other 05-04-2023 14:15-0400 Body weight 80.83 kg Doris Willis Other [facility] [employer] Other 05-04-2023 14:15-0400 Diastolic blood pressure 84 mm[Hg] Doris Willis Other [facility] [employer] Other 05-04-2023 14:15-0400 Systolic blood pressure 141 mm[Hg] Doris Willis Other [facility] [employer] Other 04-23-2023 14:01-0400 Body height 157.48 cm MD Doris Willis Work Phone: [facility] 04-23-2023 14:01-0400 Body temperature 99.2 [degF] MD Doris Willis Work Phone: [facility] 04-23-2023 14:01-0400 Body weight 79.3 kg MD Doris Willis Work Phone: [facility] 04-23-2023 14:01-0400 Diastolic blood pressure 96 mm[Hg] MD Doris Willis Work Phone: [facility] 04-23-2023 14:01-0400 Heart rate 85 /min MD Doris Willis Work Phone: [facility] 04-23-2023 14:01-0400 Respiratory rate 18 /min MD Doris Willis Work Phone: [facility] 04-23-2023 14:01-0400 SaO2% (BldA) [Mass fraction] 97 % MD Doris Willis Work Phone: [facility] 04-23-2023 14:01-0400 Systolic blood pressure 153 mm[Hg] MD Doris Willis Work Phone: [facility] 11-03-2022 15:00-0500 Body height 160.02 cm Doris Willis Other [facility] Other 11-03-2022 15:00-0500 Body mass index (BMI) [Ratio] 31.7 kg/m2 Doris Willis Other [facility] Other 11-03-2022 15:00-0500 Body weight 81.19 kg Doris Willis Other [facility] Other 11-03-2022 15:00-0500 Diastolic blood pressure 84 mm[Hg] Doris Willis Other [facility] Other 11-03-2022 15:00-0500 SaO2% (BldA) [Mass fraction] 97 % Doris Willis Other [facility] Other 11-03-2022 15:00-0500 Systolic blood pressure 142 mm[Hg] Doris Willis Other [facility] Other 01-11-2022 16:24-0400 Blood Pressure Location [facility] 01-11-2022 16:24-0400 Body temperature 98.78 [degF] [facility] 01-11-2022 16:24-0400 Diastolic blood pressure 90 mm[Hg] [facility] 01-11-2022 16:24-0400 Heart rate 65 /min [facility] 01-11-2022 16:24-0400 SaO2% (BldA) [Mass fraction] 97 % [facility] 05-10-2022 16:24-0400 Systolic blood pressure 140 mm[Hg] Markos Cruz [facility] Encounters Encounter Date Encounter Type Care Provider Facility Start: 05-02-2025 End: 05-02-2025 ambulatory Doris Willis MD Work Phone: [facility] Work Phone: Start: 05-02-2025 End: 05-02-2025 Patient encounter procedure Doris Willis MD -[facility] Work Phone: Start: 04-16-2025 End: 04-16-2025 Bamboo flowsisaiah Morgan [facility] Start: 04-16-2025 End: 04-16-2025 Bamsarai Morgan MD Work Phone: [facility] Start: 04-16-2025 End: 04-16-2025 Office outpatient visit 25 minutes Tonia Morgan MD Work Phone: [facility] Comment on above: Acquired hypothyroid ism (Primary Dx); Vitamin D deficiency; Brooks's disease ; 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 and body mass index (BMI) of 30.0 to 30.9 in adult Start: 04-16-2025 End: 04-16-2025 ambulatory TONIA MORGAN Not Available Start: 01-15-2025 End: 01-15-2025 Bamboo flowsisaiah Morgan MD Work Phone: [facility] Start: 01-15-2025 End: 01-15-2025 Bamboo flowsisaiah Morgan MD Work Phone: [facility] Start: 01-15-2025 End: 01-15-2025 Office outpatient visit 25 minutes Tonia Morgan MD Work Phone: [facility] Comment on above: Brooks's disease (CMS/HCC) (Primary Dx); Acquired hypothyroidism (CMS/HCC); Vitamin D deficiency; 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out serious comorbidity with body mass index (BMI) of 32.0 to 32.9 in adult Start: 01-15-2025 End: 01-15-2025 ambulatory TONIA MORGAN Not Available Start: 11-07-2024 End: 11-07-2024 ambulatory Doris Willis MD Work Phone: [facility] Work Phone: Start: 11-07-2024 End: 11-07-2024 Patient encounter procedure Doris Willis MD Work Phone: [facility] Work Phone: Start: 10-31-2024 End: 10-31-2024 Telephone encounter Tonia Morgan MD Work Phone: [facility] Comment on above: Results Start: 10-24-2024 End: 10-24-2024 ambulatory TONIA MORGAN Not Available Start: 10-16-2024 End: 10-16-2024 Bamboo flowsheet Tonia Morgan MD Work Phone: [facility] Start: 10-16-2024 End: 10-16-2024 Bamboo flowsheet Tonia Morgan MD Work Phone: [facility] Start: 10-16-2024 End: 10-16-2024 Office outpatient new 45 minutes Tonia Morgan MD Work Phone: [facility] Comment on above: Acquired hypothyroid ism (CMS/HCC) (Primary Dx); Vitamin D deficiency; 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out serious comorbidity with body mass index (BMI) of 31.0 to 31.9 in adult; Weight gain Start: 10-16-2024 End: 10-16-2024 ambulatory TONIA MORGAN Not Available Start: 10-15-2024 End: 10-15-2024 ambulatory Doris Willis MD Work Phone: [facility] Work Phone: Start: 10-15-2024 End: 10-15-2024 Patient encounter procedure Doris Willis MD Work Phone: [facility] Work Phone: Start: 10-08-2024 Non-patient / Non-visit Doris Willis MD Work Phone: [facility] Work Phone: Start: 09-26-2024 Non-patient / Non-visit Doris Willis MD Work Phone: [facility] Work Phone: Start: 09-26-2024 End: 09-26-2024 Admission to same day surgery center Doris Willis MD Work Phone: [facility] Work Phone: Start: 09-26-2024 End: 09-26-2024 ambulatory Doris Willis MD Work Phone: [facility] Work Phone: Start: 09-19-2024 End: 09-19-2024 Patient encounter procedure Doris Willis MD Work Phone: [facility] Work Phone: Start: 09-19-2024 End: 09-19-2024 ambulatory Doris Willis MD Work Phone: [facility] Work Phone: Start: 09-19-2024 Non-patient / Non-visit Doris Willis MD Work Phone: [facility] Work Phone: Start: 09-11-2024 End: 09-11-2024 Patient encounter procedure Doris Willis MD Work Phone: [facility] [place] Work Phone: Start: 09-11-2024 End: 09-11-2024 ambulatory Doris Willis MD Work Phone: [facility] Work Phone: Start: 09-03-2024 End: 09-03-2024 Patient encounter procedure Doris Willis MD Work Phone: [facility] Work Phone: Start: 06-29-2024 Patient encounter procedure Doris Willis MD Work Phone: [facility] Start: 06-28-2024 End: 06-28-2024 ambulatory [facility] Work Phone: Start: 06-28-2024 End: 06-28-2024 Patient encounter procedure [facility] Work Phone: Start: 06-27-2024 Non-patient / Non-visit [facility] Work Phone: Start: 06-18-2024 End: 06-18-2024 ambulatory [facility] Work Phone: Start: 06-18-2024 End: 06-18-2024 Patient encounter procedure [facility] Work Phone: Start: 05-24-2024 Non-patient / Non-visit [facility] Work Phone: Start: 05-20-2024 End: 05-20-2024 ambulatory [facility] Work Phone: Start: 05-20-2024 End: 05-20-2024 Patient encounter procedure [facility] Work Phone: Start: 11-27-2023 End: 11-27-2023 ambulatory [facility] Work Phone: Start: 11-27-2023 End: 11-27-2023 Patient encounter procedure [facility] Work Phone: Start: 11-24-2023 Non-patient / Non-visit [facility] Work Phone: Start: 07-10-2023 End: 07-10-2023 ambulatory Doris Willis Other [facility] Other Start: 07-10-2023 Telephone encounter Doris Willis [facility] Start: 07-03-2023 End: 07-03-2023 ambulatory Doris Willis Other [facility] Other Start: 07-03-2023 Telephone encounter Doris Willis [facility] Start: 05-04-2023 End: 05-04-2023 ambulatory Doris Willis Other [facility] Other Start: 05-04-2023 Office outpatient vi sit 15 minutes Doris Willis [facility] Start: 04-23-2023 End: 04-23-2023 Emergency department patient visit MD Doris Willis Work Phone: [facility] Work Phone: Start: 01-03-2023 End: 01-03-2023 ambulatory Doris Willis Other [facility] Other Start: 01-03-2023 Telephone encounter Doris Willis [facility] Start: 12-21-2022 End: 12-22-[address] DORIS WILLIS Facility:[facility] Start: 11-10-2022 End: 11-10-2022 ambulatory Doris Willis Other [facility] Other Start: 11-10-2022 Telephone encounter Doris Willis [facility] Start: 11-09-2022 End: 11-10-[address] DORIS WILLIS Facility:[facility] Start: 11-03-2022 End: 11-03-2022 ambulatory Doris Willis Other [facility] Other Start: 11-03-2022 Office outpatient vi sit 15 minutes Doris Willis [facility] Start: 08-29-2022 End: 08-29-[address] DORIS WILLIS Facility:[facility] Start: 06-23-2022 End: 06-24-[address] DORIS WILLIS Facility:[facility] Start: 04-04-[address] DOCTOR CHRISTIANSON Facility :[facility] Start: 01-11-2022 End: 01-11-2022 Patient encounter procedure Markos Cruz [facility] Start: 12-28-2021 End: 12-29-[address] DOCTOR CHRISTIANSON Facility:[facility] Procedures Date Procedure Procedure Detail Performing Clinician Start: 09-26-2024 Esophagogastroduodenoscopy Drois Willis MD Work Phone: Start: 09-19-2024 Ultrasound elastography of liver Doris Willis MD Work Phone: Arthrodesis of ankle Markos Cruz Colonoscopy Markos Cruz Hysterectomy Markos Cruz Ligation of fallopian tube R lexi Anthony Plan of Treatment Date Care Activity Detail Author Start: 10-15-2025 End: 10-15-2025 Patient encounter procedure 10/15/2025 10:10 AM EST Office Visit [facility] [address] [place] [address] Tonia Morgan MD [address] [place] [address] [facility] Start: 05-05-2025 Influenza vaccination Influenza Vaccine (#1) [facility] Start: 05-02-2025 [facility] Start: 04-16-2025 End: 04-16-2026 Thyrotropin [Units/volume] in Serum or Plasma TSH Lab Routine Acquired hypothyroidism Expected: 04/16/2025 (Approximate), Expires: 04/16/2026 [facility] Comment on above: Expected: 04/16/2025 (Approximate), Expi res: 04/16/2026 Start: 04-16-2025 End: 04-16-2026 Thyroxine (T4) free [Mass/volume] in Serum or Plasma T4, free Lab Routine Acquired hypothyroidism Expected: 04/16/2025 (Approximate), Expires: 04/16/2026 [facility] Comment on above: Expected: 04/16/2025 (Approximate), Expi res: 04/16/2026 Start: 04-16-2025 End: 04-16-2026 Triiodothyronine (T3) Free [Mass/volume] in Serum or Plasma T3, free Lab Routine Acquired hypothyroidism Expected: 04/16/2025 (Approximate), Expires: 04/16/2026 [facility] Work Phone: Comment on above: Expected: 04/16/2025 (Approximate), Expi res: 04/16/2026 Start: 04-16-2025 End: 04-16-2025 Patient encounter procedure [facility] Comment on above: Arrived Start: 01-15-2025 End: 01-15-2026 Thyrotropin [Units/volume] in Serum or Plasma TSH Lab Routine Acquired hypothyroidism (CMS/HCC) Expected: 01/15/2025 (Approximate), Expires: 01/15/2026 [facility] Comment on above: Expected: 01/15/2025 (Approximate), Expi res: 01/15/2026 Start: 01-15-2025 End: 01-15-2026 Thyroxine (T4) free [Mass/volume] in Serum or Plasma T4, free Lab Routine Acquired hypothyroidism (CMS/HCC) Expected: 01/15/2025 (Approximate), Expires: 01/15/2026 [facility] Comment on above: Expected: 01/15/2025 (Approximate), Expi res: 01/15/2026 Start: 01-15-2025 End: 01-15-2026 Triiodothyronine (T3) Free [Mass/volume] in Serum or Plasma T3, free Lab Routine Acquired hypothyroidism (CMS/HCC) Expected: 01/15/2025 (Approximate), Expires: 01/15/2026 [facility] Work Phone: Comment on above: Expected: 01/15/2025 (Approximate), Expi res: 01/15/2026 Start: 01-15-2025 End: 01-15-2025 Patient encounter procedure [facility] Comment on above: Arrived Start: 10-16-2024 End: 10-16-2025 Thyroglobulin Antibody Thyroglobulin Antibody Lab Routine Acquired hypothyroidism (CMS/HCC) Expected: 10/16/2024 (Approximate), Expires: 10/16/2025 [facility] Work Phone: Comment on above: Expected: 10/16/2024 (Approximate), Expi res: 10/16/2025 Start: 10-16-2024 End: 10-16-2025 Thyroid peroxidase antibody Thyroid peroxidase antibody Lab Routine Acquired hypothyroidism (CMS/HCC) Expected: 10/16/2024 (Approximate), Expires: 10/16/2025 [facility] Comment on above: Expected: 10/16/2024 (Approximate), Expi res: 10/16/2025 Start: 10-16-2024 End: 10-16-2025 Thyrotropin [Units/volume] in Serum or Plasma TSH Lab Routine Acquired hypothyroidism (CMS/HCC) Expected: 10/16/2024 (Approximate), Expires: 10/16/2025 [facility] Comment on above: Expected: 10/16/2024 (Approximate), Expi res: 10/16/2025 Start: 10-16-2024 End: 10-16-2025 Thyroxine (T4) free [Mass/volume] in Serum or Plasma T4, free Lab Routine Acquired hypothyroidism (CMS/HCC) Expected: 10/16/2024 (Approximate), Expires: 10/16/2025 [facility] Comment on above: Expected: 10/16/2024 (Approximate), Expi res: 10/16/2025 Start: 10-16-2024 End: 10-16-2025 Triiodothyronine (T3) Free [Mass/volume] in Serum or Plasma T3, free Lab Routine Acquired hypothyroidism (CMS/HCC) Expected: 10/16/2024 (Approximate), Expires: 10/16/2025 [facility] Comment on above: Expected: 10/16/2024 (Approximate), Expi res: 10/16/2025 Start: 10-16-2024 End: 10-16-2025 US Thyroid gland US thyroid Imaging Routine Acquired hypothyroidism (CMS/HCC) Expected: 10/16/2024, Expires: 10/16/2025 [facility] Comment on above: Expected: 10/16/2024, Expires: Start: 10-16-2024 End: 10-16-2024 Patient encounter procedure 10/16/2024 10:10 AM EST Office Visit [facility] [address] [place] [id number] Tonia Morgan MD [address] [place] [address] Arrived [facility] Comment on above: Arrived Start: 09-26-2024 [facility] Start: 09-19-2024 Hepatitis A virus Ab [Presence] in Serum by Immunoassay [facility] Start: 09-19-2024 Hepatitis B core antibody measurement [facility] Start: 09-19-2024 Hepatitis B virus surface Ab [Presence] in Serum [facility] Start: 09-19-2024 [facility] Start: 09-11-2024 [facility] Start: 1993 Screening for malignant neoplasm of breast Mammogram [facility] Start: 1955 Screening for malignant neoplasm of colon [facility] Comprehensive metabo lic 1999 panel - Serum or Plasma [facility] Hepatitis A virus Ab [Presence] in Serum by Immunoassay [facility] Hepatitis B core ant ibody measurement [facility] Hepatitis B virus chino rface Ab [Presence] in Serum [facility] Hepatitis B virus chino rface Ag [Presence] in Serum or Plasma by Immunoassay [facility] Hepatitis C virus Ig G Ab [Presence] in Serum or Plasma by Immunoassay [facility] Patient Education [facility] Work Phone: Patient referral [facility] Work Phone: [place] Gallbladder [facility] Immunizations Immunization Date Immunization Notes Care Provider Fa cili 06-05-2024 influenza virus vaccine, unspecified formulation Tonia Morgan MD Work Phone: [facility] 06-21-2023 influenza virus vaccine, unspecified formulation [facility] 06-21-2023 influenza, high dose seasonal, preservative-free Doris Kia Other [facility] [employer] Other 07-03-2022 influenza virus vaccine, split virus (incl. purified surface antigen) Doris Kia Other [facility] [employer] Other 07-03-2022 influenza virus vaccine, unspecified formulation [facility] 11-28-2021 zoster vaccine recombinant [facility] 11-28-2021 zoster vaccine, live Doris Willis Other [facility] 08-29-2021 varicella virus vaccine [facility] 08-29-2021 zoster vaccine recombinant [facility] 08-29-2021 zoster vaccine, live Doris Willis Other [facility] 06-26-2021 influenza virus vaccine, split virus (incl. purified surface antigen) Doris Kia Other [facility] [employer] Other 06-26-2021 influenza virus vaccine, unspecified formulation [facility] 06-26-2021 SARS-CoV-2 (COVID-19 ) mRNA BNT-162b2 vax [facility] 12-22-2020 SARS-CoV-2 (COVID-19 ) mRNA BNT-162b2 vax [facility] 11-29-2020 SARS-CoV-2 (COVID-19 ) mRNA BNT-162b2 vax [facility] 06-09-2020 influenza virus vaccine, split virus (incl. purified surface antigen) Doris Willis Other [facility] Other 06-09-2020 influenza virus vaccine, unspecified formulation [facility] 06-04-2020 influenza virus vaccine, unspecified formulation [facility] 06-20-2019 influenza virus vaccine, unspecified formulation [facility] 06-18-2013 diphtheria, tetanus toxoids and acellular pertussis vaccine, unspecified formulation Doris Willis Other [facility] Payers Date Payer Category Payer Private Health Insurance [facility] [employer] [id number] 5 2020 Medicare MEDICARE [id number] 5 1959 Medicare [id number] 1959 Self-pay 1959 Unknown [id number] 1953 Unknown [id number] [id number] .2.593 1953 Unknown [id number] 2.16.840.1.534803.3.579 .2.593 1953 Unknown [id number] 2.16.840.1.518135.3.579 .2.593 1953 Unknown [id number] 2.16.840.1.414684.3.579 .2.593 1953 Unknown [id number] 2.16.840.1.737080.3.579 .2.593 1953 Unknown [id number] 2.16.840.1.225771.3.579 .2.593 1953 Unknown [id number] 2.16.840.1.204133.3.579 .2.1259 1953 Unknown [id number] 2.16.840.1.678839.3.579 .2.1259 1953 Unknown [id number] 2.16.840.1.972521.3.579 .2.1259 1953 Unknown [id number] [id number] .2.1259 Social History Date Type Detail Facility Start: 01-11-2022 End: 09-26-2024 Tobacco smoking status Ex-smoker (finding) [facility] Tobacco smoking status Never [facility] Sex Assigned At Female [facility] Start: 1955 Sex Assigned At Female [facility] Start: 09-12-2024 End: 11-07-2024 Sex Female (finding) [facility] Tobacco smoking status KYIS Tobacco smoking consumption unknown [facility] Start: 1955 Sex assigned at Not on file [facility] Goals Date Patient Goal Desired Activity /State Clinical Notes 01-11-2022 to 05-02-2025 Note Date & Type Note Facility 05-02-2025 Evaluation note Diagnosis Onset Date Resolution Abnormal EKG acute May 02, 2025 10:35am Chest pain acute May 02, 2 025 10:35am Substernal chest pain acute Aug ust 2024 10:35am [facility] Work Phone: 1(861) 430-893808-13-2025 History of Present illness Narrative* Tonia Morgan [...] levothyroxine 100 mcg daily, she takes it radiation therapy technologist empty stomach, denies thyroid surgery, deniesablation, no [...] patient Follow-up 6 months documented in this encounterSaint Luke's [id number] History of Present illness Narrative* Tonia Morgan [...] levothyroxine 100 mcg daily, she takes it radiation therapy technologist empty stomach, denies thyroid surgery, deniesablation, no [...] this visit: Brooks's disease (CMS/HCC) Acquired hypothyroidism (CMS/HCC) - liothyronine (Cytomel) 5 MCG tablet; Take [...] up in 3 months. documented in this encounterSaint Luke's [id number] Telephone encounter Note* Telephone Encounter - Glenn Olguin - 10/31/2024 10:12 AM EST Pt would like US read please and thank you! [id number] Miscellaneous Notes* Telephone Encounter - Glenn Olguin - 10/31/2024 10:12 AM EST Pt would like US read please and thank you! documented in this encounterSaint Luke's [id number] History of Present illness Narrative* Tonia Morgan MD - 10/16/2024 10:10 AM EST Anisha Alanis is a 69 y.o. female Dayana Worley MD presents with chief complaint of Thyroid Problem (NEW REF/LAB) HPI: HPI: 10/2024 New patient Sent from her GI due to uncontrolled hypothyroidism, TSH 102 on 09/2024, currently on levothyroxine 100 mcg daily, she takes it radiation therapy technologist empty stomach, denies thyroid surgery, deniesablation, no [...] 3 months (around 01/13/2025). documented in this encounterSaint Luke's [id number] [place] [id number] EGD/Colonoscopy Procedure Signed Patient: Anisha Alanis MR#: [id number] : 1955 Acct:[id number] Age/Sex: 69 / F Adm Date: Loc: Room: Type: [facility] Attending Dr: Dayana Worley MD Copies to: [...] was slowly withdrawnwith the findings as below. [place] bowel prep score was good. Findings: Few [...] MD 09/26/24 1302 Signed By: 09/26/24 1325 [facility]01-23-2025 [place] [id number] EGD/Colonoscopy Procedure Signed Patient: Anisha Alanis MR#: [id number] : 1955 Acct:[id number] Age/Sex: 69 / F Adm Date: 5 Loc: Room: Type: [facility] Attending Dr: Dayana Worley MD Copies to: [...] MD 09/26/24 1259 Signed By: 09/26/24 1302 [facility]12-31-2024 Evaluation note* Author joya [facility] Authored September 03, 2024 3:28pm 69-year-old female [...] FibroScan and check viral hepatitis serologies Author [facility] Authored November 07, 2024 10:4 4am 69-year-old [...] adenomas, tortuous colon, diverticulosis and internal hemorrhoids. [facility] Work Phone: 1(195) 271-220312-31-2024 Evaluation note* Author Dayana Worley [facility] Authored September 03, 2024 2:28pm 69-year-old [...] for FibroScan and check viral hepatitis serologies [facility] Work Phone: 1(670) 955-321411-06-2023 Evaluation note* Encounter Date Diagnosis Assessment Notes Treatment Notes Treatment Clinical Notes Jul, Hypothyroidism (ICD-10 - E03.9) [facility] Other 10-30-2023 Evaluation note* Encounter Date Diagnosis Assessment Notes Treatment Notes Treatment Clinical Notes Jun, Hypothyroidism (ICD-10 - E03.9) [facility] Other 08-31-2023 Evaluation note* Encounter Date Diagnosis Assessment Notes Treatment Notes Treatment Clinical Notes Apr, Insect bite (nonvenomous) of right elbow, initial encounter (ICD-10 - S50.361A) Prominent reaction to insect bite. No s/s infection. Very hot and red. Try cold compresses and ibuprofen for discomfort. Apr, Bitten or stung by nonvenomous insect and other nonvenomous arthropods, initial encounter (ICD-10 - W57.XXXA) [facility] Other 05-02-2023 Evaluation note* Encounter Date Diagnosis Assessment Notes Treatment Notes Treatment Clinical Notes January, Acquired hypothyroidism (ICD-10 - E03.9) [facility] Other 03-09-2023 Evaluation note* Encounter Date Diagnosis Assessment Notes Treatment Notes Treatment Clinical Notes Nov, Acquired hypothyroidism (ICD-10 - E03.9) Nov, Other decreased whit e blood cell (WBC) count (ICD-10 - D72.818) [facility] Other 03-02-2023 Evaluation note* Encounter Date Diagnosis [...] ensure she is on the right dose. [facility] Other 05-10-2022 Hospital Discharge instructions Patient Education [...] away. Follow these instructions at home: Take mfyw-iad-ypanhwt and prescription medicines only as told by [...] 08/21/2006 Document Revised: 08/03/2018 Document Reviewed: 08/01/2018 [employer] Patient Education 2020 [employer]. Follow Up Care 01/05/2022 08:53:39 With:Markos Cruz DO, KAYLA, PED Address: [address] [place] [address] [phone] When:3 months Comments:2 month follow - ok to cancel if no issues and labs look good [facility] evaluation + Plan note Future Appointments Appointment Date:04/05/2022 04:40:00 PM Scheduled Provider:Markos Cruz DO Location:[facility] Appointment Type: Open Diagnostic Tests Pending * TSH With T4fr Reflex 01/11/22 Future Scheduled Tests Laboratory* TSH With T4fr Reflex 09/14/21 * CBC w/ Auto Diff 09/14/21 * Comprehensive Metabolic Panel 09/14/21 * Lipid Panel 09/14/21 [facility] evaluation noteNo assessment information available [facility] Work Phone: evaluation note* Diagnosis Onset Date Resolution Status Gastro-esophageal reflux disease without esophagitis acute RUQ abdominal pain acute [facility] Work Phone: evaluation note* Diagnosis Onset Date Resolution Status Gastro-esophageal reflux disease without esophagitis acute RUQ abdominal pain acute Poison harriet dermatitis acute [facility] Work Phone: evaluation note* Diagnosis Acquired hypothyroidism (CMS/HCC)- Primary Unspecified hypothyroidism Vitamin D deficiency 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out serious comorbidity with body mass index (BMI) of 31.0 to 31.9 in adult Weight gain Other symptoms concerning nutrition, metabolism, and development [facility] Diagnosis Brooks's disease (CMS/HCC)- Primary Chronic lymphocytic thyroiditis Acquired hypothyroidism (CMS/HCC) Unspecified hypothyroidism Vitamin D deficiency 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out serious comorbidity with body mass index (BMI) of 32.0 to 32.9 in adult [facility] Diagnosis Acquired hypothyroidism- Primary Unspecified hypothyroidism Vitamin D deficiency Brooks's disease Chronic lymphocytic thyroiditis 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 and body mass index (BMI) of 30.0 to 30.9 in adult [facility] Diagnosis Onset Date Resolution Status Admit Date Substernal chest pain acute Aug ust 2024 10:35am [facility] Work Phone: History general Narrative - Reported* [...] JESUS 0 12/2020 Hospitalization History see above [facility] Other Hospital course Narrative No data available for this section [facility] Reason for referral (narrative)No reason for referral information availableMarietta Osteopathic Clinic Work Phone: Summary Purpose Family History No [...] Response Recorded Date/ Time Advance Directives No [place] 20th, 2023 12:14pm Chief Complaint and Reason for [...] by Dr Vargas Willis: fatty liver Dece [facility] 2023 2:08pm [email or web address] September 11, 2024 10 :06am Reason for Visit Admit Date Poison harriet dermatitis June 18, 2024 10:13am Hepatic steatosis June 28, 2024 9 :31am Hypercholesteremia June 28, 2024 9 :31am Hypothyroid June 28, 2024 9 :31am Medicare annual wellness visit, [facility] June 28, 2024 9:31am Migraine June 28, 2024 9 :31am Constipation September 03, 2024 2:08pm Gastro-esophageal reflux disease without esophagitis September 03, 2024 2:08pm Hepatic steatosis September 03, 2024 2:08pm History of colon polyps September 03, 2 024 2:08pm Chief Complaint Admit Date CC Adult Risk Stratification June 2:42pm Wellness June 28, 2024 9 :31am Referred by Dr Vargas Willis: fatty liver Dece [facility] 2023 2:08pm [email or web address] September 11, 2024 10 :06am fatty liver September 19, 2024 1 1:43am Reason for Visit Admit Date Hepatic steatosis June 28, 2024 9 :31am Hypercholesteremia June 28, 2024 9 :31am Hypothyroid June 28, 2024 9 :31am Medicare annual wellness visit, [facility] June 28, 2024 9:31am Migraine June 28, 2024 9 :31am Constipation September 03, 2024 2:08pm Gastro-esophageal reflux disease without esophagitis September 03, 2024 2:08pm Hepatic steatosis September 03, 2024 2:08pm History of colon polyps September 03, 2 024 2:08pm Chief Complaint Admit Date Wellness June 28, 2024 9 :31am Referred by Dr Vargas Willis: fatty liver Dece er 2023 2:08pm [email or web address] September 11, 2024 10 :06am fatty liver September 19, 2024 1 1:43am gerd/hx of colon polyps September 26 11:16am gerd/hx of colon polyps September 26 1:02pm Chief Complaint Admit Date Referred by Dr Vargas Willis: fatty liver Dece er 2023 2:08pm [email or web address] September 11, 2024 10 [...] Complaint Admit Date Referred by Dr Vargas Wilils: fatty liver Dece [facility] 2023 2:08pm [email or web address] September 11, [...] section and content) DATE CREATED AUTHOR 02/04/2020 [facility] DATE CREATED AUTHOR AUTHOR'S ORGANIZ ATION 04/02/2022 [facility] DATE CREATED AUTHOR AUTHOR'S ORGANIZ ATION 12/25/2022 [facility] DATE CREATED AUTHOR AUTHOR'S ORGANIZ ATION 04/18/2025 [facility] EPIC DATE CREATED AUTHOR AUTHOR'S ORGANIZ ATION 05/06/2025 [facility] REASON FOR VISIT (unrecogniz ed section and content) Reason Comments Thyroid Problem NEW REF/LAB Specialty Diagnoses / Procedures Referred By Hazel t Referred To Contact Endocrinology Diagnoses Other specified abnormal findings of blood chemistry Procedures ME OFFICE/OUTPATIENT NEW LOW MDM 30 MINUTES Dayana Worley MD [address] [address] Phone: tel: fax: Tonia Morgan MD [address] [place] [address] Phone: tel: fax: Referral ID Status Reason Start Date Expiration Date V isits Requested Visits Authorized [id number] Pending Review 09/25/2024 03/24/2025 1 1 Reason [...] Team Status: Active Member Role Status Dates Doirs Willis MD Primary Care Provide r, Attending [...] 2024 Team Status: Active Member Role Status Shraddha [...] October 15, 2024 End: October 15, 2024 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 Relationship Specialty Start Date End Date Doris Willis MD [address] [place] [facility] [phone] PCP - General Family Medicine 09/25/24 Zoology Teacher Relationship Specialty Start Date End Date Doris Willis MD [address] [place] [facility] [place] [phone] PCP - General Family Medicine 09/25/24 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 Teacher Relationship Specialty Start Date End Date Doris Willis MD [address] [place] [facility] [place] [phone] PCP - General Family Medicine 09/25/24 Team Status: Inactive Member Role Status Dates Doris Willis MD Primary Care Provider Active Start: November 07, 2024 End: November 07, 2024 Dayana Worley MD Attending Provider Active Start: November 07, 2024 End: November 07, 2024 Zoology Teacher Relationship Specialty Start Date End Date Doris Willis MD PCP - General Family Medicine 09/25/24 Zoology Teacher Relationship Specialty Start Date End Date Doris [...] BE BASED ON THE PRIMARY CLINICAL RECORDS. [facility] [employer] [facility]. provides no warranty or guarantee of the accuracy or completeness of information in this document.
--- NOTE | 2025-05-13 08:55 | PC.NURSE ---
Nursing Note Cardiac Stress Test Reviewed: Medication, allergies and patient history reviewed. Stress Test: [ x]? Patient tolerated stress test well. [ ]? Patient unable to tolerate walking on treadmill. Switched to Lexiscan stress test. [ x]? No chest pain noted per patient [ ]? Chest pain that resolved prior to leaving stress lab. [ ]? No dyspnea noted. [ ]? Dyspnea that resolved prior to leaving stress lab. [x ]? Patient left stress lab asymptomatic and hemodynamically stable. [ ]? Patient taken to the Emergency Room due to non-resolving symptoms following stress test. [ ]? Patient achieved target heart rate. [ ]? Patient unable to achieve target heart rate. [ ]? Aminophylline administered as reversal agent to Lexiscan (Regadenoson). [ ]? Nitro administered. Nursing Comments: Procedure explained, consent signed, pt denies questions or concerns before starting. Pt tolerated stress test well. Pt became nauseous post Lexiscan administration. Nausea resolved within 2 minutes. Pt denied chest pain and shortness of breath. Pt ambulated to [facility] for breakfast.
[2025-05-13] MEDS: REGADENOSON 0.4 MG/5 ML SYRINGE IV (08:58)
--- NOTE | 2025-05-13 14:25 | PM.STRESS ---
Stress Test Stress Test Requesting physician: Doris Adam Procedure: Lexiscan stress test General Information: Reason for Stress Test: [Chest pain, abnormal stress test] Cardiac History and Risk Factors: [Dyslipidemia] Stress Test: Protocol: [Lexiscan] Exercise Capacity: [N/A] Blood Pressure Response: [Significantly elevated BP at baseline] Rhythm: [Sinus] ST - Response: [No ST T wave changes] Patient Response: [No chest pain] Interpretation: 1. No ischemic EKG changes noted on Lexiscan pharmacological stress test 2. Significant resting hypertension 3. Nuclear images to be read, interpreted, and reported separately
== END 2025-05-13 06:38 | disposition home or self-care (01) ==
LOC: NM 06:39
PROVIDERS: PCP Family Medicine; Visit Provider Family Medicine
DX: R07.9 Chest pain, unspecified (principal); R94.31 Abnormal electrocardiogram [ECG] [EKG]
CPT/HCPCS: 78452; 93017; A9500; J2785

== ENCOUNTER 2025-07-09 07:26 | Outpatient (OUT) | payer MEDICARE, OTHER, SELFPAY ==
--- OUTSIDE RECORDS SUMMARY | 2025-07-03 05:40 | XMS_ITS | Continuity of Care Document ---
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 Name Role Phone Doris Adam MD Primary Care Provider Doris Adam MD Attending Provider Doris Adam MD Other Provider Norberto Pedraza MD Attending Provider Care Teams Patient Care Team Team Status: Active Member Role/Relationship Status Dates Doris Adam MD Primary Care Provider Active Visit Care Team Team Status: Inactive Member Role/Relationship Status Dates Doris Adam MD Primary Care Provider Active Start: May 02, 2025 End: May 02, 2025Obie Waddell ProviderActiveStart: May 02, 2025 End: May 02, 2025 Visit Care Team Team Status: Active Member Role/Relationship Status Dates Doris Adam MD Primary Care Provider Active Start: May 02, 2025 Doris Adam MDOther ProviderActiveStart: May 02, 2025 Obie Montoya ProviderActiveStart: May 02, 2025 Patient Care Team Team Status: Active Member Role/Relationship Status Dates Doris Adam MD Primary Care Provider Active Start: May 06, 2025 Obie Waddell ProviderActiveStart: May 06, 2025 Patient Care Team Team Status: Inactive Member Role/Relationship Status Dates Doris Adam MD Primary Care Provider Active Start: July 03, 2025 End: July 03, 2025Obie Waddell ProviderActiveStart: July 03, 2025 End: July 03, 2025 Chief Complaint and Reason for Visit Chief Complaint Admit Date Sinuses May 02, 2025 10 :35am R07.9 R94.31 May 02, 2025 10 :59am wellness July 03, 2025 9 :56am Reason for Visit Admit Date Abnormal EKG May 02, 2025 10 :35am Chest pain May 02, 2025 10 :35am Seasonal allergic rhinitis May 02, 2025 10:35am Substernal chest pain May 02, 2025 10:35am Hypercholesteremia July 03, 2025 9 :56am Hypothyroid July 03, 2025 9 :56am Screening mammogram for breast cancer Oc tober 2024 9:56am Allergies, Adverse Reactions, Alerts Allergen Type Severity Reaction Last Updated Verified Status Comments amoxicillin Allergy Unknown Hives July 03, 2025 10:08am Yes Active cefdinirAllergyUnknownHivesOctnew horizons medical center 2024 10:08amYesActiveclavulanic acid AllergyUnknowMNivesOctnew horizons medical center 2024 10:08amYesActivegabapentinAllergyUnknown [facility] 2024 10:08amYesActivelatexAllergyUnknownrashBeaumont Hospital 2024 10:08amYesActivepropranololAllergyUnknowMNivesOctnew horizons medical center 2024 10:08amYes ActivesimvastatinAllergyUnknowSelect [facility] 2024 10:08amYesActiveAdipex-P *ADHD/ANTI-NARCOLEPSYAllergyUnknowMNivesOhiohealth Grove [facility] 2023 9:51amNoActiveFree Text Allergy: Adipex-P *ADHD/ANTI-NARCOLEPSY/ANTI-OBESITY/ANOREX Social History Smoking Status Status Start Date End Date Date of Observa tion Ex-smoker (finding) September 26, 2024 11:57am Observation Status Observation Response Date of Response Legal Sex Female (finding) Sex Assigned At BirthFemaleDecember 1954 Family History Relationship Condition Age at Onset Recorded Date/T rebecca father Heart disease Unknown DeceasedUnknownHypertensionUnknownDiabetes mellitusUnknownfamily memberDeceased UnknownmotherDeceasedUnknownMalignant neoplasmUnknownHeart diseaseUnknown Diabetes mellitusUnknown Problems Active Problems Problem Diagnosis/Recorded Date Onset Date Status C omments RUQ abdominal pain May 20, 2024 10:07am Unknown Active Medicare annual wellness visit, subsequentOctober 2023 10:57pmUnknown ActiveScreening mammogram for breast cancerOctober 2024 10:32amUnknown ActiveSinusitis, acute maxillaryFebruary 2024 11:28amUnknownActiveBruise of toeFebruary 2024 11:28amUnknownActiveHepatic steatosisOctober 2023 11:42amUnknownActivePoison harriet dermatitisOctober 2023 2:35pmUnknownActive MigraineAugust 2022 1:34pmUnknownActiveProblem List clean-up per request of Phys. EHR CmteHypercholesteremiaAugust 2022 1:34pmUnknownActiveProblem List clean-up per request of Phys. EHR CmteHypothyroidAugust 2022 1:34pm UnknownActiveProblem List clean-up per request of Phys. EHR CmteAbnormal EKG May 02, 2025 12:19pmUnknownActiveGastro-esophageal reflux disease without esophagitisMarch 2023 8:19amUnknownActiveHistory of colon polypsDecember 2023 3:25pmUnknownActiveChest painAugust 2024 11:14amUnknownActive Seasonal allergic rhinitisSeptember 2024 9:14amUnknownActiveConstipation September 03, 2024 3:24pmUnknownActiveSubsternal chest painAugust 2024 10:56amUnknownActiveHair lossMarch 2023 2:28pmUnknownActive Inactive/Resolved Problems Problem Diagnosis/Recorded Date Onset Date Status C omments Acute chemical conjunctivitis April 23, 2023 3:16pm Unk nown Resolved Medications Medication Status Dose Units Route Directions Qty Days Refills S tart Date Stop Date End Date Reason(s) Instructions Adherence Rizatriptan 10 mg tablet Discontinued 0 .ROUTE.XEBWHCR266Xdnzv 2023 1:52pmMarch 2023 9:54amTAKE 1 TABLET EVERY 2 HOURS NEEDED. MAX 2 TABLETS PER DAYRizatriptan 10 mg tablet Discontinued0.ROUTE.NCVWWYL487ExdvFebruary 23, 2024 8:30amFebruary 2024 8:24am TAKE 1 TABLET BY MOUTH EVERY 2 HOURS NEEDED *MAX 2 TABLETS PER DAY* Levothyroxine 125 mcg tabletDiscontinued0.ROUTE.ICKMXGO573Vpak 2023 8:30am June 17, 2024 10:37pmTAKE 1 TABLET BY MOUTH EVERY DAYLevothyroxine 100 mcg tabletDiscontinued0.ROUTE.PNKHZKA314Xxxcwgl 2023 10:37pmMarch 2024 10:12amTAKE 1 TABLET BY MOUTH EVERY DAY IN THE MORNING ON EMPTY STOMACH FOR 90 DAYSDuloxetine 30 mg capsule,delayed release(DR/EC)Beagpc24SEZBUcxij302Hpllsdxx 2023 4:10pmComplies with drug therapyPantoprazole 40 mg tablet,delayed release (DR/EC)Discontinued0.ROUTE.RUGEDXX687Yzxrnrkn 2023 9:34amDecember 2023 3:38pmTAKE 1 TABLET BY MOUTH EVERY DAYRizatriptan 10 mg tablet Discontinued0.ROUTE.GEZJZKY939Mvisfgxs 2024 8:24amAugust 2024 8:55am TAKE 1 TABLET BY MOUTH EVERY 2 HOURS NEEDED *MAX 2 TABLETS PER DAY* Rosuvastatin 20 mg tabletActive0.ROUTE.PQZXJAY235Llgth 2024 11:51amTAKE 1 TABLET BY MOUTH EVERY DAY FOR 90 DAYSComplies with drug therapyRizatriptan 10 mg tabletDiscontinued0.ROUTE.NRSHWJA108Mbstgi 18th, 2025 8:54amOctober 2024 10:09amTAKE 1 TABLET BY MOUTH EVERY 2 HOURS NEEDED *MAX 2 TABLETS PER DAY* Rizatriptan 10 mg odwtxzKeeyuqdcbqhz72GKNBAl Directed as needed for Migraine HeadacheAugust 2022 12:00amMarch 2023 1:52pmPantoprazole 40 mg tablet,delayed release (DR/EC)Umrposyxwzkn15EQCWXtxgzNtgacr 2022 12:00am August 29, 2024 9:34amLevothyroxine 112 mcg rxtjweJayxbkifjrql649ZHLCGFgnvu morningAugus2022 12:00amMarch 2023 10:03amRosuvastatin 20 mg oaaimmDkhayxcqpfaj85ODFUNfkxoMoadzb 2022 12:00amMarch 2024 11:52am Aspirin 81 mg Capsule,Delayed Release(Dr/Ec)Tchlbf12ZXYMJfjmdAnjhxh 2022 12:00amComplies with drug therapyDuloxetine 30 mg capsule,delayed release(DR/EC) Csusvqrszzvp31EZOGDslarSlinf 2023 12:00amDece2023 4:10pm FreeTextSig: TAKE 1 CAPSULE BY MOUTH EVERY DAY; Note: Source Status: Start; Refills: 3; Qty: 90 Capsule; Provider: Kia George ( )Omeprazole 20 mg capsule,delayed release(DR/EC)Zxkowyoieehr42HGSGQncnjHrjbz 2023 12:00amMarch 2023 9:53amMedication Name: Omeprazole; Note: Source Status: Not-Taking\PRN; Provider: Kia George ( )Betamethasone Dipropionate 0.05 % arvlsEsknqjefuwfx7FCLGFMRITHTDVAzbmw dailyOhiohealth Grove [facility] 2023 12:00amOctober 2023 10:05amFreeTextSi application Externally Twice a day; Note: Source Status: Taking; Provider: Kia George ( ) Docusate Sodium 100 mg xshopfjRusedxljssaz9EHKXWVlxsdXdhnd 2023 12:00am November 27, 2023 9:52amFreeTextSi capsule as needed Orally Once a day; Note: Source Status: Gmnioj72 MG; Provider: Kia George ( )Rizatriptan 10 mg hbetfoNaozjaoexiqb40VEYMFZWEQ 2-4 HOURSOhiohealth Grove City [facility] Hospital 2023 12:00amJun2023 8:30amFreeTextSig: TAKE 1 TABLET BY MOUTH EVERY 2 HOURS NEEDED, MAX 2 TABS PER DAY; Note: Source Status: Taking; Refills: 5; Qty: 10 Tablet; Provider: Kia George ( )Cetirizine (Zyrtec) 10 mg wqrkedHuokxq9AWUEZKupae November 27, 2023 12:00amFreeTextSi tablet Orally Once a day; Note: Source Status: Taking; Provider: Kia George ( )Complies with drug ufrfqqcZoyfl-Jrxdt-6-Lhy-Oyo-Pjllfx 778-28-98-50 mg capsuleDiscontinuedCAPPO November 27, 2023 12:00amMahenry [facility] hospital 2023 9:52amDoxycycline Hyclate 100 mg nytqrnwPzhpemoqmgdo4NOESILfoah dailyEast [facility]20[facility] 12:00amMarc 2023 9:52amFreeTextSi capsule Orally Twice a day; Note: Source Status: Not- Taking\PRN; Refills: 0; Provider: Avery PeggyLevothyroxine 100 mcg tablet Vwcfnbkqnggr489DKXXMBnjuk800Elovr 2023 12:00amJun 2023 8:30am Prednisone 10 mg wlpvwnMipbrwuyyblb01PMGQVy Sslmcpmq270Wwqfzpp 2023 12:00amOctnew horizons medical center 2023 10:05am4 daily x 2 days, 3 daily x 2 days, 2 daily x 2 days, 1 daily x 6 daysAzithromycin 250 mg evijmkUtyhpqspznxr1FT.CATEZHJ00Dbhzgvk 2023 12:00amOctnew horizons medical center 2023 9:40amFor 250 mg dose pack: take 500 mg today (day 1), then 250 mg for 4 days (days 2-5) POMagnesium 200 mg tabletActive 200MGPODailyDecemb 2023 1:00amComplies with drug therapyBiotin 5,000 mcg tablet,soaeutlmXqxfts7259DQNRRRwgfjGepftuma 2023 1:00amComplies with drug therapyDocusate Sodium (Colace) 100 mg dlrvdvsCsowhf794QKAEKmkkeYpvqaslh 2023 1:00amComplies with drug therapyPolyethylene Glycol 3350 (Miralax) 17 gram/dose powderDiscontinuedGMPOAs DirectedDecember 2023 1:00amJanuary 2024 12:51pmFreeTextSig: as directed Orally; Note: Source Status: Taking; Provider: Kia George ( )Pantoprazole 40 mg tablet,delayed release (DR/EC)Aiztmjgmwvqs96LX.ROUTETwice chqbk97881Ycbuzkqn 2023 3:37pm November 07, 2024 10:37am40 mg twice daily;Levothyroxine 125 mcg oaxtpoHrmdhm129 MCGPOOhiohealth Grove [facility] Hospital 2024 1:00amComplies with drug therapyLiothyronine 5 mcg tablet Wutmde2IXIQMNzvwl dailyOhiohealth [facility] 2024 1:00amComplies with drug therapy Pantoprazole 40 mg tablet,delayed release (DR/EC)Kolshsazulfg59BD.ROUTEOnceOhiohealth Grove City [facility] Hospital 2024 10:37amMarch 2024 10:39am40 mg once;Pantoprazole 40 mg tablet,delayed release (DR/EC)Zcrsls63US.PHEIJQrrhn754363Zwwxe 2024 10:39am 40 mg daily;Complies with drug therapyAzithromycin 250 mg fbmepuVkuvknjmczrm5QN .AOOQIKZ98Xppkipyu 2024 1:00amMarch 2024 10:11amFor 250 mg dose pack: take 500 mg today (day 1), then 250 mg for 4 days (days 2-5) PORizatriptan 10 mg tabletActive0.ROUTE.COMPLEX as neededOctober 2024 10:09amTAKE 1 TABLET BY MOUTH EVERY 2 HOURS NEEDED *MAX 2 TABLETS PER DAY* PRN;Unknown Immunizations Immunization Event Date Not Given Reason Dose Number Education Courses Sales 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 Lot Number Reason(s) Given Vaccine Information Statement (VIS) Detail Administration Location COVID-19 mRNA [employer] ([employer]) November 29 COVID-19 mRNA [employer] ([employer])December 22OVID-19 mRNA [employer] ([employer])June 26Tap, unspecifiedOctober 2012influenza, unspecified formulationOctober 2019influenza, unspecified formulation June 26, 2021influenza, unspecified formulationOctober 2021influenza, unspecified formulationOctober 2022Shingles (Zoster)August 29, 2021 Shingles (Zoster)November 28, 2021 Relevant Diagnostic Tests and/or Laboratory Data Laboratory Results Test Collection Date/Time Result Date/Time Result Interpretation Reference Range Result Comment Performing Site Troponin I High Sensitivity May 06, 2025 12:15pm May 06, 2025 12:15pm 8.2 pg/mL 4.0-51.3CUT-OFF POINTS HAVE BEEN ESTABLISHED BASED ON THE FOURTHUNIVERSAL DEFINITION OF MYOCARDIAL INFARCTION. THE UPPERREFERENCE LIMIT (URL) OF TROPONIN, DEFINED THE 99THPERCENTILE OF cTnI DISTRIBUTION IN A REFERENCE POPULATION,HAS BEEN CONFIRMED THE DECISION THRESHOLD FOR MIDIAGNOSIS.99TH PERCENTILE = 51.4 PG/MLNOTE: HIGH-SENSITIVITY TROPONIN ASSAY IS NOT INTENDED TO BEUSED IN ISOLATION BUT SHOULD BE INTERPRETED IN CONJUNCTIONWITH OTHER DIAGNOSTIC AND CLINICAL INFORMATION.Anion GapSeptember 2024 12:15pmSept2024 12:15pm9.6Basophils # (Auto)May 06, 2025 12:15pmSept2024 12:15pm0.0 10 3/uL0.0-0.1BUN/Creatinine RatioSept2024 12:15pm May 06, 2025 12:15pm22.2Basophils (%) (Auto)May 06, 2025 12:15pm May 06, 2025 12:15pm0.9 %0.2-2.0Blood Urea NitrogenSept2024 12:15pmSept2024 12:15pm14.0 mg/dL7.0-18.0Eosinophils # (Auto) May 06, 2025 12:15pmSept2024 12:15pm0.3 10 3/uL0.0-0.7Calcium LevelSept2024 12:15pmSept2024 12:15pm8.8 mg/dL8.5-10.1 Eosinophils (%) (Auto)May 06, 2025 12:15pmSeptember 2024 12:15pm5.8 %0.9-7.0Chloride LevelSeptember 2024 12:15pmSeptember 2024 12:94fp309 mmol/M35-316MnwfdmqkokPywpokjkp 2024 12:15pmSeptember 2024 12:15pm43.0 %36.0-48.0Carbon Dioxide LevelSeptember 2024 12:15pmSeptember 2024 12:15pm29.9 mmol/L21.0-32.0HemoglobinSeptember 2024 12:15pmSeptember 2024 12:15pm14.9 g/dL12.0-16.0CreatinineSeptember 2024 12:15pmSeptember 2024 12:15pm0.63 mg/dL0.55-1.02Immature Granulocyte # (Auto)May 06, 2025 12:15pmSept2024 12:15pm0.01 10 3/uL0.00-0.03Estimated GFR ()May 06, 2025 12:15pmSept2024 12:15pm>60>=60 mL/min/1.73m 2Immature Granulocyte % (Auto)May 06, 2025 12:15pmSept2024 12:15pm0.2 %0.0-0.5Estimated GFR (Non- AmericanSept2024 12:15pmSept2024 12:15pm>60>=60 mL/min/1.73m 2Lymphocytes # (Auto)May 06, 2025 12:15pmSept2024 12:15pm1.0 10 3/uLBelow low normal1.2-3.8Glucose LevelSept2024 12:15pmSept2024 12:15pm 87 mg/mH35-272Qjczqffstkw (%) (Auto)May 06, 2025 12:15pmSept2024 12:15pm21.6 %20.5-60.0Potassium LevelSeptember 2024 12:15pmSept2024 12:15pm4.5 mmol/L3.5-5.1Mean Corpuscular HemoglobinSept2024 12:15pmSept2024 12:15pm30.8 pg26.7-34.0Sodium LevelSept2024 12:15pmSept2024 12:67fs006 mmol/G883-479Cwlb Corpuscular Hemoglobin ConcentSept2024 12:15pmSept2024 12:15pm34.7 g/dL29.9-35.2Mean Corpuscular VolumeSept2024 12:15pmSept2024 12:15pm89.0 fL81.0-99.0Monocytes # (Auto)May 06, 2025 12:15pm May 06, 2025 12:15pm0.4 10 3/uL0.3-0.8Monocytes (%) (Auto)May 06, 2025 12:15pmSept2024 12:15pm8.4 %1.7-12.0Mean Platelet Volume May 06, 2025 12:15pmSept2024 12:15pm9.1 fLBelow low normal 9.5-13.5Neutrophils # (Auto)May 06, 2025 12:15pmSept2024 12:15pm2.8 10 3/uL1.4-6.5Neutrophils (%) (Auto)May 06, 2025 12:15pm May 06, 2025 12:15pm63.1 %43.0-75.0Platelet CountSept2024 12:15pmSept2024 12:95rm686 10 3/sV957-296Qku Blood CountSept2024 12:15pmSept2024 12:15pm4.83 10 6/uL4.20-5.40Red Cell Distribution WidthSept2024 12:15pmSept2024 12:15pm12.5 % 11.0-15.0Corrected White Blood CountSept2024 12:15pmSept2024 12:15pm4.5 10 3/uL4.0-11.0 Vital Signs Vital Reading Result Reference Range Collection Date/Time Height 62 [in_i] May 02, 2025 10:37sdKkdznu65.38 kgAugust 2024 10:36amHeart Rate62 /rsy87-169Jwaiwl 2024 10:36amRespiratory rate12 /mer09-93Wqpbwj 2024 10:36amOxygen saturation by Pulse %95-100Augus2024 10:36amBP Fldmbada264 mm[Hg]100-140Augus2024 10:36amBP Ximnknrwd96 mm[Hg]60-100 May 02, 2025 10:36amBMI (Body Mass Index)29.9 kg/b8Apvxmr 2024 10:27hnUcltoh84 [in_i]July 03, 2025 10:52dcYdpypv13.74 kgOctober 2024 10:03amHeart Rate76 /pkp73-224Qkilqug 2024 10:03amBP Dvfcapco700 mm[Hg] 100-140October 2024 10:03amBP Muvfjfdww55 mm[Hg]60-100October 2024 10:03amBMI (Body Mass Index)30.5 kg/j2Bdidtgx 2024 10:03am Advance Directives Advance Directive Response Recorded Date/ Time Advance Directives No April 23, 2023 1:14pm Insurance Providers Guarantor Anisha Ramesh Address [address] [address]Skldrul Info.Home Phone: Payer Group Member ID Coverage Type Subscriber Relationship to Subscriber Effective Date Expiration Date Medicare [id number] B Swartz Id: [id number] [address] [place] [id number] Home Phone: Email: [email or web address] Insurance [address] [address] [facility] [address] Work Phone: [phone] B Swartz Id: [id number] [address] [address] Home Phone: Email: [email or web address] Encounters Encounter Location(s) Arrival/Admit Date Discharge/Departure Date Discharge/Departure Disposition Provider(s) Departed Physician/ Provider Office Visit -[facility] May 02, 2025 10:35am May 02, 2025 11:09am Discharged to home care or self care (routine discharge) Doris Adam MD Non-patient / Non-visit -[facility] Cardiology A ugust 2024 10:59am Norberto Pedraza MDNon-patient / [facility] May 06, 2025 12:15pmALUREN Waddelleparted Physician/Provider [facility] 9:56am[facility] 2024 10:38amDischarged to home care or self care (routine discharge)Doris Adam MD Recent Diagnosis Onset Date Admit Date Abnormal EKG Unknown May 02 10:35am Chest pain Unknown May 02 10:35am Seasonal allergic rhinitis Unknown Augus t 2024 10:35am Substernal chest pain Unknown April 10:35am Hypercholesteremia Unknown July 03, 2025 9:56am Hypothyroid Unknown July 03 9:56am Screening mammogram for breast cancer Unknown July 03, 2025 9:56am Assessments Diagnosis Onset Date Resolution Status Admit Date Abnormal EKG acuteAugust 2024 10:35amChest painacuteAugust 2024 10:35amSeasonal allergic rhinitisacuteAugust 2024 10:35amSubsternal chest painacuteAugust 2024 10:35amHypercholesteremiaacuteOctober 2024 9:56amHypothyroid acuteOctober 2024 9:56amScreening mammogram for breast canceracuteOctober 2024 9:56am Plan of Treatment Author Doris Adam [facility] 2024 9:16amKenalog administered. Explained no indication for antibiotic, no obvious sinus bacterial infection at this time. EKG completed in office and pt left right after. Reviewed EKG and it was abnormal. Compared to previous and it was changed. CL called pt to have her do labs and explain stress test (lexiscan) was indicated. She couldn't reach her. Several messages were left. Will watch for labs through weekend and reach out again on 05/06 if not completed. Future Tests Future scheduled test information is unavailable Pending Tests Test Name Ordered Date Scheduled Date Comprehensive Metabolic Panel July 03, 2025 10:30am MM screening mammo BI w/CADOctober 2024 10:31am Future Visits Future appointment information is unavailable Future Procedures Procedure Name Ordered Date Scheduled Date Basic Metabolic Panel May 02, 2025 11:14am STR cardiac stress/lexiscanAugust 2024 12:19pmLipid PanelOctober 2024 10:30amFree T4 (Free Thyroxine)July 03, 2025 10:30amThyroid Stim Hormone w/RflxOctober 2024 10:30am Future Medications Future medication information is unavailable Patient Instructions Patient instructions are unavailable
--- OUTSIDE RECORDS SUMMARY | 2025-07-09 07:30 | XMS_ITS | Clinical Summary ---
Author Organization [facility] Address [address] [place] [address] Phone Care Team Providers Care Beauty Sales Consultant Name Role Phone Unavailable Primary Care Provider Unavailabl e Social History Tobacco UseTypesPacks/DayYears UsedDateSmoking Tobacco: Never Assessed CommentsUnknownSex and Gender InformationValueDate RecordedSex Assigned at Not on fileLegal HopNgdsvx94/26/2022 10:36 AM ESTGender IdentityNot on file Sexual OrientationNot on file Plan of Treatment Not on file
--- OUTSIDE RECORDS SUMMARY | 2025-07-09 07:30 | XMS_ITS | CCD ---
Author Organization [facility] CliniSyfl Care Team Providers Care Outside Property Agent Name Role Phone DORIS WILLIS Primary Care [...] Unavailable MD Doris Willis Primary Care Provider [phone] YARIEL Briones Emergency Provider [phone] Doris Willis MD Primary Care Provider Dayana Worley MD Attending Provider [phone] Doris Willis MD Primary Care Provider Doris Willis MD Primary Care Provider Dayana Worley MD Attending Provider Doris Willis MD Primary Care Provider TONIA MORGAN Attending Unavailable DAYANA WORLEY Referring Unavailable TONIA MORGAN Referring Unavailable EDDIE, AHMAD F Attending Unavailable SHE MORGANMAD F Attending Unavailable Doris Willis MD Primary Care Provider [phone] Doris Willis MD Attending Provider Doris Willis Admitting Unavailable Doris Willis Primary Care Unavailable Doris Willis Attending Unavailable Asaad, Imad Attending Unavailable Doris Willis Primary Care Unavailable Asaad, Imad Admitting Unavailable Asaad, Imad Attending Unavailable Doris Willis Primary Care Unavailable Asaad, Imad Admitting Unavailable Doris Willis Primary Care Unavailable Asaad, Imad Admitting Unavailable Asaad, Imad Attending Unavailable Doris Willis MD Other Provider Norberto Pedraza MD Attending Provider Allergies Allergy ClassificationReported Allergen(s)Allergy TypeDate of OnsetReaction(s) Facility (4 sources)Amoxicillin / ClavulanateDrug AllergyUnkHannibal [facility] SysClass Other (12 sources)cefdinirDrug Koguozt82-54-5394WcqnahaMount Carmel Health System (20 sources)gabapentinDrug Hhzaoei24-30-5758VripjBdvthxnvtKettering Health [facility] (12 sources)LatexDrug xeqztzn66-05-3236dfztErrmenaijTogus VA Medical Center (13 sources)PhentermineDrug Tvlqulm98-82-7106MlkbsJfwuv SysClass Other (20 sources)PropranololDrug Vsnbnep42-92-8264DkmoeJxnaxfpdjKettering Health [facility] (12 sources)SimvastatinDrug Izhknwh26-54-1769XdauqxrMount Carmel Health System (2 sources)natural latex rubberDrug allergy (disorder)[facility] (3 sources)Adipex-P *ADHD/ANTI-NARCOLEPSY/ANTI-OBESITY/ANOREXPropensity to adverse reactionsBoone Hospital Center SysClass Other (2 sources)Amoxicillin / ClavulanateDrug AllergyUnkExpert Planetst. louis va medical center SysClass Other (6 sources)AmoxicillinDrug Wouyyej72-14-2004QkcsdHpdisrhaoKettering Health – [facility]in [facility] (16 sources)ClavulanateDrug Rvzpzic53-28-9332FrvrwSkkzsgcioKettering Health – Soin [facility] Center (6 sources)Adipex-P *ADHD/ANTI-NARCOLEPSYAllergy to iauxvapzq83-48-2607NokrvMercy Health St. Rita'S Medical CenterComment on above:Free Text Allergy: Adipex-P *ADHD/ANTI-NARCOLEPSY/ANTI-OBESITY/ANOREX (10 sources)cefdinirDrug Dpzmhhn65-87-8668JqdziJOVQ Healthcare (10 sources)LatexPropensity to adverse axnirqipy08-49-6441[facility] (10 sources)SimvastatinAllergy to ribezobya73-82-7562TnpmtJCKG Healthcare (10 sources)Amoxicillin-Pot ClavulanateDrug Qcnqnen83-51-1379DozwcEWMA Healthcare Medications Current Medications MedicationDrug Class(es)DatesSig (Normalized)Sig (Original)aspirin 81 mg oral tablet (20 sources)Platelet Aggregation Inhibitor, Nonsteroidal Anti-inflammatory Drug Start: 68-73-2463fobe 81 mg by mouth once dailyAspirin Active 81 MG PO Daily April 23, 2023 12:00amtake 1 tablet by mouth once dailyaspirin 81 MG EC tablet Take 81 mg by mouth Daily ActiveAspirin 81 mg Capsule,Delayed Release(Dr/Ec) (8 sources)Start: 14-99-2217pegm 1 capsule by mouth once dailyAspirin 81 mg Capsule,Delayed Release(Dr/Ec) Active 81 MG PO Daily April 23, 2023 12:00am Complies with drug therapyStart: 78-43-3041rfuf 1 capsule by mouth once daily Start: 56-99-9918zaql 1 capsule by mouth once dailyAspirin 81 mg Capsule,Delayed Release(Dr/Ec) Active 81 MG PO Daily April 23, 2023 12:00amStart: 04-23-2023 take 1 capsule by mouth once dailyAspirin 81 mg Capsule,Delayed Release(Dr/Ec) Active 81 MG PO Daily April 22, 2023 11:00pmbiotin 5 mg chewable tablet (18 sources)Start: 69-71-9708rsza 1 tablet by mouth once dailyBiotin 5,000 mcg tablet,chewable Active 5000 MCG PO Daily September 03, 2024 1:00am Complies with drug therapyStart: 66-16-6636nzrq 1 tablet by mouth once dailyBiotin 5,000 mcg tablet,chewable Active 5000 MCG PO Daily September 03, 2024 1:00amStart: 81-25-4427qnht 1 tablet by mouth once dailyBiotin 5,000 mcg tablet,chewable Active 5000 MCG PO Daily September 03, 2024 12:00amStart: 41-59-9042Ziywcq 5,000 mcg tablet,chewable Active MCG PO September 03, 2024 12:00amtake 1 capsule by mouth once dailybiotin 1 MG capsule Take 1 capsule by mouth 1 (one) time each day Activecetirizine hydrochloride 10 mg oral tablet (20 sources)Histamine-1 Receptor AntagonistStart: 67-51-2553mxoq 1 tablet by mouth once dailyCetirizine (Zyrtec) 10 mg tablet Active 1 TAB PO Daily November 27, 2023 12:00am FreeTextSi tablet Orally Once a day; Note: Source Status: Taking; Provider: Kia George ( ) Complies with drug therapy ciprofloxacin 250 mg oral tablet (1 source)Quinolone AntimicrobialStart: 22-52-9594bgvw 1 tablet by mouth every twelve hoursCiprofloxacin HCl 250 MG 1 tablet Orally every 12 hrs for 5 day(s) Dec, Activedocusate sodium 100 mg oral capsule (20 sources)Start: 54-19-0858mnib 1 capsule by mouth once dailyDocusate Sodium (Colace) 100 mg capsule Active 100 MG PO Daily September 03, 2024 1:00am Complies with drug therapyStart: 11-27-2023 End: 02-03-8375inbg 1 capsule by mouth once daily as neededDocusate Sodium 100 mg capsule Discontinued 1 CAP PO Daily November 27, 2023 12:00am November 27, 2023 9:52am FreeTextSi capsule as needed Orally Once a day; Note: Source Status: Ovowit34 MG; Provider: Kia George ( )Start: 11-27-2023 End: 95-76-0934nhhs 1 capsule by mouth once daily as neededDocusate Sodium Discontinued 1 CAP PO Daily November 27, 2023 12:00am November 27, 2023 9:52am FreeTextSi capsule as needed Orally Once a day; Note: Source Status: Orejli97 MG; Provider: Kia George ( )DULoxetine 30 mg delayed release oral capsule (20 sources)Serotonin and Norepinephrine Reuptake InhibitorStart: 11-27-2023 End: 06-92-0836pqqr 1 capsule by mouth once dailyDuloxetine 30 mg capsule,delayed release(DR/EC) Active 30 MG PO Daily 90 August 19, 2024 4:10pm Complies with drug therapyDULoxetine 60 mg Cap-EC (1 source)Start: 41-25-8750hoex 1 capsule by mouth once dailyDULoxetine 60 mg Cap-EC 60 mg = 1 cap(s), Oral, Daily, (do not crush or chew), # 90 caplet(s), Refills(s) 3, Pharmacy: [facility]/pharmacy #[id number], 160, cm, 01/11/22 16:30:00 EDT, Height/Length Dosing, 87.1, kg, 01/11/22 16:30:00 EDT, Weight Dosing Start Date: 01/11/22 Status: OrderedFlonase 0.05 mg/inh Carson (1 source)Start: 64-72-2381gmxd 1 spray(s) nasal route twice dailyFlonase 0.05 mg/inh Carson 1 spray(s), Nasal, BID, 16 gram, Refill(s) 0, each nostril Start Date: 01/11/22 Status: Orderedkrill oil (6 sources)Krill Oil 350 MG as directed Orally Activelevothyroxine sodium 0.1 mg oral tablet (20 sources)l-ThyroxineStart: 04-16-2025 End: 17-16-8671sakl 1 tablet by mouth before mealtimelevothyroxine (Synthroid, Levoxyl) 100 MCG tablet Indications: Acquired hypothyroidism Take 1 tablet (100 mcg) by mouth in the morning. Take before meals. 90 tablet 1 04/16/2025 10/13/2025 ActiveStart: 10-16-2024 End: 03-75-9934Jyfwvppnojooc 125 mcg tablet Active 125 MCG PO November 07, 2024 1:00am Complies with drug therapyStart: 06-17-2024 End: 52-46-9841gozt 1 tablet by mouth once daily in the morningLevothyroxine 100 mcg tablet Discontinued 0 .ROUTE .COMPLEX 90 June 17, 2024 10:37pm November 07, 2024 10:12am TAKE 1 TABLET BY MOUTH EVERY DAY IN THE MORNING ON EMPTY STOMACH FOR 90 DAYSStart: 02-23-2024 End: 71-62-6463hvtx 1 tablet by mouth once dailyLevothyroxine 125 mcg tablet Discontinued 0 .ROUTE .COMPLEX 90 February 23, 2024 8:30am June 17, 2024 10:37pm TAKE 1 TABLET BY MOUTH EVERY DAYStart: 11-27-2023 End: 18-35-3478uetd 1 tablet by mouth once dailyLevothyroxine 100 mcg tablet Discontinued 100 MCG PO Daily 03 10November 27, 2023 12:00am February 8:30amStart: 04-23-2023 End: 12-41-7660pfbq 1 tablet by mouth once daily in the morningLevothyroxine 112 mcg tablet Discontinued 112 MCG PO Every morning April 23, 2023 12:00am November 27, 2023 10:03amStart: 54-79-3565etmf 1 tablet by mouth once daily in the morningSynthroid 100 MCG 1 tablet in the morning on an empty stomach Orally Once a day for 90 days ActiveStart: 76-84-7805sbgw 1 tablet by mouth once daily in the morningSynthroid 112 MCG 1 tablet in the morning on an empty stomach Orally Once a day for 90 days ActiveStart: 01-11-2022 levothyroxine 100 mcg (0.1 mg) Tab See Instructions, 1 tab(s) Oral Daily monday- monday, take 1/2 tab on monday, # 30 tab(s), Refills(s) 5, Pharmacy: [facility]/pharmacy #[id number], 160, cm, 01/11/22 16:30:00 EDT, Height/Length Dosing, 87.1, kg, 01/11/22 16:30:00 EDT, Weight Dosing Start Date: 01/11/22 Status:Ordered liothyronine sodium 0.005 mg oral tablet (15 sources)l-TriiodothyronineStart: 77-21-1883oqdm 1 tablet by mouth twice dailyLiothyronine 5 mcg tablet Active 5 MCG PO Twice daily November 07, 2024 1:00am Complies with drug therapyStart: 77-87-8065xqzy 1 tablet by mouth twice dailyLiothyronine 5 mcg tablet Active 5 MCG PO Twice daily November 07, 2024 1:00amStart: 10-16-2024 End: 60-41-1863bwzi 2 tablets by mouth once dailyliothyronine (Cytomel) 5 MCG tablet Indications: Acquired hypothyroidism Take 2 tablets (10 mcg) bymouth Daily 180 tablet 1 01/15/2025 07/14/2025 ActiveMagnesium (18 sources)Start: 00-36-4437mdgv 1 tablet by mouth once dailyMagnesium 200 mg tablet Active 200 MG PO Daily September 03, 2024 1:00am Complies with drug therapyStart: 69-10-4292weao 1 tablet by mouth once dailyStart: 35-40-7150pwff 1 tablet by mouth once dailyMagnesium 200 mg tablet Active 200 MG PO Daily September 03, 2024 1:00amStart: 76-52-2788wcia 1 tablet by mouth once daily Magnesium 200 mg tablet Active 200 MG PO Daily September 03, 2024 12:00amtake 1 tablet by mouth once dailymagnesium 200 MG tablet Take 200 mg by mouth Daily ActivemethylPREDNISolone 4 mg oral tablet (1 source)CorticosteroidStart: 99-30-9208vnwguyPIYFOMQjbpou 4 MG as directed Orally for 6 days Apr, ActiveMiraLax 17 GM/SCOOP (4 sources)MiraLax 17 GM/SCOOP as directed Orally ActiveMultivitamins and Minerals (1 source)Start: 80-63-7732Urncbfrwmrmcn and Minerals See Instructions, Refill(s) 0, Prophylaxis Start Date: 07/14/16 Status: Orderedpantoprazole 40 mg delayed release oral tablet (20 sources)Proton Pump InhibitorStart: 11-07-2024 End: 89-10-1253Aivithrwxjbu 40 mg tablet,delayed release (DR/EC) Active 40 MG .ROUTE Daily 30 30 11 November 07, 2024 10:39am 40 mg daily; Complies with drug therapyStart: 09-03-2024 End: 38-10-4721Bgfawaqvatli 40 mg tablet,delayed release (DR/EC) Discontinued 40 MG .ROUTE Twice daily 60 30 5 September 03, 2024 3:37pm November 07, 2024 10:37am 40 mg twice daily;Start: 08-29-2024 End: 26-83-7376owfs 1 tablet by mouth once dailyPantoprazole 40 mg tablet,delayed release (DR/EC) Discontinued 0 .ROUTE .COMPLEX 90 3 August 29, 2024 9:34am September 03, 2024 3:38pm TAKE 1 TABLET BY MOUTH EVERY DAY Start: 04-23-2023 End: 11-99-8656qkob 1 tablet by mouth once dailyPantoprazole 40 mg tablet,delayed release (DR/EC) Discontinued 40 MG PO Daily April 23, 2023 12:00am August 29, 2024 9:34amStart: 44-35-7864saul 40 mg by mouth once dailypantoprazole 40 mg, Oral, Daily, Refills(s) 0, Control of stomach acid Start Date: 07/13/16 Status: Orderedrizatriptan 10 mg oral tablet (20 sources)Serotonin-1b and Serotonin-1d Receptor AgonistStart: 02-23-2024 End: 88-11-2559twam 1 tablet by mouth every two hours as needed, then take 2 tablets by mouth once daily as neededStart: 11-27-2023 End: 18-45-4033qejt 1 tablet by mouth every two hours as needed, then take 2 tablets by mouth once daily as neededRizatriptan 10 mg tablet Discontinued 10 MG PO EVERY 2-4 HOURS November 27, 2023 12:00am February 23, 2024 8:30am FreeTextSig: TAKE 1 TABLET BY MOUTH EVERY 2 HOURS NEEDED, MAX 2 TABS PER DAY; Note: Source Status: Taking; Refills: 5; Qty: 10 Tablet; Provider: Kia George ( )Start: 11-22-2023 End: 10-48-4349Durbqcbijpp 10 mg tablet Discontinued 0 .ROUTE .COMPLEX 18 1 November 22, 2023 1:52pm November 27, 2023 9:54am TAKE 1 TABLET EVERY 2 HOURS NEEDED. MAX 2 TABLETS PER DAYStart: 07-14-2016 End: 27-81-7445Lwudeykyhil 10 mg tablet Discontinued 10 MG PO As Directed as needed for Migraine Headache April 23, 2023 12:00am November 22, 2023 1:52pm rosuvastatin calcium 20 mg oral tablet (20 sources)HMG-CoA Reductase InhibitorStart: 14-23-1463hcfu 1 tablet by mouth once dailyRosuvastatin 20 mg tablet Active 0 .ROUTE .COMPLEX 90 3 November 11, 2024 11:51am TAKE 1 TABLET BY MOUTH EVERY DAY FOR 90 DAYS Complies with drug therapyStart: 09-14-2021 End: 13-08-6741zfnw 1 tablet by mouth once dailyRosuvastatin 20 mg tablet Discontinued 20 MG PO Daily April 23, 2023 12:00am November 11, 2024 11:52am sulfamethoxazole 800 mg / trimethoprim 160 mg oral tablet (1 source)Dihydrofolate Reductase Inhibitor Antibacterial, Sulfonamide AntimicrobialStart: 97-95-8222wrse 1 tablet by mouth every twelve hoursBactrim DS 800-160 MG 1 tablet Orally Twice a day for 10 day(s) Feb, Active Completed/Discontinued Medications MedicationDrug Class(es)DatesSig (Normalized)Sig (Original)azithromycin 250 mg oral tablet (15 sources)Macrolide AntimicrobialStart: 10-15-2024 End: 35-94-9856Ilxegevpysry 250 mg tablet Discontinued 0 PO .COMPLEX 6 0 October 15, 2024 1:00am November 07, 2024 10:11am For 250 mg dose pack: take 500 mg today (day 1), then 250 mg for 4 days (days 2-5) POStart: 06-18-2024 End: 43-14-6227Pdocsjxcopai 250 mg tablet Discontinued 0 PO .COMPLEX 6 0 June 18, 2024 12:00am June 28, 2024 9:40am For 250 mg dose pack: take 500 mg today (day 1), then 250 mg for 4 days (days 2-5) POStart: 06-18-2024 End: 28-88-6248Shmqnxkpwlql Discontinued 0 PO .COMPLEX 6 June 18, 2024 12:00am June 28, 2024 9:40am For 250 mg dose pack: take 500 mg today (day 1), then 250 mg for 4 days (days 2-5) POStart: 84-90-4126Nvzaicouiwov Active 0 PO .COMPLEX 6 June 18, 2024 12:00am For 250 mg dose pack: take 500 mg today (day 1), then 250 mg for 4 days (days 2-5) PObetamethasone 0.5 mg/ml topical cream (18 sources)CorticosteroidStart: 11-27-2023 End: 97-35-5154Cdrlnpctrvhdo Dipropionate 0.05 % cream Discontinued 1 APPLIC TOPICAL Twice daily November 27, 2023 12:00am June 28, 2024 10:05am FreeTextSi application Externally Twice a day; Note: Source Status: Taking; Provider: Kia George ( )Betamethasone Dipropionate 0.05 % 1 application Externally Twice a day Activedoxycycline hyclate 100 mg oral capsule (18 sources)Tetracycline-class DrugStart: 11-27-2023 End: 88-04-1230ascz 1 capsule by mouth twice dailyDoxycycline Hyclate 100 mg capsule Discontinued 1 CAP PO Twice daily November 27, 2023 12:00am 2023 9:52am FreeTextSi capsule Orally Twice a day; Note: Source Status: Not- Taking\PRN; Refills: 0; Provider: Avery RossStart: 13-34-0660iczk 1 capsule by mouth every twelve hoursDoxycycline Hyclate 100 MG 1 capsule Orally Twice a day for 10 day(s) May, Cbp-FuezekWehti-Uuqpb-9-Lwt-Bbf-Lipids (4 sources)Start: 11-27-2023 End: 15-77-2962Rybjj-Pokid-9-Gsu-Epa-Lipids Discontinued CAP PO November 27, 2023 12:00am November 27, 2023 9:79aeTqmxn-Kvxxc-7-Krg-Akv-Ccsjvx 579-10-52-50 mg capsule (8 sources)Start: 11-27-2023 End: 23-97-2731Ershr-Jsouv-3-Hqk-Epa-Lipids 355-73-21-50 mg capsule Discontinued CAP PO November 27, 2023 12:00am November 27, 2023 9:52amStart: 11-27-2023 End: 34-40-6115Cfjfd-Yrzzt-1-Jcq-Epa-Lipids 472-57-97-50 mg capsule Discontinued CAP PO November 26, 2023 11:00pm November 27, 2023 8:52amomeprazole 20 mg delayed release oral capsule (18 sources)Proton Pump InhibitorStart: 11-27-2023 End: 54-13-4587pbyu 1 capsule by mouth once dailyOmeprazole 20 mg capsule,delayed release(/EC) Discontinued 20 MG PO Daily November 27, 2023 12:00am November 27, 2023 9:53am Medication Name: Omeprazole; Note: Source Status: Not-Taking\PRN; Provider: Kia George ( )Omeprazole Not-Takingpolyethylene glycol 3350 27960 mg powder for oral solution (20 sources)Osmotic LaxativeStart: 09-03-2024 End: 51-18-0962Nqazydhtanic Glycol 3350 (Miralax) 17 gram/dose powder Discontinued GM PO As Directed September 03, 2024 1:00am September 26, 2024 12:51pm FreeTextSig: as directed Orally; Note: Source Status: Taking; Provider: Kia George ( )Start: 13-55-8821XdajVml oral powder for reconstitution 17 gram, Oral, Daily, 527 gram, Refill(s) 0, dissolve in water before taking, [facility]/pharmacy #[id number], 160, cm, 09/14/21 16:09:00 EST, Height/Length Dosing, 85.1, kg, 09/14/21 16:09:00 EST, Weight Dosing Start Date: 09/14/21 Status: Orderedpolyethylene glycol, PEG, 3350 (Miralax) 17 g packet Take 17 g by mouth if needed ActivepredniSONE 10 mg oral tablet (10 sources)Start: 06-18-2024 End: 74-90-2262lkio 4 tablets by mouth once daily, then take 3 tablets by mouth once daily, then take 2 tablets bymouth once daily, then take 1 tablet by mouth once dailyPrednisone 10 mg tablet Discontinued 10 MG PO As Directed June 18, 2024 12:00am June 28, 2024 10:05am 4 daily x 2 days, 3 daily x 2 days, 2 daily x 2 days, 1 daily x 6 daystriamcinolone acetonide 40 mg/ml injectable suspension (5 sources)CorticosteroidStart: 80-77-9471Ggjafaa-40 Jun, 60 mg Problems Active Problems Problem ClassificationProblemDateDocumented DateEpisodic/ChronicAbdominal pain (19 sources)Lower abdominal pain, unspecified; Translations: [Right upper quadrant pain]Onset: 28-35-9538WwsgijogZkyrmikl reactions (20 sources)Eczema; Translations: [Dermatitis, unspecified]03-20-0407Yiqkqutc Anxiety disorders (2 sources)Anxiety disorder; Translations: [Anxiety disorder, unspecified]Onset: 85-56-8961QdigrroXiqhwahv mellitus without complication (7 sources)Hyperglycemia; Translations: [Other abnormal glucose]Onset: 79-25-0421EwtakbjvIcjftgps of mouth; excluding dental (6 sources)Sialoadenitis; Translations: [Sialoadenitis, unspecified]Episodic Diseases of white blood cells (11 sources)Decreased blood leukocyte number; Translations: [Other decreased white blood cell count]Onset: 03-74-2201QaotevhBvmralzld of lipid metabolism (16 sources)Hyperlipidemia; Translations: [Hyperlipidemia, unspecified]Onset: 182053-22-7084NauxsgyPxbfago on above:Problem List clean-up per request of Phys. EHR CmteE Codes: Natural/environment (1 source)Bitten or stung by nonvenomous insect and other nonvenomous arthropods, initial encounterEpisodicEsophageal disorders (20 sources)Gastroesophageal reflux disease; Translations: [Gastroesophageal reflux disease without esophagitis]Onset: 732483-15-5460KzfxgozFzscrulj of upper limb (18 sources)Open fracture of middle AND/OR proximal phalanx of finger; Translations: [Displaced fracture of proximal phalanx of other finger, initial encounter for open fracture]EpisodicHeadache; including migraine (19 sources)Migraine; Translations: [Migraine, unspecified, not intractable, without status migrainosus]Onset: 639744-08-4889SzekwzgDjnnddj on above: Problem List clean-up per request of Phys. EHR CmteInflammation; infection of eye (except that caused by tuberculosis or sexually transmitteddisease) (13 sources)Acute conjunctivitis due to chemical; Translations: [Acute toxic conjunctivitis, unspecified eye]38-31-1011GoianmiiVbuvsxhgitoie (6 sources)Cervical lymphadenopathy; Translations: [Localized enlarged lymph nodes]EpisodicMood disorders (2 sources)Mild recurrent major depression; 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, recurrent, mild]Onset: 20-50-2570LgdavyrNuocdxkuzua chest pain (11 sources)Retrosternal pain ; Translations: [Precordial pain]Onset: 05-02-2025 09-76-5974LznsiiuoFyloikqweut deficiencies (6 sources)Vitamin D deficiency; Translations: [Vitamin D deficiency, unspecified]37-64-3336WnttpwlBlsrn and unspecified benign neoplasm (13 sources)History of polyp of colon; Translations: [History of colonic polyps] 51-83-5473VgtcqragYrbra ear and sense organ disorders (6 sources)Bilateral tinnitus; Translations: [Tinnitus, bilateral]EpisodicOther gastrointestinal disorders (8 sources)Constipation; Translations: [Constipation, unspecified]09-03-2024 EpisodicOther inflammatory condition of skin (6 sources)Pruritus of skin; Translations: [Pruritus, unspecified]EpisodicOther liver diseases (10 sources)Steatosis of liver; Translations: [Fatty (change of) liver, not elsewhere classified]22-98-4961JgjkpozNkiro liver diseases (10 sources)Fatty (change of) liver, not elsewhere classified; Translations: [Other chronic nonalcoholic liver disease]Onset: 905847-68-9368Ovthvef Other nervous system disorders (6 sources)Carpal tunnel syndrome of right wrist; Translations: [Carpal tunnel syndrome, right upper limb]ChronicOther non-traumatic joint disorders (6 sources)Shoulder joint pain; Translations: [Pain in right shoulder]Episodic Other nutritional; endocrine; and metabolic disorders (1 source)Obese class I; Translations: [Body mass index (BMI) 34.0-34.9, adult] Onset: 20-39-6634LsjdhuyPcqgk nutritional; endocrine; and metabolic disorders (1 source)Body mass index 30+ - uuqzadx28-50-2945XfzevxiLoheh nutritional; endocrine; and metabolic disorders (6 sources)Obesity caused by energy imbalance; Translations: [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out serious comorbidity with body mass index (BMI) of 31.0 to 31.9 in adult]12-98-3481CdgpxmvTrxwe nutritional; endocrine; and metabolic disorders (2 sources)Weight increased; Translations: [Abnormal weight gain]10-16-2024 EpisodicOther screening for suspected conditions (not mental disorders or infectious disease) (6 sources)Electrocardiogram abnormal; Translations: [Abnormal electrocardiogram [ECG] [EKG]]39-08-3289LgeknrtwYvcsr skin disorders (12 sources)Loss of hair; Translations: [Nonscarring hair loss, unspecified] 31-54-4146ZhhhenkoRqcbc upper respiratory disease (2 sources)Allergic rhinitis; Translations: [Allergic rhinitis, unspecified] Onset: 46-28-6897CuhaorlZdlvm upper respiratory disease (6 sources)Seasonal allergy; Translations: [Other seasonal allergic rhinitis] ChronicOther upper respiratory disease (2 sources)Seasonal allergic rhinitis; Translations: [Other seasonal allergic rhinitis]53-90-1252CbobjttSfzno upper respiratory infections (1 source)Chronic sinusitis, unspecified; Translations: [CHRONIC SINUSITIS UNSPECIFIED]Onset: 58-24-4958EedvxoxEwzgk upper respiratory infections (11 sources)Acute pharyngitis; Translations: [Acute pharyngitis, unspecified] 39-09-8850GwowpumwInamsnra codes; unclassified (6 sources)Tobacco user; Translations: [Tobacco use]EpisodicSuperficial injury; contusion (6 sources)Insect bite (nonvenomous) of right elbow, initial encounter; Translations: [Contusion of toe]EpisodicThyroid disorders (20 sources)Hypothyroidism; Translations: [Hypothyroidism, unspecified]Onset: 36-47-1073VbuneizVggylia on above:Problem List clean-up per request of Phys. EHR Cmte Past or Other Problems Problem ClassificationProblemDateDocumented DateEpisodic/ChronicMenopausal disorders (1 source)Hormone replacement therapy; Translations: [HORMONE REPLACEMENT THERAPY]Onset: 34-35-9522IyycvnfqHttnl aftercare (1 source)Other long term care phlebotomist (current) drug therapy; Translations: [OTH CUSTODIAL CURRENT DRUG THERAPY]Onset: 39-49-6995RacqpfraFjfhd aftercare (1 source)long-term (current) use of aspirin; Translations: [CHIEF TECHNOLOGIST CURRENT USE OF ASPIRIN]Onset: 93-26-1664OzlicavdAafyr gastrointestinal disorders (7 sources)Constipation, unspecified; Translations: [Constipation, unspecified] Onset: 748199-58-2683GmcbulvcMlgxi upper respiratory disease (3 sources)Nasal congestion; Translations: [NASAL CONGESTION]Onset: 08-29-2022 Episodic Results Test NameValueInterpretationReference RangeFacilityBasophils Auto (Bld) [#/Vol] Ordered By: Doris Willis on 20-14-3792Fvelfmdfa (Bld) [#/Vol]0.0 10 3/uL0.0-0.1 [facility]Basophils/100 WBC Auto (Bld)Ordered By: Doris Willis on 22-31-1382Kzsxpkull/100 WBC (Bld)0.9 %0.2-2.0[facility] [place]hillEosinophils/100 WBC Auto (Bld)Ordered By: Doris Willis on 05-06-2025 Eosinophils/100 WBC (Bld)5.8 %0.9-7.0[facility] [place] Erythrocyte distribution width Auto (RBC) [Ratio]Ordered By: Doris Willis on 95-06-9242Mzxigzxzmfz distribution width (RBC) [Ratio]12.5 %11.0-15.0[facility] [place]-FairhillGlomerular filtration rate (GFR) estimation in non- AmericanOrdered By: Doris Willis on 73-13-2325CIR/1.73 sq M.predicted among non-blacks MDRD (S/P/Bld) [Vol rate/Area]mL/min/{1.73_m2}>=60 mL/min/1.73m 2FTogus VA Medical CenterHematocrit Auto (Bld) [Volume fraction]Ordered By: Doris Willis on 94-60-9984Pssxoadqzs (Bld) [Volume fraction]43.0 %36.0-48.0 [facility] [place]hillHemoglobin [Mass/volume] in BloodOrdered By: Doris Willis on 96-89-1848Dolgslayzw (Bld) [Mass/Vol]14.9 g/dL12.0-16.0[facility] [place]hillLaboratory - Chemistry and Chemistry - challengeOrdered By: Doris Willis on 39-96-7389Vcwcsxv [Mass/Vol]8.8 mg/dL8.5-10.1FTogus VA Medical CenterChloride [Moles/Vol]104 mmol/Y47-584KipqjsrkgSelect Medical Specialty Hospital - [place]hillCO2 [Moles/Vol]29.9 mmol/L21.0-32.0[facility] [place]hillCreatinine [Mass/Vol]0.63 mg/dL0.55-1.02[facility] [place] GFR/1.73 sq M.predicted MDRD (S/P/Bld) [Vol rate/Area]mL/min/{1.73_m2}>=60 mL/min/1.73m 2FTogus VA Medical CenterGlucose [Mass/Vol]87 mg/kI36-528 [facility] [place]hillPotassium [Moles/Vol]4.5 mmol/L3.5-5.1FMercy Health West Hospitalodium [Moles/Vol]139 mmol/W928-311OkwvltsdrSelect Medical Specialty Hospital - [place]-FairhillUrea nitrogen [Mass/Vol]14.0 mg/dL7.0-18.0[facility] [place]hillUrea nitrogen/Creatinine [Mass ratio]22.2 mg/mgSelect Medical Specialty Hospital - [place]hillLaboratory - Hematology and Cell countsOrdered By: Doris Willis on 08-39-7455Nguzyumk granulocytes/100 WBC (Bld)0.2 %0.0-0.5FTogus VA Medical CenterLeukocytes [#/volume] corrected for nucleated erythrocytes in Blood by Automated counOrdered By: Doris Willis on 71-11-7710RMR corrected for nucl RBC Auto (Bld) [#/Vol]4.5 10 3/uL4.0-11.0[facility] [place] Lymphocytes Auto (Bld) [#/Vol]Ordered By: Doris Willis on 72-25-4640Dbeyrfuhdvo (Bld) [#/Vol]1.0 10 3/uLLow1.2-3.8[facility] [place] Lymphocytes/100 WBC Auto (Bld)Ordered By: Doris Willis on 05-06-2025 Lymphocytes/100 WBC (Bld)21.6 %20.5-60.0[facility] [place]-FairhillMCH Auto (RBC) [Entitic mass]Ordered By: Doris Willis on 45-13-4624ZQP (RBC) [Entitic mass]30.8 pg26.7-34.0[facility] [place]-FairhillMCHC Auto (RBC) [Mass/Vol]Ordered By: Doris Willis on 08-24-8640KBJN (RBC) [Mass/Vol]34.7 g/dL 29.9-35.2FTogus VA Medical CenterMCV Auto (RBC) [Entitic vol]Ordered By: Doris Willis on 96-29-1410ZQE (RBC) [Entitic vol]89.0 fL81.0-99.0[facility] [place]hillMonocytes Auto (Bld) [#/Vol]Ordered By: Doris Willis on 53-33-9665Llbyrfkwv (Bld) [#/Vol]0.4 10 3/uL0.3-0.8[facility] [place]hillMonocytes/100 WBC Auto (Bld)Ordered By: Doris Willis on 05-06-2025 Monocytes/100 WBC (Bld)8.4 %1.7-12.0[facility] [place]-FairhillNeutrophils Auto (Bld) [#/Vol]Ordered By: Doris Willis on 56-89-9867Dimyijhvoel (Bld) [#/Vol]2.8 10 3/uL1.4-6.5FTogus VA Medical CenterNeutrophils/100 WBC Auto (Bld)Ordered By: Doris Willis on 48-81-3300Lmtssoewaqg/100 WBC (Bld)63.1 % 43.0-75.0[facility] [place]hillNo Panel InformationOrdered By: Doris Willis on 79-10-8545Wkomvijioyn # (Auto)0.3 10 3/uL0.0-0.7FTogus VA Medical CenterImmature Granulocyte # (Auto)0.01 10 3/uL0.00-0.03[facility] [place]hillTroponin I High Sensitivity8.2 pg/mL4.0-51.3FTogus VA Medical CenterComment on above:CUT-OFF POINTS HAVE BEEN ESTABLISHED BASED ON THE FOURTHUNIVERSAL DEFINITION OF MYOCARDIAL INFARCTION. THE UPPERREFERENCE LIMIT (URL) OF TROPONIN, DEFINED THE 99THPERCENTILE OF cTnI DISTRIBUTION IN A REFERENCE POPULATION,HAS BEEN CONFIRMED THE DECISION THRESHOLD FOR MIDIAGNOSIS.99TH PERCENTILE = 51.4 PG/MLNOTE: HIGH-SENSITIVITY TROPONIN ASSAY IS NOT INTENDED TO BEUSED IN ISOLATION BUT SHOULD BE INTERPRETED IN CONJUNCTIONWITH OTHER DIAGNOSTIC AND CLINICAL INFORMATION.Platelet mean volume Auto (Bld) [Entitic vol]Ordered By: Doris Willis on 15-64-1119Lhisjbgs mean volume (Bld) [Entitic vol]9.1 fLLow9.5-13.5FTogus VA Medical CenterPlatelets Auto (Bld) [#/Vol]Ordered By: Doris Willis on 05-06-2025 Platelets (Bld) [#/Vol]242 10 3/iJ963-782PzponkwcrSelect Medical Specialty Hospital - [place]-FairhillRBC Auto (Bld) [#/Vol]Ordered By: Doris Willis on 00-23-4593PAL (Bld) [#/Vol]4.83 10 6/uL4.20-5.40Dunlap Memorial Hospitalerum or plasma anion gap determinationOrdered By: Doris Willis on 04-83-4692Lyyab gap [Moles/Vol]9.6 mmol/LFTogus VA Medical CenterFPG ECG *PCP OFFICE ONLY*on 58-68-0280SIL ECG *PCP OFFICE ONLY*[place] [address] Electrocardiograph Report Signed Patient: Anisha Alanis MR#: [id number] 3 : 1955 Acct:[id number] Age/Sex: 69 / F ADM Date: 05/02/25 Loc: [facility] Room: Type: [facility] Attending Dr: Doris Willis MD Ordering Provider: [...] previous ECGs available Confirmed by Norberto Pedraza ([id number]) on 05/06/2025 9:20:18 AM Referred By: Electronically Signed By: Norberto Pedraza Transcribed By: MUS Signed By Norberto Pedraza MD 05/06/25 0920[facility] Physician GroupUS THYROIDon 48-81-4164OP THYROIDEXAM: Thyroid Ultrasound: REASON FOR EXAM: Elevated thyroid [...] report is generated using voice recognition reporting (Piqora). On occasion, [employer] erroneously drops words from the report or replaces the spoken word with a similar sounding word. Please call with any questions/concerns regarding the report. Dictated and transcribed 10/25/2024/marita This report has been electronically signed and approved by the interpreting radiologist.NormalNot AvailableLon 09-26-2024L Specimen: [id number] Received: 09/26/24 Status: RAS Blackwell Num: [id number] Spec Type: Surgical Subm Dr: Dayana Worley MD Tissues: A Gastric Biopsy (GASTRIC BX) B Colon Biopsy (ASCENDING COLON POLYP) C Colon Biopsy (SIGMOID POLYP) Procedures: HE/6, Gross/Micro L4/3, H PYLORI Age/ Patient Sex Location Account Attending Physician DomitilaAnisha 69/F [id number] Dayana Worley MD SPEC NUM: [id number] RECD: 09/26/24 STATUS: RAS BLACKWELL NUM: [id number] [place]: 09/26/[address] [facility] [address]: Dayana Worley MD ENTERED: 09/26/[address] [facility] [address]: SADIA TYPE: Surgical DEPT: S ENTERED BY: [id number] RECV BY: [id number] ORDERED: HE/6, Gross/Micro L4/3, H PYLORI ORDERED: [...] submitted in a single cassette. (1, ns, S25-352 A) Part B is received in formalin labeled with the patients name, date of , and ascending polyp is a merritt-gutiérrez, focally erythematous, friable, 0.4 cm in greatest dimension polypoid Specimen: [id number] Received: 09/26/24 Status: RAS Blackwell Num: [id number] Spec Type: Surgical Subm Dr: Dayana Worley MD Tissues: A Gastric Biopsy (GASTRIC BX) B Colon Biopsy (ASCENDING COLON POLYP) C Colon Biopsy (SIGMOID POLYP) Procedures: HE/6, Gross/Micro L4/3, H PYLORI Patient: Anisha Alanis [id number] (Continued) Specimen: [id number] Received: 09/26/24 (Continued) Gross Description (Continued) Signed (signature on file) Andreina Roy MD 09/30/24 1250 Specimen: [id number] Received: 09/26/24 Status: RAS Blackwell Num: [id number] Spec Type: Surgical Subm Dr: Dayana Worley MD Tissues: A Gastric Biopsy (GASTRIC BX) B Colon Biopsy (ASCENDING COLON POLYP) C Colon Biopsy (SIGMOID POLYP) Procedures: HE/6, Gross/Micro L4/3, H PYLORI Patient: Anisha Alanis [id number] (Continued) Specimen: [id number] Received: 09/26/24 (Continued) Gross Description (Continued) fragment. The specimen is entirely submitted in a single cassette. (1, ns, S2 46 B) Part C is received in formalin labeled with the patients name, date of , and sigmoid polyp is a merritt-gutiérrez, focally erythematous, friable, 0.4 cm in greatest dimension polypoid fragment. The specimen is entirely submitted in a single cassette. (1, ns, 46 C) CPT Codes 10855u2,17991 Specimen: [id number] Received: 09/26/24 Status: RAS Blackwell Num: [id number] Spec Type: Surgical Subm Dr: Dayana Worley MD Tissues: A Gastric Biopsy (GASTRIC BX) B Colon Biopsy (ASCENDING COLON POLYP) C Colon Biopsy (SIGMOID POLYP) Procedures: HE/6, Gross/Micro L4/3, H PYLORI Patient: Anisha Alanis [id number] (Continued) Signed (signature on file) Andreina Roy MD 09/30/24 3603 [facility] HospitalC reactive protein [Mass/volume] in Serum or PlasmaOrdered By: Dayana Asaad on 97-09-7103QZW [Mass/Vol]C reactive protein [Mass/volume] in Serum or Plasma0.0-0.5FTogus VA Medical CenterC- Reactive Proteinon 46-62-7651RTU [Mass/Vol]mg/LNormal0.0-0.5The [facility] Physician GroupComment on above:Performed By: #### HAABT, HBSAG, HBSAB, HBCAB, HCV RX PCR #### [facility] , #### TSH3, CRP #### [facility] [address] [place] [address] USAHep C Ab wRfx to Qnt PCRon 02-23-8147Jvnuwrrog C Virus AntibodyNon-ReactiveNormalNon ReactiveThe Excela HealthComment on above:Performed By: #### HAABT, HBSAG, HBSAB, HBCAB, HCV RX PCR #### [facility] , #### TSH3, CRP #### [facility] [address] [place] [address] USAInterpretation Hepatitis CCommentNormal.The [facility] Physician [facility] HospitalComment on above:Result Comment: Not infected with HCV unless early or acute infection is suspected (which may be delayed in an immunocompromised individual), or other evidence exists to indicate HCV infection.Performed By: #### HAABT, HBSAG, HBSAB, HBCAB, HCV RX PCR #### [facility] , #### TSH3, CRP #### [facility] [address] [place] [address] USAHepatitis A Antibody Totalon 76-00-8179Rxnibrdud A Antibody TotalNegativeNormalNegativeThe Excela HealthComment on above:Result Comment: Comment: The HAV total antibody assay detects both IgG and IgM but does not differentiate between them. A negative result suggests susceptibility to infection. A positive result could be due to vaccination, previously resolved infection or active infection. Testing for HAV IgM should be performed if active HAV infection is suspected. [facility] offers profiles that will automatically reflex positive HAV total antibody results to IgM (e.g., panel #[id number] HAV Antibody w/ Rfx). Performed at: [address] [id number] Patient Admitting Clerk: Darinel Adkins PhD, Phone: [phone] By: #### HAABT, HBSAG, HBSAB, HBCAB, HCV RX PCR #### [facility] , #### TSH3, CRP #### [place] [address] USAHepatitis B Core Antibodyon 47-85-4075Qmzgyojqk B Core AntibodyNegativeNormalNegativeThe [facility] Physician GroupComment on above: Performed By: #### HAABT, HBSAG, HBSAB, HBCAB, HCV RX PCR #### [facility] , #### TSH3, CRP #### [place] [address] USAHepatitis B Surface Antibodyon 36-04-2377Gdsygzfvc B Surface AntibodyNon-ReactiveNormal.The [facility] Physician GroupComment on above:Result Comment: Non Reactive: Not immune to HBV infection. Equivocal: Unable to determine if anti-HBs is present at levels consistent with immunity. Reactive: Anti-HBs concentration detected at greater than 10 mIU/mL. Individual is considered to be immune to infection with HBV.Performed By: #### HAABT, HBSAG, HBSAB, HBCAB, HCV RX PCR #### [facility] , #### TSH3, CRP #### [place] [address] USAHepatitis B Surface Antigenon 17-98-2824MFmQp Screen NegativeNormalNegativeThe [facility] Physician [facility] HospitalComment on above:Result Comment: PERFORMED BY: [place] [address] PATHOLOGIST SPONGE PRESS OPERATOR LIVIA GARCIA M.D.Performed By: #### HAABT, HBSAG, HBSAB, HBCAB, HCV RX PCR #### [facility] , #### TSH3, CRP #### [place] [id number] USAThyroid Stimulating Hormoneon 89-26-8657MFN Qn102.44 m[IU]/LHigh0.45-5.33The [facility] Physician GroupComment on above:Result Comment: PERFORMED BY: [address] [address] PATHOLOGIST SPONGE PRESS OPERATOR LIVIA GARCIA M.D.Performed By: #### HAABT, HBSAG, HBSAB, HBCAB, HCV RX PCR #### [facility] , #### TSH3, CRP #### [place] [address] USACalprotectin [Mass/mass] in StoolOrdered By: Dayana Worley on 83-89-3245Xtohrtjeupsc (Stl) [Mass/Mass]Calprotectin [Mass/mass] in StoolHigh 0-120[facility] [place]hillComment on above:Concentration Interpretation Follow-Up< 5 - 50 ug/g Normal None>50 -120 ug/g Borderline Re-artem luate in 4-6 weeks >120 ug/g Abnormal Repeat as clinically indicatedPerformed at: [employer] [facility] [address] [id number] Director: Linsey Arce MD, Phone: [phone], Fecalon 09-11-2024 Calprotectin, Nrils899Kqvn1-010Jkk [facility] Physician GroupComment on above: Result Comment: Concentration Interpretation Follow-Up < 5 - 50 ug/g Normal None >50 -120 ug/g Borderline Re-evaluate in 4-6 weeks >120 ug/g Abnormal Repeat as clinically indicated Performed at: [employer] [facility] [place] [address] [place], [place] [id number] Patient Admitting Clerk: Linsey Arce MD, Phone: [phone] PERFORMED BY: [address] [address] PATHOLOGIST SPONGE PRESS OPERATOR LIVIA GARCIA M.D.Performed By: #### CALPROTECT #### [facility] ,Basophils Auto (Bld) [#/Vol]on 27-23-8488Eawsnetxc (Bld) [#/Vol]0.1 10 3/uL 0.0-0.1FTogus VA Medical CenterBasophils/100 WBC Auto (Bld)on 91-79-1743Hmkhxouje/100 WBC (Bld)1.6 %0.2-2.0[facility] [place] Eosinophils/100 WBC Auto (Bld)on 57-60-1412Gnnckkvndnk/100 WBC (Bld)7.0 %0.9-7.0 [facility] [place]hillErythrocyte distribution width Auto (RBC) [Ratio]on 14-60-4498Ocsqwzgudnl distribution width (RBC) [Ratio]13.0 %11.0-15.0 [facility] [place]hillEstimated glomerular filtration rate (GFR) non- Americanon 44-92-5314MBG/1.73 sq M.predicted among non-blacks MDRD (S/P/Bld) [Vol rate/Area]mL/min/{1.73_m2}>=60[facility] [place] Globulin Calc (S) [Mass/Vol]on 51-50-9826Fuesjojx (S) [Mass/Vol]2.9 g/dL [facility] [place]FairhillHematocrit Auto (Bld) [Volume fraction]on 00-70-4498Ezvajxnqbs (Bld) [Volume fraction]42.5 %36.0-48.0[facility] [place]hillHemoglobin [Mass/volume] in Bloodon 73-65-0103Rnnqyctjtd (Bld) [Mass/Vol]14.4 g/dL12.0-16.0[facility] [place]hillLaboratory - Chemistry and Chemistry - challengeon 35-97-9498Myczaqk [Mass/Vol]3.6 g/dL 3.4-5.0[facility] [place]hillALP [Catalytic activity/Vol]71 U/L46-116 [facility] [place]hillALT [Catalytic activity/Vol]24 U/L14-59 [facility] [place]AST [Catalytic activity/Vol]23 U/L15-37 [facility] [place]-FairhillBilirubin [Mass/Vol]0.4 mg/dL0.2-1.0[facility] [place]hillCalcium [Mass/Vol]9.2 mg/dL8.5-10.1FTogus VA Medical CenterChloride [Moles/Vol]106 mmol/X59-703HaiajjafmSelect Medical Specialty Hospital - [place]-FairhillCO2 [Moles/Vol]31.5 mmol/L21.0-32.0[facility] [place] Creatinine [Mass/Vol]0.84 mg/dL0.55-1.02[facility] [place] GFR/1.73 sq M.predicted MDRD (S/P/Bld) [Vol rate/Area]mL/min/{1.73_m2}>=60 [facility] [place]hillGlucose [Mass/Vol]110 mg/pDIvhu42-434GveygbxpzSelect Medical Specialty Hospital - [place]-FairhillLipase [Catalytic activity/Vol]47.0 U/L16.0-77.0[facility] [place]hillPotassium [Moles/Vol]4.0 mmol/L3.5-5.1FTogus VA Medical CenterProtein [Mass/Vol]6.5 g/dL6.4-8.2FTogus VA Medical Center Sodium [Moles/Vol]142 mmol/Y289-409UbxhgeqcuSelect Medical Specialty Hospital - [place]-FairhillUrea nitrogen [Mass/Vol]8.0 mg/dL7.0-18.0[facility] [place]-FairhillUrea nitrogen/Creatinine [Mass ratio]9.5 mg/mgSelect Medical Specialty Hospital - [place] Laboratory - Hematology and Cell countson 15-22-4914Uykmkpsq granulocytes/100 WBC (Bld)0.2 %0.0-0.5FTogus VA Medical CenterLeukocytes [#/volume] corrected for nucleated erythrocytes in Blood by Automated counon 97-66-4764WZJ corrected for nucl RBC Auto (Bld) [#/Vol]4.3 10 3/uL4.0-11.0[facility] [place]hillLymphocytes Auto (Bld) [#/Vol]on 01-68-7362Keboxaqbpds (Bld) [#/Vol]1.0 10 3/uLLow1.2-3.8[facility] [place]FairhillLymphocytes/100 WBC Auto (Bld)on 51-69-4979Rvcavwusgni/100 WBC (Bld)24.4 %20.5-60.0[facility] HospitalH Auto (RBC) [Entitic mass]on 01-73-1423ZEC (RBC) [Entitic mass]30.6 pg26.7-34.0[facility] [place]FairhillMCHC Auto (RBC) [Mass/Vol]on 28-29-7969RFLT (RBC) [Mass/Vol]33.9 g/dL29.9-35.2FTogus VA Medical CenterMCV Auto (RBC) [Entitic vol]on 78-08-6235SRD (RBC) [Entitic vol] 90.2 fL81.0-99.0[facility] [place]hillMonocytes Auto (Bld) [#/Vol]on 61-69-2416Fgovmijwp (Bld) [#/Vol]0.5 10 3/uL0.3-0.8[facility] [place]hillMonocytes/100 WBC Auto (Bld)on 67-12-9689Heqtogpvd/100 WBC (Bld)10.5 % 1.7-12.0[facility] [place]-FairhillNeutrophils Auto (Bld) [#/Vol]on 16-91-7947Otkckewzexo (Bld) [#/Vol]2.4 10 3/uL1.4-6.5FTogus VA Medical CenterNeutrophils/100 WBC Auto (Bld)on 29-46-9338Ekpjwyrnkcr/100 WBC (Bld)56.3 % 43.0-75.0[facility] [place]hillNo Panel Informationon 05-24-2024 Eosinophils # (Auto)0.3 10 3/uL0.0-0.7FTogus VA Medical CenterImmature Granulocyte # (Auto)0.01 10 3/uL0.00-0.03[facility] [place] Platelet mean volume Auto (Bld) [Entitic vol]on 52-81-2478Cffdzdto mean volume (Bld) [Entitic vol]8.9 fLLow9.5-13.5FTogus VA Medical CenterPlatelets Auto (Bld) [#/Vol]on 52-85-9682Pgqrqkxan (Bld) [#/Vol]247 10 3/vL531-573 [facility] [place]FairhillRBC Auto (Bld) [#/Vol]on 33-70-6632DGV (Bld) [#/Vol]4.71 10 6/uL4.20-5.40Dun[facility] Memorial Hospitalerum or plasma albumin/globulin mass ratioon 49-51-2447Vhtjeej/Globulin [Mass ratio]1.2 {ratio} [facility] Memorial Hospitalerum or plasma anion gap determinationon 70-68-8671Warja gap [Moles/Vol]8.5 mmol/LFTogus VA Medical Center Laboratory - Chemistry and Chemistry - challengeon 61-09-7507Elyn T4 [Mass/Vol] 1.24 ng/dL0.76-1.46[facility] [place]hillTSH Qn0.111 m[IU]/L 0.358-3.740[facility] [place]hillCB AUTO DIFFon 87-98-5792QTUG #0.0 103/ulNormal0.0-0.1The [facility] - Columbus SouthComment on above:Performed By: #### CBC #### [facility] [address] [place] [address] Dr. Aida MonaeBasophils/100 WBC (Bld)0.8 %Normal0.2-2.0[facility] Comment on above:Performed By: #### CBC #### [facility] [address] [place] [address] Dr. Aida Ascencio #0.2 103/ulNormal0.0-0.7The [facility] [place] SouthComment on above: Performed By: #### CBC #### [facility] [address] [place] [address] Dr. Aida Whittenosinophils/100 WBC (Bld)4.1 %Normal0.9-7.0The [facility] Comment on above:Performed By: #### CBC #### [facility] [address] [place] [address] Dr. Aida Whittenrythrocyte distribution width (RBC) [Ratio]13.2 %Blbosp34.0-15.0 The [facility] [place] SouthComment on above:Performed By: #### CBC #### [facility] [address] [place] [address] Dr. Aida MonaeHematocrit (Bld) [Volume fraction]43.5 %Okfegl32.0-48.0The [facility] SouthComselect specialty hospital on above:Performed By: #### CBC #### [facility] [address] [place] [address] Dr. Aida MonaeHemoglobin (Bld) [Mass/Vol]14.7 g/mQLaojbr20.0-16.0The [facility] SouthComselect specialty hospital on above:Performed By: #### CBC #### [facility] [address] [place] [address] Dr. Aida MonaeIG #0.02 10e3/ulNormal0.00-0.03The [facility] SouthComselect specialty hospital on above:Performed By: #### CBC #### [facility] [address] [place] [address] Dr. Aida Kim %0.4 %Normal0.0-0.5The [facility] SouthComment on above: Performed By: #### CBC #### [facility] [address] [place] [address] Dr. Aida Palafox #1.2 103/ulNormal1.2-3.8The [facility] SouthComselect specialty hospital on above:Performed By: #### CBC #### [facility] [address] [place] [address] Dr. Aida Ochoamphocytes/100 WBC (Bld)24.3 %Dvjsbq41.5-60.0The [facility] SouthComselect specialty hospital on above:Performed By: #### CBC #### [facility] [address] [place] [address] Dr. Aida MonaeMANUAL DIFF REQNONormalThe [facility] SouthComselect specialty hospital on above: Performed By: #### CBC #### [facility] [address] [place] [address] Dr. Aida Feldman (RBC) [Entitic mass]30.8 sdTjvupn10.7-34.0The [facility] SouthComment on above:Performed By: #### CBC #### [facility] [address] [place] [address] [address] Aida LiaoHC (RBC) [Mass/Vol]33.8 g/lXCstgua89.9-35.2The [facility] [place] SouthComment on above:Performed By: #### CBC #### [facility] [address] [place] [address] Dr. Aida LiaoV (RBC) [Entitic vol]91.2 qDKxrklz77.0-99.0The [facility] SouthComment on above:Performed By: #### CBC #### [facility] [address] [place] [address] Dr. Aida [place] #0.5 103/ulNormal0.3-0.8The [facility] [place] SouthComment on above:Performed By: #### CBC #### [facility] [address] [place] [address] Dr. Aida Aldrichocytes/100 WBC (Bld)9.2 %Normal1.7-12.0The [facility] Comment on above:Performed By: #### CBC #### [facility] [address] [place] [address] Dr. Aida Fraire #3.0 103/ulNormal1.4-6.5The [facility] SouthComment on above:Performed By: #### CBC #### [facility] [address] [place] [address] Dr. Aida Gilliamutrophils/100 WBC (Bld)61.2 %Rebmki06.0-75.0The [facility] SouthComment on above:Performed By: #### CBC #### [facility] [address] [place] [address] Dr. Aida Friendlet mean volume (Bld) [Entitic vol]8.9 fLCritically low 9.5-13.5The [facility] SouthComment on above:Performed By: #### CBC #### [facility] [address] [place] [address] Dr. Aida MonaePLT259 103/lyFmbbqe685-292Prh [facility] [place] SouthComment on above: Performed By: #### CBC #### [facility] [address] [place] [address] Dr. Aida MonaeRBC4.77 106/ulNormal4.20-5.40The [facility] SouthComment on above:Performed By: #### CBC #### [facility] [address] [place] [address] Dr. Aida MonaeWBC4.9 103/ulNormal4.0-11.0The [facility] SouthComment on above: Performed By: #### CBC #### [facility] [address] [place] [address] Dr. Aida Ramirez AUTO DIFFon 09-03-8948BUHZ #0.0 103/ulNormal0.0-0.1The [facility] SouthComment on above:Performed By: #### CBC #### [facility] [address] [place] [address] Dr. Aida MonaeBasophils/100 WBC (Bld)0.9 %Normal0.2-2.0The [facility] Comment on above:Performed By: #### CBC #### [facility] [address] [place] [address] Dr. Aida Ascencio #0.1 103/ulNormal0.0-0.7The [facility] SouthComment on above: Performed By: #### CBC #### [facility] [address] [place] [address] Dr. Aida Whittenosinophils/100 WBC (Bld)3.6 %Normal0.9-7.0The [facility] Comment on above:Performed By: #### CBC #### [facility] [address] [place] [address] Dr. Aida Whittenrythrocyte distribution width (RBC) [Ratio]13.6 %Zebmws75.0-15.0 The [facility] SouthComment on above:Performed By: #### CBC #### [facility] [address] [place] [address] Dr. Aida MonaeHematocrit (Bld) [Volume fraction]42.6 %Fmfrpw00.0-48.0The [facility] SouthComment on above:Performed By: #### CBC #### [facility] [address] [place] [address] Dr. Aida MonaeHemoglobin (Bld) [Mass/Vol]14.5 g/kZKjqdrp77.0-16.0The [facility] SouthComment on above:Performed By: #### CBC #### [facility] [address] [place] [address] Dr. Aida Kim #0.01 10e3/ulNormal0.00-0.03The [facility] [place] SouthComment on above:Performed By: #### CBC #### [facility] [address] [place] [address] Dr. Aida Kim %0.3 %Normal0.0-0.5The [facility] [place] SouthComment on above: Performed By: #### CBC #### [facility] [address] [place] [address] Dr. Aida Palafox #1.0 103/ulCritically low1.2-3.8The [facility] Comment on above:Performed By: #### CBC #### [facility] [address] [place] [address] Dr. Aida Grajedahocytes/100 WBC (Bld)28.6 %Yndysk26.5-60.0The [facility] SouthComment on above:Performed By: #### CBC #### [facility] [address] [place] [address] Dr. Aida HamptonUAL DIFF REQNONormalThe [facility] SouthComment on above: Performed By: #### CBC #### [facility] [address] [place] [address] Dr. Aida Feldman (RBC) [Entitic mass]30.2 tcNtpeil48.7-34.0The [facility] SouthComment on above:Performed By: #### CBC #### [facility] [address] [place] [address] Dr. Aida Liao (RBC) [Mass/Vol]34.0 g/lIXbkvwu36.9-35.2The [facility] SouthComment on above:Performed By: #### CBC #### [facility] [address] [place] [address] Dr. Aida Asencio (RBC) [Entitic vol]88.8 hIUlhdly12.0-99.0The [facility] SouthComment on above:Performed By: #### CBC #### [facility] [address] [place] [address] Dr. Aida Washington #0.4 103/ulNormal0.3-0.8The [facility] on above:Performed By: #### CBC #### [facility] [address] [place] [address] Dr. Aida Aldrichocytes/100 WBC (Bld)11.9 %Normal1.7-12.0The [facility] Comment on above:Performed By: #### CBC #### [facility] [address] [place] [address] Dr. Aida Fraire #1.8 103/ulNormal1.4-6.5The [facility] [place] SouthComment on above:Performed By: #### CBC #### [facility] [address] [place] [address] Dr. Aida Gilliamutrophils/100 WBC (Bld)54.7 %Tnituq69.0-75.0The [facility] SouthComment on above:Performed By: #### CBC #### [facility] [address] [place] [address] Dr. Aida Hogan mean volume (Bld) [Entitic vol]8.6 fLCritically low 9.5-13.5The [facility] [place] [facility]Comment on above:Performed By: #### CBC #### [facility] [address] [place] [address] Dr. Aida RaoT167 103/ozTycleb017-768Hoa [facility] SouthComment on above: Performed By: #### CBC #### [facility] [address] [place] [address] Dr. Aida MonaeRBC4.80 106/ulNormal4.20-5.40The [facility] [place] [facility]Comment on above:Performed By: #### CBC #### [facility] [address] [address] [address] Aida MonaeWBC3.4 103/ulCritically low4.0-11.0The [facility] [place] SouthComment on above:Performed By: #### CBC #### [facility] [address] [address] [address] Aida MonaeCT ABD/PELV W CONon 59-88-5986YO ABD/PELV W CONEXAMINATION: CT ABD/PELV W CON HISTORY: Lower abdominal [...] Electronically authenticated by: STEPHANY MANZANO Date: 2022-11-09 10:[address] [place] [address] T4on 59-63-6177Ings T4 [Mass/Vol]1.34 ng/dLNormal0.76-1.46 The [facility]Comment on above:Performed By: #### FT4 #### [facility] [address] [place] [address] Dr. Aida MonaePROF 14(COMP METB)on 53-46-9595Zpsehfb [Mass/Vol]4.0 g/dLNormal 3.4-5.0The [facility] [place] SouthComment on above:Performed By: #### CBC #### [facility] [address] [place] [address] Dr. Aida MonaeAlbumin/Globulin [Mass ratio]1.3 {ratio}NormalThe [facility] [place] SouthComment on above:Performed By: #### CBC #### [facility] [address] [place] [address] Dr. Aida Grande [Catalytic activity/Vol]66 U/KAiidqh27-087Zpd [facility] [place] SouthComment on above:Performed By: #### CBC #### [facility] [address] [place] [address] Dr. Aida Dean [Catalytic activity/Vol]45 U/GVceegp54-86Zmi [facility] [place] SouthComment on above:Performed By: #### CBC #### [facility] [address] [place] [address] Dr. Aida Melendrez gap [Moles/Vol]10.8 mmol/LNormalThe [facility] Comment on above:Performed By: #### CBC #### [facility] [address] [place] [address] Dr. Aida MonaeAST [Catalytic activity/Vol]30 U/MLfxycn45-48Hes [facility] Systemment on above:Performed By: #### CBC #### [facility] [address] [place] [address] Dr. Aida MonaeBilirubin [Mass/Vol]0.4 mg/dLNormal0.2-1.0The [facility] Comment on above:Performed By: #### CBC #### [facility] [address] [address] [address] Aida MonaeCalcium [Mass/Vol]9.4 mg/dLNormal8.5-10.1The [facility] Comment on above:Performed By: #### CBC #### [facility] [address] [place] [address] Dr. Aida MonaeChloride [Moles/Vol]108 mmol/LCritically mavn65-554Tcb [facility] SouthComment on above:Performed By: #### CBC #### [facility] [address] [place] [address] Dr. Aida MonaeCO2 [Moles/Vol]31.5 mmol/QAhvxxh78.0-32.0The [facility] Comment on above:Performed By: #### CBC #### [facility] [address] [place] [address] Dr. Aida MonaeCreatinine [Mass/Vol]0.75 mg/dLNormal0.55-1.02The [facility] [place] SouthComment on above:Performed By: #### CBC #### [facility] [address] [place] [address] Dr. Parra ChangEGFR-AF NIGERIEN>60Normal>=60The [facility] [place] [facility]Comment on above:Performed By: #### CBC #### [facility] [address] [place] [address] Dr. Aida WhittenGFR-NON AF NIGERIEN>60Normal>=60The [facility] [place] SouthComment on above:Performed By: #### CBC #### [facility] [address] [place] [address] Dr. Aida MonaeGlobulin (S) [Mass/Vol]3.0 g/dLNormalThe [facility] [place] SouthComment on above:Performed By: #### CBC #### [facility] [address] [place] [address] Dr. Aida MonaeGlucose [Mass/Vol]108 mg/dLCritically npjs72-964Ftt [facility] SouthComment on above:Performed By: #### CBC #### [facility] [address] [place] [address] Dr. Aida MonaePotassium [Moles/Vol]4.3 mmol/LNormal3.5-5.1The [facility] Comment on above:Performed By: #### CBC #### [facility] [address] [place] [address] Dr. Aida MonaeProtein [Mass/Vol]7.0 g/dLNormal6.4-8.2The [facility] Comment on above:Performed By: #### CBC #### [facility] [address] [address] [address] Aida MonaeSodium [Moles/Vol]146 mmol/LCritically ogwb608-112Rfu [facility] SouthComment on above:Performed By: #### CBC #### [facility] [address] [place] [address] Dr. Aida MonaeUrea nitrogen [Mass/Vol]10.0 mg/dLNormal7.0-18.0The [facility] [place] SouthComment on above:Performed By: #### CBC #### [facility] [address] [place] [address] Dr. Aida Nice nitrogen/Creatinine [Mass ratio]13.3 mg/mgNormalThe [facility] [place] SouthComment on above:Performed By: #### CBC #### [facility] [address] [place] [address] Dr. Aida ChicasHoludmila 79-32-9091XMC3.243 uIU/mLCritically low0.358-3.740The [facility] SouthComment on above:Performed By: #### TSH #### [facility] [address] [place] [address] Dr. Aida MonaeFREE T4on 11-07-0069Xaad T4 [Mass/Vol]1.11 ng/dLNormal0.76-1.46 The [facility] SouthComment on above:Performed By: #### FT4 #### [facility] [address] [place] [address] Dr. Aida MonaeGLYCOHEMOGLOBIN A1Con 18-75-9840HCF RECOMMENDATIONSEE BELOWNormal The [facility] SouthComment on above:Result Comment: ADA RECOMMENDED LIMIT 4.0 - 6.0 ADA THERAPEUTIC TARGET < 7.0 ACTION SUGGESTED > 7.0Performed By: #### A1C #### [facility] [address] [address] [address] Aida MonaeGlucose [Mass/Vol]117 mg/dLNormalThe [facility] SouthComment on above:Performed By: #### A1C #### [facility] [address] [address] [address] Aida MonaeHbA1c (Bld) [Mass fraction]5.7 %Normal4.5-6.2The [facility] [place] SouthComment on above:Performed By: #### A1C #### [facility] [address] [place] [address] Dr. Aida Johnson 93-25-7172LGS6.653 uIU/mLCritically high0.358-3.740The [facility] SouthComment on above:Performed By: #### CBC #### [facility] [address] [place] [address] Dr. Aida MonaeAmbulatory Visit Summaryon 18-11-0545Vhwwtynxpo Visit Summary ANISHA ALANIS :1955 Visit Date:01/11/2022 Ambulatory Visit Instructions Your Diagnosis Hypothyroidism Mild recurrent major depression Anxiety Allergic rhinitis Adult BMI 34.0-34.9 kg/sq m Depression Your Care Team Attending Physician - Markos Cruz DO Primary Care Physician - DORIS WILLIS MD This Is Your Medications List duloxetine (DULoxetine 60 mg Cap-EC) fluticasone nasal (Flonase 0.05 mg/inh Carson) levothyroxine (levothyroxine 100 mcg (0.1 mg) Tab) [...] [facility]: [facility] DO [facility]/Cl[facility] Noteon 67-00-3874Lymvwy Medicine Office/Clinic NoteChief Complaint here to check on thyroid level, also having allergies History of Present Illness 66 y/o female here to discuss hypothyroidism and MDD/anxiety CC confirmed with the patient with no changes HYPOTHYROID recent labs reveal TSH is 9.8 (outside labs - done at [facility]) Free T4 was WNL previously on 100mcg [...] 6 days a week and 50mcg on the7th day encourage activity to help with weight f/u 2 months Ordered: levothyroxine, See Instructions, 1 tab(s) Oral Daily monday-monday, take 1/2 tab on monday, # 30 tab(s), Refills(s) 5, Pharmacy: [facility]/pharmacy #[id number], 160, cm, 01/11/22 16:30:00 EDT, Height/Length [...] chew), # 90 caplet(s), Refills(s) 3, [id number], cm, 01/11/22 16:30:00 EDT, Height/Length Dosing, 87.1, kg, 01/12/2216:30:00 EDT, Weight Dosing 4. Allergic rhinitis (J30.9: [...] # 90 caplet(s), Refills(s) 3, Pharmacy: [facility]/pharmacy #[id number], 160, cm, 01/11/22 16:30:00 EDT, Height/Length Dosing, 87.1, kg, 01/12/2216:30:00 EDT, Weight Dosing duloxetine, 60 mg = 1 cap(s), Oral, Daily, (do not crush or chew), # 30 cap(s), Refills(s) 2, Pharmacy: [facility]/pharmacy #[id number], 160, cm, 10/15/21 15:41:00 EST, Height/Length [...] DO, KAYLA, PED Within 3 months [address], [place] [address] [phone] Additional Instructions: 2 month follow - ok [...] Oral, Daily, 3 refills Flonase 0.05 mg/inh Carson, 1 spray(s), Nasal, BID levothyroxine 100 mcg (0.1 mg) Tab, See Instructions, 5 refills Maxalt, 10 mg, Oral, PRN MiraLax oral powder for reconstitution, 17 gm, Oral, Daily Multivitamin (more content not included)...[facility] Comment on above:Result Comment: Electronically Signed By: Markos Cruz DO\.br\Date and Time Signed: 01/11/22 19:08 EDTPatient Educationon 01-11-2022 Patient EducationEndocrinology Hypothyroidism Hypothyroidism is when the thyroid gland [...] Follow these instructions at home: ? Take vxhs-pkk-xezktfp and prescription medicines only as told by [...] 08/21/2006 Document Revised: 08/03/2018 Document Reviewed: 08/01/2018 [employer] Patient Education ? 2019 [employer].[facility] Lab Reportson 14-32-5035Doc Reports [id number]:127NormalToledo HospitalCBC AUTO DIFFon 56-25-6795QEFL #0.1 103/ulNormal0.0-0.1The [facility] SouthComment on above:Performed By: #### CBC #### [facility] [address] [address] [address] Aida MonaeBasophils/100 WBC (Bld)1.0 %Normal0.2-2.0The [facility] Comment on above:Performed By: #### CBC #### [facility] [address] [place] [address] Dr. Aida Ascencio #0.3 103/ulNormal0.0-0.7The [facility] [place] SouthComment on above: Performed By: #### CBC #### [facility] [address] [place] [address] Dr. Aida Whittenosinophils/100 WBC (Bld)6.9 %Normal0.9-7.0The [facility] Comment on above:Performed By: #### CBC #### [facility] [address] [place] [address] Dr. Aida Whittenrythrocyte distribution width (RBC) [Ratio]12.8 %Yhgvrk25.0-15.0 The [facility] SouthComment on above:Performed By: #### CBC #### [facility] [address] [place] [address] Dr. Aida MonaeHematocrit (Bld) [Volume fraction]44.2 %Qqdqxg67.0-48.0The [facility] SouthComment on above:Performed By: #### CBC #### [facility] [address] [place] [address] Dr. Aida MonaeHemoglobin (Bld) [Mass/Vol]14.7 g/wAPzhdgs09.0-16.0The [facility] [place] SouthComment on above:Performed By: #### CBC #### [facility] [address] [place] [address] Dr. Aida Kim #0.01 10e3/ulNormal0.00-0.03The [facility] [place] SouthComment on above:Performed By: #### CBC #### [facility] [address] [place] [address] Dr. Aida Kim %0.2 %Normal0.0-0.5The [facility] [place] South[facility] on above: Performed By: #### CBC #### [facility] [address] [place] [address] Dr. Aida Palafox #1.3 103/ulNormal1.2-3.8The [facility] SouthComment on above:Performed By: #### CBC #### [facility] [address] [place] [address] Dr. Aida Ochoamphocytes/100 WBC (Bld)27.0 %Oeeeud81.5-60.0The [facility] SouthComment on above:Performed By: #### CBC #### [facility] [address] [place] [address] Dr. Aida Reid DIFF REQNONormalThe [facility] SouthComment on above: Performed By: #### CBC #### [facility] [address] [place] [address] Dr. Aida Liao (RBC) [Entitic mass]30.7 qhIyjjsu30.7-34.0The [facility] SouthComment on above:Performed By: #### CBC #### [facility] [address] [place] [address] Dr. Aida Liao (RBC) [Mass/Vol]33.3 g/vDZrpuwz55.9-35.2The [facility] SouthComment on above:Performed By: #### CBC #### [facility] [address] [place] [address] Dr. Aida Asencio (RBC) [Entitic vol]92.3 qARnlaef19.0-99.0The [facility] SouthComment on above:Performed By: #### CBC #### [facility] [address] [place] [address] Dr. Aida Washington #0.4 103/ulNormal0.3-0.8The [facility] SouthComment on above:Performed By: #### CBC #### [facility] [address] [place] [address] Dr. Adia Aldrichocytes/100 WBC (Bld)9.2 %Normal1.7-12.0The [facility] on above:Performed By: #### CBC #### [facility] [address] [place] [address] Dr. Aida Fraire #2.7 103/ulNormal1.4-6.5The [facility] SouthComment on above:Performed By: #### CBC #### [facility] [address] [place] [address] Dr. Aida Gilliamutrophils/100 WBC (Bld)55.7 %Ehuofh54.0-75.0The [facility] [place] SouthComment on above:Performed By: #### CBC #### [facility] [address] [place] [address] Dr. Aida MonaePlatelet mean volume (Bld) [Entitic vol]8.8 fLCritically low 9.5-13.5The [facility] [place] SouthComment on above:Performed By: #### CBC #### [facility] [address] [place] [address] Dr. Aida MonaePLT247 103/qkPvxwem301-843Ave [facility] SouthComment on above: Performed By: #### CBC #### [facility] [address] [place] [address] Dr. Aida MonaeRBC4.79 106/ulNormal4.20-5.40The [facility] [place] SouthComment on above:Performed By: #### CBC #### [facility] [address] [place] [address] Dr. Aida MonaeWBC4.8 103/ulNormal4.0-11.0The [facility] [place] SouthComment on above: Performed By: #### CBC #### [facility] [address] [place] [address] Dr. Aida MonaeFRBEATRICE T4on 91-89-6813Kvbe T4 [Mass/Vol]1.04 ng/dLNormal0.76-1.46 The [facility] SouthComment on above:Performed By: #### CBC #### [facility] [address] [place] [address] Dr. Aida MonaeLIPID PROFILEon 75-88-1561SKZZ-HDL RATIO NORMSEE BELOWNoSalem City HospitalComment on above:Result Comment: 3.3 - 4.4 LOW RISK 4.4 - 7.1 AVERAGE RISK 7.1 - 11.0 MODERATE RISK >11.0 HIGH RISKPerformed By: #### CMP, TSH, LIPID #### [facility] [address] [address] [address] Aida MonaeCholesterol [Mass/Vol]126 mg/dLNormal<=200The [facility] Comment on above:Performed By: #### CMP, TSH, LIPID #### [facility] [address] [address] [address] Aida MonaeCholesterol in HDL [Mass/Vol]47 mg/aZUhcqkw62-10XtwSamaritan HospitalComment on above:Performed By: #### CMP, TSH, LIPID #### [facility] [address] [place] [address] Dr. Aida MonaeCholesterol in LDL [Mass/Vol]46.8 mg/dLNoSalem City HospitalComment on above:Performed By: #### CMP, TSH, LIPID #### [facility] [address] [place] [address] Dr. Aida Brooksesterredd.total/Cholesterol in HDL [Mass ratio]2.7 {ratio} NormalSamaritan HospitalComment on above:Performed By: #### CMP, TSH, LIPID #### [facility] [facility] [address] [place] [address] Dr. Aida Lewis NORMAL> or = 60 mg/dl - LOW CARDIOVASCULAR RISK <40 mg/dl - HIGH CARDIOVASCULAR RISKClinton Memorial HospitalComment on above:Performed By: #### CMP, TSH, LIPID #### [facility] [address] [place] [address] Dr. Aida MonaeLDL CALC NORMALSEE BELOWClinton Memorial HospitalComment on above:Result Comment: <100 mg/dl OPTIMAL 100 - 129 mg/dl NEAR OR ABOVE OPTIMAL 130 - 159 mg/dl BORDERLINE HIGH 160 - 189 mg/dl HIGH >190 mg/dl VERY HIGH Performed By: #### CMP, TSH, LIPID #### [facility] [address] [place] [address] Dr. Aida MonaeTriglyceride [Mass/Vol]161 mg/dLCritically high<=150[facility] Hospitalment on above:Performed By: #### CMP, TSH, LIPID #### [facility] [address] [address] [address] Aida MonaeVLDL CALC32.2 mg/dLNormalThe [facility]Comment on above: Performed By: #### CMP, TSH, LIPID #### [facility] [address] [address] [address] Aida SotoF 14(COMP METB)on 56-21-1569Twbynqg [Mass/Vol]3.8 g/dLNormal 3.4-5.0The [facility] on above:Performed By: #### CMP, TSH, LIPID #### [facility] [address] [place] [address] Dr. Aida MonaeAlbumin/Globulin [Mass ratio]1.3 {ratio}NormalThe [facility]Comment on above:Performed By: #### CMP, TSH, LIPID #### [facility] [address] [place] [address] Dr. Aida Grande [Catalytic activity/Vol]63 U/ICpyfrb12-627Kbw [facility]Comment on above:Performed By: #### CMP, TSH, LIPID #### [facility] [address] [place] [address] Dr. Aida Dean [Catalytic activity/Vol]26 U/LDmyuzp50-85Wbs [facility] on above:Performed By: #### CMP, TSH, LIPID #### [facility] [address] [place] [address] Dr. Aida Melendrez gap [Moles/Vol]12.9 mmol/LNormalThe [facility] Comment on above:Performed By: #### CMP, TSH, LIPID #### [facility] [address] [place] [address] Dr. Aida Soto [Catalytic activity/Vol]18 U/NWqtjjh06-49Mbc [facility] on above:Performed By: #### CMP, TSH, LIPID #### [facility] [address] [place] [address] Dr. Yilan ChangBilirubin [Mass/Vol]0.3 mg/dLNormal0.2-1.0The [facility] Comment on above:Performed By: #### CMP, TSH, LIPID #### [facility] [address] [address] [address] Aida MonaeCalcium [Mass/Vol]8.4 mg/dLCritically low8.5-10.1The [facility] on above:Performed By: #### CMP, TSH, LIPID #### [facility] [address] [place] [address] Dr. Aida MonaeChloride [Moles/Vol]104 mmol/MKwbzlj11-023Mps [facility] Comment on above:Performed By: #### CMP, TSH, LIPID #### [facility] [address] [place] [address] Dr. Aida MonaeCO2 [Moles/Vol]29.4 mmol/FRmukxk29.0-32.0The [facility] Comment on above:Performed By: #### CMP, TSH, LIPID #### [facility] [address] [place] [address] Dr. Aida MonaeCreatinine [Mass/Vol]0.81 mg/dLNormal0.55-1.02The [facility] on above:Performed By: #### CMP, TSH, LIPID #### [facility] [address] [place] [address] Dr. Aida WhittenGFR-AF NIGERIEN>60Normal>=60The [facility] on above:Performed By: #### CMP, TSH, LIPID #### [facility] [address] [place] [address] Dr. Aida WhittenGFR-NON AF NIGERIEN>60Normal>=60The [facility] on above:Performed By: #### CMP, TSH, LIPID #### [facility] [address] [place] [address] Dr. Aida MonaeGlobulin (S) [Mass/Vol]3.0 g/dLNormalThe [facility] on above:Performed By: #### CMP, TSH, LIPID #### [facility] [address] [address] [address] Aida MonaeGlucose [Mass/Vol]124 mg/dLCritically tkjq28-631Ymo [facility] on above:Performed By: #### CMP, TSH, LIPID #### [facility] [address] [address] [address] Aida MonaePotassium [Moles/Vol]4.3 mmol/LNormal3.5-5.1The [facility] Comment on above:Performed By: #### CMP, TSH, LIPID #### [facility] [address] [place] [address] Dr. Aida MonaeProtein [Mass/Vol]6.8 g/dLNormal6.1-8.2The [facility] Comment on above:Performed By: #### CMP, TSH, LIPID #### [facility] [address] [place] [address] Dr. Aida MonaeSodium [Moles/Vol]142 mmol/ISaflwd531-303Zva [facility] Comment on above:Performed By: #### CMP, TSH, LIPID #### [facility] [address] [place] [address] Dr. Aida MonaeUrea nitrogen [Mass/Vol]11.0 mg/dLNormal7.0-18.0The [facility] on above:Performed By: #### CMP, TSH, LIPID #### [facility] [address] [place] [address] Dr. Aida Nice nitrogen/Creatinine [Mass ratio]13.6 mg/mgNormalThe [facility]Comment on above:Performed By: #### CMP, TSH, LIPID #### [facility] [address] [place] [address] Dr. Aida Johnson 04-09-5753FTN8.863 uIU/mLCritically high0.470-4.680The [facility] on above:Performed By: #### CMP, TSH, LIPID #### [facility] [address] [place] [address] Dr. Yilan [facility] HospitalComment on above: Result Comment: <0.34 UIU/ml HYPERTHYROID 0.34-5.60 UIU/ml EUTHYROID >5.60 UIU/ml HYPOTHYROIDPerformed By: #### CMP, TSH, LIPID #### [facility] [address] [address] [address] Aida MonaeAmbulatory Visit Summaryon 34-12-8386Sbyzigmnhz Visit Summary ANISHA ALANIS :1955 Visit Date:10/15/2021 [...] With: Markos Cruz DO [facility] Office/Clinic Noteon 32-34-6801Fsnceq Medicine Office/Clinic NoteChief Complaint 1 month F/U stomach and bowel [...] helps with the sym (more content not included)...Normal [facility] HospitalComment on above:Result Comment: Electronically Signed By: Markos Cruz DO.dorothy\Date and Time Signed: 10/15/21 17:00 EST Patient Educationon 65-01-9751Ilgwvgz EducationMental and Behavioral Health Generalized Anxiety Disorder, Pediatric Generalized anxiety disorder (SHERRON) is a mental health disorder. Children with this condition constantly worry about everyday events. Unlike normal anxiety, worry related to SHERRON is not triggered by a specific event. These worries also do not fade or get better with time. The condition can affect thechild's school performance and his or her ability [...] child to a mental health specialist for furtherevaluation. To be diagnosed with SHERRON, children must [...] methods. Children work with a therapist while machinesare used to monitor their physical symptoms. ? Stress management techniques. These include yoga, meditation, and exercise. A mental health specialist can help determine which treatment is best for your child. Some childrensee improvement with one type of therapy. However, [...] by your child?s health (more content not included)...[facility] HospitalLab Reportson 40-23-8366Ayw Reports [id number]#1.00CD:127NormalToledo HospitalFormson [id number]#1.00CD:127 [facility] Office/Clinic Noteon 09-14-2021 Family Medicine Office/Clinic NoteChief Complaint hair loss, bowel issues, wants thyroid checked History of Present Illness 66 y/o female here to establish care last pcp was Dr. Willis in [place] daughter in law is Tiana Piedra; recommended [...] this medication BLADDER ISSUES Dr Yeager in [place] performed a bladder suspension approx 2 years ago in [place] NAILS have always been brittle lately they've been worse HAIR LOSS my beautician reports significant hairloss and the texture has changed last TSH was at least a couple of years no hx of CA last mammogram 2 years ago - [facility] no hx of [place] no hx of CVA no hx of [...] 0, dissolve in water before taking, [facility]/pharmacy #[id number], 160, cm, 09/14/21 16:09:00 EST, Height/Length Dosing, 85.1, kg, 09/14/21 16:09:00 EST, Weight Dosing rosuvastatin, 20 mg = 1 tab(s), Oral, Daily, # 90 tab(s), Refills(s) 3, Pharmacy: [facility]/pharmacy #[id number], 160, cm, 09/14/21 16:09:00 EST, Height/Length Dosing, 85.1, kg, 09/14/21 16:09:00 EST, Weight Dosing 7. Chronic constipation Chronic Sub-optimal control It seems like she's having more BMs than she should be; perhaps related (more content not included)...[facility] HospitalComment on above:Result Comment: Electronically Signed By: Markos Cruz DO.dorothy\Date and Time Signed: 09/14/21 17:08 ESTPatient Educationon 78-54-4327Wwshbhf Education Endocrinology Hypothyroidism Hypothyroidism is when the [...] Follow these instructions at home: ? Take vslj-rpv-whqzsgg and prescription medicines only as told by [...] Reviewed: 08/01/2018 Elsevier Patient Education ? 2019 Swrve.[facility] Dermatopathologyon 84-05-2417JxnkzlzavqahdbkqPxbqtghlgw [facility] Laboratory [address] [place] [id number] DERMATOPATHOLOGY REPORT Name:ANISHA ALANIS. Rec #. [id number] Location: [facility] Date of Procedure: 01/28/2020 Race: Date Received: [...] M.D. Electronically Signed Out By AXEL OSBORNE MD/[facility] By the signature on this report, the individual or group listed as making the Final Interpretation/Diagnosis certifies that they have reviewed this case. Clinical History: Drug eruption, Hypersensitivity Reaction, Papular Eczema. Punch Biopsy. 4 mm. Specimens Submitted As: A: SKIN, R ARM Gross Description: Received in formalin is a merritt, cylindrical piece of skin measuring 4j9q1qd. The specimen is inked and embedded in toto. [facility]/01/30/2020[facility] CampusComment on above:Performed By: #### D #### Dermatopathology Vital Signs Date TimeVital SignValuePerforming OqgpbskbqMplvhyia84-69-4778 10:03040Body eoqhvk394.48 cmDoris Willis MD Work Phone: [facility]10-30-2025 10:03-0400 Body mass index (BMI) [Ratio]30.5 kg/m6ByxcrnDoris Willis MD Work Phone: [phone])[address]10-30-2025 10:03-0400 Body vtiisw48.74 kgDoris Willis MD Work Phone: [phone])[address]10-30-2025 10:03-0400 Diastolic blood dlpykttg82 mm[Hg]Doris Willis MD Work Phone: [phone])[address]10-30-2025 10:03-0400 Heart rate76 /Kanika Willis MD Work Phone: 1([phone])[address]10-30-2025 10:03-0400 Systolic blood qiwotify780 mm[Hg]Doris Willis MD Work Phone: [phone])[address] [place], [place] 1054708-29-2025 10:36-0400 Body kmezlv041.48 cmDoris Willis MD Work Phone: [phone])[address] [place], [place] 1054708-29-2025 10:36-0400 Body mass index (BMI) [Ratio]29.9 kg/b8ZfpxwyDoris Willis MD Work Phone: 1(565)[address] [place], [place] 1054708-29-2025 10:36-0400 Body qjqhka49.38 kgDoris Willis MD Work Phone: [phone])[address] [place], [place] 1054708-29-2025 10:36-0400 Diastolic blood mm[Hg]Doris Willis MD Work Phone: [phone])[address]08-29-2025 10:36-0400 Heart rate62 /Kanika Willis MD Work Phone: [phone])354[address]08-29-2025 10:36-0400 Respiratory rate12 /Kanika Willis MD Work Phone: [phone])[address] [place], [place] [address]54708-29-2025 10:36-0400 SaO2% (BldA) [Mass fraction]97 %Doris Willis MD Work Phone: [phone]08-29-2025 10:36-0400 Systolic blood laydvsve268 mm[Hg]Doris Willis MD Work Phone: [facility]08-13-2025 10:240400 Body wpwuhl805.5 Laura Morgan MD Work Phone: [phone] [place], [place] [address]Qzdnuinlew46-45-3778 10:24-0400Body mass index (BMI) [Ratio]30.36 kg/g2NhytlTonia Morgan MD Work Phone: [phone] [place], [place] [address]Sulqwhujay73-60-7096 10:240400Body iyopny94.3 kg Tonia Morgan MD Work Phone: [phone])[address]08-13-2025 10:24-0400Heart rate70 /min Tonia Morgan MD Work Phone: [phone] [place], [place] [address]Jigbtvksry95-49-7956 10:240400Respiratory rate16 /minTonia Morgan MD Work Phone: [phone] [place], [place] [address]Hkibjovpam14-48-0087 10:8593HnQ6% (BldA) [Mass fraction]98 %Tonia Morgan MD Work Phone: [phone])[address]05-14-2025 10:0400Body .5 Laura Morgan MD Work Phone: [phone])[address] [place], [place] [address]Genydhkcxi97-11-7602 10:19-0400Body mass index (BMI) [Ratio]32.19 kg/c0TtnenTonia Morgan MD Work Phone: [phone] [place], [place] [address]Njtsgltvsp95-60-5696 10:190400Body dnjaxd42.83 kgTonia Morgan MD Work Phone: [phone] [place], [place] [address]Pkqrwkdooi94-12-5079 10:19-0400Diastolic blood vnrfnuxy95 mm[Hg]Tonia Morgan MD Work Phone: [phone] [place], [place] [address]Gnwblqjdbj54-91-2695 10:19-0400Heart rate70 /min Tonia Morgan MD Work Phone: [phone])040[address]05-14-2025 10:19-0400Respiratory rate16 /minTonia Morgan MD Work Phone: [address] [place], [place] [address]Swavvdetlx09-72-0038 10:2097OaS9% (BldA) [Mass fraction]95 %Tonia Morgan MD Work Phone: [address] [place], [place] [address]Vxkiffadgi68-12-9870 10:190400Systolic blood ugqpglyc762 mm[Hg]Tonia Morgan MD Work Phone: [phone])[address]03-06-2025 09:10-0500Body okhtjm471.48 cmDoris Willis MD Work Phone: [facility]03-06-2025 09:10-0500 Body mass index (BMI) [Ratio]31.2 kg/m5JeiesrDoris Willis MD Work Phone: [phone]03-06-2025 09:10-0500 Body susgrv88.56 kgDoris Willis MD Work Phone: [phone]02-12-2025 10:13-0500 Body nfcflu876.5 Laura Morgan MD Work Phone: [phone]02-12-2025 10:13-0500Body mass index (BMI) [Ratio]31.83 kg/c0BsmnwTonia Morgan MD Work Phone: [phone] [place], [place] [address]Dmacgctilu35-19-5993 10:13-0500Body .93 kgTonia Morgan MD Work Phone: [phone] [place], [place] [address]Hqultvgqaw62-35-9281 10:13-0500Diastolic blood efdzrhqs50 mm[Hg]Tonia Morgan MD Work Phone: [phone]02-12-2025 10:13-0500Heart rate84 /min Tonia Morgan MD Work Phone: [phone] [place], [place] [address]Tldwfbgbqh51-31-1613 10:13-0500Respiratory rate18 /minTonia Morgan MD Work Phone: [phone] [place], [place] [address]Jepuqrumfa89-67-4365 10:139527TaQ3% (BldA) [Mass fraction]97 %Tonia Morgan MD Work Phone: [facility] CenterVlzwmdofla22-88-4026 10:13-0500Systolic blood ysuzgohi053 mm[Hg]Tonia Morgan MD Work Phone: [facility] CenterCzxensxtfx85-73-0535 09:29-0500Body .48 cmDoris Willis MD Work Phone: [phone])[address] [place], [place] 1054702-11-2025 09:29-0500 Body mass index (BMI) [Ratio]31.4 kg/d3QysrwaDoris Willis MD Work Phone: [phone])[address] [place], [place] 1054702-11-2025 09:29-0500 Body gxqycxmqcdm56.5 [degF]Doris Willis MD Work Phone: [phone])[address] [place], [place] 1054702-11-2025 09:29-0500 Body .01 kgDoris Willis MD Work Phone: [phone])[address] [place], [place] 1054702-11-2025 09:29-0500 Diastolic blood yheffxpb58 mm[Hg]Doris Willis MD Work Phone: [phone])[address] [place], [place] 1054702-11-2025 09:29-0500 Heart rate85 /Kanika Willis MD Work Phone: [phone])[address] [place], [place] 1054702-11-2025 09:29-0500 Systolic blood vhknabtz116 mm[Hg]Doris Willis MD Work Phone: [phone] [place], [place] 1054701-23-2025 13:56-0500 Diastolic blood hkoeogsq56 mm[Hg]Doris Willis MD Work Phone: [phone])[address] [place], [place] 1054701-23-2025 13:56-0500 Heart rate60 /Kanika Willis MD Work Phone: [phone])[address] [place], [place] 1054701-23-2025 13:56-0500 Respiratory rate18 /Kanika Willis MD Work Phone: [phone])[address] [place], [place] [address]01-23-2025 13:56-0500 SaO2% (BldA) [Mass fraction]100 %Doris Willis MD Work Phone: [facility]01-23-2025 13:56-0500 Systolic blood mm[Hg]Doris Willis MD Work Phone: [phone]01-23-2025 11:54-0500 Body cuffjh321.48 cmDoris Willis MD Work Phone: [phone]01-23-2025 11:54-0500 Body petxmp41.57 kgDoris Willis MD Work Phone: [phone]00[facility]12-31-2024 14:13-0500 Body .48 cmDoris Willis MD Work Phone: [phone])[address]12-31-2024 14:13-0500 Body mass index (BMI) [Ratio]29.8 kg/m5IiifyhDoris Willis MD Work Phone: [phone] [place], [place] [address]12-31-2024 14:13-0500 Body .93 kgDoris Willis MD Work Phone: [facility]10-25-2024 09:35-0400 Body .48 cmSelect [facility]10-25-2024 09:35-0400Body mass index (BMI) [Ratio]30.7 kg/h0UxtaqajdnSelect Medical Specialty [facility]10-25-2024 09:35-0400Body hzyysu77.2 kgSelect [facility]ty [facility]10-25-2024 09:35-0400Diastolic blood gtwmwupr13 mm[Hg][facility] 06-28-2024 09:35-0400Heart rate69 /minSelect [facility]ty [facility] 06-28-2024 09:35-0400Systolic blood hrwesdin165 mm[Hg][facility]10-15-2024 08:12-0400Body fueamg114.48 cmSelect [facility]10-15-2024 08:12-0400Body mass index (BMI) [Ratio]31.1 kg/h3RsnzbfvtzSelect Medical Specialty [facility]10-15-2024 08:12-0400Body .11 kgSelect [facility]ty [facility]10-15-2024 08:12-0400Diastolic blood nqdkiksv44 mm[Hg] [facility]10-15-2024 08:12-0400Heart rate63 /[facility]10-15-2024 08:12-0400Respiratory rate16 /[facility]10-15-2024 08:12-5830JhW8% (BldA) [Mass fraction]97 % [facility]10-15-2024 08:12-0400Systolic blood owfhgauc594 mm[Hg][facility]09-16-2024 09:39-0400Body sybuyr360.48 cm [facility]09-16-2024 09:39-0400Body mass index (BMI) [Ratio]32 kg/r1ScvkwpqmgSelect Medical Specialty [facility]09-16-2024 09:39-0400Body weight 79.37 kgSelect Medical Specialty [facility]09-16-2024 09:39-0400Diastolic blood drnpcels23 mm[Hg][facility]09-16-2024 09:39-0400Heart rate61 /[facility]09-16-2024 09:39-0400Systolic blood lsuakchp739 mm[Hg][facility]03-25-2024 09:45-0400Body cnontz562.48 cmSelect [facility]03-25-2024 09:45-0400Body mass index (BMI) [Ratio]32.3 kg/o5WysbhecxcSelect Medical Specialty [facility]03-25-2024 09:45-0400Body xqsthu84.28 kgSelect [facility] Specialty [facility]03-25-2024 09:45-0400Diastolic blood pdexezgd47 mm[Hg][facility] 11-27-2023 09:45-0400Heart rate69 /[facility] 11-27-2023 09:45-0400Systolic blood qdrwmeyq395 mm[Hg][facility]08-31-2023 14:15-0400Body .48 cmDoris Willis Other [facility] Other 08-31-2023 14:15-0400Body mass index (BMI) [Ratio] 32.59 kg/k5XzsimlDoris Willis Other [facility] Other 08-31-2023 14:15-0400Body .83 kgDoris Willis Other [facility] Other 08-31-2023 14:15-0400Diastolic blood kqskvzuj78 mm[Hg] Doris Willis Other [facility] [employer] Other 08-31-2023 14:15-0400Systolic blood mm[Hg] Doris Willis Other [facility] [employer] Other 08-20-2023 14:01-0400Body cdyxub888.48 cmMD Doris Willis Work Phone: [phone]08-20-2023 14:01-0400 Body obgcparwqfx61.2 [degF]MD Doris Willis Work Phone: [phone]08-20-2023 14:01-0400 Body okmfmv90.3 kgMD Doris Willis Work Phone: [phone]08-20-2023 14:01-0400 Diastolic blood mm[Hg]MD Doris Willis Work Phone: [phone]08-20-2023 14:01-0400 Heart rate85 /minMD Doris Willis Work Phone: [phone]08-20-2023 14:01-0400 Respiratory rate18 /minMD Doris Willis Work Phone: [phone]08-20-2023 14:01-0400 SaO2% (BldA) [Mass fraction]97 %MD Doris Willis Work Phone: [phone]08-20-2023 14:01-0400 Systolic blood rgtwheex203 mm[Hg]MD Doris Willis Work Phone: [facility]03-02-2023 15:00-0500 Body pfxywx986.02 cmDoris Willis Other [facility] [employer] Other 03-02-2023 15:00-0500Body mass index (BMI) [Ratio]31.7 kg/a6QcjpqbDoris Willis Other [facility] [employer] Other 03-02-2023 15:00-0500Body lriuuy69.19 kgDoris Willis Other [facility] Other 03-02-2023 15:00-0500Diastolic blood prqiwywh47 mm[Hg] Doris Willis Other [facility] [employer] Other 03-02-2023 15:00-1128VxH6% (BldA) [Mass fraction]97 % Doris Willis Other [facility] [employer] Other 03-02-2023 15:00-0500Systolic blood ibitmipj638 mm[Hg] Doris Willis Other [facility] [employer] Other 05-10-2022 16:24-0400Blood Pressure [facility]RobDay[facility] 05-10-2022 16:24-0400Body egscxmzjqrh76.78 [degF][facility] 05-10-2022 16:24-0400Diastolic blood fstanpac20 mm[Hg] [facility] 05-10-2022 16:24-0400Heart rate65 /minRobert Cromley [facility] 05-10-2022 16:24-0245PgX5% (BldA) [Mass fraction]97 % Markos [facility] 05-10-2022 16:24-0400Systolic blood hhiizjsz946 mm[Hg] [facility] Encounters Encounter DateEncounter TypeCare ProviderFacilityStart: 07-03-2025 End: 44-37-9757bsdsbkxrtuIzbkxl E Braun MD [facility] Phone[facility]25 End: 89-87-6108Iswhyrj encounter procedureDoris Willis MD-[facility] Work Phone: Start: 55-36-5482Djd-patient / Non-visitDoris Willis MD-[facility] [employer] Work Phone: Start: 58-19-7099Dgx-patient / Non-visitGeorge Pedro Pedraza MD-[facility] Work Phone: Start: 05-02-2025 End: 27-76-6142rwvpzvxffeUhwcbb E Braun MD Work Phone: [facility] Work Phone: Start: 05-02-2025 End: 68-02-5652Btczxil encounter procedureDoris Willis MD-[facility] Work Phone: Start: 04-16-2025 End: 17-53-8352Szndtu Norm Morgan MD Work Phone: [facility] Chemo EndocrinologyStart: 04-16-2025 End: 97-96-6319Xfweff Norm Morgan MD Work Phone: [facility] Chemo EndocrinologyStart: 04-16-2025 End: 94-14-1133Xpqjql outpatient visit 25 minutesAhmad F Eddie MD Work Phone: [facility] [place] EndocrinologyComment on above:Acquired hypothyroidism (Primary Dx); Vitamin D deficiency; Brooks's disease ; 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 and body mass index (BMI) of 30.0 to 30.9 in adultStart: 04-16-2025 End: 62-33-5852lyjpapwcmdKRCZA F SABBAGHNot AvailableStart: 01-15-2025 End: 64-53-6593Gsszjp flowsYomi Morgan MD Work Phone: [facility] ENDOCRINOLOGYStart: 01-15-2025 End: 16-65-5380Dsnmqv Norm Morgan MD Work Phone: noms ENDOCRINOLOGYStart: 01-15-2025 End: 74-43-1824Iwcxyv outpatient visit 25 minutesTonia Morgan MD Work Phone: noms ENDOCRINOLOGYComment on above:Brooks's disease (CMS/HCC) (Primary Dx); Acquired hypothyroidism (CMS/HCC); Vitamin D deficiency; 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out serious comorbidity with body mass index (BMI) of 32.0 to 32.9 in adultStart: 01-15-2025 End: 48-30-2137yjgbgdkhieEEKLN F SABBAGHNot AvailableStart: 11-07-2024 End: 52-94-6577ittgadowziHqzhwa E Braun MD Work Phone: [facility] Work Phone: Start: 11-07-2024 End: 40-88-6851Yommuze encounter procedureDoris Willis MD Work Phone: [facility] Work Phone: Start: 10-31-2024 End: 29-12-0315Qkudifyzd encounterTonia Morgan MD Work Phone: noms ENDOCRINOLOGYComment on above:ResultsStart: 10-24-2024 End: 34-43-3537axoomfmmkxTBCTN F SABBAGHNot AvailableStart: 10-16-2024 End: 62-95-8899Gmxuho Norm Morgan MD Work Phone: noms ENDOCRINOLOGYStart: 10-16-2024 End: 89-08-3093Cmdclw Norm Morgan MD Work Phone: [facility]oms ENDOCRINOLOGYStart: 10-16-2024 End: 48-07-3686Hnstip outpatient new 45 minutesTonia Morgan MD Work Phone: noms ENDOCRINOLOGYComment on above:Acquired hypothyroidism (CMS/HCC) (Primary Dx); Vitamin D deficiency; 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out serious comorbidity with body mass index (BMI) of 31.0 to 31.9 in adult; Weight gainStart: 10-16-2024 End: 85-56-0985gpdgltitzfUTXFZ F SABBAGHNot AvailableStart: 10-15-2024 End: 04-48-9551ihjrrynboyMjuepw E Braun MD Work Phone: [facility] Work Phone: Start: 10-15-2024 End: 66-97-9860Cvakvtc encounter procedureDoris Willis MD Work Phone: [facility] Work Phone: Start: 79-80-4877Giu-patient / Non-visitDoris Willis MD Work Phone: [facility] Work Phone: Start: 56-08-8379Hxr-patient / Non-visitDoris Willis MD Work Phone: [facility] Physician [facility] Work Phone: Start: 09-26-2024 End: 33-61-9099Ispjrvgyz to same day surgery centerDoris Willis MD Work Phone: [facility] Work Phone: Start: 09-26-2024 End: 74-29-4752vwnayiuaiwUfmarm E Braun MD Work Phone: [facility] Work Phone: Start: 09-19-2024 End: 41-01-1407Xnzkobw encounter procedureDoris Willis MD Work Phone: [facility] Work Phone: Start: 09-19-2024 End: 88-45-6200jxtqmgbsnpHqgjmo E Braun MD Work Phone: [facility] Work Phone: Start: 43-45-6274Heg-patient / Non-visitDoris Willis MD Work Phone: [facility] Work Phone: Start: 09-11-2024 End: 37-98-5308Srwhuri encounter procedureDoris Willis MD Work Phone: [facility] [place] Work Phone: Start: 09-11-2024 End: 44-39-8250uehjjptgqoBxjztw E Braun MD Work Phone: [facility] Work Phone: Start: 09-03-2024 End: 46-76-0037Bciuchh encounter Mk Willis MD Work Phone: [facility] Work Phone: Start: 55-27-2263Rdgptpk encounter procedureDoris Willis MD Work Phone: [facility]: 06-28-2024 End: 77-79-9870usgfwcortdQlcmqbjtfMount St. [facility] Work Phone: Start: 06-28-2024 End: 85-43-6496Qakdkul encounter procedureFirelands Physician [facility] Work Phone: Start: 40-49-0969Yyb-patient / Non-visitFirelands Physician Group-[facility] Work Phone: Start: 06-18-2024 End: 96-05-0359ghnfjodizgJwycyljnbMount St[facility] Work Phone: Start: 06-18-2024 End: 44-82-3933Bnlazrx encounter procedureFirelands Physician Group-[facility] Work Phone: Start: 03-84-3755Jbf-patient / Non-visitFirwarrensburgs Physician Group-[facility] [employer] Work Phone: Start: 05-20-2024 End: 21-12-8954thfngicawgWclyfovxaLakeHealth [facility] Work Phone: Start: 05-20-2024 End: 58-79-7758Xuivhhn encounter procedureFirelands Physician Group-[facility] Work Phone: Start: 11-27-2023 End: 03-82-6479dihkhayarfJqsloacedLakeHealth [facility]wood [facility] Work Phone: Start: 11-27-2023 End: 91-42-4422Hgrtzfm encounter procedureFirwarrensburgs Physician Group-[facility] Work Phone: Start: 36-02-7066Mnr-patient / Non-visitFirwarrensburgs Physician Group-[facility] Work Phone: Start: 07-10-2023 End: 37-33-2072whnpgzhzkaZnuodp Willis Other noHantele Other Start: 62-53-7462Mmwlrwaci encounterMarcia YusufG [facility] Campustart: 07-03-2023 End: 56-11-2028tjdqudlllhWubywv Willis Other noHantele Other Start: 43-43-1798Xorwvsams encounterMarcia BraunG [facility] ClinicStart: 05-04-2023 End: 17-05-5852qugfaxmehrCbgmnc Willis Other zhouwu Other Start: 95-60-3616Jodpps outpatient visit 15 minutes [facility] ClinicStart: 04-23-2023 End: 07-40-8827Dccrdvckt department patient visitMD Doris Willis Work Phone: [facility] Work Phone: Start: 01-03-2023 End: 46-40-1467biavnyoahuRkwrko Kia Other zhouwu Other Start: 34-04-1454Lyjariuyh encounterMargregg [facility] ClinicStart: 12-21-2022 End: 16-12-5784hrjxtzulbnOY DORIS Clements BRAUNFacility:D4Mwqci: 11-10-2022 End: 40-39-6838ytnnuklyivTatyct Kia Other zhouwu Other Start: 81-32-7457Edcxejuxm encounterMargregg [facility] ClinicStart: 11-09-2022 End: 51-21-8573lqqdljrmbcXX DORIS Clements BRAUNFacility:P5Eennd: 11-03-2022 End: 98-07-0486hrzlfzqqfaQupgzh Kia Other zhouwu Other Start: 39-12-5021Tpnuke outpatient visit 15 minutes [facility]is [facility] ClinicStart: 08-29-2022 End: 36-08-0275loittylucqNY DORIS Clements BRAUNFacility:I1Vlguo: 06-23-2022 End: 92-53-3984ktfzxbbjrgNS DORIS Clements BRAUNFacility:Y3Ldepk: 64-95-3087sxtpvfgwyv DR CABRAL MISCFacility:A4Lxouh: 01-11-2022 End: 81-83-2925Ztcsrel encounter procedureRobert Katharine [facility] Start: 12-28-2021 End: 01-68-4720wkggaaukduOL DOCTOR MISCFacility:H1 Procedures DateProcedureProcedure DetailPerforming ClinicianStart: 09-26-2024 EsophagogastroduodenoscopyDoris Willis MD Work Phone: Start: 92-64-2837Ucwkzlvkia elastography of liver Doris Willis MD Work Phone: Arthrodesis of ankleRobert CromleyColonoscopyRobert CromleyHysterectomyRobert CromleyLigation of fallopian tubeRobert Cromley Plan of Treatment DateCare ActivityDetailAuthorStart: 10-15-2025 End: 84-54-7239Glbkkti encounter ejsowkcxb47/11/2026 10:10 AM EST Office Visit [facility] [address] [place] [address] Tonia Morgan MD [address] [place] [address] [facility]OMKaycee Mclain EndocrinologyStart: 44-77-5279Iwvbvmylu vaccinationInfluenza Vaccine (#1)[facility] HealthcareStart: 65-17-3069ZblhiiycpDunlap Memorial Hospitaltart: 04-16-2025 End: 68-79-5047Zakgwaucspw [Units/volume] in Serum or PlasmaTSH Lab Routine Acquired hypothyroidism Expected: 04/16/2025 (Approximate), Expires: 04/16/2026 [facility] HealthcareComment on above:Expected: 04/16/2025 (Approximate), Expires: 04/16/2026Start: 04-16-2025 End: 73-28-2142Tyczqzuwh (T4) free [Mass/volume] in Serum or PlasmaT4, free Lab Routine Acquired hypothyroidism Expected: 04/16/2025 (Approximate), Expires: 04/16/2026N[facility] HealthcareComment on above:Expected: 04/16/2025 (Approximate), Expires: 04/16/2026Start: 04-16-2025 End: 93-41-8991Lilwotnkqwumanaw (T3) Free [Mass/volume] in Serum or PlasmaT3, free Lab Routine Acquired hypothyroidism Expected: 04/16/2025 (Approximate), Expires: 04/16/2026[facility] Healthcare Work Phone: Comment on above:Expected: 04/16/2025 (Approximate), Expires: 04/16/2026Start: 04-16-2025 End: 65-09-4575Nojtnjg encounter procedureNOREYNOLDS COUNTY GENERAL [facility] ENDOCRINOLOGYComment on above: ArrivedStart: 01-15-2025 End: 07-35-5749Hmtikmbicxv [Units/volume] in Serum or PlasmaTSH Lab Routine Acquired hypothyroidism (CMS/HCC) Expected: 01/15/2025 (Approximate), Expires: 01/15/2026[facility] HealthcareComment on above:Expected: 01/15/2025 (Approximate), Expires: 01/15/2026Start: 01-15-2025 End: 16-79-0257Hzyzsqtat (T4) free [Mass/volume] in Serum or PlasmaT4, free Lab Routine Acquired hypothyroidism (CMS/HCC) Expected: 01/15/2025 (Approximate), Expires:01/15/2026[facility] HealthcareComment on above:Expected: 01/15/2025 (Approximate), Expires: 01/15/2026Start: 01-15-2025 End: 38-54-2254Qfhngpbhxypqpyzi (T3) Free [Mass/volume] in Serum or PlasmaT3, free Lab Routine Acquired hypothyroidism (CMS/HCC) Expected: 01/15/2025 (Approximate), Expires:01/15/2026[facility] Healthcare Work Phone: Comment on above:Expected: 01/15/2025 (Approximate), Expires: 01/15/2026Start: 01-15-2025 End: 52-83-3203Fethsmo encounter procedureNOREYNOLDS COUNTY GENERAL MEMORIAL [facility]ITAL ENDOCRINOLOGYComment on above: ArrivedStart: 10-16-2024 End: 77-06-6040Gsyairflaabgl AntibodyThyroglobulin Antibody Lab Routine Acquired hypothyroidism (CMS/HCC) Expected: 10/16/2024 (Approximate), Expires: 10/16/2025[facility] Work Phone: Comment on above:Expected: 10/16/2024 (Approximate), Expires: 10/16/2025Start: 10-16-2024 End: 69-27-7340Pzxqona peroxidase antibodyThyroid peroxidase antibody Lab Routine Acquired hypothyroidism (CMS/HCC) Expected: 10/16/2024 (Approximate), Expires: 10/16/2025[facility] HealthcareComment on above:Expected: 10/16/2024 (Approximate), Expires: 10/16/2025Start: 10-16-2024 End: 98-74-1175Oaxilaqqtta [Units/volume] in Serum or PlasmaTSH Lab Routine Acquired hypothyroidism (CMS/HCC) Expected: 10/16/2024 (Approximate), Expires: 10/16/2025[facility] HealthcareComment on above:Expected: 10/16/2024 (Approximate), Expires: 10/16/2025Start: 10-16-2024 End: 59-19-1165Wnwjupdfz (T4) free [Mass/volume] in Serum or PlasmaT4, free Lab Routine Acquired hypothyroidism (CMS/HCC) Expected: 10/16/2024 (Approximate), Expires:10/16/2025[facility] HealthcareComment on above:Expected: 10/16/2024 (Approximate), Expires: 10/16/2025Start: 10-16-2024 End: 84-61-9648Opoyoctomkuipjju (T3) Free [Mass/volume] in Serum or PlasmaT3, free Lab Routine Acquired hypothyroidism (CMS/HCC) Expected: 10/16/2024 (Approximate), Expires:10/16/2025[facility] HealthcareComment on above:Expected: 10/16/2024 (Approximate), Expires: 10/16/2025Start: 10-16-2024 End: 92-97-5364IT Thyroid glandUS thyroid Imaging Routine Acquired hypothyroidism (CMS/HCC) Expected: 10/16/2024, Expires: 10/16/2025[facility] HealthcareComment on above:Expected: 10/16/2024, Expires: 10/16/2025Start: 10-16-2024 End: 32-20-6845Iqkkloa encounter xwypwbswj93/12/2025 10:10 AM EST Office Visit [facility] [address] [place] [address] Tonia Morgan MD [address] [place] [address] ArrivedNOREYNOLDS COUNTY GENERAL MEMORIAL HOSPITAL ENDOCRINOLOGYComment on above:Arrived Start: 18-42-3213UjkgukmjqDunlap Memorial Hospitaltart: 99-07-4598Ctcgymkjk A virus Ab [Presence] in Serum by ImmunoassaySelect [facility] Start: 39-66-8686Lgqxjrnni B core antibody measurementDunlap Memorial Hospitaltart: 96-12-2591Vqftnfain B virus surface Ab [Presence] in Serum [facility] Hospitaltart: 60-77-1363WtnsbsdolDunlap Memorial Hospitaltart: 25-89-9626SdvftahhiDunlap Memorial Hospitaltart: 1993 Screening for malignant neoplasm of breastMammogramMCKAY-DEE HOSPITAL CENTER HealthcareStart: 81-20-3919Fxytrorrr for malignant neoplasm of colonNONJ HealthcareComprehensive metabolic 1999 panel - Serum or [facility] Comprehensive metabolic 2000 panel - Serum or PlasmaParkview Health A virus Ab [Presence] in Serum by ImmunoassayParkview Health B core antibody measurementParkview Health B virus surface Ab [Presence] in SerumParkview Health B virus surface Ag [Presence] in Serum or Plasma by Immunoassay [facility] C virus IgG Ab [Presence] in Serum or Plasma by ImmunoassaySelect Medical Specialty Hospital - [facility]-FairhillMG Breast - bilateral ScreeningSelect Medical Specialty Hospital - Cleveland-FairhillPatient EducationWooster Community Hospital Ctr Work Phone: Patient referralWooster Community Hospital Ctr Work Phone: [place] GallbladderMethodist Medical [facility], [facility] by [facility]oven[facility] HealthFirelands [facility] Immunizations Immunization DateImmunizationNotesCare XiljvifuLbfmiglj43-22-9289vtlfkjrnt virus vaccine, unspecified formulationTonia Morgan MD Work Phone: [facility] CenterGrvwbckttu29-20-8373lnqbjmdbe virus vaccine, unspecified formulationSelect [facility]10-18-2023influenza, high dose seasonal, preservative-freePatriciacibenjamin Willis Other [employer] Other 10-658373-27-4862ghgpgwtkl virus vaccine, split virus (incl. purified surface antigen)Doris Willis Other noServergy [employer] Other 10-249566-26-7532hwktwzsgr virus vaccine, unspecified formulationSelect [facility]03-27-2022zoster vaccine recombinant [facility] 03-203065-33-3111rziqzt vaccine, liveMarcia Willis Other [facility]12-26-2021varicella virus vaccineAshtabula County Medical Center [facility] 12-374096-71-6632dqickd vaccine recombinantWilson Memorial Hospital [facility] 12-097033-86-3244xuphdp vaccine, liveMarcia Willis Other [facility]10-23-2021influenza virus vaccine, split virus (incl. purified surface antigen)Doris Willis Other [employer] Other 10093078-29-4769hiiytpzuu virus vaccine, unspecified formulationAs[facility] 10-272320-02-1215YWXY-GrL-9 (COVID-19) mRNA BNT-162b2 vax [facility] 04-545077-68-1443XRYV-TkP-4 (COVID-19) mRNA BNT-162b2 vax [facility] 03-530275-60-6405BJTC-LsB-4 (COVID-19) mRNA BNT-162b2 vax [facility] 10-571052-99-3066cuxatmcyi virus vaccine, split virus (incl. purified surface antigen)Doris Willis Other [employer] Other 10-976540-65-5016ivvcnrksp virus vaccine, unspecified formulationAs[facility]ab[facility] 10-791229-89-0667szqwzepwk virus vaccine, unspecified formulationAs[facility]ab[facility] 10-646892-66-8439cfrpqpdbi virus vaccine, unspecified formulationAs[facility]abula [facility] 10-832542-19-3095ldgxkfgxdw, tetanus toxoids and acellular pertussis vaccine, unspecified formulationDoris Willis Other [facility] Payers DatePayer CategoryPayerPolicy [id number] Health InsuranceL[facility] [employer] [id number] 2021MedicareMEDICARE [id number] [id number]-[id number] 2.16.840.9.17297[id number] 2.16.840.1.678558.3.5[id number] 2.16.840.1.332581.3.57[id number] 2.16.840.1.275815.3.57[id number] 2.16.840.1.638912.3.57[id number] 2.16.840.1.017825.3.57[id number] 2.16.840.1.590372.3.57[id number] 2.16.840.1.914509.3.57[id number] 2.16.840.1.367539.3.57[id number] 2.16.840.1.376086.3.57[id number] 2.16.840.1.006567.3.579.2.1259 Social History DateTypeDetailFacilityStart: 01-11-2022 End: 43-85-0355Ppnnejj smoking statusEx-smoker (finding)[facility] Tobacco smoking statusNeverK[facility] Sex Assigned At [facility] Start: 22-73-6549Wfp Assigned At [facility] Centertart: 09-12-2024 End: 70-32-9761IhkIugbki (finding)[facility]-FairhillTobacc smoking status NHISTobacco smoking consumption [facility] HospitalStart: 75-81-0960Sak assigned at [facility] nashNot on [facility] Goals DatePatient GoalDesired Activity/State Clinical Notes 01-11-2022 to 05-02-2025 Note Date & MftqBhquOuvqukwt83-49-5147 Evaluation note* Diagnosis Onset Date Resolution Status Admit Date Abnormal EKG acuteAugust 2024 10:35amChest painacuteAugust 2024 10:35amSubsternal chest painacuteAugust 2024 10:35am [facility] Work Phone: 1(370) 860-730208-29-2025 Evaluation note* Diagnosis Onset Date Resolution Status Admit Date Abnormal EKG acuteAugust 2024 10:35amChest painacuteAugust 2024 10:35amSeasonal allergic rhinitisacuteAugust 2024 10:35amSubsternal chest painacuteAugust 2024 10:35amHypercholesteremiaacuteOctober 2024 9:56amHypothyroid acuteOctober 2024 9:56amScreening mammogram for breast canceracuteOctober 2024 9:56am [facility] Work Phone: 1(948) 569-501608-13-2025 History of Present illness Narrative* Tonia Morgan [...] levothyroxine 100 mcg daily, she takes it lens 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 documented in this encounterNevada Regional Medical CenterOcdcmgagdo90-49-4379 Telephone encounter Note* Telephone Encounter - Glenn Olguin - 10/31/2024 10:12 AM EST Pt would like US read please and thank you! [facility] Zhrcwrudsi03-88-5832 Miscellaneous Notes* Telephone Encounter - Glenn Olguin - 10/31/2024 10:12 AM EST Pt would like US read please and thank you! documented in this [facility]02-12-2025 History of Present illness Narrative* Tonia Morgan MD - 10/16/2024 10:10 AM EST Anisha Alanis is a 69 y.o. female Dayana Worley MD presents with chief complaint of Thyroid Problem (NEW REF/LAB) HPI: HPI: 10/2024 New patient Sent from her GI due to uncontrolled hypothyroidism, TSH 102 on 09/2024, currently on levothyroxine 100 mcg daily, she takes it lens assorter empty stomach, denies thyroid surgery, deniesablation, no [...] 3 months (around 01/13/2025). documented in this encounterNevada Regional Medical CenterYwspilynvl44-91-0165 Procedure noteMelissa V[place] [id number] EGD/Colonoscopy Procedure Signed Patient: Anisha Alanis MR#: [id number] : 1955 Acct:[id number] Age/Sex: 69 / F Adm Date: 5 Loc: Room: Type: [facility] Attending Dr: Dayana Worley MD Copies [...] was slowly withdrawnwith the findings as below. [place] bowel prep score was good. Findings: Few [...] MD 09/26/24 1302 Signed By: 09/26/24 1325 [facility]01-23-2025 [place] [address] EGD/Colonoscopy Procedure Signed Patient: Anisha Alanis MR#: [id number] : 1955 Acct:[id number] Age/Sex: 69 / F Adm Date: 5 Loc: Room: Type: [facility] Attending Dr: Dayana Worley MD Copies [...] MD 09/26/24 1259 Signed By: 09/26/24 1302 [facility]12-31-2024 Evaluation note* Author [facility] Wor[facility] 3:51qn72-xzww-vkr female referred to the liver clinic for [...] FibroScan and check viral hepatitis serologies Author joya [facility] 2024 10:94xe30-ynzs-ngv female referred to the liver clinic for [...] adenomas, tortuous colon, diverticulosis and internal hemorrhoids. [facility] Work Phone: 1(417) 534-471412-31-2024 Evaluation note* Author Dayana Worley [facility]-FairhillBetijavi 2023 2:42zc59-nwml-uob female referred to the liver clinic for [...] for FibroScan and check viral hepatitis serologies [facility] Work Phone: 1(389) 162-648411-06-2023 Evaluation note* Encounter Date Diagnosis Assessment Notes Treatment Notes Treatment Clinical Notes Jul, Hypothyroidism (ICD-10 - E03.9) zhouwu Other 10-30-2023 Evaluation note* Encounter Date Diagnosis Assessment Notes Treatment Notes Treatment Clinical Notes Jun, Hypothyroidism (ICD-10 - E03.9) zhouwu Other 08-31-2023 Evaluation note* Encounter Date Diagnosis Assessment Notes Treatment Notes Treatment Clinical Notes Apr, Insect bite (nonveno mous) of right elbow, initial encounter (ICD-10 - S50.361A) Prominent reaction to insect bite. No s/s infection. Very hot and red. Try cold compresses and ibuprofen for discomfort. Apr,itten or stung by nonvenomous insect and other nonvenomous arthropods, initial encounter (ICD-10 -W57.XXXA) zhouwu Other 05-02-2023 Evaluation note* Encounter Date Diagnosis Assessment Notes Treatment Notes Treatment Clinical Notes January, Acquired hypothyroidism (ICD-10 - E03.9) zhouwu Other 03-09-2023 Evaluation note* Encounter Date Diagnosis Assessment Notes Treatment Notes Treatment Clinical Notes Nov, Acquired hypothyroidism (ICD-10 - E03.9) Nov,Other decreased white blood cell (WBC) count (ICD-10 - D72.818) zhouwu Other 03-02-2023 Evaluation note* Encounter Date Diagnosis Assessment Notes Treatment Notes Treatment Clinical Notes Nov, Lower abdominal pain (ICD-10 - R 10.30) Prior to referral, etc, will start w labs and imaging. This can help find underlying causes of thisongoing abd pain 02 Mar, 2023Acquired autoimmune hypothyroidism (ICD-10 - E06.3)Dose was adjusted after abnormal labs last fall. Will recheck labs to ensure she is on the right dose. zhouwu Other 05-10-2022 Hospital Discharge instructions Patient Education [...] away. Follow these instructions at home: Take afku-aim-wplvxir and prescription medicines only as told by [...] 08/21/2006 Document Revised: 08/03/2018 Document Reviewed: 08/01/2018 [employer] Patient Education 2020 [employer] Follow Up Care 01/05/2022 08:53:39 With:Markos Cruz DO, FAM, PED Address: [address], [place] [place] [address] [phone] When:3 months Comments:2 month follow - ok to cancel if no issues and labs look good [facility] Evaluation + Plan note Future Appointments Appointment Date:04/05/2022 04:40:00 PM Scheduled Provider:Markos Cruz DO Location:[facility] Appointment Type: Open Diagnostic Tests Pending * TSH With T4fr Reflex 01/11/22 Future Scheduled Tests Laboratory* TSH With T4fr Reflex 09/14/21 * CBC w/ Auto Diff 09/14/21 * Comprehensive Metabolic Panel 09/14/21 * Lipid Panel 09/14/21 [facility] Evaluation noteNo assessment information available [facility] [facility] Work Phone: Evaluation note* Diagnosis Onset Date Resolution Status Gastro-esophageal reflux disease without esophagitis acuteRUQ abdominal painacute [facility] Work Phone: Evaluation note* Diagnosis Onset Date Resolution Status Gastro-esophageal reflux disease without esophagitis acuteRUQ abdominal painacutePoison harriet dermatitisacute [facility] Work Phone: Evaluation note* Diagnosis Acquired hypothyroidism (CMS/HCC)- Primary Unspecified hypothyroidism Vitamin D deficiency 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out serious comorbidity with body mass index (BMI) of 31.0 to 31.9 in adult Weight gain Other symptoms concerning nutrition, metabolism, and development documented in this encounter [facility] Healthcare[facility]* Diagnosis Brooks's disease (CMS/HCC)- Primary Chronic lymphocytic thyroiditis Acquired hypothyroidism (CMS/HCC) Unspecified hypothyroidism Vitamin D deficiency 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out serious comorbidity with body mass index (BMI) of 32.0 to 32.9 in adult documented in this encounter [facility] HealthcareEvaluation note* Diagnosis Acquired hypothyroidism- Primary Unspecified hypothyroidism Vitamin D deficiency Brooks's disease Chronic lymphocytic thyroiditis 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 and body mass index (BMI) of 30.0 to 30.9 in adult documented in this encounter [facility] HealthcareEvaluation note* Diagnosis Onset Date Resolution Status Admit Date Substernal chest pain acuteAugust 2024 10:35am [facility] Work Phone: History general Narrative - Reported* Type Description Date Medical History Tobacco use Medical HistoryAcquired autoimmune hypothyroidismMedical HistoryUrticaria, acute Medical HistoryMigraine syndromeMedical HistoryAcute pharyngitis, unspecified Medical HistoryAcute pain of right shoulderMedical HistoryElevated glucose Medical HistoryDisplaced fracture of proximal phalanx of other finger, initial encounter for closed fractureMedical HistoryDisplaced fracture of proximal phalanx of other finger, initial encounter for open fractureMedical History Displaced fracture of proximal phalanx of unspecified finger, initial encounter for closed fractureMedical HistoryHypothyroidismMedical HistoryTinnitus, bilateralMedical HistoryPruritus due to inflammationMedical HistoryCervical lymphadenopathyMedical HistorySeasonal allergiesMedical HistoryEczemaMedical HistoryParotiditisMedical HistoryGastro-esophageal reflux disease without esophagitisSurgical HistoryC sectionSurgical Tgxysetfubahmsxvhmt7904Awmbqeoj Historyankle surgerySurgical HistoryVAGINAL VAULT PROLAPSE REPAIR, BLADDER SLING- DR. YEAGER02/2020Surgical HistoryLEFT FOOT SURGERYSurgical HistoryRIGHT HAND SURGERY- DR. JESUS12/2020Hospitalization Historysee above zhouwu Other Hospital course Narrative No data available for this section [facility] Reason for referral (narrative)No reason for referral information availableGood [facility]itan [facility] Work Phone: Summary Purpose Family History Relationship Condition Age at Onset Recorded Date/T rebecca father Heart disease Unknown DeceasedUnknownHypertensionUnknownDiabetes mellitusUnknownfamily memberDeceased UnknownNot SpecifiedDeceasedUnknownMalignant neoplasmUnknownHeart diseaseUnknown Relationship Condition Age at Onset Recorded Date/T rebecca father Heart disease Unknown DeceasedUnknownHypertensionUnknownDiabetes mellitusUnknownfamily memberDeceased UnknownmotherDeceasedUnknownMalignant neoplasmUnknownHeart diseaseUnknown Advance Directives Advance Directive Response Recorded Date/ [...] Issues poison harriet on R arm and stomachReason for VisitGastro-esophageal reflux disease without esophagitis RUQ abdominal pain Chief Complaint Stomach Issues poison harriet on R arm and stomach CC Adult Risk Stratification WellnessReason for VisitGastro-esophageal reflux disease without esophagitis RUQ abdominal pain Poison harriet dermatitis Chief Complaint Admit Date poison harriet on R arm and stomach June 18, 2024 10:13am CC Adult Risk Stratification June 2:42pm Wellness June 28, 2024 9 :31am Referred by Dr Vargas Willis: fatty liver Dece banner 2023 2:08pm K59.00 September 11, 2024 10 :06am Reason for Visit Admit Date Poison harriet dermatitis June 18, 2024 10:13am Hepatic steatosis June 28, 2024 9 :31am Hypercholesteremia June 28, 2024 9 :31am Hypothyroid June 28, 2024 9 :31am Medicare annual wellness visit, [facility] June 28, 2024 9:31am Migraine June 28, 2024 9 :31am Constipation September 03, 2024 2:08pm Gastro-esophageal reflux disease without esophagitis September 03, 2024 2:08pm Hepatic steatosis September 03, 2024 2:08pm History of colon polyps September 03, 2 024 2:08pm Chief Complaint Admit Date CC Adult Risk Stratification June 2:42pm Wellness June 28, 2024 9 :31am Referred by Dr Vargas Willis: fatty liver Dece banner 2023 2:08pm K59.00 September 11, 2024 10 :06am fatty liver September 19, 2024 1 1:43am Reason for Visit Admit Date Hepatic steatosis June 28, 2024 9 :31am Hypercholesteremia June 28, 2024 9 :31am Hypothyroid June 28, 2024 9 :31am Medicare annual wellness visit, [facility] June 28, 2024 9:31am Migraine June 28, 2024 9 :31am Constipation September 03, 2024 2:08pm Gastro-esophageal reflux disease without esophagitis September 03, 2024 2:08pm Hepatic steatosis September 03, 2024 2:08pm History of colon polyps September 03, 2 024 2:08pm Chief Complaint Admit Date Wellness June 28, 2024 9 :31am Referred by Dr Vargas Willis: fatty liver Dece banner 2023 2:08pm K59.00 September 11, 2024 10 :06am fatty liver September 19, 2024 1 1:43am gerd/hx of colon polyps September 26 11:16am gerd/hx of colon polyps September 26 1:02pm Chief Complaint Admit Date Referred by Dr Vargas Willis: fatty liver Dece banner 2023 2:08pm K59.00 September 11, 2024 10 [...] by Dr Vargas Willis: fatty liver Dece banner 2023 2:08pm K59.00 September 11, 2024 10 [...] :56am Screening mammogram for breast cancer Oc tob2024 9:56am Additional Source Comments INFORMATION SOURCE (unrecogn ized section and content) DATE CREATED AUTHOR 02/04/2020 [facility] DATE CREATED AUTHOR AUTHOR'S ORGANIZ ATION 04/02/2022 [facility] DATE CREATED AUTHOR AUTHOR'S ORGANIZ ATION 12/25/2022 [facility] DATE CREATED AUTHOR AUTHOR'S ORGANIZ ATION 04/18/2025 [facility] DATE CREATED AUTHOR AUTHOR'S ORGANIZ ATION 05/06/2025 [facility] REASON FOR VISIT (unrecogniz ed section and content) ReasonCommentsThyroid ProblemNEW REF/LABSpecialtyDiagnoses / ProceduresReferred By ContactReferred To ContactEndocrinology Diagnoses Other specified abnormal findings of blood chemistry Procedures [place] OFFICE/OUTPATIENT NEW LOW MDM 30 MINUTES Dayana Worley MD [address] [address] Phone: tel: fax: Tonia Morgan MD [address] [place] [address] Phone: tel: fax: Referral IDStatusReasonStart DateExpiration DateVisits RequestedVisits [id number] DateComments Wpfrten3410/31/2024ReasonCommentsFollow-upThyroid ProblemLABReasonCommentsThyroid ProblemFollow-upLAB Care Teams (unrecognized sec tion and content) [...] Start: September 03, 2024 End: September 03, 2024Imad Asaad , MDAttending ProviderActiveStart: September 03, 2024 End: September 03, 2024 Team Status: Inactive Member Role Status Dates Doris Willis MD Primary Care Provider Active Start: September 11, 2024 End: September 11, 2024Imad Asaad , MDAttending ProviderActiveStart: September 11, 2024 End: September 11, 2024 Team Status: Active Member Role Status Dates Doris Willis MD Primary Care Provider Active Start: September 19, 2024 Imad Asaad , MDAttending Provider, Other ProviderActiveStart: September 19, 2024 Team Status: Inactive Member Role Status Dates Doris Willis MD Primary Care Provider Active Start: September 26, 2024 End: September 26, 2024Imad Asaad , MDAttending ProviderActiveStart: September 26, 2024 End: September 26, 2024 Team Status: Active Member Role Status Dates Doris Willis MD Primary Care Provider Active Start: September 26, 2024 Imad Asaad , MDAttending Provider, Other ProviderActiveStart: September 26, 2024 Team Status: Active Member Role Status Dates Doris Willis MD Primary Care Provide r, Attending Provider Active Start: June 27, 2024 Team Status: Inactive Member Role Status Dates Doris Willis MD Primary Care Provider Active Start: September 19, 2024 End: September 19, 2024Obie Sierra ProviderActiveStart: September 19, 2024 End: September 19, 2024 [...] Doris Willis MD Primary Care Provider Active Diony Gore ProviderActive Team Status: Active Member Role Status Dates [...] Care Provider Active Start: October 08, 2024 Giuliana Hanna ProviderActiveStart: October 08, 2024 Team Status: Inactive Member Role Status Dates Doris Willis MD Primary Care Provide r, Attending Provider Active Start: October 15, 2024 End: October 15, 2024Team MemberRelationshipSpecialtyStart DateEnd Date Doris Willis MD [address] [place] [phone] PCP - GeneralFamnly Medicine09/25/24Team MemberRelationshipSpecialtyStart [place] [address] [place] [phone] PCP - GeneralFamily Medicine09/25/24Team MemberRelationshipSpecialtyStart DateEnd Date Doris Willis MD [facility] [place] [address] PCP - [facility]09/25/24 Team Status: Inactive Member Role Status Dates Doris Willis MD Primary Care Provider Active Start: November 07, 2024 End: November 07, 2024Imad Obie Worley ProviderActiveStart: November 07, 2024 End: November 07, 2024Team MemberRelationshipSpecialtyStart DateEnd Date Doris Willis MD PCP - [facility]09/25/24Team MemberRelationshipSpecialtyStart DateEnd Date Doris Willis MD PCP - [facility]09/25/24 Team Status: Inactive Member Role Status Dates Doris Willis MD Primary Care Provider Active Start: May 02, 2025 End: May 02, 2025Obie Waddell ProviderActiveStart: May 02, 2025 End: May 02, 2025 Team Status: Active Member Role Status Dates Doris Willis MD Primary Care Provider Active Start: May 02, 2025 Obie Waddell ProviderActiveStart: May 02, 2025 Team Status: Active Member Role/Relationship Status Dates Doris Willis MD Primary Care Provider Active Team Status: Inactive Member Role/Relationship Status Dates Doris Willis MD Primary Care Provider Active Start: May 02, 2025 End: May 02, 2025Obie Waddell ProviderActiveStart: May 02, 2025 End: May 02, 2025 Team Status: Active Member Role/Relationship Status Dates Doris Willis MD Primary Care Provider Active Start: May 02, 2025 Doris Willis MDOther ProviderActiveStart: May 02, 2025 Obie Montoya ProviderActiveStart: May 02, 2025 Team Status: Active Member Role/Relationship Status Dates Doris Willis MD Primary Care Provider Active Start: May 06, 2025 Obie Waddell ProviderActiveStart: May 06, 2025 Team Status: Inactive Member Role/Relationship Status Dates Doirs Willis MD Primary Care Provider Active Start: July 03, 2025 End: July 03, 2025Obie Waddell ProviderActiveStart: July 03, 2025 End: July 03, 2025 Goals (unrecognized section and content) Goals [...] BE BASED ON THE PRIMARY CLINICAL RECORDS. [facility] [employer] provides no warranty or guarantee of the accuracy or completeness of information in this document.
--- OUTSIDE RECORDS SUMMARY | 2025-07-09 07:30 | XMS_ITS | Clinical Summary ---
Author Organization [facility] Address [address] [place] [address] Care Team Providers Care Tax Manager Public Name Role Phone Unavailable Primary Care Provider Unavailabl e Social History Tobacco UseTypesPacks/DayYears UsedDateSmoking Tobacco: Never Assessed CommentsUnknownSex and Gender InformationValueDate RecordedSex Assigned at Not on fileLegal SvpHpcfqi90/02/2012 9:18 AM ESTGender IdentityNot on fileSexual OrientationNot on file Plan of Treatment Not on file
--- OUTSIDE RECORDS SUMMARY | 2025-07-09 07:30 | XMS_ITS | Clinical Summary ---
Author Organization [facility] Address [address] [place] [address] Care Team Providers Care Carroting Machine Operator Name Role Phone Doris Adam MD Primary Care Provider [phone] Allergies Active AllergyReactionsCriticalityNoted DateCommentsAmoxicillin-Pot Clavulanate Hives//3139EvpdplvdNxgfk22/03/lavulanic TkvrXulnn58/03/2025Gabapentin Hives10/07/7751Siabx46/11/20243068LaoxxemrmntWphwe85/03/2024PropranololHives 10/07/20248637AezpuctvgliMmnyi39/11/2024 Medications MedicationSigDispense QuantityRefillsLast FilledStart DateEnd DateStatus cetirizine (ZyrTEC) 10 MG tablet 10 mg DailyActive DULoxetine (Cymbalta) [address] capsule Take 30 mg by mouth DailyActive pantoprazole (ProtoNix) 40 MG EC tablet Take 40 mg by mouth in the morning. Take before meals.Active rizatriptan (Maxalt) 10 MG tablet Take 10 mg by mouthActive rosuvastatin (Crestor) 20 MG tablet Take 20 mg by mouth DailyActive aspirin 81 MG EC tablet Take 81 mg by mouth DailyActive biotin 1 MG capsule Take 1 capsule by mouth 1 (one) time each dayActive docusate sodium (Colace) 100 MG capsule Take 100 mg by mouth DailyActive magnesium 200 MG tablet Take 200 mg by mouth DailyActive polyethylene glycol, PEG, 3350 (Miralax) 17 g packet Take 17 g by mouth if neededActive liothyronine (Cytomel) 5 MCG tablet Indications:Acquired hypothyroidismTake 2 tablets (10 mcg) by mouth Daily 180 tablet 5Active levothyroxine (Synthroid, Levoxyl) 100 MCG tablet Indications:Acquired hypothyroidismTake 1 tablet (100 mcg) by mouth in the morning. Take before meals. 90 tablet ctive Encounters DateTypeDepartmentCare IxvaXcgecgwxlvr36/13/2025 10:20 AM EDTOffice Visit [facility] [address] [place] [id number] Tonia Noble MD Acquired hypothyroidism (Primary Dx); Vitamin D deficiency; Brooks's disease ; 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 and body mass index (BMI) of 30.0 to 30.9 in adult04/16/2025amboo flowsheet [facility] [address] [place] [address] Tonia Noble MD from Last 3 Months Family History Medical HistoryRelationNameCommentsDiabetesFatherHeart diseaseFatherHypertension FatherCancerMotherDiabetesMotherHeart diseaseMotherRelationNameStatusComments BrotherDeceasedFatherDeceasedMotherDeceasedSisterDeceased Social History Tobacco UseTypesPacks/DayYears UsedDateSmoking Tobacco: Never Assessed CommentsUnknownSex and Gender InformationValueDate RecordedSex Assigned at Not on fileLegal NzfJzcprp29/15/2023 6:52 PM EDTGender IdentityNot on fileSexual OrientationNot on file Last Filed Vital Signs Vital SignReadingTime TakenCommentsBlood Dqtgsdsp552/9201/15/2025 10:19 AM EDT Meccg888604/16/2025 10:24 AM EDTTemperature--Respiratory Fpld708104/16/2025 10:24 AM EDTOxygen Yvowrtmsxr00%04/16/2025 10:24 AM EDTInhaled Oxygen Concentration-- Mfwybr27.3 kg (166 lb)04/16/2025 10:24 AM JEXYrntrw443.5 cm (5' 2 )04/16/2025 10:24 AM EDTBody Mass Index30.36004/16/2025 10:24 AM EDT Plan of Treatment DateTypeDepartmentCare Team (Latest Contact Info)Zlqaexrwiqb75/11/2026 10:10 AM ESTOffice Visit [facility] [address] [place] [address] Tonia Noble MD [address] [place] [address] Health MaintenanceDue DateLast DoneCommentsCT Pbrdmswidexf1953Colonoscopy 3Colorectal Cancer Ajstygbgb1953FIT-DNA1955FIT1955 FOBT1955 6123Uvtqmpfhigend55/19/4712Puvtozxlt23/19/1993COVID-19 Vaccine ( season), 12/22/2020, 11/29/2020Influenza Vaccine (#1)/10/2023, 07/03/2022, 06/26/2021, Additional history exists Pneumococcal Vaccine: 65+ ZizrzOzksaczmb78/02/2024 Procedures Procedure NamePriorityDate/TimeAssociated QnsxvdkbbNsonzbxhAACFlzxejv75/11/2025 8:43 AM EDT Acquired hypothyroidism T4, MTGVXkqqzze70/11/2025 8:43 AM EDT Acquired hypothyroidism T3, FOLHGcwhilh30/11/2025 8:43 AM EDT Acquired hypothyroidism from Last 3 Months Results * (ABNORMAL) T3, free (04/14/2025 8:43 AM EDT)ComponentValueRef RangeTest Method Analysis TimePerformed AtPathologist SignatureT3, FREE5.1(H)2.0 - 4.4 pg/mL [facility] (Source)Anatomical Location / LateralityCollection Method / VolumeCollection TimeReceived TimeBloodVenous blood specimen / Unknown 04/14/2025 8:43 AM EDT04/14/2025 Narrative [facility] - 04/15/2025 8:35 AM EDT Performed at: - [address] ??[id number] Senior Data Warehouse Architect: Darinel Adkins PhD, Phone: ??[phone] Specimen Comment: A courtesy copy of this report has been sent to [phone] Authorizing ProviderResult TypeResult StatusAhmichelle Noble MDKANSAS VOICE [facility]ENTER BLOOD ORDERABLESFinal ResultPerforming OrganizationAddressCity/State/ZIP CodePhone Number [facility] * (ABNORMAL) TSH (04/14/2025 8:43 AM EDT)ComponentValueRef RangeTest Method Analysis TimePerformed AtPathologist SignatureTSH0.061(L)0.450 - 4.500 uIU/mL [facility]pecimen (Source)Anatomical Location / LateralityCollection Method / VolumeCollection TimeReceived TimeBloodVenous blood specimen / Unknown 04/14/2025 8:43 AM EDT04/14/2025 Narrative [facility] - 04/15/2025 8:35 AM EDT Performed at: - [facility] [address] [facility], [address], [place], [place] ??[id number] Senior Data Warehouse Architect: Alejandro Virk MD, Phone: ??[phone] Specimen Comment: A courtesy copy of this report has been sent to [phone] Authorizing ProviderResult TypeResult StatusAhmabea Noble MDKANSAS [facility] BLOOD ORDERABLESFinal ResultPerforming OrganizationAddressCity/State/ZIP CodePhone Number [facility] * T4, free (04/14/2025 8:43 AM EDT)ComponentValueRef RangeTest MethodAnalysis TimePerformed AtPathologist AnrjqtbleX9Iyzb(Direct)1.500.82 - 1.77 ng/dL [facility]pecimen (Source)Anatomical Location / LateralityCollection Method / VolumeCollection TimeReceived TimeBloodVenous blood specimen / Unknown 04/14/2025 8:43 AM EDT04/14/2025 Narrative [facility] - 04/15/2025 8:35 AM EDT Performed at: [facility] [address], [address], [place], [place] ??[id number] Senior Data Warehouse Architect: Alejandro Virk MD, Phone: ??[phone] Specimen Comment: A courtesy copy of this report has been sent to [phone] Authorizing ProviderResult TypeResult StatusTonia FISHMAN BLOOD ORDERABLESFinal ResultPerforming OrganizationAddressCity/State/ZIP CodePhone Number [facility] from Last 3 Months Insurance * Guarantor: Anisha Ramesh TypeRelation to PatientDate of BirthPhone Billing AddressPersonal/NoocnfRzqv1955 [id number] [address] Care Teams Team MemberRelationshipSpecialtyStart DateEnd Date Doris Adam MD PCP - GeneralFamily Medicine09/25/24
--- NOTE | 2025-07-09 07:41 | MM_ITS ---
Patient Name: POLO ALANIS MR#: [id number] : 1955 Exam Date: 07/09/2025 Ordering Doctor: DR SAM WILLIS M.D. RADIOLOGY REPORT PROCEDURE: MM TOMOSYNTHESIS SCREENING BI COMPARISON: MM TOMOSYNTHESIS SCREENING BI, 07/03/2023. MG MAMM SCREEN DANIELA W CAD, 08/13/2019. MG MAMM DANIELA SCRN W CAD DIG, 08/25/2016. INDICATIONS: Screening Calculator Name NCI Breast Cancer Risk Assessment Tool 5 Year Breast Cancer Risk 1.30% Lifetime Breast Cancer Risk 3.50% Personal Breast Cancer No Personal Ovarian Cancer No Treatments None Family Cancers Father with lung cancer at age ~60. LOCATION: [facility] BREAST COMPOSITION: The breasts are almost entirely fatty. FINDINGS: DIAGNOSTIC CATEGORY 1--NEGATIVE. RIGHT BREAST: No significant suspicious finding. LEFT BREAST: No significant suspicious finding. RECOMMENDATIONS: ROUTINE MAMMOGRAM AND CLINICAL EVALUATION IN 12 MONTHS. Dictated by: Neel Jasso MD on 07/09/2025 at 11:24 Approved by: Neel Jasso MD on 07/09/2025 at 11:53
[2025-07-09 09:09] LABS: Alanine Aminotransferase 25 U/L (14-59); Albumin Globulin Ratio 1.2; Albumin Level 3.6 g/dL (3.4-5.0); Alkaline Phosphatase 60 U/L (46-116); Anion Gap 13.1; Aspartate Amino Transferase 19 U/L (15-37); Blood Urea Nitrogen 12.0 mg/dL (7.0-18.0); Calcium 8.9 mg/dL (8.5-10.1); Carbon Dioxide 29.1 mmol/L (21.0-32.0); Chloride 106 mmol/L (98-107); Cholesterol 135 mg/dL (<=200); Estimated GFR (African America >60 (>=60 mL/min/1.73m^2); Estimated GFR (Non-African Ame >60 (>=60 mL/min/1.73m^2); Globulin 3.0 g/dL; Glucose 98 mg/dL (74-106); HDL Cholesterol 54 mg/dL (40-60); Potassium 4.2 mmol/L (3.5-5.1); Sodium 144 mmol/L (136-145); Thyroid Stimulating Hormone 0.613 uIU/mL (0.358-3.740); Total Protein 6.6 g/dL (6.4-8.2); Triglycerides 91 mg/dL (<=150); VLDL CHOLESTEROL 18.2 mg/dL
== END 2025-07-09 07:27 | disposition home or self-care (01) ==
LOC: MAMMO 07:27
PROVIDERS: PCP Family Medicine; Visit Provider Family Medicine
DX: Z12.31 Encounter for screening mammogram for malignant neoplasm of breast (principal); E78.00 Pure hypercholesterolemia, unspecified; E03.9 Hypothyroidism, unspecified; Z80.1 Family history of malignant neoplasm of trachea, bronchus and lung
CPT/HCPCS: 36415; 77063; 77067; 80053; 80061; 84439; 84443